=== PATIENT | male | born 1955 | race Caucasian/White ===

== ENCOUNTER 2025-07-14 08:54 | Emergency (ER) | payer MEDICARE, SELFPAY ==
--- OUTSIDE RECORDS SUMMARY | 2025-07-13 20:22 | XMS_ITS ---
Author Organization [facility] Address [address] [place] [phone] Care Team Providers Care Paraprofessional Aide Name Role Phone DR. YUKO DAY Primary Care Provider Allergies Allergen (clinical drug ingredient) Drug/Non Drug Allergy documented on EMR Reaction Allergy Type Onset Date Status Pollen pollen extracts (uncoded) Unknown Allergy Active Quinazolinones quinazolinones (uncoded) Unknown Allergy Active ciprofloxacin Ciprofloxacin Unknown Drug Allergy Active levofloxacin levoFLOXacin Unknown Drug Allergy A ctive mefloquine Mefloquine Unknown Drug Allergy Activ e REASON FOR VISIT chart prep Medications Medication SIG (Take, Route, Frequency, Duration) Notes Start Date End Date Status Mirtazapine 15 MG Tablet 1 tablet at bed time Orally Once a day Active Centrum Silver Men 50+ - Tablet 413-18-340-300 mcg Orally once a day Active Probiotic - Capsule 10 billion cell Oral ly once a day Active Levothyroxine Sodium 50 MCG Tablet 1 tablet in the morning on an empty stomach Orally Once A Day Every Other Day Active PreserVision AREDS 2 - Capsule 250-90-40-1 mg Orally once a day Active oxyCODONE HCl 5 MG Tablet 1 tablet Orally 4 times a day; Duration: 30 days As needed 07/10/2025 Active Breztri Aerosphere 160-9-4.8 MCG/ACT Aerosol 2 puffs Inhalation Twice a day Active Famotidine 10 MG Tablet 2 tablets Orally Twice a day Active Diclofenac Sodium 2.5 % Cream ti.i.d. to the right shoulder Externally 3 times a day 07/10/2025 Active Albuterol Sulfate 108 (90 Base) MCG/ACT Aerosol Powder Breath Activated 2 puffs as needed Inhalation every 6 hours Active Methocarbamol 500 MG Tablet 1 tablet Ora lly twice a day Active Gabapentin 100 MG Capsule 1 capsule at b edtime Orally twice a day Active Levothyroxine Sodium 200 MCG Tablet 1 tablet in the morning on an empty stomach Orally Once a day Active Fexofenadine HCl 180 MG Tablet 1 tab Orally Once a day Acti ve Furosemide 20 MG Tablet 1 tablet Orally Once a day Active Silvadene 1 % Cream 1 application Support Specialist ally Once a day Active Simvastatin 20 MG Tablet 1 tablet in the evening Orally Once a day Active Potassium Chloride ER 20 MEQ Tablet Extended Release 1 tablet with food Orally Once a day Active Senna Plus 8.6-50 MG Tablet 1 tablet as needed Orally Twice a day Active Ondansetron 4 MG Tablet Disintegrating 1 tablet on the tongue and allow to dissolve Orally every 8 hours As needed Active Arginaid - Packet 4.5gram Orally 3 times a day with meals Active Ozempic (2 MG/DOSE) 8 MG/3ML Solution Pen-injector as directed Subcutaneous once a day on sunday Active Acetaminophen 500 MG Tablet 1 tablet as needed Orally every 6 hrs Active Sucralfate 1 GM Tablet 1 tablet on an em pty stomach Orally daily Active MiraLax 17 GM/SCOOP Powder as directed Orally daily Active Metoprolol Tartrate 50 MG Tablet 1 tablet with food Orally Twice a day Active Midodrine HCl 2.5 MG Tablet 1 tablet Ora lly 3 times a day Active Aspirin 81 MG Tablet Delayed Release 2 tablet Orally Once a day Active Social History Tobacco Use: Social History Observation Description Date Details (start date - stop date) Current Smoker NA - NA Social History Tobacco Use: Social Info Question Answer Notes Tobacco Control (Standard) Tobacco use: Current smoker How often do you smoke cigarettes? Every day How many cigarettes a day do you smoke? 21-30 Encounters Encounter Location Date Provider Diagnosis [facility] [address] [place] [id number] 07/14/2025 YUKO DAY Plan Of Treatment Next Appt Details Provider Name:Sandrine Gaffney , 07/17/2025 09:45:00 AM, [address] [place] [address], [phone], Provider Name:Sandrine Gaffney , 07/22/2025 06:15:00 AM, [address] [place] [address], [id number], Progress Notes * Yuko LOUISE DDOB:[birth year] (69 yo M)Acc No.[id number]:07/14/2025 Patient: Yuko LO :1955 A ge:69 Y S ex:Male Address[facility] [place] [address] Subjective: * Chief Complaints: * C chadwick prep * Medical History: Wedge compression fracture of T5-T6 vertebra, subsequent encounter for fracture with routine healing Chronic obstructive pulmonary disease, unspecified Constipation, unspecified Erythematous condition, unspecified Disorder of the skin and subcutaneous tissue, unspecified Nausea Hypokalemia Chronic venous hypertension (idiopathic) with ulcer of left lower extremity Other seasonal allergic rhinitis Edema, unspecified Cough, unspecified Unspecified chronic bronchitis Essential (primary) hypertension Hypothyroidism, unspecified Thyrotoxicosis with diffuse goiter without thyrotoxic crisis or storm Type 2 diabetes mellitus without complications Hyperlipidemia Pain, unspecified Gastro-esophageal reflux disease without esophagitis Wedge compression fracture of first lumbar vertebra, subsequent encounter for fracture with routine healing Encounter for prophylactic measures, unspecified * Surgical History: carpal tunnel release cataract extraction colonoscopy colonoscopy colonoscopy colonoscopy tonsillectomy Surgical History verified. * Family History: F ather: diagnosed with Heart Disease. M other: diagnosed with Diabetes. F amily History Verified.. * Social History: T obacco Use: T obacco Control (Standard) T obacco use: C urrent smoker, H ow often do you smoke cigarettes? E very day, H ow many cigarettes a day do you smoke? 2 -30. Social History Verified. * Medications: T akingProbiotic - Capsule 10 billion cell Orally once a day PreserVision AREDS 2 - Capsule 250-90-40-1 mg Orally once a day Levothyroxine Sodium 50 MCG Tablet 1 tablet in the morning on an empty stomach Orally Once A Day Every Other Day Centrum Silver Men 50+ - Tablet 804-92-772-300 mcg Orally once a day Mirtazapine 15 MG Tablet 1 tablet at bedtime Orally Once a day Midodrine HCl 2.5 MG Tablet 1 tablet Orally 3 times a day Metoprolol Tartrate 50 MG Tablet 1 tablet with food Orally Twice a day Aspirin 81 MG Tablet Delayed Release 2 tablet Orally Once a day Arginaid - Packet 4.5gram Orally 3 times a day with mealsAcetaminophen 500 MG Tablet 1 tablet as needed Orally every 6 hrs Ozempic (2 MG/DOSE) 8 MG/3ML Solution Pen-injector as directed Subcutaneous once a day on sundayMiraLax 17 GM/SCOOP Powder as directed Orally daily Sucralfate 1 GM Tablet 1 tablet on an empty stomach Orally daily Simvastatin 20 MG Tablet 1 tablet in the evening Orally Once a day Silvadene 1 % Cream 1 application Externally Once a day Senna Plus 8.6-50 MG Tablet 1 tablet as needed Orally Twice a day Potassium Chloride ER 20 MEQ Tablet Extended Release 1 tablet with food Orally Once a day Ondansetron 4 MG Tablet Disintegrating 1 tablet on the tongue and allow to dissolve Orally every 8 hours As neededMethocarbamol 500 MG Tablet 1 tablet Orally twice a day Levothyroxine Sodium 200 MCG Tablet 1 tablet in the morning on an empty stomach Orally Once a day Gabapentin 100 MG Capsule 1 capsule at bedtime Orally twice a day Furosemide 20 MG Tablet 1 tablet Orally Once a day Fexofenadine HCl 180 MG Tablet 1 tab Orally Once a day Famotidine 10 MG Tablet 2 tablets Orally Twice a day Breztri Aerosphere 160-9-4.8 MCG/ACT Aerosol 2 puffs Inhalation Twice a day Albuterol Sulfate 108 (90 Base) MCG/ACT Aerosol Powder Breath Activated 2 puffs as needed Inhalation every 6 hours Diclofenac Sodium 2.5 % Cream ti.i.d. to the right shoulder Externally 3 times a day oxyCODONE HCl 5 MG Tablet 1 tablet Orally 4 times a day As neededTaking Probiotic - Capsule 10 billion cell Orally once a day Taking PreserVision AREDS 2 - Capsule 250-90-40-1 mg Orally once a day Taking Levothyroxine Sodium 50 MCG Tablet 1 tablet in the morning on an empty stomach Orally Once A Day Every Other Day Taking Centrum Silver Men 50+ - Tablet 923-89-834-300 mcg Orally once a day Taking Mirtazapine 15 MG Tablet 1 tablet at bedtime Orally Once a day Taking Midodrine HCl 2.5 MG Tablet 1 tablet Orally 3 times a day Taking Metoprolol Tartrate 50 MG Tablet 1 tablet with food Orally Twice a day Taking Aspirin 81 MG Tablet Delayed Release 2 tablet Orally Once a day Taking Arginaid - Packet 4.5gram Orally 3 times a day with mealsTaking Acetaminophen 500 MG Tablet 1 tablet as needed Orally every 6 hrs Taking Ozempic (2 MG/DOSE) 8 MG/3ML Solution Pen-injector as directed Subcutaneous once a day on sundayTaking MiraLax 17 GM/SCOOP Powder as directed Orally daily Taking Sucralfate 1 GM Tablet 1 tablet on an empty stomach Orally daily Taking Simvastatin 20 MG Tablet 1 tablet in the evening Orally Once a day Taking Silvadene 1 % Cream 1 application Externally Once a day Taking Senna Plus 8.6-50 MG Tablet 1 tablet as needed Orally Twice a day Taking Potassium Chloride ER 20 MEQ Tablet Extended Release 1 tablet with food Orally Once a day Taking Ondansetron 4 MG Tablet Disintegrating 1 tablet on the tongue and allow to dissolve Orally every 8 hours As neededTaking Methocarbamol 500 MG Tablet 1 tablet Orally twice a day Taking Levothyroxine Sodium 200 MCG Tablet 1 tablet in the morning on an empty stomach Orally Once a day Taking Gabapentin 100 MG Capsule 1 capsule at bedtime Orally twice a day Taking Furosemide 20 MG Tablet 1 tablet Orally Once a day Taking Fexofenadine HCl 180 MG Tablet 1 tab Orally Once a day Taking Famotidine 10 MG Tablet 2 tablets Orally Twice a day Taking Breztri Aerosphere 160-9-4.8 MCG/ACT Aerosol 2 puffs Inhalation Twice a day Taking Albuterol Sulfate 108 (90 Base) MCG/ACT Aerosol Powder Breath Activated 2 puffs as needed Inhalation every 6 hours Taking Diclofenac Sodium 2.5 % Cream ti.i.d. to the right shoulder Externally 3 times a day Taking oxyCODONE HCl 5 MG Tablet 1 tablet Orally 4 times a day As neededDiscontinuedCyclobenzaprine HCl 10 MG Tablet 1 tablet at bedtime as needed Orally 3 times a day Discontinued Cyclobenzaprine HCl 10 MG Tablet 1 tablet at bedtime as needed Orally 3 times a day * Allergies: C iprofloxacinlevoFLOXacinMefloquinepollen extractsquinazolinonesyesAllergies Verified. 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
--- NOTE | ~2025-07-14 | CT_ITS ---
CT CERVICAL SPINE WITHOUT CONTRAST CLINICAL HISTORY: Fall Technique: Axial images thoracic inlet to skull base Sagittal and coronal reformats. No contrast CT images acquired with automatic exposure control for dose reduction DLP: 435 mGy-cm Comparison: None Findings: No acute fracture or listhesis. Vertebral bodies normal height and alignment. Mild degenerative changes. Disc spaces maintained. Prevertebral soft tissues within normal limits. Visualized lung apices: Emphysema. Visualized thyroid: Unremarkable. No enlarged cervical nodes. IMPRESSION: 1. No acute findings. Reviewed, dictated and finalized at location [address]. [address] IMPRESSION: 1. No acute findings.
--- NOTE | ~2025-07-14 | CT_ITS ---
EXAMINATION: CT brain wo con DATE: 07/14/2025 13:10 INDICATION: Fall TECHNIQUE: Computed tomography (CT) of the head was performed without intravenous contrast. Sagittal and coronal reconstructions were performed. The mA was adjusted according to patient size. Iterative reconstruction technique was employed. The dose-length product was 605.33 mGy-cm. COMPARISON: None FINDINGS: Left preseptal periorbital soft tissue swelling. No fracture or post septal inflammatory stranding. No acute intracranial hemorrhage, acute infarction or abnormal extra axial fluid collection. There is mild scattered white matter hypoattenuation consistent with chronic small vessel ischemic disease. Symmetric prominence of the sulci and ventricles consistent with mild age-appropriate diffuse cerebral volume loss. Ventricles are normal and symmetric. No mass/mass effect. Changes of bilateral intraocular lens replacement. The orbits, paranasal sinuses and mastoid air cells are normal. Small amount of debris/cerumen at the right external auditory canal. IMPRESSION: 1. No fracture or acute intracranial process. 2. Age-related changes including mild diffuse volume loss and mild scattered white matter hypoattenuation consistent with chronic small vessel ischemic disease. Reviewed, dictated and finalized at location A. GLUER IMPRESSION: 1. No fracture or acute intracranial process. 2. Age-related changes including mild diffuse volume loss and mild scattered wh ite matter hypoattenuation consistent with chronic small vessel ischemic diseas e.
--- NOTE | ~2025-07-14 | XR_ITS ---
Examination: XR shoulder RT min 2V Clinical History: Fall Comparison: None Technique: 3 views right shoulder Findings/impression: 1. No fracture or dislocation right shoulder. Reviewed, dictated and finalized at location R. 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
--- NOTE | ~2025-07-14 | XR_ITS ---
Examination: XR hip RT 2V w AP pelvis Clinical History: Fall Comparison: None Technique: 2 views right hip with AP pelvis Findings/impression: 1. No fracture or dislocation right hip. 2. No pelvic fracture identified Reviewed, dictated and finalized at location R. LE FEEDER
[2025-07-14 08:58] VITALS: BP 108/59; PULSE 114; RESP 19; TEMP 36.6; O2SAT 98
[2025-07-14 11:48] VITALS: BP 132/70; PULSE 116; RESP 14; O2SAT 98
--- NOTE | 2025-07-14 12:27 | ED_ITS ---
HPI - Fall General Chief Complaint: Fall Stated Complaint: fell out of bed Time Seen by Provider: 07/14/25 12:18 Source: patient and EMS Mode of arrival: EMS Limitations: no limitations History of Present Illness HPI Narrative: 69 years old white male came [facility] ambulance after a fall. Patient is wheelchair-bound, trying to get out of a recliner, fell, no loss of consciousness complaining of left forehead bruises no headache, right shoulder pain, right hip pain. Patient is awake, alert oriented x4 denying other injuries or any new symptoms. Patient is status post spine surgery at [facility] on June 26 of this year. History of diabetes hypertension hyperlipidemia COPD congestive heart failure Gilda Related Data Allergies Allergy/AdvReac Type Severity Reaction Status Date / Time ciprofloxacin AdvReac Mild Confusion Verified 07/14/25 11:54 levofloxacin AdvReac Mild Confusion Verified 07/14/25 11:54 Review of Systems Review of Systems: All systems reviewed & are unremarkable except as noted in HPI and below Exam Narrative: General appearance: Well-developed, well-nourished Skin: Normal color left forehead bruises including left upper eyelid Head: Normocephalic, nontraumatic Eyes: Clear conjunctiva ENT: Oropharynx normal, ears normal, nose normal Neck: Supple, nontender Chest and respiratory: Airway patent, no respiratory distress, no accessory muscle use Heart: Regular rate/rhythm Abdomen: Soft, nontender, no organomegaly, quiet bowel sounds Vascular: Normal peripheral pulses, normal capillary refill. Musculoskeletal: Limited range of motion of the right shoulder, no bruises, positive deformity, no swelling Limited range of motion of the right hip, no bruises or swelling or deformity Neurologic: Alert and oriented ?3, PREHEMMER is normal as tested, no gross motor deficit Course Vital Signs Vital signs: Vital Signs Temperature 36.6 C 07/14/25 08:58 Pulse Rate 114 H 07/14/25 08:58 Respiratory Rate 19 07/14/25 08:58 Blood Pressure 108/59 L 07/14/25 08:58 Pulse Oximetry 98 07/14/25 08:58 Oxygen Delivery Room Air 07/14/25 08:58 Temperature 36.6 C 07/14/25 08:58 Pulse Rate 110 H 07/14/25 13:43 Respiratory Rate 14 07/14/25 13:43 Blood Pressure 117/80 07/14/25 13:43 Pulse Oximetry 96 07/14/25 13:43 Oxygen Delivery Room Air 07/14/25 11:48 [facility] Narrative Medical decision making narrative: PATIENT CAME FROM RETIREMENT TRYING TO GET OUT OF A RECLINER FELL COMPLAINING OF RIGHT SHOULDER, RIGHT HIP PAIN. NO LOSS OF CONSCIOUSNESS VITAL SIGNS SHOWING BLOOD PRESSURE 108/59, HEART RATE 114 OTHERWISE WITHIN NORMAL LIMIT PHYSICAL EXAMINATION SHOWING DIFFUSE AND LIMITED RANGE OF MOTION OF THE RIGHT HIP AND RIGHT SHOULDER HISTORY OF ROTATOR CUFF SYNDROME BILATERALLY DIFFERENTIAL DIAGNOSIS INCLUDE CONTUSION VERSUS FRACTURE CT HEAD WITHOUT CONTRAST SHOWED NO ACUTE ABNORMALITY CT CERVICAL SPINE WITHOUT CONTRAST SHOWED NO ACUTE ABNORMALITY X-RAY OF THE RIGHT SHOULDER SHOWED NO ACUTE OSSEOUS ABNORMALITY X-RAY OF THE RIGHT HIP AND PELVIS SHOWED NO ACUTE ABNORMALITY. DIAGNOSIS CONTUSION STATUS POST FALL DISCHARGE BACK TO RETIREMENT THE PT WAS DISCHARGED TO HOME.THE PT,S CONDITION UPON DISCHARGE WAS FAIR,EDUCATION WAS PROVIDED TO THE PT IN REFERENCE TO THE FINAL IMPRESSION,DISCHARGE STUDY RESULTS,TREATMENT,PROGNOSIS AND NEED FOR FOLLOW UP . Differential Diagnosis Differential Diagnosis: ABOVE Medical Records I have reviewed the following patient records and this information was taken into consideration when formulating the assessment and plan.: previous labs and previous ER visits Lab Data [facility] Lab Attestation statement: I personally reviewed the patient's lab results. Imaging Data My impression: Impressions Head CT 07/14/25 13:11 IMPRESSION: 1. No fracture or acute intracranial process. 2. Age-related changes including mild diffuse volume loss and mild scattered white matter hypoattenuation consistent with chronic small vessel ischemic disease. Cervical Spine CT 07/14/25 13:19 IMPRESSION: 1. No acute findings. X-ray of the right shoulder and right hip with pelvis showed no acute osseous abnormality Radiologist's impression: ITS Impressions Head CT 07/14/25 13:11 IMPRESSION: 1. No fracture or acute intracranial process. 2. Age-related changes including mild diffuse volume loss and mild scattered white matter hypoattenuation consistent with chronic small vessel ischemic disease. Cervical Spine CT 07/14/25 13:19 IMPRESSION: 1. No acute findings. Critical Care Time Critical Care Time Critical Care Time: No Discharge Plan Discharge Clinical Impression: Fall, Shoulder pain, Hip pain Patient Disposition: NH Intermediate/Asst Living Condition: Stable Instructions: Fall Prevention for Older Adults (ED), Shoulder Pain (ED), Hip Pain (ED) Additional Instructions: Return if symptoms are worsening , call your family physician for appointment, take Tylenol as as needed for aches and pain, continue home medications. Patient Language: Korean Follow-up/Referrals: PHYSICIAN NOT ON STAFF,NONSTAFF [Non-Staff]
[2025-07-14] MEDS: MORPHINE SULFATE INJ (*CRX) 10 MG/ML AMP 6 MG IM (13:39)
[2025-07-14] MEDS: ONDANSETRON HCL ODT 4 MG TABLET PO (13:39)
[2025-07-14 13:43] VITALS: BP 117/80; PULSE 110; RESP 14; O2SAT 96
--- OUTSIDE RECORDS SUMMARY | 2025-07-14 13:46 | XMS_ITS | Encounter Summary ---
Author Organization [facility] Address [address] [place] [phone] Phone Care Team Providers Care Truss Maker Name Role Phone Ephraim Ribera MD Primary Care Provider [phone] Reason for Visit * Reason Comments Medication Refill Encounter Details Date Type Department Care Team (Late st Contact Info) Description 01/20/2022 Refill [facility] - Internal [facility] - [place] [address] [place] [id number] Ephraim Ribera MD [address] [place] [address] Medication Refill Social History Tobacco Use Types Packs/Day Years Used Date Smoking Tobacco: Every Day Cigarettes Smokeless Tobacco: Never Alcohol Use Standard Drinks/Week Comments Never 0 (1 standard drink = 0.6 oz pur e alcohol) PHQ-2 Answer Date Recorded Total Score - Questions 1-9 0 07/23 Sexually Active Control Partners Comments Not Currently Sex and Gender Information Value Date Recorded Sex Assigned at Not on file Legal Sex Male 12:16 AM CDT Gender Identity Not on file Sexual Orientation Not on file documented as of this encounter Miscellaneous Notes * Telephone Encounter - Anusha Conner RN - 01/20/2022 7:20 AM CDT Per nursing clinical judgement, provider to review and approve the medication(s) order(s) if appropriate. Requested Prescriptions Pending Prescriptions Disp Refills acetaminophen-codeine (TYLENOL #3) 300-30 MG Tablet [Pharmacy Med Name: ACETAMINOPHEN-COD #3 TABLET] 90 Tablet 0 Sig: TAKE ONE TABLET BY MOUTH EVERY 8 HOURS NEEDED FOR MODERATE OR MORE SEVERE PAIN Not Delegated - Opioid Combinations Protocol Failed - 01/20/2022 12:13 AM Failed - This refill cannot be delegated Passed - Visit with relevant provider in past 12 months or upcoming 90 days Recent Visits Date Type Provider Dept 11/02/21 Office Visit Ephraim Ribera MD [facility] [place] 08/04/21 Office Visit Ephraim Ribera MD [facility] [place] 04/28/21 Office Visit Ephraim Ribera MD [facility] [place] 01/20/21 Office Visit Ephraim Ribera MD [facility] [place] Showing recent visits within past 365 days and meeting all other requirements Future Appointments Date Type Provider Dept 02/02/22 Appointment Ephraim Ribera MD [facility] [place] Showing future appointments within next 90 days and meeting all other requirements documented in this encounter Plan of Treatment Upcoming Encounters Date Type Department Care Team (Late st Contact Info) Description 2025 11:40 AM FINANCIAL REP Office Visit [facility] [place] [address] [place] [address] Ephraim Ribera MD [address] [place] [address] documented as of this encounter Visit Diagnoses Diagnosis Primary generalized (osteo)arthritis Generalized osteoarthrosis, involving multiple sites documented in this encounter Additional Health Concerns Assessment Noted Time PHQ-9 Depression Total Score: 0 08/11/19 21 10:00 AM FINANCIAL REP documented as of this encounter Care Teams Truss Maker Relationship Specialty Start Date End Date Ephraim Ribera MD PCP - General Internal Medicine 9/18/20 documented as of this encounter
--- OUTSIDE RECORDS SUMMARY | 2025-07-14 13:46 | XMS_ITS | Encounter Summary ---
Author Organization [facility] Address [address] [place] [address] Phone Care Team Providers Care Revenue Inspector Name Role Phone Ephraim Ribera MD Primary Care Provider [phone] Reason for Visit * Reason Comments Medication Refill Encounter Details Date Type Department Care Team (Late st Contact Info) Description 11/14/2023 [facility]ill [facility] - [place] [address] [place] [phone] Ephraim Ribera MD [address] [place] [address] Medication Refill Social History Tobacco Use Types Packs/Day Years Used Date Smoking Tobacco: Every Day Cigarettes Passive Smoke Exposure: Current Smokeless Tobacco: Never Alcohol Use Standard Drinks/Week Comments Never 0 (1 standard drink = 0.6 oz pur e alcohol) [facility] Utilities Answer Date Recorded In the past 12 months has [employer], gas, oil, or water [employer] threatened to shut off services in your home? No 10/30/2023 Social Connection and Isolation Panel Answer Date Recorded In a typical week, how many times do you talk on the phone with family, friends, or neighbors? More than three times a week 10/30/2023 How often do you get togethe r with friends or relatives? Once a week 10/30/2023 How often do you attend [facility] or mandaeism services? Never 10/30/2023 Do you belong to any clubs o r organizations such as pentecostal groups, unions, fraternal or athletic groups, or school groups? No 10/30/2023 How often do you attend meet ings of the clubs or organizations you belong to? Never 10/30/2023 Are you , , di vorced, , never , or living with a partner? 10/30/2023 AUDIT-C Answer Date Recorded Q1: How often do you have a drink containing alcohol? Never 10/30/2023 Q2: How many drinks containi ng alcohol do you have on a typical day when you are drinking? Patient does not drink Q3: How often do you have si x or more drinks on one occasion? Never 10/30/2023 Overall Financial Resource Strain (CARDIA) Answe r Date Recorded How hard is it for you to pa y for the very basics like food, housing, medical care, and heating? Not hard at all 10/30/2023 PHQ-2 Answer Date Recorded Total Score - Questions 1-9 0 07/23 [facility] - Occupational Stress Questionnaire Answer Date Recorded Do you feel stress - tense, restless, nervous, or anxious, or unable to sleep at night because your mind is troubled all the time - these days? Not at all 10/30/2023 Exercise Vital Sign Answer Date Recorde d On average, how many days pe r week do you engage in moderate to strenuous exercise (like a brisk walk)? 0 days 10/30/2023 On average, how many minutes do you engage in exercise at this level? 0 min 10/30/2023 Hunger Vital Sign Answer Date Recorded Within the past 12 months, y ou worried that your food would run out before you got the money to buy more. Never true 10/30/19 24 Within the past 12 months, t he food you bought just didn't last and you didn't have money to get more. Never true 10/30/2023 PRAPARE - Transportation Answer Date Re corded In the past 12 months, has l ack of transportation kept you from medical appointments or from getting medications? No 03/2024 In the past 12 months, has l ack of transportation kept you from meetings, work, or from getting things needed for daily living? No 10/30/2023 Housing Stability Vital Sign Answer Stanley e Recorded In the last 12 months, was t here a time when you were not able to pay the mortgage or rent on time? No 10/30/2023 In the last 12 months, how many places have you lived? 1 10/30/2023 In the last 12 months, was t here a time when you did not have a steady place to sleep or slept in a group home (including now)? No 10/30/2023 Education Answer Date Recorded What is the highest level of school you have completed or the highest degree you have received? Professional school degree (e.g., , DDS, DVM, CODEY) 11/18/2022 Sexually Active Control Partners Comments Not Currently Sex and Gender Information Value Date Recorded Sex Assigned at Not on file Legal Sex Male 12:16 AM CDT Gender Identity Not on file Sexual Orientation Not on file documented as of this encounter Miscellaneous Notes * Telephone Encounter - Mandy Shook RN - 11/14/2023 9:53 AM CDT Medication(s) refilled and signed per [facility] Chronic Medication Refill Standing Order for Pediatricand Adult Patients. Requested Prescriptions Pending Prescriptions Disp Refills Potassium Chloride ER (KLORCON) 20 MEQ Tablet Controlled Release [Pharmacy Med Name: POTASSIUM CL ER 20 MEQ TABLET] 450 Tablet 1 Sig: TAKE 1 TABLET BY MOUTH 5 TIMES PER DAY Potassium Supplement Protocol Passed - 11/14/2023 12:23 AM Passed - Normal serum potassium in past 12 months POTASSIUM Date Value Ref Range Status 05/31/2023 3.5 3.5 - 5.1 mmol/L Final Passed - Visit with relevant provider in past 12 months or upcoming 90 days Recent Visits Date Type Provider Dept 11/01/23 Office Visit Ephraim Ribera MD [facility] [place] 08/02/23 Office Visit Ephraim Ribera MD [facility] [place] 04/26/23 Office Visit Ephraim Ribera MD [facility] [place] 11/23/22 Office Visit Ephraim Ribera MD [facility] [place] Showing recent visits within past 365 days and meeting all other requirements Future Appointments Date Type Provider Dept 01/29/24 Appointment Elpidio Alfaro [facility] [address] [place] 01/31/24 Appointment Ephraim Ribera MD [facility] [address] [place] Showing future appointments within next 90 days and meeting all other requirements documented in this encounter Plan of Treatment Upcoming Encounters Date Type Department Care Team (Late st Contact Info) Description 2025 11:40 AM SONAR SUBSYSTEM EQUIPMENT OPERATOR Office Visit [facility] - [facility] - [place] [address] [place] [address] Ephraim Ribera MD [address] [place] [address] documented as of this encounter Visit Diagnoses Not on filedocumented in this encounter Additional Health Concerns Assessment Noted Time PHQ-9 Depression Total Score: 0 08/02/19 10:17 AM SONAR SUBSYSTEM EQUIPMENT OPERATOR documented as of this encounter Care Teams Revenue Inspector Relationship Specialty Start Date End Date Ephraim Ribera MD PCP - General Internal Medicine 04/09/20 documented as of this encounter
--- OUTSIDE RECORDS SUMMARY | 2025-07-14 13:46 | XMS_ITS | Encounter Summary ---
Author Organization [facility] Address [address] [place] [address] Phone Care Team Providers Care Fryer Operator Name Role Phone Ephraim Ribera MD Primary Care Provider [phone] Reason for Visit * Reason Comments Medication Refill Encounter Details Date Type Department Care Team (Late st Contact Info) Description 07/01/2023 Refill [facility] - [place] [address] [place] [phone] Ephraim Ribera MD [address] [place] [address] Medication Refill Social History Tobacco Use Types Packs/Day Years Used Date Smoking Tobacco: Every Day Cigarettes Passive Smoke Exposure: Current Smokeless Tobacco: Never Alcohol Use Standard Drinks/Week Comments Never 0 (1 standard drink = 0.6 oz pur e alcohol) PHQ-2 Answer Date Recorded Total Score - Questions 1-9 0 07/23 Education Answer Date Recorded What is the [...] encounter Miscellaneous Notes * Telephone Encounter - Ephraim Ribera MD - 07/02/2023 4:37 PM REGULATORY AFFAIRS SPEC Dose is changed LATORY AFFAIRS SPEC * Telephone Encounter - Mandy Shook RN - 07/02/2023 3:36 PM CST Medication failed the protocol, provider to review and approve the medication order if appropriate. Requested Prescriptions Pending Prescriptions Disp Refills levothyroxine (SYNTHROID) 300 MCG Tablet [Pharmacy Med Name: LEVOTHYROXINE 300 MCG TABLET] 90 Tablet 1 Sig: TAKE 1 TABLET BY MOUTH EVERY DAY Thyroid Hormones Protocol Failed - 07/01/2023 7:40 AM Failed - Normal TSH in past 12 months TSH Date Value Ref Range Status 05/31/2023 0.030 (L) 0.300 - 5.000 mIU/L Final Passed - Visit with relevant provider in past 12 months or upcoming 90 days Recent Visits Date Type Provider Dept 04/26/23 Office Visit [facility] [place] 11/23/22 Office Visit Ephraim Ribera MD [facility] [place] 08/23/22 Office Visit [facility] [place] Showing recent visits within past 365 days and meeting all other requirements Future Appointments Date Type Provider Dept 08/02/23 Appointment Ephraim Ribera MD [facility] [place] Showing future appointments within next 90 days and meeting all other requirements LATORY AFFAIRS SPEC documented in this encounter Plan of Treatment Upcoming Encounters Date Type Department Care Team (Late st Contact Info) Description 2025 11:40 AM REGULATORY AFFAIRS SPEC Office Visit [facility] - [facility] - [place] [address] [place] [address] Ephraim Ribera MD [address] [place] [address] documented as of this encounter Visit Diagnoses Not on filedocumented in this encounter Additional Health Concerns Assessment Noted Time PHQ-9 Depression Total Score: 0 08/11/19 21 10:00 AM REGULATORY AFFAIRS SPEC documented as of this encounter Care Teams Fryer Operator Relationship Specialty Start Date End Date Ephraim Ribera MD PCP - General Internal Medicine 04/09/20 documented as of this encounter
--- OUTSIDE RECORDS SUMMARY | 2025-07-14 13:46 | XMS_ITS | Encounter Summary ---
Author Organization [facility] Address [address] [place] [address] Phone Care Team Providers Care Applications Support Lead Name Role Phone Ephraim Ribera MD Primary Care Provider [phone] Reason for Visit * Reason Comments Medication Refill Encounter Details Date Type Department Care Team (Late st Contact Info) Description 11/17/2023 Refill [facility] - [place] [address] [place] [phone] Ephraim Ribera MD [address] [place] [address] Medication Refill Social History Tobacco Use Types Packs/Day Years Used Date Smoking Tobacco: Every Day Cigarettes Passive Smoke Exposure: Current Smokeless Tobacco: Never Alcohol Use Standard Drinks/Week Comments Never 0 (1 standard drink = 0.6 oz pur e alcohol) [facility] Utilities Answer Date Recorded In the past 12 months has [employer], gas, oil, or water [employer] threatened to shut off services in your home? No 10/30/2023 Social Connection and Isolation Panel Answer Date Recorded In a typical week, how many times do you talk on the phone with family, friends, or neighbors? More than three times a week 10/30/2023 How often do you get togethe r with friends or relatives? Once a week 10/30/2023 How often do you attend [facility] or [facility] services? Never 10/30/2023 Do you belong to any clubs o r organizations such as caodaism groups, unions, fraternal or athletic groups, or [...] Total Score - Questions 1-9 0 07/23 [facility] - Occupational Stress [...] place to sleep or slept in a [facility] (including now)? No 10/30/2023 Education Answer Date [...] Telephone Encounter - Mandy Shook RN - 11/19/2023 1:25 PM CDT Medication(s) [facility] Chronic Medication Refill Standing Order for Pediatricand Adult Patients. Requested Prescriptions Pending Prescriptions Disp Refills simvastatin (ZOCOR) 20 MG Tablet [Pharmacy Med Name: SIMVASTATIN 20 MG TABLET] 90 Tablet 1 Sig: TAKE 1 TABLET BY MOUTH EVERY DAY AT NIGHT Hmg CoA Reductase Inhibitors Protocol Passed - 11/17/2023 1:24 AM Passed - Visit with relevant provider in past 12 months or upcoming 90 days Recent Visits Date Type Provider Dept 11/01/23 Office Visit Ephraim Ribera MD [facility] [place] 08/02/23 Office Visit Ephraim Ribera MD [facility] [place] 04/26/23 Office Visit Ephraim Ribera MD [facility] [place] 11/23/22 Office Visit Ephraim Ribera MD [facility] [place] Showing recent visits within past 365 days and meeting all other requirements Future Appointments Date Type Provider Dept 01/29/24 Appointment Elpidio Alfaro 01/31/24 Appointment Ephraim Ribera MD [facility] [place] Showing future appointments within next 90 days and meeting all other requirements Passed - Lipid panel in past 12 months LDL Date Value Ref Range Status 05/31/2023 101 <130 mg/dL Final HDL CHOLESTEROL Date Value Ref Range Status 05/31/2023 47 >40 mg/dL Final CHOLESTEROL Date Value Ref Range Status 05/31/2023 170 <200 mg/dL Final TRIGLYCERIDES Date Value Ref Range Status 05/31/2023 108 <150 mg/dL Final VLDL Date Value Ref Range Status 05/31/2023 22 10 - 50 mg/dL Final CHOL/HDL RATIO Date Value Ref Range Status 05/31/2023 3.6 0.0 - 4.4 Final NON-HDL CHOLESTEROL Date Value Ref Range Status 05/31/2023 123 <130 mg/dL Final Passed - CMP in past 12 months SODIUM Date Value Ref Range Status 05/31/2023 142 136 - 145 mmol/L Final POTASSIUM Date Value Ref Range Status 05/31/2023 3.5 3.5 - 5.1 mmol/L Final CHLORIDE Date Value Ref Range Status 05/31/2023 99 98 - 107 mmol/L Final CO2, VENOUS Date Value Ref Range Status 05/31/2023 27 22 - 30 mmol/L Final ANION GAP Date Value Ref Range Status 05/31/2023 19.5 (H) <18.0 mmol/L Final GLUCOSE Date Value Ref Range Status 05/31/2023 108 (H) 70 - 99 mg/dL Final BUN Date Value Ref Range Status 05/31/2023 19 8 - 26 mg/dL Final CREATININE, BLOOD Date Value Ref Range Status 05/31/2023 0.92 0.70 - 1.30 mg/dL Final BUN/CREATININE RATIO Date Value Ref Range Status 05/31/2023 21 (H) 12 - 20 ratio Final TOTAL PROTEIN Date Value Ref Range Status 05/31/2023 7.3 6.3 - 8.2 g/dL Final ALBUMIN Date Value Ref Range Status 05/31/2023 4.1 3.5 - 5.0 g/dL Final A/G RATIO Date Value Ref Range Status 05/31/2023 1.3 1.0 - 2.2 Final CALCIUM Date Value Ref Range Status 05/31/2023 10.2 8.7 - 10.5 mg/dL Final T BILI Date Value Ref Range Status 05/31/2023 0.7 0.2 - 1.2 mg/dL Final SGOT (AST) Date Value Ref Range Status 05/31/2023 18 5 - 34 U/L Final SGPT (ALT) Date Value Ref Range Status 05/31/2023 18 0 - 55 U/L Final ALKALINE PHOSPHATASE Date Value Ref Range Status 05/31/2023 110 40 - 150 U/L Final GFR, EST. NONAFRICAN Date Value Ref Range Status 05/31/2023 >60 >=60 Final GFR, EST. Date Value Ref Range Status 05/31/2023 >60 >=60 Final GFR, ESTIMATED Date Value Ref Range Status 05/31/2023 >60 >=60 Final Comment: Creatinine Clearance is the preferred criteria for selecting drug dose adjustments in renally impaired patients. The GFR is provided as additional pertinent clinical information. GFR is reported in mL/min/1.73 sq m. Calculation based on the Chronic Kidney Disease Epidemiology Collaboration (CKD- EPI) equation refitwithout adjustment for race. IS THE PATIENT REQUIRED TO BE FASTING? Date Value Ref Range Status 05/31/2023 No Final furosemide (LASIX) 80 MG Tablet [Pharmacy Med Name: FUROSEMIDE 80 MG TABLET] 90 Tablet 1 Sig: TAKE 1 TABLET BY MOUTH EVERY DAY Diuretics Protocol Passed - 11/17/2023 1:24 AM Passed - Serum potassium on record in past 12 months POTASSIUM Date Value Ref Range Status 05/31/2023 3.5 3.5 - 5.1 mmol/L Final Passed - Serum sodium on record in past 12 months SODIUM Date Value Ref Range Status 05/31/2023 142 136 - 145 mmol/L Final Passed - Blood pressure on record in past 12 months Clinician-entered: BP Readings from Last 3 Encounters: 11/01/23 100/56 08/02/23 110/58 04/26/23 130/60 Patient-entered: No data recorded Passed - Visit with relevant provider in past 12 months or upcoming 90 days Recent Visits Date Type Provider Dept 11/01/23 Office Visit Ephraim Ribera MD [facility] [place] 08/02/23 Office Visit Ephraim Ribera MD [facility] [place] 04/26/23 Office Visit Ephraim Ribera MD [facility] [place] 11/23/22 Office Visit Ephraim Ribera MD [facility] [place] Showing recent visits within past 365 days and meeting all other requirements Future Appointments Date Type Provider Dept 01/29/24 Appointment LabElpidio [facility] [place] 01/31/24 Appointment Ephraim Ribera MD [facility] [place] Showing future appointments within next 90 days and meeting all other requirements Passed - GFR on record in past 12 months GFR, EST. NONAFRICAN Date Value Ref Range Status 05/31/2023 >60 >=60 Final metoprolol tartrate (LOPRESSOR) 100 MG Tablet [Pharmacy Med Name: METOPROLOL TARTRATE 100 MG TAB] 360 Tablet 1 Sig: TAKE 2 TABLETS BY MOUTH TWICE A DAY Beta-Blockers Protocol Passed - 11/17/2023 1:24 AM Passed - BP on record in the past year Clinician-entered: BP Readings from Last 3 Encounters: 11/01/23 100/56 08/02/23 110/58 04/26/23 130/60 Patient-entered: No data recorded Passed - Visit with relevant provider in past 12 months or upcoming 90 days Recent Visits Date Type Provider Dept 11/01/23 Office Visit Ephraim Ribera MD [facility] [place] 08/02/23 Office Visit Ephraim Ribera MD [facility] [place] 04/26/23 Office Visit Ephraim Ribera MD [facility] [place] 11/23/22 Office Visit Ephraim Ribera MD [facility] [place] Showing recent visits within past 365 days and meeting all other requirements Future Appointments Date Type Provider Dept 01/29/24 Appointment [facility]pidio [facility] [place] 01/31/24 Appointment Ephraim Ribera MD [facility] [place] Showing future appointments within next 90 days and meeting all other requirements documented in this encounter Plan of Treatment Upcoming Encounters Date Type Department Care Team (Late st Contact Info) Description 2025 11:40 AM ACQUISITIONS EDITOR Office Visit [facility] - Primary Care - [place] [address] [place] [address] Ephraim Ribera MD [address] [place] [address] documented as of this encounter Visit Diagnoses Not on filedocumented in this encounter Additional Health Concerns Assessment Noted Time PHQ-9 Depression Total Score: 0 08/02/19 24 10:17 AM ACQUISITIONS EDITOR documented as of this encounter Care Teams Applications Support Lead Relationship Specialty Start Date End Date Ephraim Ribera MD PCP - General Internal Medicine 04/09/20 documented as of this encounter
--- OUTSIDE RECORDS SUMMARY | 2025-07-14 13:46 | XMS_ITS | Encounter Summary ---
Author Organization [facility] Address [address] [place] [address] Care Team Providers Care Metal Sash Setter Name Role Phone Unavailable Primary Care Provider Unavailabl e Encounter Details Date Type Department Care Team (Late st Contact Info) Description 08/21/2023 Lab Requisition [facility] - Derm[facility] Lab [address] [place] [phone] Get Sultana MD [facility] DERMATOLOGY [address] [place] [phone] Neoplasm of uncertain behavior of skin Social History Tobacco Use Types Packs/Day Years Used Date Smoking Tobacco: Never Assessed Sex and Gender Information Value Date Recorded Sex Assigned at Not on file Legal Sex Male 4:01 PM BAGGAGE HANDLING SUPERVISOR Gender Identity Not on file Sexual Orientation Not on file documented as of this encounter Plan of Treatment Not on file documented as of this encounter Procedures Procedure Name Priority Date/Time Associated Diagnosis Comments DERMATOPATHOLOGY Routine 08/21/2023 3:33 AM BAGGAGE HANDLING SUPERVISOR Neoplasm of uncertain behavior of skin documented in this encounter Results * DERMATOPATHOLOGY (08/21/2023 3:33 AM BAGGAGE HANDLING SUPERVISOR) Case Report Dermatopathology Report Case: [id number] Authorizing Provider: Get Sultana MD Collected: 08/21/2023 03:33 AM Ordering Location: [facility] DermPath Lab Received: 08/23/2023 07:04 AM Pathologist: Liv Cevallos MD Specimen: Skin, left inferior malar cheek 4 5:28 PM BAGGAGE HANDLING SUPERVISOR DERMATOPATHOLOGY LABORATORY Final Diagnosis Specimen A. 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 The specimen consists of a shave biopsy measuring 5x5x1 mm. Jar 0. 4 5:28 PM [facility] DERMATOPATHOLOGY LABORATORY Microscopic Description Specimen A. SKIN, left inferior malar cheek: The epidermis is eroded. There are nests of cytologically bland melanocytes within the dermis that mature with depth. 4 5:28 PM [facility] DERMATOPATHOLOGY LABORATORY Disclaimer An external and internal positive and negative controls are appropriate for the histochemical, immunohistochemical and immunofluorescence stain(s) in this case (if any), except where stated explicitly. The performance characteristics of the stain(s) cited in this report were developed and its performance characteristic determined by the Dermatopathology Laboratory at [facility], directed by Dr. Elmo Meraz. These tests need not be, and therefore are not, approved by the [place] Food and Drug Administration. The tests are used for clinical purposes. Billing Codes Specimen Charges Stain Charges 21011 1 4 5:28 PM [facility] DERMATOPATHOLOGY LABORATORY Embedded Images 4 5:28 PM [facility] DERMATOPATHOLOGY LABORATORY Pathology/Cytolo gy TISSUE SPECIMEN FROM SKIN / Unknown 08/21/2023 3:33 AM BAGGAGE HANDLING SUPERVISOR 08/23/2023 7:04 AM BAGGAGE HANDLING SUPERVISOR Get Sultana MD LAB - PATHOLOGY/CYTOLOGY RADHA DRAPER Final Result DERMATOPATHOLOGY LABORATORY [facility] - Department of Dermatology [address], [address] [phone] documented in this encounter Visit Diagnoses Diagnosis Neoplasm of uncertain behavior of skin documented in this encounter
--- OUTSIDE RECORDS SUMMARY | 2025-07-14 13:46 | XMS_ITS | Clinical Summary ---
Author Organization [facility] Address [address] [place] [address] Phone Care Team Providers Care Bag Press Operator Name Role Phone Ephraim Ribera MD Primary Care Provider Allergies Active Allergy Reactions Criticality Noted Date Comments Ciprofloxacin Other (see Comments) 04/28/2014 AGITATION Other-Environmental Allergen (Not Found In Search) Unknown 08/09/2015 Medications aspirin EC 81 MG Tablet Delayed Response Take by mouth. Activ e guaiFENesin 200 MG Tablet Take by mouth. A ctive clotrimazole (MYCELEX) 10 MG Fidencio Take 1 Fidencio by mouth 5 times daily. 30 Fidencio 2 04/28/20 21 Active sucralfate (CARAFATE) 1 GM Tablet TAKE 1 TABLET BY MOUTH THREE TIMES A DAY 90 Tablet 5 04/13/20 22 Active famotidine (PEPCID) 20 MG Tablet TAKE 1 TABLET BY MOUTH TWICE A DAY 180 Tablet 1 07/20/20 22 Active metOLazone (ZAROXOLYN) 2.5 MG Tablet TAKE 1 TABLET BY MOUTH on Sun, 36 Tablet 9 05/22/20 24 Active ondansetron (ZOFRAN) 4 MG Tablet TAKE 1 TABLET BY MOUTH EVERY 8 HOURS NEEDED FOR NAUSEA FIRST LINE 30 Tablet 12/02/19 25 Active Budeson-Glycop yrrol-Formoter ol (Breztri Aerosphere) 160-9-4.8 MCG/ACT Aerosol TAKE 2 PUFFS BY MOUTH TWICE A DAY 54 g 3 12/03/19 25 Active levothyroxine (SYNTHROID) 50 MCG Tablet TAKE 1 TABLET BY MOUTH DAILY. WITH 200MCG TAB TO MAKE 250MCG/DAY 90 Tablet 3 01/06/20 25 Active Ozempic, 2 MG/DOSE, 8 MG/3ML Solution Pen-injector IJNECT 2 MG BY SUBCUTANEOUS ROUTE ONCE A WEEK. 3 mL 5 01/21/20 25 Active Potassium Chloride ER (KLORCON) 20 MEQ Tablet Controlled Release Take 1 Tablet by mouth 5 times daily. 450 Tablet 1 01/31/20 25 Active amlodipine besy-benazepri l hcl (LOTREL) 10-40 MG Capsule TAKE 1 CAPSULE BY MOUTH EVERY DAY 90 Capsule 1 03/18/20 25 Active levothyroxine (SYNTHROID) 200 MCG Tablet TAKE 1 TABLET BY MOUTH EVERY DAY 90 Tablet 3 04/22/20 25 Active furosemide (LASIX) 80 MG Tablet TAKE 1 TABLET BY MOUTH EVERY DAY 90 Tablet 1 04/22/20 25 Active metoprolol tartrate (LOPRESSOR) 100 MG Tablet TAKE 2 TABLETS BY MOUTH TWICE A DAY 360 Tablet 1 04/22/20 25 Active predniSONE (DELTASONE) 10 MG Tablet TAKE 3 TABLETS BY MOUTH DAILY 15 Tablet 04/30/20 25 Active methocarbamol (ROBAXIN) 500 MG Tablet Take 1,000 mg by mouth 2 times daily. Active acetaminophen- codeine (TYLENOL #3) 300-30 MG TabletIndicati ons:Primary generalized (osteo)arthrit is TAKE 1 TABLET BY MOUTH EVERY 8 HOURS NEEDED FOR MODERATE OR MORE SEVERE PAIN 90 Tablet 06/10/20 25 Active albuterol 108 (90 Base) MCG/ACT Aerosol Solution TAKE 2 PUFFS BY MOUTH EVERY 4 HOURS NEEDED FOR WHEEZE 18 g 2 06/22/20 25 Active simvastatin (ZOCOR) 20 MG Tablet TAKE 1 TABLET BY MOUTH EVERY DAY AT NIGHT 90 Tablet 06/25/20 25 Active albuterol 108 (90 Base) MCG/ACT Aerosol Solution INHALE 2 PUFFS BY MOUTH EVERY 4 HOURS NEEDED FOR WHEEZING 18 g 5 01/06/20 25 025 Discontinued simvastatin (ZOCOR) 20 MG Tablet Take 1 Tablet by mouth nightly. 90 Tablet 03/30/20 25 025 Discontinued Active Problems Problem Noted Date Diagnosed Date Type 2 diabetes mellitus wit hout complication, without long-term current use of insulin 08/02/2023 Morbid obesity with BMI of 40.0-44.9, adult 05/0 10/2022 Bilateral lower extremity edema 02/02/2022 Panlobular emphysema 07/22/2020 GERD without esophagitis 11/05/2016 Primary generalized (osteo)arthritis 02/14/2013 Other specified hypothyroidism 02/14/2013 Essential (primary) hypertension 01/13/2011 Other hyperlipidemia 01/13/2011 Encounters Date Type Department Care Team Description 06/27[facility] [address] [place] [phone] Ephraim Ribera MD Medication Refill 06/25/20[facility] [address] [place] [address] Ephraim Ribera MD Medication Refill 06/21/2025 [place] [facility] [address] [place] [address] Ephraim Ribera MD Medication Refill 06/19/2025 Telephone [facility] [address] [place] [phone] Ephraim Ribera MD Medication Management 06/15/2025 [facility]phone [facility] [place] [address] [place] [address] Ephraim Ribera MD Medication Refill 06/13/2025 [place]ill [facility] [place] [address] [place] [address] Ephraim Ribera MD Medication Refill 06/09/2025 [facility] [place] [address] [place] [address] Ephraim Ribera MD Medication Refill 05/29/2025 [facility] [address] [place] [phone] Ephraim Ribera MD Advice Only; Need Order; Leg Pain 05/29/2025 Nurse Triage [facility] [address] [place] [phone] Ephraim Ribera MD Knee Injury 05/20/2025 [facility] [place] [address] [place] [address] Ephraim Ribera MD Medication Refill 05/18/2025 [facility]ill [facility] [place] [address] [place] [address] Ephraim Ribera MD Medication Refill 05/15/2025 [facility] [place] [address] [place] [address] Ephraim Ribera MD Medication Refill 05/11/2025 [facility] [place] [address] [place] [address] Ephraim Ribera MD Medication Refill 04/30/2025 [facility] [place] [address] [place] [address] Ephraim Ribera MD Medication Refill 04/22/2025 [facility] [place] [address] [place] [address] Ephraim Ribera MD Medication Refill 04/22/2025 [facility] [address] [place] [address] Misty Ball, [facility] Medication Refill from Last 3 Months Immunizations Immunization Administration Dates Next Due COVID-19, MRNA, LNP-S, BIVAL ENT , PFIZER, 30 MCG/0.3 ML (12+ Y/O) 03/31/2022 Covid-19 Vaccine, Vector-nr, [id number], Pf, 0.5 Ml ([employer]) 09/26/2020 Covid-19, Mrna, Lnp-s, Pf, 3 0 Mcg/0.3 Ml Dose (Pfizer) 03/28/2025,10/26/2021,05/13/2021 Covid-19, Mrna, Lnp-s, Pf, 3 0 Mcg/0.3 Ml Dose, Rusty-sucrose (Pfizer black top) 04/10/2023,10/26/2021 Covid-19, Mrna, Lnp-s, Pf, Rusty-sucrose, 30 Mcg/0.3 Ml (Pfizer) 04/07/2024 Influenza Vaccine 04/25/2019 Influenza Vaccine greater than 3 yrs 03/28/2025, 04/15/2020 Influenza, High-dose, Quadrivalent 03/31/2022 Influenza, Quadrivalent, Adjuvanted 04/10/2023,0 04/05/2021,04/15/2020 Influenza, Seasonal, Injecta ble, Undefined 05/01/2013 Influenza, high-dose, trivalent, PF 04/07/2024 Pneumococcal Vaccine - 13 Valent 019,04/25/2018,04/25/2018,2013 Pneumococcal Vaccine Adult - 23 Valent 10/14/2019 RSV, Recombinant, Protein Friend bunit Rsvpref, Adjuvant Recon (Arexvy) 04/19/2023 TDAP Vaccine 04/05/2021 Zoster Vaccine Recombinant 07/13/2020,04/15/2020 ,04/25/2018 Zoster Vaccine, live 04/15/2020 Family History * Patient is adopted Medical History Relation Name Comments No Known Problems Sister Relation Name Status Comments Father Mother Sister Alive Social History Tobacco Use Types Packs/Day Years Used Date Smoking Tobacco: Every Day Cigarettes Passive Smoke Exposure: Current Smokeless Tobacco: Never Tobacco Cessation:Ready to Q uit: No; Counseling Given: Yes Alcohol Use Standard Drinks/Week Comments Never 0 (1 standard drink = 0.6 oz pur e alcohol) [facility] Utilities Answer Date Recorded In the past 12 months has [employer], [employer], or [employer] threatened to shut off services in your home? No 08/26/2024 Social Connection and Isolation Panel Answer Date Recorded In a typical week, how many times do you talk on the phone with family, friends, or neighbors? More than three times a week 08/26/2024 How often do you get togethe r with friends or relatives? Once a week 08/26/2024 How often do you attend chur ch or jainism services? Never 08/26/2024 Do you belong to any clubs o r organizations such as advent groups, unions, fraternal or athletic groups, or school groups? No 08/26/2024 How often do you attend meet ings of the clubs or organizations you belong to? Never 08/26/2024 Are you , , di vorced, , never , or living with a partner? 08/26/2024 AUDIT-C Answer Date Recorded Q1: How often do you have a drink containing alcohol? Never 08/26/2024 Q2: How many drinks containi ng alcohol do you have on a typical day when you are drinking? Patient does not drink Q3: How often do you have si x or more drinks on one occasion? Never 08/26/2024 Overall Financial Resource Strain (CARDIA) Answe r Date Recorded How hard is it for you to pa y for the very basics like food, housing, medical care, and heating? Not hard at all 08/26/2024 PHQ-2 Answer Date Recorded Total Score - Questions 1-9 0 05/0 12/2024 [facility] - Occupational Stress Questionnaire Answer Date Recorded Do you feel stress - tense, restless, nervous, or anxious, or unable to sleep at night because your mind is troubled all the time - these days? To some extent 08/26/2024 Exercise Vital Sign Answer Date Recorde d On average, how many days pe r week do you engage in moderate to strenuous exercise (like a brisk walk)? 1 day 08/26/2024 On average, how many minutes do you engage in exercise at this level? 60 min 08/26/2024 Hunger Vital Sign Answer Date Recorded Within the past 12 months, y ou worried that your food would run out before you got the money to buy more. Never true 08/26/19 25 Within the past 12 months, t he food you bought just didn't last and you didn't have money to get more. Never true 08/26/2024 PRAPARE - Transportation Answer Date Re corded In the past 12 months, has l ack of transportation kept you from medical appointments or from getting medications? No 10/2024 In the past 12 months, has l ack of transportation kept you from meetings, work, or from getting things needed for daily living? No 08/26/2024 Housing Stability Vital Sign Answer Stanley e [...] place to sleep or slept in a [place] facility (including now)? No 10/30/2023 Housing Stability Vital Sign Answer Stanley e Recorded In the last 12 months, was t here a time when you were not able to pay the mortgage or rent on time? No 08/26/2024 In the past 12 months, how m any times have you moved where you were living? 0 08/26/2024 At any time in the past 12 m [place] [place], were you homeless or living in a [place] facility (including now)? No 08/26/2024 Education Answer Date Recorded What is the highest level of school you have completed or the highest degree you have received? Professional school degree (e.g., MD, DDS, DVM, CODEY) 11/18/2022 Sexually Active Control Partners Comments Not Currently Sex and Gender Information Value Date Recorded Sex Assigned at Not on file Legal Sex Male 12:16 AM CDT Gender Identity Not on file Sexual Orientation Not on file Last Filed Vital Signs Vital Sign Reading Time Taken Comments Blood Pressure 124/58 03/03/2025 1:26 PM CDT Pulse 80 03/03/2025 1:26 PM CDT Temperature 36.3 C (97.4 F) 03/03/2025 1:26 PM CDT Respiratory Rate 12 08/28/2024 1:49 PM STAFF RADIOLOGIST Oxygen Saturation 95% 03/03/2025 1:26 PM CDT Inhaled Oxygen Concentration - - Weight 94.8 kg (209 lb) 03/03/2025 1:26 PM CDT Height 175.3 cm (5' 9) 03/03/2025 1:26 PM CDT Body Mass Index 30.86 03/03/2025 1:26 PM CDT Plan of Treatment Upcoming Encounters Date Type Department Care Team (Late st Contact Info) Description 2025 11:40 AM STAFF RADIOLOGIST Office Visit [facility] [place] [address] [place] [phone] Ephraim Ribera MD [address] [place] [address] Health Maintenance Due Date Last Done Comments Hepatitis C Virus (HCV) Screening 1955 Cologuard 1998 Immunochemical Fecal Occult Blood 1998 Medicare Initial AWV [id number] 07/23/2021 Diabetes: Eye Exam 03/18/2025 03/18/2024 SARS-COV-2 Immunization ( season) 2025 03/28/2025, 03/23/2025, 04/07/2024, Additional history exists Diabetes: Nephropathy Screening 11/18/2025 11/18/2024, 01/29/2024, 05/31/2023, Additional history exists Diabetes: Hemoglobin A1c 12/15/202506/17/2 025, 04/03/2025, 11/18/2024, Additional history exists Diabetes: Foot Exam 03/03/2026 03/03/2025, Td Immunization Every 10 Years (Adults With 1 Tdap) 04/05/2031 04/05/2021 Colonoscopy 04/02/2035 04/02/2025, 03/23, 02/21/2024, Additional history exists Colorectal Cancer Screening 04/02/2035 Pneumococcal Immunization (50+ years) Completed 10/14/2019, 04/24/2019, 04/25/2018, Additional history exists Pneumococcal Immunization Combined Discontinued 10/14/2019, 04/24/2019, 04/25/2018, Additional history exists Zoster Immunization Completed 07/13/2020, 04/15/2020, 04/15/2020, Additional history exists AAA Screening Ultrasound Completed 10/28/2020 DTaP/Tdap/Td Immunization Discontinued 04/05/2021 Respiratory Syncytial Virus (RSV) Immunization (Adult) Completed 04/19/2023 Influenza Immunization Completed , 03/23/2025, 04/07/2024, Additional history exists PSA Discussion Discontinued 04/03/2025, 10/22, 05/31/2023, Additional history exists Hepatitis B Immunization Aged Out No longer eligible based on patient's age to complete this topic Human Papillomavirus (HPV) Immunization (No Doses Required) Completed Meningococcal Immunization (ACWY) Aged Out No longer eligible based on patient's age to complete this topic Rotavirus Immunization Aged Out No lo nger eligible based on patient's age to complete this topic Procedures Procedure Name Priority Date/Time Associated Diagnosis Comments EXTERNAL ORTHOPEDIC SURGERY REFERRAL Routine 06/15/2025 12:00 AM STAFF RADIOLOGIST WOUND CONSULT 04/28/2025 12:00 AM CDT HEMOGLOBIN A1C W/ ESTIMATED GLUCOSE Routine 04/03/2025 12:15 PM CDT Type 2 diabetes mellitus without complication, without long-term current use of insulin PSA DIAGNOSTIC,TOTAL Routine 04/03/2025 12:15 PM CDT Elevated PSA HM COLONOSCOPY 04/02/2025 12:00 AM CDT CMP (COMPREHENSIVE METABOLIC PANEL) Routine 11/18/2024 9:28 AM CDT Type 2 diabetes mellitus without complication, without long-term current use of insulin Essential (primary) hypertension Other hyperlipidemia HM DILATED EYE EXAM 03/18/2024 1 2:00 AM CDT US AORTA LY SCALE ONLY Routine 10/28/2020 Encounter for abdominal aortic aneurysm (AAA) screening from Last 3 Months or Most Recently Relevant to Health Maintenance Results * EXTERNAL ORTHOPEDIC SURGERY REFERRAL (06/15/2025 12:00 AM STAFF RADIOLOGIST) 06/15/2025 us Ephraim Ribera MD OUTPT REFERRALS EXT/INT Fin al Result SCAN * WOUND CONSULT (04/28/2025 12:00 AM CDT) 04/28/2025 us Provider Scan GENERIC SCAN ORDERS CONSULT Diamante l Result Performing Organization Address City/[facility]/ZIP Co de Phone Number SCAN * HEMOGLOBIN A1C W/ ESTIMATED GLUCOSE (04/03/2025 12:15 PM CDT) Pathologist [facility] HGB-A1C 5.3 4.0 - 6.0 % 04/03/2025 3:42 PM CDT [facility] Est Average Glucose 105.4 mg/dL 04/03/2025 3:42 PM CDT [facility] Blood Venipuncture / Unknown 04/03/2025 12:15 PM CDT 04/03/2025 12:20 PM CDT Narrative [facility] - 04/03/2025 3:42 PM CDT HEMOGLOBIN A1C: DIABETIC PATIENTS: WELL-CONTROLLED: 6.2 - 7.0 INTERMEDIATE WELL-CONTROLLED: 7.0 - 9.0 POORLY-CONTROLLED: >9.0 Specimens containing greater than 5% of Hemoglobin F may result in lower than expected % HbA1C results. Ephraim Ribera MD CHEMISTRY ORDERABLES Final Result Performing Organization Address [facility]/[place]UST de Phone Number [facility] [address] [place] [address] * PSA DIAGNOSTIC,TOTAL (04/03/2025 12:15 PM CDT) PSA, TOTAL (PROSTATIC SPECIFIC ANTIGEN) 2.46 <4.00 ng/mL 04/03/2025 4:06 PM CDT [facility] Blood Venipuncture / Unknown 04/03/2025 12:15 PM CDT 04/03/2025 12:20 PM CDT Narrative [facility] - 04/03/2025 4:06 PM CDT PSA NOTE: The PSA value should be used in conjunction with information available from clinical evaluation and other diagnostic procedures. The ALINITY Total PSA assay is a Chemiluminescent Microparticle Immunoassay (CMIA) for the quantitative determination of total PSA (both free PSA and PSA complexed to [id number]) in human serum. Total PSA values obtained with different assay methods, including Velez PSA assays, cannot be used interchangeably. us Ephraim Ribera MD CHEMISTRY ORDERABLES Final Result Performing Organization Address City/[facility] [[email or web address]] Co de Phone Number [facility] [place] [address] * COLONOSCOPY (04/02/2025 12:00 AM CDT) 04/02/2025 us Ephraim Ribera MD PROCEDURE/MINOR SURGICAL OR DERABLES Final Result Performing Organization Address [facility] [[email or web address]] Co de Phone Number SCAN * (ABNORMAL) CMP (COMPREHENSIVE METABOLIC PANEL) (11/18/2024 9:28 AM CDT) SODIUM 141 136 - 145 mmol/L 11/18/2024 5:36 PM CDT [facility] POTASSIUM 3.8 3.5 - 5.1 mmol/L 11/18/2024 5:36 PM CDT [facility] CHLORIDE 100 98 - 107 mmol/L 11/18/2024 5:36 PM CDT [facility] CO2, VENOUS 30 22 - 30 mmol/L 11/18/2024 5:36 PM CDT [facility] ANION GAP 14.8 <18.0 mmol/L 11/18/2024 5:36 PM CDT [facility] GLUCOSE 102(H) 70 - 99 mg/dL 11/18/2024 5:36 PM CDT [facility] BUN 20 8 - 26 mg/dL 11/18/2024 5:36 PM CDT [facility] CREATININE, BLOOD 1.04 0.70 - 1.30 mg/dL 11/18/2024 5:36 PM CDT [facility] BUN/CREATININE RATIO 19 12 - 20 ratio 11/18/2024 5:36 PM CDT [facility] TOTAL PROTEIN 7.0 6.0 - 8.0 g/dL 11/18/2024 5:36 PM CDT [facility] ALBUMIN 3.7 3.5 - 5.0 g/dL 11/18/2024 5:36 PM CDT [facility] A/G RATIO 1.1 1.0 - 2.2 11/18/2024 5:36 PM CDT [facility] CALCIUM 9.6 8.7 - 10.5 mg/dL 11/18/2024 5:36 PM CDT [facility] T BILI 0.6 0.2 - 1.2 mg/dL 11/18/2024 5:36 PM CDT [facility] SGOT (AST) 28 <43 U/L 11/18/2024 5:36 PM CDT [facility] SGPT (ALT) 19 <56 U/L 11/18/2024 5:36 PM CDT [facility] ALKALINE PHOSPHATASE 105 40 - 150 U/L 11/18/2024 5:36 PM CDT [facility] IS THE PATIENT REQUIRED TO BE FASTING? No 11/18/2024 5:36 PM CDT [facility] GFR, ESTIMATED >60 >=60 11/18/2024 5:36 PM CDT [facility] Comment: Creatinine Clearance is the preferred criteria for selecting drug dose adjustments in renally impaired patients. The GFR is provided as additional pertinent clinical information. GFR is reported in mL/min/1.73 sq m. Calculation based on the Chronic Kidney Disease Epidemiology Collaboration (CKD- EPI) equation refit without adjustment for race. GFR, EST. >60 >=60 025 5:36 PM CDT [facility] GFR, EST. NONAFRICAN >60 >=60 11/18/2024 5:36 PM CDT [facility] Blood Venipuncture / Unknown 11/18/2024 9:28 AM CDT 11/18/2024 9:28 AM CDT us Ephraim Ribera MD CHEMISTRY ORDERABLES Final Result [facility] [address] [place] [address] * DILATED EYE EXAM (03/18/2024 12:00 AM CDT) 03/18/2024 us Provider Scan PROCEDURE/MINOR SURGICAL ORDERAB LES Final Result SCAN * US AORTA LY SCALE ONLY (10/28/2020) Anatomical Region Laterality Modality vascular N/A Other us Ephraim Ribera MD IMG US ORDERABLES Final Res ult from Last 3 Months or Most Recently Relevant to Health Maintenance Insurance MEDICARE C [employer] Care Teams Bag Press Operator Relationship Specialty Start Date End Date Ephraim Ribera MD PCP - General Internal Medicine 04/09/20
--- OUTSIDE RECORDS SUMMARY | 2025-07-14 13:46 | XMS_ITS | Encounter Summary ---
Author Organization [facility] Address [address] [place] [address] Phone Care Team Providers Care Layer Up Name Role Phone Ephraim Ribera MD Primary Care Provider [phone] Reason for Visit * Reason Comments Medication Refill Encounter Details Date Type Department Care Team (Late Contact Info) Description 05/11/2021 [facility] [place] [address] [place] [phone] Ephraim Ribera MD [address] [place] [address] Medication Refill Social History Tobacco Use Types Packs/Day Years Used Date Smoking Tobacco: Every Day Cigarettes Smokeless Tobacco: Never Alcohol Use Standard Drinks/Week Comments Never 0 (1 standard drink = 0.6 oz pur e alcohol) PHQ-2 Answer Date Recorded Total Score - Questions 1-9 0 07/24 Sexually Active Control Partners Comments Not Currently Sex and Gender Information Value Date Recorded Sex Assigned at Not on file Legal Sex Male 12:16 AM CDT Gender Identity Not on file Sexual Orientation Not on file COVID-19 Exposure Response Date Recorded In the last month, have you been in contact with someone who was confirmed or suspected to have Coronavirus / COVID-19? No / Unsure 04/28/2021 12:53 PM CDT documented as of this encounter Plan of Treatment Upcoming Encounters Date Type Department Care Team (Late st Contact Info) Description 2025 11:40 AM WOOD CRAFTSMAN Office Visit [facility] - [place] [address] [place] [address] Ephraim Ribera MD [address] [place] [address] documented as of this encounter Visit Diagnoses Not on filedocumented in this encounter Additional Health Concerns Assessment Noted Time PHQ-9 Depression Total Score: 0 08/11/19 21 10:00 AM WOOD CRAFTSMAN documented as of this encounter Care Teams Layer Up Relationship Specialty Start Date End Date Ephraim Ribera MD PCP - General Internal Medicine 04/09/20 documented as of this encounter
--- OUTSIDE RECORDS SUMMARY | 2025-07-14 13:46 | XMS_ITS | Clinical Summary ---
Author Organization [facility] Address [address] [place] [address] Care Team Providers Care Attending Urologist Name Role Phone Unavailable Primary Care Provider Unavailabl e Source Comments [facility],non-owned Affiliates and Associated Physician Practices is amultiple site organization consisting of ambulatory clinics and hospital sitesin [place], [place], [place] and [place]. This disclosure is being madepursuant to the Care Everywhere program and may not contain all information available regarding this patient. Last updated 18.[facility] Social History Tobacco Use Types Packs/Day Years Used Date Smoking Tobacco: Never Assessed Sex and Gender Information Value Date Recorded Sex Assigned at Not on file Legal Sex Male 4:01 PM DOCTOR'S ASSISTANT Gender Identity Not on file Sexual Orientation Not on file Plan of Treatment Health Maintenance Due Date Last Done Comments COLOGUARD (AGES 45-75) - COL ON CA SCREENING 1953 CT COLONOGRAPHY - COLON CA SCREENING 1955 FIT - COLON CA SCREENING 1955 FLEX SIG - COLON CA SCREENING 1953 LIPID TESTING 1953 HEPATITIS C SCREENING 09/11/1971 DTAP/TDAP/TD VACCINES (1 - Tdap) 1972 PNEUMOCOCCAL VACCINE 50+ (1 of 1 - PCV) 2003 ZOSTER VACCINE (1 of 2) 2003 DEPRESSION SCREENING 07/23/2024 MEDICARE AWV CALENDAR YEAR 2024 COVID-19 VACCINE (1 - 2024-2 6 season) 2025 INFLUENZA VACCINE (#1) 2025 Respiratory Syncytial Virus (RSV) Vaccine Pt: or over 60 yrs (1 - 1-dose 75+ series) 2028 COLON MONITORING 02/20/2034 02/21/2024 COLONOSCOPY - COLON CA SCREENING 02/20/2034 02/21/20 Colorectal Cancer Screening 02/20/2034 HEPATITIS B VACCINE Aged Out No longe r eligible based on patient's age to complete this topic HIB VACCINE Aged Out No longer eligi ble based on patient's age to complete this topic HPV VACCINE Aged Out No longer eligi ble based on patient's age to complete this topic MENINGOCOCCAL (Group B) VACC INE SHARED DECISION-MAKING Aged Out No longer eligibl e based on patient's age to complete this topic MENINGOCOCCAL GROUPS A/C/Y/W VACCINE Aged Out No longer eligible b ased on patient's age to complete this topic Insurance [employer] MEDICARE ADV
--- OUTSIDE RECORDS SUMMARY | 2025-07-14 13:46 | XMS_ITS | Encounter Summary ---
Author Organization [facility] Address [address] [place] [address] Phone Care Team Providers Care Cut Out Operator Name Role Phone Ephraim Ribera MD Primary Care Provider Reason for Visit * Reason Comments Medication Refill Encounter Details Date Type Department Care Team (Late st Contact Info) Description 03/14/2023 [facility]ill [facility] - [place] [address] [place] [phone] Ephraim Ribera MD [address] [place] [address] Medication Refill Social History Tobacco Use Types [...] Telephone Encounter - Mandy Shook RN - 03/14/2023 8:41 AM CDT PDMP 02/12/23 - 30 day suppy Medication failed the protocol, provider to review and approve the medication order if appropriate. Requested Prescriptions Pending Prescriptions Disp Refills Ozempic, 0.25 or 0.5 MG/DOSE, 2 MG/3ML Solution Pen-injector [Pharmacy Med Name: OZEMPIC 0.25-0.5 MG/DOSE PEN] 1 Sig: INJECT 0.25 MG SUBCUTANEOUSLY ONCE WEEKLY GLP-1 Agonists Protocol Passed - 03/14/2023 12:42 AM Passed - Lipid panel result on file in past 12 months LDL Date Value Ref Range Status 11/23/2022 74 5 - 130 mg/dL Final HDL CHOLESTEROL Date Value Ref Range Status 11/23/2022 48.9 >40 mg/dL Final CHOLESTEROL Date Value Ref Range Status 11/23/2022 149 <=200 mg/dL Final TRIGLYCERIDES Date Value Ref Range Status 11/23/2022 133 <150 mg/dL Final VLDL Date Value Ref Range Status 11/23/2022 27 5 - 55 mg/dL Final CHOL/HDL RATIO Date Value Ref Range Status 11/23/2022 3.0 0.0 - 4.4 Final NON-HDL CHOLESTEROL Date Value Ref Range Status 11/23/2022 100.1 <130 mg/dL Final Passed - Visit with relevant provider in past 6 months or upcoming 90 days Recent Visits Date Type Provider Dept 11/23/22 Office [facility] [place] Showing recent visits within past 182 days and meeting all other requirements Future Appointments Date Type Provider Dept 04/26/23 Appointment Ephraim Ribera MD [facility] [place] Showing future appointments within next 90 days and meeting all other requirements Passed - HgA1C result on record in past 6 months HGB-A1C Date Value Ref Range Status 11/23/2022 6.5 (H) 4.0 - 6.0 % Final 01/24/2022 6.6 % Final Passed - GFR on record in past 6 months GFR, EST. NONAFRICAN Date Value Ref Range Status 01/03/2023 >60 >=60 Final acetaminophen-codeine (TYLENOL #3) 300-30 MG Tablet [Pharmacy Med Name: ACETAMINOPHEN-COD #3 TABLET] 90 Tablet 0 Sig: TAKE 1 TABLET BY MOUTH EVERY 8 HOURS NEEDED FOR MODERATE OR MORE SEVERE PAIN Not Delegated - Opioid Combinations Protocol Failed - 03/14/2023 12:42 AM Failed - This refill cannot be delegated Passed - Visit with relevant provider in past 12 months or upcoming 90 days Recent Visits Date Type Provider Dept 11/23/22 Office Visit Ephraim Ribera MD [facility] [place] 08/23/22 Office Visit Ephraim Ribera MD [facility] [place] 05/11/22 Office Visit Ephraim Ribera MD [facility] [place] Showing recent visits within past 365 days and meeting all other requirements Future Appointments Date Type Provider Dept 04/26/23 Appointment Ephraim Ribera MD [facility] [place] Showing future appointments within next 90 days and meeting all other requirements documented in this encounter Plan of Treatment Upcoming Encounters Date Type Department Care Team (Late st Contact Info) Description 2025 11:40 AM CADMIUM BURNER Office Visit [facility] - Primary Care - [place] [address] [place] [address] Ephraim Ribera MD [address] [place] [address] documented as of this encounter Visit Diagnoses Diagnosis Morbid obesity with BMI of 40.0-44.9, adult Metabolic syndrome Dysmetabolic Syndrome X Primary generalized (osteo)arthritis Generalized osteoarthrosis, involving multiple sites documented in this encounter Additional Health Concerns Assessment Noted Time PHQ-9 Depression Total Score: 0 08/11/19 21 10:00 AM CADMIUM BURNER documented as of this encounter Care Teams Cut Out Operator Relationship Specialty Start Date End Date Ephraim Ribera MD PCP - General Internal Medicine 04/09/20 documented as of this encounter
--- OUTSIDE RECORDS SUMMARY | 2025-07-14 13:46 | XMS_ITS | Encounter Summary ---
Author Organization [facility] Address [address] [place] [address] Phone Care Team Providers Care Voice Network Administrator Name Role Phone Ephraim Ribera MD Primary Care Provider Reason for Visit * Reason Comments Medication Refill Encounter Details Date Type Department Care Team (Late st Contact Info) Description 01/09/2023 Refill [facility] - [place] [address] [place] [phone] Ephraim Ribera MD [address] [place] [address] Medication Refill Social History Tobacco Use Types [...] Exposure Response Date Recorded In the last 10 days, have yo u been in contact with someone who was confirmed or suspected to have Coronavirus/COVID-19? No / Unsure 01/03/2023 12:35 PM CDT documented as of this encounter Miscellaneous Notes * Telephone Encounter - Meenakshi Messer RN - 01/09/2023 8:30 AM CDT Per PDMP, last dispensed 12/13/22 (#90) Medication failed the protocol, provider to review and approve the medication order if appropriate. Requested Prescriptions Pending Prescriptions Disp Refills acetaminophen-codeine (TYLENOL #3) 300-30 MG Tablet [Pharmacy Med Name: ACETAMINOPHEN-COD #3 TABLET] 90 Tablet 0 Sig: TAKE 1 TABLET BY MOUTH EVERY 8 HR NEEDED FOR MODERATE OR MORE SEVERE PAIN Not Delegated - Opioid Combinations Protocol Failed - 01/09/2023 12:23 AM Failed - This refill cannot be delegated Passed - Visit with relevant provider in past 12 months or upcoming 90 days Recent Visits Date Type Provider Dept 11/23/22 Office Visit Ephraim Ribera MD [facility] [place] 08/23/22 Office Visit Ephraim Ribera MD [facility] [place] 05/11/22 Office Visit Ephraim Ribera MD [facility] [place] 02/02/22 Office Visit Ephraim Ribera MD [facility] [place] Showing recent visits within past 365 days and meeting all other requirements Future Appointments Date Type Provider Dept 03/01/23 Appointment Ephraim Ribera MD [facility] [place] Showing future appointments within next 90 days and meeting all other requirements documented in this encounter Plan of Treatment Upcoming Encounters Date Type Department Care Team (Late st Contact Info) Description 2025 11:40 AM FENCE MAKER Office Visit [facility] - [place] Care - [place] [address] [place] [phone] Ephraim Ribera MD [address] [place] [address] documented as of this encounter Visit Diagnoses Diagnosis Primary generalized (osteo)arthritis Generalized osteoarthrosis, involving multiple sites documented in this encounter Additional Health Concerns Assessment Noted Time PHQ-9 Depression Total Score: 0 08/11/19 21 10:00 AM FENCE MAKER documented as of this encounter Care Teams Voice Network Administrator Relationship Specialty Start Date End Date Ephraim Ribera MD PCP - General Internal Medicine 04/09/20 documented as of this encounter
--- OUTSIDE RECORDS SUMMARY | 2025-07-14 13:46 | XMS_ITS | Encounter Summary ---
Author Organization [facility] Address [address] [place] [address] Phone Care Team Providers Care Laborer Salvage Name Role Phone Ephraim Ribera MD Primary Care Provider [phone] Reason for Visit * Reason Comments Medication Refill Encounter Details Date Type Department Care Team (Late st Contact Info) Description 01/06/2024 Refill [facility] - [place] [address] [place] [phone] Ephraim Ribera MD [address] [place] [address] Medication Refill Social History Tobacco Use Types Packs/Day Years Used Date Smoking Tobacco: Every Day Cigarettes Passive Smoke Exposure: Current Smokeless Tobacco: Never Alcohol Use Standard Drinks/Week Comments Never 0 (1 standard drink = 0.6 oz pur e alcohol) [facility] Utilities Answer Date Recorded In the past 12 months has [place], gas, oil, or water [employer] threatened to shut off services in your home? No 10/30/2023 Social Connection and Isolation Panel Answer Date Recorded In a typical week, how many times do you talk on the phone with family, friends, or neighbors? More than three times a week 10/30/2023 How often do you get togethe r with friends or relatives? Once a week 10/30/2023 How often do you attend [facility] or jewish services? Never 10/30/2023 Do you belong to any clubs o r organizations such as mandaen groups, unions, fraternal or athletic groups, or [...] Total Score - Questions 1-9 0 07/23 [facility] of Occupat ional Health - Occupational [...] place to sleep or slept in a senior care (including now)? No 10/30/2023 Education Answer Date [...] Telephone Encounter - Mandy Shook RN - 01/07/2024 9:38 AM CDT Medication failed the protocol, provider to review and approve the medication order if appropriate. Requested Prescriptions Pending Prescriptions Disp Refills acetaminophen-codeine (TYLENOL #3) 300-30 MG Tablet [Pharmacy Med Name: ACETAMINOPHEN-COD #3 TABLET] 90 Tablet 0 Sig: TAKE 1 TABLET BY MOUTH EVERY 8 HOURS NEEDED FOR MODERATE OR MORE SEVERE PAIN Not Delegated - Opioid Combinations Protocol Failed - 01/06/2024 9:44 PM Failed - This refill cannot be delegated [...] st Contact Info) Description 2025 11:[address] Office Visit [facility] - Primary Care - [place] [address] [place] [address] Ephraim Ribera MD [address] [place] [address] documented as of this encounter Visit Diagnoses Diagnosis Primary generalized (osteo)arthritis Generalized osteoarthrosis, involving multiple sites documented in this encounter Additional Health Concerns Assessment Noted Time PHQ-9 Depression Total Score: 0 08/02/19 24 10:[address] documented as of this encounter Care Teams Laborer Salvage Relationship Specialty Start Date End Date Ephraim Ribera MD PCP - General Internal Medicine 04/09/20 documented as of this encounter
--- OUTSIDE RECORDS SUMMARY | 2025-07-14 13:46 | XMS_ITS | Encounter Summary ---
Author Organization [facility] Address [address] [place] [address] Phone Care Team Providers Care Affiliate Marketing Specialist Name Role Phone Ephraim Ribera MD Primary Care Provider [phone] Reason for Visit * Reason Comments Medication Refill Encounter Details Date Type Department Care Team (Late st Contact Info) Description 04/12/2023 Refill [facility] - [place] [address] [place] [phone] Misty Ball, [facility] [address] [place] [address] Medication Refill Social History Tobacco Use Types [...] Telephone Encounter - Mandy Shook RN - 04/12/2023 9:35 AM CDT PDMP 03/14/23 - day supply Medication failed the protocol, provider to review and approve the medication order if appropriate. Requested Prescriptions Pending Prescriptions Disp Refills acetaminophen-codeine (TYLENOL #3) 300-30 MG Tablet [Pharmacy Med Name: ACETAMINOPHEN-COD #3 TABLET] 90 Tablet 0 Sig: TAKE 1 TABLET BY MOUTH EVERY 8 HOURS NEEDED FOR MODERATE OR MORE SEVERE PAIN Not Delegated - Opioid Combinations Protocol Failed - 04/12/2023 12:19 AM Failed - This refill cannot be delegated Passed - Visit with relevant provider in past 12 months or upcoming 90 days Recent Visits Date Type Provider Dept 11/23/22 Office Visit Ephraim Ribera MD [facility] [place] 08/23/22 Office Visit Ephraim Ribera MD [facility] [place] 05/11/22 Office Visit Ephraim Ribera MD [facility] [place] Showing recent visits within past 365 days and meeting all other requirements Future Appointments Date Type Provider Dept 04/26/23 Appointment Ephraim Ribera MD [facility] [place] Showing future appointments within next 90 days and meeting all other requirements * Telephone Encounter - Mandy Shook RN - 04/12/2023 9:24 AM CDT PDMP 03/14/23 - day supply documented in this encounter Plan of Treatment Upcoming Encounters Date Type Department Care Team (Late st Contact Info) Description 2025 11:40 AM INVENTORY CONTROL ASSISTANT Office Visit [facility] - Primary Care - [place] [address] [place] [phone] Ephraim Ribera MD [address] [place] [address] documented as of this encounter Visit Diagnoses Diagnosis Primary generalized (osteo)arthritis Generalized osteoarthrosis, involving multiple sites documented in this encounter Additional Health Concerns Assessment Noted Time PHQ-9 Depression Total Score: 0 08/11/19 21 10:00 AM INVENTORY CONTROL ASSISTANT documented as of this encounter Care Teams Affiliate Marketing Specialist Relationship Specialty Start Date End Date Ephraim Ribera MD PCP - General Internal Medicine 04/09/20 documented as of this encounter
--- OUTSIDE RECORDS SUMMARY | 2025-07-14 13:46 | XMS_ITS | Encounter Summary ---
Author Organization [facility] Address [address] [place] [address] Phone Care Team Providers Care Turnaround Planner Name Role Phone Ephraim Ribera MD Primary Care Provider [phone]- [phone] Reason for Visit * Reason Comments Medication Refill Encounter Details Date Type Department Care Team (Late st Contact Info) Description 12/07/2023 Refill [facility] - [place] [address] [place] [phone] Ephraim Ribera MD [address] [place] [address] Medication Refill Social History Tobacco Use Types Packs/Day Years Used Date Smoking Tobacco: Every Day Cigarettes Passive Smoke Exposure: Current Smokeless Tobacco: Never Alcohol Use Standard Drinks/Week Comments Never 0 (1 standard drink = 0.6 oz pur e alcohol) [facility] Utilities Answer Date Recorded In the past 12 months has [place], gas, oil, or water [employer] threatened to shut off services in your home? No 10/30/2023 Social Connection and Isolation Panel Answer Date Recorded In a typical week, how many times do you talk on the phone with family, friends, or neighbors? More than three times a week 10/30/2023 How often do you get togethe r with friends or relatives? Once a week 10/30/2023 How often do you attend [employer] or confucianism services? Never 10/30/2023 Do you belong to any clubs o r organizations such as evangelical groups, unions, fraternal or athletic groups, or [...] Total Score - Questions 1-9 0 07/23 [facility] of Occupat ional Health - Occupational Stress [...] place to sleep or slept in a alf (including now)? No 10/30/2023 Education Answer Date [...] Telephone Encounter - Mandy Shook RN - 12/07/2023 1:38 PM CDT PDMP 11/08/2023 - 30 day supply * Telephone Encounter - Mandy Shook RN - 12/07/2023 1:04 PM CDT Medication failed the protocol, provider to review and approve the medication order if appropriate. Requested Prescriptions Pending Prescriptions Disp Refills acetaminophen-codeine (TYLENOL #3) 300-30 MG Tablet [Pharmacy Med Name: ACETAMINOPHEN-COD #3 TABLET] 90 Tablet 0 Sig: Take 1 Tablet by mouth every 8 hours as needed for Moderate or more severe pain. Not Delegated - Opioid Combinations Protocol Failed - 12/07/2023 12:54 PM Failed - This refill cannot be delegated Passed - Visit with relevant provider in past 12 months or upcoming 90 days Recent Visits Date Type Provider Dept 11/01/23 Office Visit Ephraim Ribera MD [facility] 08/02/23 Office Visit Ephraim Ribera MD [facility] 04/26/23 Office Visit Ephraim Ribera MD [facility] [...] st Contact Info) Description 2025 11:40 AM TELECOMMUNICATIONS ENGINEER Office Visit [facility] - Primary Care - [place] [address] [place] [address] Ephraim Ribera MD [address] [place] [address] documented as of this encounter Visit Diagnoses Diagnosis Primary generalized (osteo)arthritis Generalized osteoarthrosis, involving multiple sites documented in this encounter Additional Health Concerns Assessment Noted Time PHQ-9 Depression Total Score: 0 08/02/19 24 10:17 AM TELECOMMUNICATIONS ENGINEER documented as of this encounter Care Teams Turnaround Planner Relationship Specialty Start Date End Date Ephraim Ribera MD PCP - General Internal Medicine 04/09/20 documented as of this encounter
--- OUTSIDE RECORDS SUMMARY | 2025-07-14 13:46 | XMS_ITS | Encounter Summary ---
Author Organization [facility] Address [address] [place] [address] Phone Care Team Providers Care Boat Joiner Helper Name Role Phone Ephraim Ribera MD Primary Care Provider [phone]- [phone] Reason for Visit * Reason Comments Medication Refill Encounter Details Date Type Department Care Team (Late st Contact Info) Description 01/10/2024 Refill [facility] - [place] [address] [place] [phone] Ephraim Ribera MD [address] [place] [address] Medication Refill Social History Tobacco Use Types Packs/Day Years Used Date Smoking Tobacco: Every Day Cigarettes Passive Smoke Exposure: Current Smokeless Tobacco: Never Alcohol Use Standard Drinks/Week Comments Never 0 (1 standard drink = 0.6 oz pur e alcohol) [facility] Utilities Answer Date Recorded In the past 12 months has [employer], gas, oil, or water [employer] threatened to shut off services in your home? No 10/30/2023 Social Connection and Isolation Panel Answer Date Recorded In a typical week, how many times do you talk on the phone with family, friends, or neighbors? More than three times a week 10/30/2023 How often do you get togethe r with friends or relatives? Once a week 10/30/2023 How often do you attend [facility] or moravian services? Never 10/30/2023 Do you belong to any clubs o r organizations such as shinto groups, unions, fraternal or athletic groups, or [...] Total Score - Questions 1-9 0 07/23 [facility] of Occupat ional Health - Occupational [...] place to sleep or slept in a snf (including now)? No 10/30/2023 Education Answer Date [...] Telephone Encounter - Mandy Shook RN - 01/10/2024 9:16 AM CDT Medication failed the protocol, provider to review and approve the medication order if appropriate. Requested Prescriptions Pending Prescriptions Disp Refills predniSONE (DELTASONE) 10 MG Tablet [Pharmacy Med Name: PREDNISONE 10 MG TABLET] 15 Tablet 0 Sig: TAKE 3 TABLETS BY MOUTH DAILY Not Delegated - Corticosteroids Protocol Failed - 01/10/2024 6:35 AM Failed - This refill cannot be delegated Passed - Visit with relevant provider in past 12 months or upcoming 90 days Recent Visits Date Type Provider Dept 11/01/23 Office Visit Ephraim Ribera MD [facility] [place] 08/02/23 Office Visit Ephraim Ribera MD [facility] 04/26/23 Office Visit Ephraim Ribera MD [facility] Showing recent visits within past 365 days and meeting all other requirements Future Appointments Date Type Provider Dept 01/29/24 Appointment [facility] [place] 01/31/24 Appointment Ephraim Ribera MD [facility] Showing future appointments within next 90 days and meeting all other requirements documented in this encounter Plan of Treatment Upcoming Encounters Date Type Department Care Team (Late st Contact Info) Description 2025 11:40 AM PAYROLL SERVICES ANALYST Office Visit [facility] - Primary Care - [place] [address] [place] [address] Ephraim Ribera MD [address] [place] [address] documented as of this encounter Visit Diagnoses Not on filedocumented in this encounter Additional Health Concerns Assessment Noted Time PHQ-9 Depression Total Score: 0 08/02/19 10:17 AM PAYROLL SERVICES ANALYST documented as of this encounter Care Teams Boat Joiner Helper Relationship Specialty Start Date End Date Ephraim Ribera MD PCP - General Internal Medicine 04/09/20 documented as of this encounter
--- OUTSIDE RECORDS SUMMARY | 2025-07-14 13:46 | XMS_ITS | Encounter Summary ---
Author Organization [facility] Address [address] [place] [address] Phone Care Team Providers Care Vp Public Relations Name Role Phone Ephraim Ribera MD Primary Care Provider [phone]- [phone] Reason for Visit * Reason Comments Medication Refill Encounter Details Date Type Department Care Team (Late st Contact Info) Description 12/28/2022 [facility]ill [facility] - [place] [address] [place] [phone] Ephraim Ribera MD [address] [place] [address] Medication Refill Social History Tobacco Use Types [...] Telephone Encounter - Mandy Shook RN - 12/28/2022 11:10 AM CDT Medication failed the protocol, provider to review and approve the medication order if appropriate. Requested Prescriptions Pending Prescriptions Disp Refills Potassium Chloride ER (KLORCON) 20 MEQ Tablet Controlled Release [Pharmacy Med Name: POTASSIUM CL ER 20 MEQ TABLET] 360 Tablet 1 Sig: TAKE 1 TABLET BY MOUTH FOUR TIMES A DAY Potassium Supplement Protocol Failed - 12/28/2022 10:29 AM Failed - Normal serum potassium in past 12 months POTASSIUM Date Value Ref Range Status 11/23/2022 3.2 (L) 3.5 - 5.1 mmol/L Final Passed - Visit with relevant provider in past 12 months or upcoming 90 days Recent Visits Date Type Provider Dept 11/23/22 Office Visit Ephraim Ribera MD [facility] [place] 08/23/22 Office Visit Ephraim Ribera MD [facility] [place] 05/11/22 Office Visit Ephraim Ribera MD [facility] [place] 02/02/22 Office Visit Ephraim Ribera MD [facility] [place] Showing recent visits within past 365 days and meeting all other requirements Future Appointments Date Type Provider Dept 01/03/23 [facility] [place] [facility] [place] Showing future appointments within next 90 days and meeting all other requirements * Telephone Encounter - Melba Higginbotham - 12/28/2022 10:27 AM CDT Resend script Medication - Potassium 20 meq 5x daily Phone- [phone] Pharmacy - [facility] did not receive. documented in this encounter Plan of Treatment Upcoming Encounters Date Type Department Care Team (Late st Contact Info) Description 2025 11:40 AM PROGRAM CHECKER [facility] - [address] [place] [phone] Ephraim Ribera MD [address] [place] [address] documented as of this encounter Visit Diagnoses Not on filedocumented in this encounter Additional Health Concerns Assessment Noted Time PHQ-9 Depression Total Score: 0 08/11/19 21 10:00 AM PROGRAM CHECKER documented as of this encounter Care Teams Vp Public Relations Relationship Specialty Start Date End Date Ephraim Ribera MD PCP - General Internal Medicine 04/09/20 documented as of this encounter
--- OUTSIDE RECORDS SUMMARY | 2025-07-14 13:46 | XMS_ITS | Encounter Summary ---
Author Organization [facility] Address [address] [place] [address] Phone Care Team Providers Care Ekg/Ecg Technician Name Role Phone Ephraim Ribera MD Primary Care Provider [phone]- [phone] Reason for Visit * Reason Comments Medication Refill Encounter Details Date Type Department Care Team (Late st Contact Info) Description 11/01/2024 Refill [facility] - [place] [address] [place] [phone] Misty Ball, [facility] [address] [place] [address] Medication Refill Social History Tobacco Use Types Packs/Day Years Used Date Smoking Tobacco: Every Day Cigarettes Passive Smoke Exposure: Current Smokeless Tobacco: Never Alcohol Use Standard Drinks/Week Comments Never 0 (1 standard drink = 0.6 oz pur e alcohol) [facility] Utilities Answer Date Recorded In the past 12 months has [employer], gas, oil, or water [employer] threatened to shut off services in your home? No 08/26/2024 Social Connection and Isolation Panel Answer Date Recorded In a typical week, how many times do you talk on the phone with family, friends, or neighbors? More than three times a week 08/26/2024 How often do you get togethe r with friends or relatives? Once a week 08/26/2024 How often do you attend [facility] or [employer] services? Never 08/26/2024 Do you belong to any clubs o r organizations such as pentecostalism groups, unions, fraternal or athletic groups, or [...] Total Score - Questions 1-9 0 07/23 [facility] Occup[facility] ional Health - Occupational Stress [...] place to sleep or slept in a residential (including now)? No 10/30/2023 Housing Stability Vital Sign Answer Stanley e Recorded In the last 12 months, was t here a time when you were not able to pay the mortgage or rent on time? No 08/26/2024 In the past 12 months, how m any times have you moved where you were living? 0 08/26/2024 At any time in the past 12 m [facility], were you homeless or living in a residential (including now)? No 08/26/2024 Education Answer Date [...] st Contact Info) Description 2025 11:40 AM FAMILY SERVICE AIDE Office Visit [facility] - Primary Care - [place] [address] [place] [phone] Ephraim Ribera MD [address] [place] [address] documented as of this encounter Visit Diagnoses Not on filedocumented in this encounter Additional Health Concerns Assessment Noted Time PHQ-9 Depression Total Score: 0 08/02/19 24 10:17 AM FAMILY SERVICE AIDE documented as of this encounter Care Teams Ekg/Ecg Technician Relationship Specialty Start Date End Date Ephraim Ribera MD PCP - General Internal Medicine 04/09/20 documented as of this encounter
--- OUTSIDE RECORDS SUMMARY | 2025-07-14 13:46 | XMS_ITS | Encounter Summary ---
Author Organization [facility] Address [address] [place] [address] Phone Care Team Providers Care Gore Inserter Name Role Phone Ephraim Ribera MD Primary Care Provider Reason for Visit * Reason Comments Medication Refill Encounter Details Date Type Department Care Team (Late st Contact Info) Description 11/22/2021 Refill [facility] - [place] [address] [place] [phone] Ephraim Ribera MD [address] [place] [address] Medication Refill Social History Tobacco Use Types [...] suspected to have Coronavirus/COVID-19? No / Unsure 11/02/2021 1:35 PM CDT documented as of this encounter Miscellaneous Notes * Telephone Encounter - Mandy Shook RN - 11/22/2021 9:12 AM CDT PDMP 10/25/21 Medication failed the protocol, provider to review and approve the medication order if appropriate. Requested Prescriptions Pending Prescriptions Disp Refills acetaminophen-codeine (TYLENOL #3) 300-30 MG Tablet [Pharmacy Med Name: ACETAMINOPHEN-COD #3 TABLET] 90 Tablet 0 Sig: TAKE ONE TABLET BY MOUTH EVERY 8 HOURS NEEDED FOR MODERATE OR MORE SEVERE PAIN Not Delegated - Opioid Combinations Protocol Failed - 11/22/2021 12:34 AM Failed - This refill cannot be delegated Passed - Visit with relevant provider in past 12 months or upcoming 90 days Recent Visits Date Type Provider Dept 11/02/21 Office Visit Ephraim Ribera MD [facility] [place] 08/04/21 Office Visit Ephraim Ribera MD [facility] [place] 04/28/21 Office Visit Ephraim Ribera MD [facility] [place] 01/20/21 Office Visit Ephraim Ribera MD [facility] [place] Showing recent visits within past 365 days and meeting all other requirements Future Appointments Date Type Provider Dept 02/02/22 Appointment Ephraim Ribera MD [facility] [place] Showing future appointments within next 90 days and meeting all other requirements documented in this encounter Plan of Treatment Upcoming Encounters Date Type Department Care Team (Late st Contact Info) Description 2025 11:40 AM ACCOUNT SPECIALIST Office Visit [facility] - Primary Care - [place] [address] [place] [phone] Ephraim Ribera MD [address] [place] [address] documented as of this encounter Visit Diagnoses Diagnosis Primary generalized (osteo)arthritis Generalized osteoarthrosis, involving multiple sites documented in this encounter Additional Health Concerns Assessment Noted Time PHQ-9 Depression Total Score: 0 08/11/19 21 10:00 AM ACCOUNT SPECIALIST documented as of this encounter Care Teams Gore Inserter Relationship Specialty Start Date End Date Ephraim Ribera MD PCP - General Internal Medicine 04/09/20 documented as of this encounter
--- OUTSIDE RECORDS SUMMARY | 2025-07-14 13:46 | XMS_ITS | Encounter Summary ---
Author Organization [facility] Address [address] [place] [id number] Phone Care Team Providers Care Parking Lot Attendant And Cashier Name Role Phone Ephraim Ribera MD Primary Care Provider Reason for Visit * Reason Comments Medication Refill Encounter Details Date Type Department Care Team (Late st Contact Info) Description 07/26/2020 Refill [facility] - Internal Medicine - [place] [address] [place] [address] Ephraim Ribera MD [address] [place] [address] Medication Refill Social History Tobacco Use Types Packs/Day Years Used Date Smoking Tobacco: Every Day Cigarettes Smokeless Tobacco: Never PHQ-2 Answer Date Recorded PHQ-2 Score 0 04/15/2020 Sex and Gender Information Value Date Recorded Sex Assigned at Not on file Legal Sex Male 12:16 AM CDT Gender Identity Not on file Sexual Orientation Not on file documented as of this encounter Miscellaneous Notes * Telephone Encounter - Ya Barton RN - 07/26/2020 10:06 AM STUDENT AFFAIRS DEAN Please review and sign. ENT AFFAIRS DEAN documented in this encounter Plan of Treatment Upcoming Encounters Date Type Department Care Team (Late st Contact Info) Description 2025 11:40 AM STUDENT AFFAIRS DEAN Office Visit [facility] - Primary Care - [place] [address] [place] [phone] Ephraim Ribera MD [address] [place] [address] documented as of this encounter Visit Diagnoses Not on filedocumented in this encounter Additional Health Concerns Assessment Noted Time PHQ-9 Depression Total Score: 0 04/15/20 20 1:00 PM CDT documented as of this encounter Care Teams Parking Lot Attendant And Cashier Relationship Specialty Start Date End Date Ephraim Ribera MD PCP - General Internal Medicine 04/09/20 documented as of this encounter
--- OUTSIDE RECORDS SUMMARY | 2025-07-14 13:46 | XMS_ITS | Encounter Summary ---
Author Organization [facility] Address [address] [place] [address] Phone Care Team Providers Care Certified Hyperbaric Technician Name Role Phone Ephraim Ribera MD Primary Care Provider [phone]- [phone] Reason for Visit * Reason Comments Medication Refill Encounter Details Date Type Department Care Team (Late st Contact Info) Description 11/23/2023 Refill [facility] - [place] [address] [place] [phone] Ephraim Ribera MD [address] [place] [address] Medication Refill Social History Tobacco Use Types Packs/Day Years Used Date Smoking Tobacco: Every Day Cigarettes Passive Smoke Exposure: Current Smokeless Tobacco: Never Alcohol Use Standard Drinks/Week Comments Never 0 (1 standard drink = 0.6 oz pur e alcohol) [facility] Utilities Answer Date Recorded In the past 12 months has [employer], gas, oil, or water [employer] threatened to shut off services in your home? No 10/30/2023 Social Connection and Isolation Panel Answer Date Recorded In a typical week, how many times do you talk on the phone with family, friends, or neighbors? More than three times a week 10/30/2023 How often do you get togethe r with friends or relatives? Once a week 10/30/2023 How often do you attend [facility] or baptism services? Never 10/30/2023 Do you belong to any clubs o r organizations such as sabianism groups, unions, fraternal or athletic groups, or [...] Total Score - Questions 1-9 0 07/23 [facility] Occupat ional Health - Occupational Stress [...] place to sleep or slept in a mcc (including now)? No 10/30/2023 Education Answer Date [...] Telephone Encounter - Mandy Shook RN - 11/23/2023 8:04 AM CDT Medication(s) refilled and signed per [facility] Chronic Medication Refill Standing Order for Pediatricand Adult Patients. Requested Prescriptions Pending Prescriptions Disp Refills albuterol 108 (90 Base) MCG/ACT Aerosol Solution [Pharmacy Med Name: ALBUTEROL HFA (VENTOLIN) INH] 18 g 5 Sig: INHALE 2 PUFFS BY MOUTH EVERY 4 HOURS NEEDED FOR WHEEZE Short Acting Inhaled Beta-Agonists Protocol Passed - 11/23/2023 12:04 AM Passed - Visit with relevant provider in past 12 months or upcoming 90 days Recent Visits Date Type Provider Dept 11/01/23 Office Visit Ephraim Ribera MD [facility] [place] 08/02/23 Office Visit Ephraim Ribera MD [facility] [place] 04/26/23 Office Visit Ephraim Ribera MD [facility] [place] 11/23/22 Office Visit Ephraim Ribera MD [facility] [place] Showing recent visits within past 365 days and meeting all other requirements Future Appointments Date Type Provider Dept [facility] [place] Showing future appointments within next 90 days and meeting all other requirements documented in this encounter Plan of Treatment Upcoming Encounters Date Type Department Care Team (Late st Contact Info) Description 2025 11:40 AM MACHINE SETTER AND REPAIRER Office Visit [facility] - Primary Care - [place] [address] [place] [address] Ephraim Ribera MD [address] [place] [address] documented as of this encounter Visit Diagnoses Not on filedocumented in this encounter Additional Health Concerns Assessment Noted Time PHQ-9 Depression Total Score: 0 08/02/19 24 10:17 AM MACHINE SETTER AND REPAIRER documented as of this encounter Care Teams Certified Hyperbaric Technician Relationship Specialty Start Date End Date Ephraim Ribera MD PCP - General Internal Medicine 04/09/20 documented as of this encounter
--- OUTSIDE RECORDS SUMMARY | 2025-07-14 13:47 | XMS_ITS | Patient Health Record ---
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 YUKO DAY Primary Care Provider GulshanShannenly Unavailable [phone] Alona Gentile Unavailable [phone] Allergies Allergen (clinical drug ingredient) Drug/Non Drug Allergy documented on EMR Reaction Allergy Type Onset Date Status Pollen pollen extracts (uncoded) Unknown Allergy Active Quinazolinones quinazolinones (uncoded) Unknown Allergy Active ciprofloxacin Ciprofloxacin Unknown Drug Allergy Active levofloxacin levoFLOXacin Unknown Drug Allergy A ctive mefloquine Mefloquine Unknown Drug Allergy Activ e Results Component Value Reference Range Notes CBC Reviewed date:07/13/2025 03:11:36 PM Interpretation: Performing Lab: Notes/Report: Comp. Metabolic Panel (14) Reviewed date:07/13/2025 03:11:52 PM Interpretation: Performing Lab: Notes/Report: B-Type Natriuretic Peptide Reviewed date:07/13/2025 03:12:06 PM Interpretation: Performing Lab: Notes/Report: TSH+Free T4 Reviewed date:07/13/2025 03:12:21 PM Interpretation: Performing Lab: Notes/Report: Hemoglobin A1c Reviewed date:07/13/2025 03:12:36 PM Interpretation: Performing Lab: Notes/Report: Vitamin D, 25-Hydroxy Reviewed date:07/13/2025 03:12:52 PM Interpretation: Performing Lab: Notes/Report: Reason For Referral No Information Medications Medication SIG (Take, Route, Frequency, Duration) Notes Start Date End Date Status Silvadene 1 % Cream 1 application Hair Mixer ally Once a day Active Simvastatin 20 MG Tablet 1 tablet in the evening Orally Once a day Active Potassium Chloride ER 20 MEQ Tablet Extended Release 1 tablet with food Orally Once a day Active oxyCODONE HCl 5 MG Tablet 1 tablet Orally 4 times a day; Duration: 30 days As needed 07/10/2025 Active Senna Plus 8.6-50 MG Tablet 1 tablet as needed Orally Twice a day Active Arginaid - Packet 4.5gram Orally 3 times a day with meals Active Aspirin 81 MG Tablet Delayed Release 2 tablet Orally Once a day Active Ozempic (2 MG/DOSE) 8 MG/3ML Solution Pen-injector as directed Subcutaneous once a day on sunday Active Acetaminophen 500 MG Tablet 1 tablet as needed Orally every 6 hrs Active Sucralfate 1 GM Tablet 1 tablet on an em pty stomach Orally daily Active MiraLax 17 GM/SCOOP Powder as directed Orally daily Active Mirtazapine 15 MG Tablet 1 tablet at bed time Orally Once a day Active Centrum Silver Men 50+ - Tablet 862-89-913-300 mcg Orally once a day Active Metoprolol Tartrate 50 MG Tablet 1 tablet with food Orally Twice a day Active Midodrine HCl 2.5 MG Tablet 1 tablet Ora lly 3 times a day Active Methocarbamol 500 MG Tablet 1 tablet Ora lly twice a day Active Ondansetron 4 MG Tablet Disintegrating 1 tablet on the tongue and allow to dissolve Orally every 8 hours As needed Active Gabapentin 100 MG Capsule 1 capsule at b edtime Orally twice a day Active Levothyroxine Sodium 200 MCG Tablet 1 tablet in the morning on an empty stomach Orally Once a day Active Fexofenadine HCl 180 MG Tablet 1 tab Orally Once a day Acti ve Furosemide 20 MG Tablet 1 tablet Orally Once a day Active Breztri Aerosphere 160-9-4.8 MCG/ACT Aerosol 2 puffs Inhalation Twice a day Active Famotidine 10 MG Tablet 2 tablets Orally Twice a day Active Diclofenac Sodium 2.5 % Cream ti.i.d. to the right shoulder Externally 3 times a day 07/10/2025 Active Albuterol Sulfate 108 (90 Base) MCG/ACT Aerosol Powder Breath Activated 2 puffs as needed Inhalation every 6 hours Active Probiotic - Capsule 10 billion cell Oral ly once a day Active Levothyroxine Sodium 50 MCG Tablet 1 tablet in the morning on an empty stomach Orally Once A Day Every Other Day Active PreserVision AREDS 2 - Capsule 250-90-40-1 mg Orally once a day Active Social History Tobacco Use: Social History Observation Description Date Details (start date - stop date) Current Smoker NA - NA Social History Drug/Alcohol: Social Info Question Answer Notes Drugs Have you used drugs other than those for medical reasons in the past 12 months? Yes Marijuana? Yes AUDIT-C (Standard) Did you have a drink containing alc ohol in the past year? No Points 0 Interpretation Negative Tobacco Use: Social Info Question Answer Notes Tobacco Control (Standard) Tobacco use: Current smoker How often do you smoke cigarettes? Every day How many cigarettes a day do you smoke? 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) Active confirmed Problem Diabetic peripheral neuropathy associated with type 2 diabetes mellitus (6837923297934) Type 2 diabetes mellitus with diabetic neuropathy, unspecified (E11.40) Active confirmed Problem Type II diabetes mellitus without complication (400401634) Type 2 diabetes mellitus without complications (E11.9) Active confirmed Problem Essential hypertension (67082194) Essential (primary) hypertension (I10) Active confirmed Problem Venous ulcer of lower extremity due to chronic peripheral venous hypertension (365101863685468) Chronic venous hypertension (idiopathic) with ulcer of left lower extremity (I87.312) Active confirmed Problem Seasonal allergic rhinitis (693106957) Other seasonal allergic rhinitis (J30.2) Active confirmed Problem Chronic bronchitis (26229795) Unspecified chronic bronchitis (J42) Active confirmed Problem Chronic obstructive pulmonary disease (11258768) Chronic obstructive pulmonary disease, unspecified (J44.9) Active confirmed Problem Gastro-esophageal reflux disease without esophagitis (882835239) Gastro-esophageal reflux disease without esophagitis (K21.9) Active confirmed Problem Constipation (02573819) Constipation, unspecified (K59.00) Active confirmed Problem Lumbar spinal fusion (procedure) (99844537) Fusion of spine, lumbar region (M43.26) Active confirmed Problem Hyperlipidemia (62992722) Hyperlipidemia (E78.5) Active confirmed Problem Recurrent falls (996804431) Falls frequently (R29.6) Active confirmed Problem Frail elderly (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) Active confirmed Vital Signs Heart Rate 70 /min 07/09/2025 Temperature 97.6 degrees Fahrenheit 07/09/2025 Respiratory Rate 18 /min 07/09/2025 Oximetry 93 % 07/09/2025 Blood pressure diastolic 68 mm Hg 07/09/2025 Blood pressure systolic 100 mm Hg 07/09/2025 Encounters Encounter Location [place] [address] 06/12/2025 Alona Gentile Wedge compression fracture of T5-T6 vertebra, sequela S22.050S ; Wedge compression fracture of first lumbar vertebra, sequela S32.010S ; Encounter for other orthopedic aftercare Z47.89 ; Type 2 diabetes mellitus with diabetic neuropathy, unspecified E11.40 ; Essential (primary) hypertension I10 ; Chronic obstructive pulmonary disease, unspecified J44.9 ; Falls frequently R29.6 and Frail elderly R54 [place] [address] 06/17/2025 [place] [address] 06/19/2025 [facility] [place] frequently R29 .6 ; Frail elderly R54 ; Essential (primary) hypertension I10 ; Cellulitis of left lower extremity L03.116 ; Wedge compression fracture of T5-T6 vertebra, subsequent encounter for fracture with routine healing S22.050D ; Compression fracture of L1 vertebra with routine healing, subsequent encounter S32.010D and Physical deconditioning R53.81 [place] [address] 06/23/2025 [facility] [place] frequently R29 .6 ; Frail elderly R54 ; Essential (primary) hypertension I10 ; Cellulitis of left lower extremity L03.116 ; Wedge compression fracture of T5-T6 vertebra, subsequent encounter for fracture with routine healing S22.050D ; Compression fracture of L1 vertebra with routine healing, subsequent encounter S32.010D and Physical deconditioning R53.81 [place] [id number] 06/25/2025 [facility] [place] frequently R29 .6 ; Frail elderly R54 ; Essential (primary) hypertension I10 ; Cellulitis of left lower extremity L03.116 ; Wedge compression fracture of T5-T6 vertebra, subsequent encounter for fracture with routine healing S22.050D ; Compression fracture of L1 vertebra with routine healing, subsequent encounter S32.010D and Physical deconditioning R53.[address] [address] 07/09/2025 Sandrine Gaffney Physical deconditioning R53.81 ; Fusion of spine, lumbar region M43.26 ; Open wound T14.8XXA ; Falls frequently R29.6 ; Frail elderly R54 ; Essential (primary) hypertension I10 ; Wedge compression fracture of T5-T6 vertebra, subsequent encounter for fracture with routine healing S22.050D ; Compression fracture of L1 vertebra with routine healing, subsequent encounter S32.010D and Pain in right shoulder M25.[address] [address] 06/11/[address] [address] 06/11/[address] [address] 06/11/[address] [address] 06/12/2025 Alona Gentile [place] [address] [address] 06/14/[address] [address] 06/15/[address] [address] 06/16/[address] [address] 06/17/2025 YUKO [facility] [address] [id number] 06/22/[address] [address] 06/23/2025 YUKO DAY [address] [address] 06/24/2025 YUKO DAY [place] [address] [address] 06/30/2025 YUKO DAY [place] [address] [address] 07/03/2025 YUKO FLICK [address] [address] 07/09/2025 YUKO DAY [address] [address] 07/10/2025 YUKO DAY [address] [address] 07/10/[address] [address] 07/13/2025 YUKO DAY [address] [address] 07/14/2025 YKUO DAY Assessments Encounter Date Diagnosis (ICD Code) Assessment Notes Treatment Notes Treatment Clinical Notes Section Notes 06/12/2025 Wedge compression fracture of T5-T6 vertebra, sequela (ICD-10 - S22.050S) Stable at this time. Continue with pain management regimen. Continue therapy to progress towards goals. Report changes or concerns as needed. 06/12/2025 Wedge compression fracture of first lumbar vertebra, sequela (ICD-10 - S32.010S) Stable at this time. Continue with pain management regimen. Continue therapy to progress towards goals. Report changes or concerns as needed. 06/19/2025 Frail elderly (ICD-10 - R54) Frail older adults are at increased risk of falls, disability, hospitalizations, and . Frailty may initially be overlooked or incorrectly identified as part of the normal aging process because of the variable nature of the presentation and diagnosis. Symptoms include generalized weakness, exhaustion, slow gait, poor balance, decreased physical activity, cognitive impairment, and weight loss. To keep yourself as healthy as possible, eat a healthy diet, drink adequate amounts of fluids, get a good nghts rest, participate in some stress relieving activities, enjoy outings with family or friends as desired, use an appropriate assistive device if needed for mobility Report any concerns you have to your family, nursing staff or provider 06/19/2025 Falls frequently (ICD-10 - R29.6) Patient has been having multiple falls recently at home. He is now working with PT and OT for strengthening and mobility. Patient does have a wedge fracture to the T5 and T6 and the L1. Continue to monitor and update with any changes. 06/23/2025 Falls frequently (ICD-10 - R29.6) Patient has been having multiple falls recently at home. He is now working with PT and OT for strengthening and mobility. Patient does have a wedge fracture to the T5 and T6 and the L1. Continue to monitor and update with any changes. 06/25/2025 Falls frequently (ICD-10 - R29.6) Patient has been having multiple falls recently at home. He is now working with PT and OT for strengthening and mobility. Patient does have a wedge fracture to the T5 and T6 and the L1. Continue to monitor and update with any changes. 07/09/2025 Fusion of spine, lumbar region (ICD-10 - M43.26) Patient underwent a spinal fusion when he was in the hospital from 06/26/2025 to 07/08/2025 due to severe DDD from L1 through S1. Patient reports that he is having quite a bit of pain in his back and the right leg is still causing him issues and he is not able to stand on his own without assistance. Patient is taking oxycodone 5 mg q6 hours p.r.n. Staff report that it does make patient confused at times, but patient is alert and oriented x3 at this time. He has a follow-up with his orthopedic doctor on 07/10/2025. Continue to monitor patient and update with any changes. 07/09/2025 Physical deconditioning (ICD-10 - R53.81) Patient has yet to start working with physical therapy due to getting back late last night. He reports that therapy is supposed to be coming to get him soon. He will continue working with PT and OT for strengthening and mobility. He utilizes a wheelchair for ambulation. 07/09/2025 Open wound (ICD-10 - T14.8XXA) Patient had a blister noted to the lateral side of his left calf when he left for the hospital. Upon arriving at the hospital, the area was draining and they were concerned with possible hematoma or abscess. An MRI was done on the , which showed a hematoma, patient had a drain placed in that area on 06/30/2025, which was removed on 07/07/2025. Patient is now seeing SW[facility] weekly for management of that open wound, dressing changes are being done daily. Dressing is noted at this time. Continue to monitor and update with any changes. 06/25/2025 Frail elderly (ICD-10 - R54) Frail older adults are at increased risk of falls, disability, hospitalizations, and . Frailty may initially be overlooked or incorrectly identified as part of the normal aging process because of the variable nature of the presentation and diagnosis. Symptoms include generalized weakness, exhaustion, slow gait, poor balance, decreased physical activity, cognitive impairment, and weight loss. To keep yourself as healthy as possible, eat a healthy diet, drink adequate amounts of fluids, get a good nghts rest, participate in some stress relieving activities, enjoy outings with family or friends as desired, use an appropriate assistive device if needed for mobility Report any concerns you have to your family, nursing staff or provider 06/23/2025 Frail elderly (ICD-10 - R54) Frail older adults are at increased risk of falls, disability, hospitalizations, and . Frailty may initially be overlooked or incorrectly identified as part of the normal aging process because of the variable nature of the presentation and diagnosis. Symptoms include generalized weakness, exhaustion, slow gait, poor balance, decreased physical activity, cognitive impairment, and weight loss. To keep yourself as healthy as possible, eat a healthy diet, drink adequate amounts of fluids, get a good nghts rest, participate in some stress relieving activities, enjoy outings with family or friends as desired, use an appropriate assistive device if needed for mobility Report any concerns you have to your family, nursing staff or provider 06/12/2025 Encounter for other orthopedic aftercare (ICD-10 - Z47.89) Continue to follow up with surgeon as scheduled, has appointment on Sunday for follow-up. 06/19/2025 Essential (primary) hypertension (ICD-10 - I10) Blood pressure is stable. Managed well on current medications. Continue current treatment plan and monitoring. 06/12/2025 Type 2 diabetes mellitus with diabetic neuropathy, unspecified (ICD-10 - E11.40) Continue current medication regimen Continue to monitor glucose as ordered Enc pt to follow balanced diet with fresh fruits, vegetables, lean meats, limit sweets and white breasds, rice, pasta and potatoes when possible Report changes and concerns as needed 06/19/2025 Cellulitis of left lower extremity (ICD-10 - L03.116) Patient had a doctor's appointment on 06/17/2025. He had his legs down a lot. Prior to getting back to the facility, he started having extreme pain in the left lower leg, increased edema, very swollen, red, and shiny. Nurse reports that unable to assess the pedal pulses due to the edema. Upon assessment today, the leg is very tight, red, swollen, and hot to the touch. Very large blister noted to the anterior part of his leg. Staff have put SurePrep on the blister. Educated the patient about not popping the blister due to him asking if he could pop it to make it feel better. Explain the risk of infection if that was to happen. Patient verbalizes understanding. Order given to start clindamycin 450 mg p.o. q 6 hours x5 days, and probiotic b.i.d. x7 days. 06/23/2025 Essential (primary) hypertension (ICD-10 - I10) Blood pressure is stable. Managed well on current medications. Continue current treatment plan and monitoring. 06/25/2025 Essential (primary) hypertension (ICD-10 - I10) Blood pressure is stable. Managed well on current medications. Continue current treatment plan and monitoring. 07/09/2025 Falls frequently (ICD-10 - R29.6) Patient has been having multiple falls recently at home. He is now working with PT and OT for strengthening and mobility. Patient does have a wedge fracture to the T5 and T6 and the L1. Continue to monitor and update with any changes. 06/23/2025 Cellulitis of left lower extremity (ICD-10 - L03.116) Order was given on 06-19-25 for clindamycin and a probiotic. Staff and patient report that leg is looking much better. Extremity is not as red and swollen, not warm to the touch, the blister that was noted is now popped, and they are dressing that area daily. Educated patient on keeping the area clean and dry. 06/12/2025 Essential (primary) hypertension (ICD-10 - I10) Stable with current management Continue current medication Report persistent BP elevated greater than 140/90 Report new or worsening symptoms of h/a, dizziness, chest pain, shortness of breath, new or worsening edema 06/19/2025 Wedge compression fracture of T5-T6 vertebra, subsequent encounter for fracture with routine healing (ICD-10 - S22.050D) Stable at this time. Denies any pain, reports that pain medications are helping. Continue with PT and OT for strengthening and mobility. 06/25/2025 Cellulitis of left lower extremity (ICD-10 - L03.116) Order was given on 06-19-25 for clindamycin and a probiotic. Patient and staff report that the redness to the leg is much better, the edema has gone down. 1+ edema is noted to the left lower extremity. ASHWIN wraps in place. Continue to do daily dressing changes on the popped blister. Educated patient to continue to elevate leg and keep the area clean and dry. 07/09/2025 Frail elderly (ICD-10 - R54) Frail older adults are at increased risk of falls, disability, hospitalizations, and . Frailty may initially be overlooked or incorrectly identified as part of the normal aging process because of the variable nature of the presentation and diagnosis. Symptoms include generalized weakness, exhaustion, slow gait, poor balance, decreased physical activity, cognitive impairment, and weight loss. To keep yourself as healthy as possible, eat a healthy diet, drink adequate amounts of fluids, get a good nghts rest, participate in some stress relieving activities, enjoy outings with family or friends as desired, use an appropriate assistive device if needed for mobility Report any concerns you have to your family, nursing staff or provider 06/12/2025 Chronic obstructive pulmonary disease, unspecified (ICD-10 - J44.9) stable without recent exac continue all resp meds/treatments report changes or concerns as needed 06/19/2025 Compression fracture of L1 vertebra with routine healing, subsequent encounter (ICD-10 - S32.010D) Stable at this time. Denies any pain, reports that pain medications are helping. Continue with PT and OT for strengthening and mobility. 06/23/2025 Wedge compression fracture of T5-T6 vertebra, subsequent encounter for fracture with routine healing (ICD-10 - S22.050D) Stable at this time. Denies any pain, reports that pain medications are helping. Continue with PT and OT for strengthening and mobility. 07/09/2025 Essential (primary) hypertension (ICD-10 - I10) Blood pressure is stable. Managed well on current medications. Continue current treatment plan and monitoring. 06/25/2025 Wedge compression fracture of T5-T6 vertebra, subsequent encounter for fracture with routine healing (ICD-10 - S22.050D) Stable at this time. Denies any pain, reports that pain medications are helping. Continue with PT and OT for strengthening and mobility. 06/25/2025 Compression fracture of L1 vertebra with routine healing, subsequent encounter (ICD-10 - S32.010D) Stable at this time. Denies any pain, reports that pain medications are helping. Continue with PT and OT for strengthening and mobility. 06/23/2025 Compression fracture of L1 vertebra with routine healing, subsequent encounter (ICD-10 - S32.010D) Stable at this time. Denies any pain, reports that pain medications are helping. Continue with PT and OT for strengthening and mobility. 07/09/2025 Wedge compression fracture of T5-T6 vertebra, subsequent encounter for fracture with routine healing (ICD-10 - S22.050D) Stable at this time. Denies any pain, reports that pain medications are helping. Continue with PT and OT for strengthening and mobility. 06/19/2025 Physical deconditioning (ICD-10 - R53.81) Patient is working with PT/OT for strengthening and mobility. Reports therapy is going well. Utilizes a wheelchair for ambulation. 06/12/2025 Falls frequently (ICD-10 - R29.6) fall precautions in place call light in reach anticipate needs such as food/fluids/bathr oom use prior to leaving pt alone non slip shoes and socks on freq room checks 06/12/2025 Frail elderly (ICD-10 - R54) Frail older adults are at increased risk of falls, disability, hospitalizations, and . Frailty may initially be overlooked or incorrectly identified as part of the normal aging process because of the variable nature of the presentation and diagnosis. Symptoms include generalized weakness, exhaustion, slow gait, poor balance, decreased physical activity, cognitive impairment, and weight loss. To keep yourself as healthy as possible, eat a healthy diet, drink adequate amounts of fluids, get a good nghts rest, participate in some stress relieving activities, enjoy outings with family or friends as desired, use an appropriate assistive device if needed for mobility Report any concerns you have to your family, nursing staff or provider 06/23/2025 Physical deconditioning (ICD-10 - R53.81) Patient is working with PT/OT for strengthening and mobility. Reports therapy is going well. Utilizes a wheelchair for ambulation. 07/09/2025 Compression fracture of L1 vertebra with routine healing, subsequent encounter (ICD-10 - S32.010D) Stable at this time. Denies any pain, reports that pain medications are helping. Continue with PT and OT for strengthening and mobility. 06/25/2025 Physical deconditioning (ICD-10 - R53.81) Patient is working with PT/OT for strengthening and mobility. Reports therapy is going well. Utilizes a wheelchair for ambulation. 07/09/2025 Pain in right shoulder (ICD-10 - M25.511) Patient reports he is having some right shoulder pain, he reports that he kind of fell or was dropped while in the hospital. When they were trying to help him up, his right shoulder started hurting. Order given for diclofenac cream to the right shoulder t.i.d. Continue to monitor patient and update with any changes. 06/12/2025 Other REVIEWED HIPAA RIGHT TO PRIVACY PRACTICES WITH PT/FAMILY/CAREGIV ER COPY OF HIPAA RIGHT TO PRIVACY PRACTICES LEFT WITH PT/FAMILY/CAREGIV ER Patient/family/ca regiver was counseled on the risks, benefits, and alternatives of opioid/benzodiaze pine therapy, including potential for dependence, tolerance, and side effects, and verbalized understanding of information provided. 06/19/2025 Other Continue current treatment plan.Staff to continue to monitor and report any changes.Patient education provided and questions/concern s addressed.Follow up in one week unless necessary sooner. Draw CBC, CMP, BNP, TSH, free T4, A1c, and vitamin D level on next lab day. 06/23/2025 Other Continue current treatment plan. Staff to continue to monitor and report any changes. Patient education provided and questions/concern s addressed. Follow up in 1 week unless necessary sooner. 06/25/2025 Other Continue billy sterling treatment plan.Staff to continue to monitor and report any changes.Patient education provided and questions/concern s addressed.Follow up in one week unless necessary sooner. 07/09/2025 Other Patient with multiple chronic conditions, each requiring ongoing management and coordination of care. Reviewed and interpreted most recent laboratory results available, diagnostic studies, and prior specialist notes. Staff to continue to monitor and report any changes. Patient education provided and questions/concern s addressed. Close follow-up required; reassess in 3-7 days or sooner if condition worsens. Plan Of Treatment Pending Test Test Name Order Date X ray : Clavicle, right 07/10/2025 Next Appt Details Provider Name:Sandrine Gaffney , 07/17/2025 09:45:00 AM, [address], [place], [address], Provider Name:Sandrine Gaffney , 07/22/2025 06:15:00 AM, [address], [place], [address], Insurance Providers Payer Name Payer Address Payer Phone Subscriber Number Group Number Insured Name Patient Relationship to Insured Coverage Start Date Coverage End Date [employer] [address] [place] [address] [id number] Yuko Louise Self - patient is the insured Medicare of [place] [address] [place], [place] [id number] Yuko Louise Self - patient is the insured Medical (General) History Medical History History ICD Code Wedge compression fracture o f T5-T6 vertebra, subsequent encounter for fracture with routine healing S22.050D Chronic obstructive pulmonary disease, u nspecified J44.9 Constipation, unspecified K59.00 Erythematous condition, unspecified L53. 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
--- OUTSIDE RECORDS SUMMARY | 2025-07-14 13:47 | XMS_ITS | Encounter Summary ---
Author Organization [facility] Address [address] [place] [address] Phone Care Team Providers Care Medical Supply Technician Name Role Phone Ephraim Ribera MD Primary Care Provider [phone] Reason for Visit * Reason Comments Medication Refill Encounter Details Date Type Department Care Team (Late st Contact Info) Description 11/09/2022 Refill [facility] - [facility] Medicine - [place] [address] [place] [phone] Ephraim Ribera MD [address] [place] [address] Medication Refill Social History Tobacco Use Types [...] Miscellaneous Notes * Telephone Encounter - Mandy Shook, RN - 11/09/2022 8:06 AM CDT Medication failed the protocol, provider to review and approve the medication order if appropriate. Requested Prescriptions Pending Prescriptions Disp Refills acetaminophen-codeine (TYLENOL #3) 300-30 MG Tablet [Pharmacy Med Name: ACETAMINOPHEN-COD #3 TABLET] 90 Tablet 0 Sig: TAKE ONE TABLET BY MOUTH EVERY 8 HOURS NEEDED FOR MODERATE OR MORE SEVERE PAIN Not Delegated - Opioid Combinations Protocol Failed - 11/09/2022 12:15 AM Failed - This refill cannot be delegated Passed - Visit with relevant provider in past 12 months or upcoming 90 days Recent Visits Date Type Provider Dept 08/23/22 Office Visit Ephraim Ribera MD [facility] [place] 05/11/22 Office Visit Ephraim Ribera MD [facility] [place] 02/02/22 Office Visit Ephraim Ribera MD [facility] [place] Showing recent visits within past 365 days and meeting all other requirements Future Appointments Date Type Provider Dept 11/23/22 Appointment Ephraim Ribera MD [facility] [place] Showing future appointments within next 90 days and meeting all other requirements documented in this encounter Plan of Treatment Upcoming Encounters Date Type Department Care Team (Late st Contact Info) Description 2025 11:40 AM MIXED CROP AND LIVESTOCK FARM WORKER Office Visit [facility] - Primary Care - [place] [address] [place] [address] Ephraim Ribera MD [address] [place] [address] documented as of this encounter Visit Diagnoses Diagnosis Primary generalized (osteo)arthritis Generalized osteoarthrosis, involving multiple sites documented in this encounter Additional Health Concerns Assessment Noted Time PHQ-9 Depression Total Score: 0 08/11/19 21 10:00 AM MIXED CROP AND LIVESTOCK FARM WORKER documented as of this encounter Care Teams Medical Supply Technician Relationship Specialty Start Date End Date Ephraim Ribera MD PCP - General Internal Medicine 04/09/20 documented as of this encounter
--- OUTSIDE RECORDS SUMMARY | 2025-07-14 13:47 | XMS_ITS | Encounter Summary ---
Author Organization [facility] Address [address] [place] [address] Phone Care Team Providers Care Medical Secretary Teacher Name Role Phone Ephraim Ribera MD Primary Care Provider Reason for Visit * Reason Onset Date Comments Medication Refill Medication Refill 09/09/2020 Encounter Details Date Type Department Care Team (Late st Contact Info) Description 09/09/2020 Telephone [facility] - Internal Medicine - [place] [address] [place] [phone] Ephraim Ribera MD [address] [place] [address] Medication Refill; Medication Refill Social History Tobacco Use Types Packs/Day Years Used Date Smoking Tobacco: Every Day Cigarettes Smokeless Tobacco: Never PHQ-2 Answer Date Recorded Total Score - Questions 1-9 0 07/24 Sex and Gender Information Value Date Recorded Sex Assigned at Not on file Legal Sex Male 12:16 AM CDT Gender Identity Not on file Sexual Orientation Not on file COVID-19 Exposure Response Date Recorded In the last month, have you been in contact with someone who was confirmed or suspected to have Coronavirus / COVID-19? No / Unsure 09/03/2020 1:30 PM CORPORATE VP ADVERTISING & ONLINE documented as of this encounter Miscellaneous Notes * Telephone Encounter - Ephraim Ribera MD - 09/09/2020 4:23 PM CORPORATE VP ADVERTISING & ONLINE Trelegy rx sent for 3 mths [employer] * Telephone Encounter - Ya Barton RN - 09/09/2020 4:17 PM CST Patient want to know if he can have 3 months instead of 1? It saves him money. [employer] * Telephone Encounter - Ya Barton RN - 09/09/2020 2:41 PM CST Please review and sign. [employer] documented in this encounter Plan of Treatment Upcoming Encounters Date Type Department Care Team (Late st Contact Info) Description 2025 11:40 AM CORPORATE VP ADVERTISING & ONLINE Office Visit [facility] - Primary Care - [place] [address] [place] [address] Ephraim Ribera MD [address] [place] [address] documented as of this encounter Visit Diagnoses Not on filedocumented in this encounter Additional Health Concerns Assessment Noted Time PHQ-9 Depression Total Score: 0 08/11/19 21 10:00 AM CORPORATE VP ADVERTISING & ONLINE documented as of this encounter Care Teams Medical Secretary Teacher Relationship Specialty Start Date End Date Ephraim Ribera MD PCP - General Internal Medicine 04/09/20 documented as of this encounter
--- OUTSIDE RECORDS SUMMARY | 2025-07-14 13:47 | XMS_ITS | Encounter Summary ---
Author Organization [facility] Address [address] [place] [address] Phone Care Team Providers Care Ice Sculptor Name Role Phone Ephraim Ribera MD Primary Care Provider [phone]- [phone] Reason for Visit * Reason Comments Medication Refill Encounter Details Date Type Department Care Team (Late st Contact Info) Description 11/06/2023 Refill [facility] - [place] [address] [place] [phone] Ephraim Ribera MD [address] [place] [address] Medication Refill Social History Tobacco Use Types Packs/Day Years Used Date Smoking Tobacco: Every Day Cigarettes Passive Smoke Exposure: Current Smokeless Tobacco: Never Alcohol Use Standard Drinks/Week Comments Never 0 (1 standard drink = 0.6 oz pur e alcohol) [facility] Utilities Answer Date Recorded In the past 12 months has [employer], gas, oil, or water [employer] threatened to shut off services in your home? No 10/30/2023 Social Connection and Isolation Panel Answer Date Recorded In a typical week, how many times do you talk on the phone with family, friends, or neighbors? More than three times a week 10/30/2023 How often do you get togethe r with friends or relatives? Once a week 10/30/2023 How often do you attend [facility] or judaism services? Never 10/30/2023 Do you belong to any clubs o r organizations such as yarsani groups, unions, fraternal or athletic groups, or [...] place to sleep or slept in a halfway (including now)? No 10/30/2023 Education Answer Date [...] Telephone Encounter - Mandy Shook RN - 11/06/2023 9:06 AM CDT Medication failed the protocol, provider to review and approve the medication order if appropriate. Requested Prescriptions Pending Prescriptions Disp Refills acetaminophen-codeine (TYLENOL #3) 300-30 MG Tablet [Pharmacy Med Name: ACETAMINOPHEN-COD #3 TABLET] 90 Tablet 0 Sig: TAKE 1 TABLET BY MOUTH EVERY 8 HOURS NEEDED FOR MODERATE OR MORE SEVERE PAIN Not Delegated - Opioid Combinations Protocol Failed - 11/06/2023 12:09 AM Failed - This refill cannot be delegated Passed - Visit with relevant provider in past 12 months or upcoming 90 days Recent Visits Date Type Provider Dept 11/01/23 Office Visit Ephraim Ribera MD [facility] [place] 08/02/23 Office Visit Ephraim Ribera MD [facility] [place] 04/26/23 Office Visit Ephraim Ribera MD [facility] [place] 11/23/22 Office Visit Ephraim Ribera MD [facility] [place] Showing recent visits within past 365 days and meeting all other requirements Future Appointments Date Type Provider Dept 01/29/24 [facility] [place] [place] 01/[facility]/24 Appointment [facility] [place] Showing future appointments within next 90 days and meeting all other requirements documented in this encounter Plan of Treatment Upcoming Encounters Date Type Department Care Team (Late st Contact Info) Description 2025 11:40 AM FILM 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 Office Visit [facility] - Primary Care - [place] [address] [place] [address] Ephraim Ribera MD [address] [place] [address] documented as of this encounter Visit Diagnoses Diagnosis Primary generalized (osteo)arthritis Generalized osteoarthrosis, involving multiple sites documented in this encounter Additional Health Concerns Assessment Noted Time PHQ-9 Depression Total Score: 0 08/02/19 24 10:17 AM FILM 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 documented as of this encounter Care Teams Ice Sculptor Relationship Specialty Start Date End Date Ephraim Ribera MD PCP - General Internal Medicine 04/09/20 documented as of this encounter
--- OUTSIDE RECORDS SUMMARY | 2025-07-14 13:47 | XMS_ITS | Encounter Summary ---
Author Organization [facility] Address [address] [place] [address] Phone Care Team Providers Care Facility Worker Name Role Phone Ephraim Ribera MD Primary Care Provider [phone]- [phone] Reason for Visit * Reason Comments Medication Refill Encounter Details Date Type Department Care Team (Late st Contact Info) Description 10/10/2023 Refill [facility] - Internal Medicine - [place] [address] [place] [phone] Ephraim Ribera MD [address] [place] [address] Medication Refill Social History Tobacco Use Types Packs/Day Years Used Date Smoking Tobacco: Every Day Cigarettes Passive Smoke Exposure: Current Smokeless Tobacco: Never Alcohol Use Standard Drinks/Week Comments Never 0 (1 standard drink = 0.6 oz pur e alcohol) [facility] Utilities Answer Date Recorded In the past 12 months has [employer] gas, oil, or water [employer] threatened to shut off services in your home? Patient declined 08/02/2023 Social Connection and Isolation Panel Answer Date Recorded In a typical week, how many times do you talk on the phone with family, friends, or neighbors? Patient declined 08/02/2023 How often do you get togethe r with friends or relatives? Patient declined 08/02/2023 How often do you attend quaker or denominational serv ices? Patient declined 08/02/2023 Do you belong to any clubs o r organizations such as quaker groups, unions, fraternal or athletic groups, or school groups? Patient declined 08/02/2023 How often do you attend meet ings of the clubs or organizations you belong to? Patient declined 08/02/2023 Are you , , di vorced, , never , or living with a partner? Patient declined 08/02/2023 AUDIT-C Answer Date Recorded Q1: How often do you have a drink containing alc ohol? Patient declined 08/02/2023 Q2: How many drinks containi ng alcohol do you have on a typical day when you are drinking? Patient declined 08/02/2023 Q3: How often do you have si x or more drinks on one occasion? Patient declined 08/02/2023 Overall Financial Resource Strain (CARDIA) Answe r Date Recorded How hard is it for you to pa y for the very basics like food, housing, medical care, and heating? Patient declined 08/02/2023 PHQ-2 Answer Date Recorded Total Score - Questions 1-9 0 07/23 [facility] Occupat ional [facility] - Occupational Stress Questionnaire Answer Date Recorded Do you feel stress - tense, restless, nervous, or anxious, or unable to sleep at night because your mind is troubled all the time - these days? Patient declined 08/02/2023 Exercise Vital Sign Answer Date Recorde d On average, how many days pe r week do you engage in moderate to strenuous exercise (like a brisk walk)? Patient declined On average, how many minutes do you engage in exercise at this level? Patient declined 08/02/2023 Hunger Vital Sign Answer Date Recorded Within the past 12 months, y ou worried that your food would run out before you got the money to buy more. Patient declined Within the past 12 months, t he food you bought just didn't last and you didn't have money to get more. Patient declined 05/2024 PRAPARE - Transportation Answer Date Re corded In the past 12 months, has l ack of transportation kept you from medical appointments or from getting medications? Patient declined 08/02/2023 In the past 12 months, has l ack of transportation kept you from meetings, work, or from getting things needed for daily living? Patient declined 08/02/2023 Housing Stability Vital Sign Answer Stanley e Recorded In the last 12 months, was t here a time when you were not able to pay the mortgage or rent on time? Patient declined 08/02/19 24 In the last 12 months, how many places have you lived? 1 08/02/2023 In the last 12 months, was t here a time when you did not have a steady place to sleep or slept in a care home (including now)? Patient declined 08/02/2023 Education Answer Date Recorded What is the [...] Telephone Encounter - Mandy Shook RN - 10/10/2023 8:49 AM CDT Medication failed the protocol, provider to review and approve the medication order if appropriate. Requested Prescriptions Pending Prescriptions Disp Refills acetaminophen-codeine (TYLENOL #3) 300-30 MG Tablet [Pharmacy Med Name: ACETAMINOPHEN-COD #3 TABLET] 90 Tablet 0 Sig: TAKE 1 TABLET BY MOUTH EVERY 8 HOURS NEEDED FOR MODERATE OR MORE SEVERE PAIN Not Delegated - Opioid Combinations Protocol Failed - 10/10/2023 12:16 AM Failed - This refill cannot be delegated Passed - Visit with relevant provider in past 12 months or upcoming 90 days Recent Visits Date Type Provider Dept 08/02/23 Office Visit Ephraim Ribera MD [facility] [place] 04/26/23 Office Visit Ephraim Ribera MD [facility] [place] 11/23/22 Office Visit Ephraim Ribera MD [facility] [place] Showing recent visits within past 365 days and meeting all other requirements Future Appointments Date Type Provider Dept 11/01/23 Appointment Ephraim Ribera MD [facility] [place] Showing future appointments within next 90 days and meeting all other requirements documented in this encounter Plan of Treatment Upcoming Encounters Date Type Department Care Team (Late st Contact Info) Description 2025 11:40 AM BEEKEEPER Office Visit [facility] - Primary Care - [place] [address] [place] [address] Ephraim Ribera MD [address] [place] [address] documented as of this encounter Visit Diagnoses Diagnosis Primary generalized (osteo)arthritis Generalized osteoarthrosis, involving multiple sites documented in this encounter Additional Health Concerns Assessment Noted Time PHQ-9 Depression Total Score: 0 08/02/19 24 10:17 AM BEEKEEPER documented as of this encounter Care Teams Facility Worker Relationship Specialty Start Date End Date Ephraim Ribera MD PCP - General Internal Medicine 04/09/20 documented as of this encounter
--- OUTSIDE RECORDS SUMMARY | 2025-07-14 13:47 | XMS_ITS | Encounter Summary ---
Author Organization [facility] Address [address] [place] [address] Phone Care Team Providers Care Sub Acute Care Nurse Name Role Phone Ephraim Ribera MD Primary Care Provider [phone]- [phone] Reason for Visit * Reason Comments Medication Refill Encounter Details Date Type Department Care Team (Late st Contact Info) Description 10/18/2023 Refill [facility] - Internal Medicine - [place] [address] [place] [phone] Ephraim Ribera MD [address] [place] [address] Medication Refill Social History Tobacco Use Types Packs/Day Years Used Date Smoking Tobacco: Every Day Cigarettes Passive Smoke Exposure: Current Smokeless Tobacco: Never Alcohol Use Standard Drinks/Week Comments Never 0 (1 standard drink = 0.6 oz pur e alcohol) [facility] Utilities Answer Date Recorded In the past 12 months has [employer], gas, oil, or water [employer] threatened to shut off services in your home? Patient declined 08/02/2023 Social Connection and Isolation Panel Answer Date Recorded In a typical week, how many times do you talk on the phone with family, friends, or neighbors? Patient declined 08/02/2023 How often do you get togethe r with friends or relatives? Patient declined 08/02/2023 How often do you attend zoroastrianism or buddhist serv ices? Patient declined 08/02/2023 Do you belong to any clubs o r organizations such as zoroastrianism groups, unions, fraternal or athletic groups, or [...] Total Score - Questions 1-9 0 07/23 [facility] Occupat ional [facility] - Occupational Stress Questionnaire Answer Date Recorded [...] place to sleep or slept in a fpc (including now)? Patient declined 08/02/2023 Education Answer [...] Telephone Encounter - Mandy Shook RN - 10/18/2023 8:01 AM CDT Medication failed the protocol, provider to review and approve the medication order if appropriate. Requested Prescriptions Pending Prescriptions Disp Refills predniSONE (DELTASONE) 10 MG Tablet [Pharmacy Med Name: PREDNISONE 10 MG TABLET] 15 Tablet 0 Sig: Take 3 Tablets by mouth daily. Not Delegated - Corticosteroids Protocol Failed - 10/18/2023 12:06 AM Failed - This refill cannot be delegated Passed - Visit with relevant provider in past 12 months or upcoming 90 days Recent Visits Date Type Provider Dept 08/02/23 Office Visit Ephraim Ribera MD [facility] [place] 04/26/23 Office Visit Ephraim Ribera MD [facility] [place] 11/23/22 Office Visit Ephraim Ribera MD [facility] [place] Showing recent visits within past 365 days and meeting all other requirements Future Appointments Date Type Provider Dept 11/01/23 Appointment Ephraim Ribera MD [facility] [place] Showing future appointments within next 90 days and meeting all other requirements documented in this encounter Plan of Treatment Upcoming Encounters Date Type Department Care Team (Late st Contact Info) Description 2025 11:40 AM VENEER REPAIRER MACHINE Office Visit [facility] - Primary Care - [place] [address] [place] [address] Ephraim Ribera MD [address] [place] [address] documented as of this encounter Visit Diagnoses Not on filedocumented in this encounter Additional Health Concerns Assessment Noted Time PHQ-9 Depression Total Score: 0 08/02/19 24 10:17 AM VENEER REPAIRER MACHINE documented as of this encounter Care Teams Sub Acute Care Nurse Relationship Specialty Start Date End Date Ephraim Ribera MD PCP - General Internal Medicine 04/09/20 documented as of this encounter
--- OUTSIDE RECORDS SUMMARY | 2025-07-14 13:47 | XMS_ITS | Encounter Summary ---
Author Organization [facility] Address [address] [place] [address] Phone Care Team Providers Care Melt Down Furnace Operator Name Role Phone Ephraim Ribera MD Primary Care Provider Reason for Visit * Reason Comments Medication Refill Encounter Details Date Type Department Care Team (Late st Contact Info) Description 10/12/2022 Refill [facility] Internal Medicine - [place] [address] [place] [phone] Ephraim Ribera MD [address] [place] [address] Medication Refill Social History Tobacco Use Types [...] Telephone Encounter - Mandy Shook RN - 10/12/2022 8:29 AM CDT Medication failed the protocol, provider to review and approve the medication order if appropriate. Requested Prescriptions Pending Prescriptions Disp Refills acetaminophen-codeine (TYLENOL #3) 300-30 MG Tablet [Pharmacy Med Name: ACETAMINOPHEN-COD #3 TABLET] 90 Tablet 0 Sig: TAKE ONE TABLET BY MOUTH EVERY 8 HOURS NEEDED FOR MODERATE OR MORE SEVERE PAIN Not Delegated - Opioid Combinations Protocol Failed - 10/12/2022 12:41 AM Failed - This refill cannot be delegated Passed - Visit with relevant provider in past 12 months or upcoming 90 days Recent Visits Date Type Provider Dept 08/23/22 Office Visit Ephraim Ribera MD [facility] [place] 05/11/22 Office Visit Ephraim Ribera MD [facility] [place] 02/02/22 Office Visit Ephraim Ribera MD [facility] [place] 11/02/21 Office Visit Ephraim Ribera MD [facility] [place] Showing recent visits within past 365 days and meeting all other requirements Future Appointments Date Type Provider Dept 11/23/22 Appointment Ephraim Ribera MD [facility] [place] Showing future appointments within next 90 days and meeting all other requirements documented in this encounter Plan of Treatment Upcoming Encounters Date Type Department Care Team (Late st Contact Info) Description 2025 11:40 AM RENTAL COORDINATOR Office Visit [facility] - Primary Care - [place] [address] [place] [address] Ephraim Ribera MD [address] [place] [address] documented as of this encounter Visit Diagnoses Diagnosis Primary generalized (osteo)arthritis Generalized osteoarthrosis, involving multiple sites documented in this encounter Additional Health Concerns Assessment Noted Time PHQ-9 Depression Total Score: 0 08/11/19 21 10:00 AM RENTAL COORDINATOR documented as of this encounter Care Teams Melt Down Furnace Operator Relationship Specialty Start Date End Date Ephraim Ribera MD PCP - General Internal Medicine 04/09/20 documented as of this encounter
--- OUTSIDE RECORDS SUMMARY | 2025-07-14 13:47 | XMS_ITS | Encounter Summary ---
Author Organization [facility] Address [address] [place] [address] Phone Care Team Providers Care Tractor Sweeper Driver Name Role Phone Ephraim Ribera MD Primary Care Provider [phone]- [phone] Reason for Visit * Reason Comments Medication Refill Encounter Details Date Type Department Care Team (Late st Contact Info) Description 06/27/2025 [facility]ill [facility] - [facility] - [place] [address] [place] [phone] Ephraim Ribera MD [address] [place] [address] Medication Refill Social History Tobacco Use Types Packs/Day Years Used Date Smoking Tobacco: Every Day Cigarettes Passive Smoke Exposure: Current Smokeless Tobacco: Never Alcohol Use Standard Drinks/Week Comments Never 0 (1 standard drink = 0.6 oz pur e alcohol) [facility] Utilities Answer Date Recorded In the past 12 months has [employer] gas, oil, or water [employer] threatened to shut off services in your home? No 08/26/2024 Social Connection and Isolation Panel Answer Date Recorded In a typical week, how many times do you talk on the phone with family, friends, or neighbors? More than three times a week 08/26/2024 How often do you get togethe r with friends or relatives? Once a week 08/26/2024 How often do you attend [facility] or taoism services? Never 08/26/2024 Do you belong to any clubs o r organizations such as adventism groups, unions, fraternal or athletic groups, or [...] Recorded Total Score - Questions 1-9 0 12/2024 [facility] Occupat ional Health [...] place to sleep or slept in a penitentiary (including now)? No 10/30/2023 Housing Stability Vital Sign Answer Stanley e Recorded In the last 12 months, was t here a time when you were not able to pay the mortgage or rent on time? No 08/26/2024 In the past 12 months, how m any times have you moved where you were living? 0 08/26/2024 At any time in the past 12 m ont, were you homeless or living in a penitentiary (including now)? No 08/26/2024 Education Answer Date [...] encounter Miscellaneous Notes * Telephone Encounter - Michael Hopkins RN - 06/29/2025 9:54 AM ARCHITECTURAL ADMINISTRATIVE ASSISTANT Duplicate Request. ITECTURAL ADMINISTRATIVE ASSISTANT documented in this encounter Plan of Treatment Upcoming Encounters Date Type Department Care Team (Late st Contact Info) Description 2025 11:40 AM ARCHITECTURAL ADMINISTRATIVE ASSISTANT Office Visit [facility] - Primary Care - [place] [address] [place] [address] Ephraim Ribera MD [address] [place] [address] documented as of this encounter Visit Diagnoses Not on filedocumented in this encounter Additional Health Concerns Assessment Noted Time PHQ-9 Depression Total Score: 0 11/26/19 25 1:26 PM CDT documented as of this encounter Care Teams Tractor Sweeper Driver Relationship Specialty Start Date End Date Ephraim Ribera MD PCP - General Internal Medicine 04/09/20 documented as of this encounter
--- OUTSIDE RECORDS SUMMARY | 2025-07-14 13:47 | XMS_ITS | Encounter Summary ---
Author Organization [facility] Address [address] [place] [address] Phone Care Team Providers Care Sales Utility Representative Name Role Phone Ephraim Ribera MD Primary Care Provider [phone]- [phone] Reason for Visit * Reason Comments Medication Refill Encounter Details Date Type Department Care Team (Late st Contact Info) Description 09/13/2023 Refill [facility] - Internal Medicine - [place] [address] [place] [phone] Ephraim Ribera MD [address] [place] [address] Medication Refill Social History Tobacco Use Types Packs/Day Years Used Date Smoking Tobacco: Every Day Cigarettes Passive Smoke Exposure: Current Smokeless Tobacco: Never Alcohol Use Standard Drinks/Week Comments Never 0 (1 standard drink = 0.6 oz pur e alcohol) [facility] Utilities Answer Date Recorded In the past 12 months has [employer], gas, oil, or water [email or web address] threatened to shut off services in your home? Patient declined 08/02/2023 Social Connection and Isolation Panel Answer Date Recorded In a typical week, how many times do you talk on the phone with family, friends, or neighbors? Patient declined 08/02/2023 How often do you get togethe r with friends or relatives? Patient declined 08/02/2023 How often do you attend christian or buddhism serv ices? Patient declined 08/02/2023 Do you belong to any clubs o r organizations such as christian groups, unions, fraternal or athletic groups, or [...] Total Score - Questions 1-9 0 07/23 [facility] Occupat ional [facility] - Occupational Stress Questionnaire Answer Date Recorded [...] place to sleep or slept in a correction (including now)? Patient declined 08/02/2023 Education Answer [...] Telephone Encounter - Mandy Shook RN - 09/13/2023 8:26 AM CST Medication failed the protocol, provider to review and approve the medication order if appropriate. Requested Prescriptions Pending Prescriptions Disp Refills acetaminophen-codeine (TYLENOL #3) 300-30 MG Tablet [Pharmacy Med Name: ACETAMINOPHEN-COD #3 TABLET] 90 Tablet 0 Sig: TAKE 1 TABLET BY MOUTH EVERY 8 HOURS NEEDED FOR MODERATE OR MORE SEVERE PAIN Not Delegated - Opioid Combinations Protocol Failed - 09/13/2023 12:17 AM Failed - This refill cannot be delegated Passed - Visit with relevant provider in past 12 months or upcoming 90 days Recent Visits Date Type Provider Dept 08/02/23 Office Visit Ephraim Ribera MD [facility] [place] 04/26/23 Office Visit Ephraim Ribera MD [facility] [place] 11/23/22 Office Visit Ephraim Ribera MD [facility] [place] Showing recent visits within past 365 days and meeting all other requirements Future Appointments Date Type Provider Dept 11/01/23 Appointment Ephraim Ribera MD [facility] [place] Showing future appointments within next 90 days and meeting all other requirements ALK SOFTWARE DEVELOPER documented in this encounter Plan of Treatment Upcoming Encounters Date Type Department Care Team (Late st Contact Info) Description 2025 11:40 AM BIZTALK SOFTWARE DEVELOPER Office Visit [facility] - Primary Care - [place] [address] [place] [address] Ephraim Ribera MD [address] [place] [address] documented as of this encounter Visit Diagnoses Diagnosis Primary generalized (osteo)arthritis Generalized osteoarthrosis, involving multiple sites documented in this encounter Additional Health Concerns Assessment Noted Time PHQ-9 Depression Total Score: 0 08/02/19 24 10:17 AM BIZTALK SOFTWARE DEVELOPER documented as of this encounter Care Teams Sales Utility Representative Relationship Specialty Start Date End Date Ephraim Ribera MD PCP - General Internal Medicine 04/09/20 documented as of this encounter
--- OUTSIDE RECORDS SUMMARY | 2025-07-14 13:47 | XMS_ITS | Encounter Summary ---
Author Organization [facility] Address [address] [place] [address] Phone Care Team Providers Care Block Cableman Name Role Phone Ephraim Ribera MD Primary Care Provider [phone]- [phone] Reason for Visit * Reason Comments Medication Refill Encounter Details Date Type Department Care Team (Late st Contact Info) Description 08/15/2023 Refill [facility] - Internal Medicine - [place] [address] [place] [phone] Ephraim Ribera MD [address] [place] [address] Medication Refill Social History Tobacco Use Types Packs/Day Years Used Date Smoking Tobacco: Every Day Cigarettes Passive Smoke Exposure: Current Smokeless Tobacco: Never Alcohol Use Standard Drinks/Week Comments Never 0 (1 standard drink = 0.6 oz pur e alcohol) [facility] Utilities Answer Date Recorded In the past 12 months has [employer], gas, oil, or water [employer] threatened to shut off services in your home? Patient declined 08/02/2023 Social Connection and Isolation Panel Answer Date Recorded In a typical week, how many times do you talk on the phone with family, friends, or neighbors? Patient declined 08/02/2023 How often do you get togethe r with friends or relatives? Patient declined 08/02/2023 How often do you attend orthodoxy or restoration serv ices? Patient declined 08/02/2023 Do you belong to any clubs o r organizations such as orthodoxy groups, unions, fraternal or athletic groups, or [...] Total Score - Questions 1-9 0 07/23 [facility] Occupat ional [facility] - Occupational Stress Questionnaire Answer Date Recorded [...] Telephone Encounter - Mandy Shook RN - 08/15/2023 8:00 AM CST Medication failed the protocol, provider to review and approve the medication order if appropriate. Requested Prescriptions Pending Prescriptions Disp Refills acetaminophen-codeine (TYLENOL #3) 300-30 MG Tablet [Pharmacy Med Name: ACETAMINOPHEN-COD #3 TABLET] 90 Tablet 0 Sig: TAKE 1 TABLET BY MOUTH EVERY 8 HOURS NEEDED FOR MODERATE OR MORE SEVERE PAIN Not Delegated - Opioid Combinations Protocol Failed - 08/15/2023 12:21 AM Failed - This refill cannot be delegated Passed - Visit with relevant provider in past 12 months or upcoming 90 days Recent Visits Date Type Provider Dept 08/02/23 Office Visit Ephraim Ribera MD [facility] [place] 04/26/23 Office Visit Ephraim Ribera MD [facility] [place] 11/23/22 Office Visit Ephraim Ribera MD [facility] [place] 08/23/22 Office Visit Ephraim Ribera MD [facility] [place] Showing recent visits within past 365 days and meeting all other requirements Future Appointments Date Type Provider Dept 11/01/23 Appointment Ephraim Ribera MD [facility] [place] Showing future appointments within next 90 days and meeting all other requirements SOFTWARE ARCHITECT documented in this encounter Plan of Treatment Upcoming Encounters Date Type Department Care Team (Late st Contact Info) Description 2025 11:40 AM JAVA SOFTWARE ARCHITECT Office Visit [facility] - Primary Care - [place] [address] [place] [address] Ephraim Ribera MD [address] [place] [address] documented as of this encounter Visit Diagnoses Diagnosis Primary generalized (osteo)arthritis Generalized osteoarthrosis, involving multiple sites documented in this encounter Additional Health Concerns Assessment Noted Time PHQ-9 Depression Total Score: 0 08/02/19 24 10:17 AM JAVA SOFTWARE ARCHITECT documented as of this encounter Care Teams Block Cableman Relationship Specialty Start Date End Date Ephraim Ribera MD PCP - General Internal Medicine 04/09/20 documented as of this encounter
--- OUTSIDE RECORDS SUMMARY | 2025-07-14 13:47 | XMS_ITS | Encounter Summary ---
Author Organization [facility] Address [address] [place] [address] Phone Care Team Providers Care Candles Pourer Name Role Phone Ephraim Ribera MD Primary Care Provider Reason for Visit * Reason Comments Medication Refill Encounter Details Date Type Department Care Team (Late st Contact Info) Description 12/29/2020 Refill [facility] - [place] [address] [place] [phone] Ephraim Ribera MD [address] [place] [address] Medication Refill Social History Tobacco Use Types [...] Telephone Encounter - Ya Barton RN - 12/29/2020 8:22 AM CDT Please review and sign. documented in this encounter Plan of Treatment Upcoming Encounters Date Type Department Care Team (Late st Contact Info) Description 2025 11:40 AM CULINARY DIRECTOR Office Visit [facility] - Primary Care - [place] [address] [place] [address] Ephraim Ribera MD [address] [place] [address] documented as of this encounter Visit Diagnoses Not on filedocumented in this encounter Additional Health Concerns Assessment Noted Time PHQ-9 Depression Total Score: 0 08/11/19 21 10:00 AM CULINARY DIRECTOR documented as of this encounter Care Teams Candles Pourer Relationship Specialty Start Date End Date Ephraim Ribera MD PCP - General Internal Medicine 04/09/20 documented as of this encounter
--- OUTSIDE RECORDS SUMMARY | 2025-07-14 13:47 | XMS_ITS | Encounter Summary ---
Author Organization [facility] Address [address] [place] [address] Phone Care Team Providers Care Cashier Gambling Name Role Phone Ephraim Ribera MD Primary Care Provider [phone]- [phone] Reason for Visit * Reason Comments Medication Refill Encounter Details Date Type Department Care Team (Late st Contact Info) Description 01/26/2021 Refill [facility] - [facility] - [place] [address] [place] [phone] Ephraim Ribera MD [address] [place] [address] Medication Refill Social History Tobacco Use Types [...] have Coronavirus / COVID-19? No / Unsure 01/20/2021 12:55 PM CDT documented as of this encounter Miscellaneous Notes * Telephone Encounter - Ya Barton RN - 01/26/2021 8:01 AM CDT Please review and sign. documented in this encounter Plan of Treatment Upcoming Encounters Date Type Department Care Team (Late st Contact Info) Description 2025 11:40 AM DIRT SUPERVISOR Office Visit [facility] - Primary Care - [place] [address] [place] [address] Ephraim Ribera MD [address] [place] [address] documented as of this encounter Visit Diagnoses Not on filedocumented in this encounter Additional Health Concerns Assessment Noted Time PHQ-9 Depression Total Score: 0 08/11/19 21 10:00 AM DIRT SUPERVISOR documented as of this encounter Care Teams Cashier Gambling Relationship Specialty Start Date End Date Ephraim Ribera MD PCP - General Internal Medicine 04/09/20 documented as of this encounter
--- OUTSIDE RECORDS SUMMARY | 2025-07-14 13:47 | XMS_ITS | Encounter Summary ---
Author Organization [facility] Address [address] [place] [address] Phone Care Team Providers Care Wood Cabinetmaker Name Role Phone Ephraim Ribera MD Primary Care Provider [phone]- [phone] Reason for Visit * Reason Comments Medication Refill Encounter Details Date Type Department Care Team (Late st Contact Info) Description 08/15/2022 Refill [facility] - [facility] - [place] [address] [place] [phone] Ephraim Ribera MD [address] [place] [address] Medication Refill Social History Tobacco Use Types [...] Telephone Encounter - Mandy Shook, RN - 08/15/2022 8:28 AM CST Medication failed the protocol, provider to review and approve the medication order if appropriate. Requested Prescriptions Pending Prescriptions Disp Refills acetaminophen-codeine (TYLENOL #3) 300-30 MG Tablet [Pharmacy Med Name: ACETAMINOPHEN-COD #3 TABLET] 90 Tablet 0 Sig: TAKE ONE TABLET BY MOUTH EVERY 8 HOURS NEEDED FOR MODERATE OR MORE SEVERE PAIN Not Delegated - Opioid Combinations Protocol Failed - 08/15/2022 12:07 AM Failed - This refill cannot be delegated Passed - Visit with relevant provider in past 12 months or upcoming 90 days Recent Visits Date Type Provider Dept 05/11/22 Office [facility] [place] [facility]/02/22 Office Visit Ephraim Ribera MD [facility] [place] 11/02/21 Office Visit Ephraim Ribera MD [facility] [place] Showing recent visits within past 365 days and meeting all other requirements Future Appointments Date Type Provider Dept 08/23/22 Appointment Ephraim Ribera MD [facility] [place] Showing future appointments within next 90 days and meeting all other requirements R CUP MACHINE OPERATOR documented in this encounter Plan of Treatment Upcoming Encounters Date Type Department Care Team (Late st Contact Info) Description 2025 11:40 AM PAPER CUP MACHINE OPERATOR Office Visit [facility] - Primary Care - [place] [address] [place] [address] Ephraim Ribera MD [address] [place] [address] documented as of this encounter Visit Diagnoses Diagnosis Primary generalized (osteo)arthritis Generalized osteoarthrosis, involving multiple sites documented in this encounter Additional Health Concerns Assessment Noted Time PHQ-9 Depression Total Score: 0 08/11/19 21 10:00 AM PAPER CUP MACHINE OPERATOR documented as of this encounter Care Teams Wood Cabinetmaker Relationship Specialty Start Date End Date Ephraim Ribera MD PCP - General Internal Medicine 04/09/20 documented as of this encounter
--- OUTSIDE RECORDS SUMMARY | 2025-07-14 13:47 | XMS_ITS | Encounter Summary ---
Author Organization [facility] Address [address] [place] [address] Phone Care Team Providers Care Territory Sales Manager Medical Name Role Phone Ephraim Ribera MD Primary Care Provider [phone]- [phone] Reason for Visit * Reason Comments Medication Refill Encounter Details Date Type Department Care Team (Late st Contact Info) Description 10/27/2023 Refill [facility] Medicine - [place] [address] [place] [phone] Ephraim Ribera MD [address] [place] [address] Medication Refill Social History Tobacco Use Types Packs/Day Years Used Date Smoking Tobacco: Every Day Cigarettes Passive Smoke Exposure: Current Smokeless Tobacco: Never Alcohol Use Standard Drinks/Week Comments Never 0 (1 standard drink = 0.6 oz pur e alcohol) [facility] Utilities Answer Date Recorded In the past 12 months has [employer], gas, oil, or water [employer] threatened to shut off services in your home? No 10/30/2023 Social Connection and Isolation Panel Answer Date Recorded In a typical week, how many times do you talk on the phone with family, friends, or neighbors? More than three times a week 10/30/2023 How often do you get togethe r with friends or relatives? Once a week 10/30/2023 How often do you attend [facility] or islam services? Never 10/30/2023 Do you belong to any clubs o r organizations such as tenriism groups, unions, fraternal or athletic groups, or [...] Total Score - Questions 1-9 0 07/23 [facility] of Occupat ional Health - Occupational Stress [...] Telephone Encounter - Mandy Shook RN - 10/29/2023 8:28 AM CDT Medication(s) [facility] and [facility] Ref[facility] Standing Order for Pediatricand Adult Patients. Requested Prescriptions Pending Prescriptions Disp Refills amLODIPine Besy-Benazepril HCl 10-40 MG Capsule [Pharmacy Med Name: AMLODIPINE- BENAZEPRIL 10-40 MG]90 Capsule 1 Sig: TAKE 1 CAPSULE BY MOUTH EVERY DAY ASHWIN INHIBITOR-[employer] SASHA PROTOCOL Passed - 10/27/2023 12:05 AM Passed - Serum potassium on record in past 12 months POTASSIUM Date Value Ref Range Status 05/31/2023 3.5 3.5 - 5.1 mmol/L Final Passed - Blood pressure on record in past 12 months Clinician-entered: BP Readings from Last 3 Encounters: 08/02/23 110/58 04/26/23 130/60 11/23/22 140/68 Patient-entered: No data recorded Passed - Visit with relevant provider in past 12 months or upcoming 90 days Recent Visits Date Type Provider Dept 08/02/23 [facility] [place] 04[facility]23 [facility] 11/[facility]/22 Office Visit [facility] [...] Ref Range Status 05/31/2023 >60 >=60 Final documented in this encounter Plan of Treatment Upcoming Encounters Date Type Department Care Team (Late st Contact Info) Description 2025 11:40 AM TIRE DEBEADER Office Visit [facility] - Primary Care - [place] [address] [place] [address] Ephraim Ribera MD [address] [place] [address] documented as of this encounter Visit Diagnoses Not on filedocumented in this encounter Additional Health Concerns Assessment Noted Time PHQ-9 Depression Total Score: 0 08/02/19 24 10:17 AM TIRE DEBEADER documented as of this encounter Care Teams Territory Sales Manager Medical Relationship Specialty Start Date End Date Ephraim Ribera MD PCP - General Internal Medicine 04/09/20 documented as of this encounter
--- OUTSIDE RECORDS SUMMARY | 2025-07-14 13:47 | XMS_ITS | Encounter Summary ---
Author Organization [facility] Address [address] [place] [address] Phone Care Team Providers Care Sighter Name Role Phone Ephraim Ribera MD Primary Care Provider Reason for Visit * Reason Comments Medication Refill Encounter Details Date Type Department Care Team (Late Contact Info) Description 09/13/2022 Refill [facility] - Internal Medicine - [place] [address] [place] [phone] Ephraim Ribera MD [address] [place] [address] Medication Refill Social History Tobacco Use Types [...] suspected to have Coronavirus/COVID-19? No / Unsure 08/23/2022 10:40 AM DB2 DEVELOPER documented as of this encounter Plan of Treatment Upcoming Encounters Date Type Department Care Team (Late Contact Info) Description 2025 11:40 AM DB2 DEVELOPER Office Visit [facility] - Primary Care - [place] [address] [place] [address] Ephraim Ribera MD [address] [place] [address] documented as of this encounter Visit Diagnoses Not on filedocumented in this encounter Additional Health Concerns Assessment Noted Time PHQ-9 Depression Total Score: 0 08/11/19 21 10:00 AM DB2 DEVELOPER documented as of this encounter Care Teams Sighter Relationship Specialty Start Date End Date Ephraim Ribera MD PCP - General Internal Medicine 04/09/20 documented as of this encounter
--- OUTSIDE RECORDS SUMMARY | 2025-07-14 13:47 | XMS_ITS | Clinical Summary ---
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 Active aspirin 81 mg tablet Take 2 tablets (162 mg total) by mouth every morning Active famotidine (PEPCID) 20 mg tablet Take 1 tablet (20 mg total) by mouth 2 (two) times a day Active budesonide-glyc opyr-formoterol (Breztri Aerosphere) 160-9-4.8 mcg/actuation inhaler Inhale 2 puffs 2 (two) times a day Active fexofenadine (LUIS EDUARDO) 180 mg tablet Take 1 tablet (180 mg total) by mouth every morning Active sucralfate (CARAFATE) 1 gram tablet Take 1 tablet (1 g total) by mouth every morning Active Bifidobacterium infantis (ALIGN) 4 mg capsule 1 capsule (4 mg total) Active levothyroxine (SYNTHROID) 200 mcg tablet Take 1 tablet (200 mcg total) by mouth daily Active Ozempic 2 mg/dose (8 mg/3 mL) pen injector injection Inject 2 mg under the skin once a week Takes on Sunday.Last taken on 06/07/2025 Active sodium chlor-hypochlor ous acid 0.033 % irrigation solution Irrigate with as directed Wash the wounds with Vashe once daily and prn. Apply Vashe to clean 4 x 4, wring out the excess, apply moistened 4 x 4 to wound site, and secure down with silicone foam dressing Active albuterol HFA (PROVENTIL HFA,VENTOLIN HFA,PROAIR HFA) 90 mcg/actuation inhaler Inhale 2 puffs every 6 (six) hours as needed for wheezing Active arginine-vitami n C-vitamin E 4.5 gram-156 mg/9.2 gram powder in packet Take by mouth 3 (three) times a day Active polyethylene glycol (MIRALAX) 17 gram packetIndicatio ns:constipation Take 1 packet (17 g total) by mouth as needed for constipation Active vit C,V-Uo-pvgmq-kayla tein-zeaxan ([facility] AREDS-2) 250-90-40-1 mg capsule Take by mouth every morning Active silver sulfadiazine (SILVADENE, SSD) 1 % cream Apply topically 2 (two) times a day Apply to right buttock Active levothyroxine (SYNTHROID) 50 mcg tablet Take 1 tablet (50 mcg total) by mouth every other day Active furosemide (LASIX) 20 mg tablet Take 1 tablet (20 mg total) by mouth every morning 30 tablet 2025 Active gabapentin (NEURONTIN) 100 mg capsule Take 1 capsule (100 mg total) by mouth 2 (two) times a day 60 capsule 2025 Active methocarbamoL (ROBAXIN) 500 mg tablet Take 1 tablet (500 mg total) by mouth 2 (two) times a day as needed for muscle spasms Active metoprolol tartrate (LOPRESSOR) 50 mg immediate release tablet Take 1 tablet (50 mg total) by mouth 2 (two) times a day 60 tablet 2025 Active potassium chloride ER 20 mEq CR tablet Take 1 tablet (20 mEq total) by mouth daily 30 tablet 11 2025 Active senna-docusate (PERICOLACE) 8.6-50 mg Take 1 tablet by mouth 2 (two) times a day Active acetaminophen 500 mg capsuleIndicati ons:Pain Take 1 capsule (500 mg total) by mouth every 6 (six) hours as needed for pain Active cyclobenzaprine (FLEXERIL) 10 mg tablet Take 1 tablet (10 mg total) by mouth every 8 (eight) hours as needed for muscle spasms Active lidocaine (LIDODERM) 5 % Place 1 patch on the skin daily for 12 hours Remove & discard patch(es) within 12 hours or as directed by 2025 Active midodrine (PROAMATINE) 2.5 mg tabletIndicatio ns:Symptomatic Orthostatic Hypotension Take 1 tablet (2.5 mg total) by mouth 3 (three) times a day as needed (for SBP <100) 2025 Active mirtazapine (REMERON) 15 mg tablet Take 1 tablet (15 mg total) by mouth nightly 30 tablet 2025 Active oxyCODONE (ROXICODONE) 5 mg immediate release tabletIndicatio ns:Pain Take 1 tablet (5 mg total) by mouth 4 (four) times a day as needed for pain 15 tablet Active metoprolol (LOPRESSOR) 100 mg tablet 2 tablets (200 mg total) 2 (two) times a day 018 2024 Discontinued(S top Taking at Discharge) PROAIR HFA 90 mcg/actuation inhaler 019 2024 Discontinued(D uplicate order) guaiFENesin (ROBITUSSIN) 200 mg tablet Take 2 tablets (400 mg total) by mouth every 8 (eight) hours as needed for cough 2024 Discontinued(S top Taking at Discharge) amLODIPine-konstantin zepriL (LOTREL) 10-40 mg per capsule Take 1 capsule by mouth daily 2024 Discontinued(S top Taking at Discharge) vitamins A,C,E-zinc-pippa er (ICAPS) 4,296 mcg-226 mg-90 mg capsule Take by mouth 2024 Discontinued(D uplicate order) metOLazone (ZAROXOLYN) 2.5 mg tablet Take 1 tablet (2.5 mg total) by mouth 2 (two) times a week Sun with 80 mg furosemide 2024 Discontinued(S top Taking at Discharge) ondansetron (ZOFRAN) 4 mg tablet Take 1 tablet (4 mg total) by mouth every 8 (eight) hours as needed 2024 Discontinued(D uplicate order) sodium chlor-hypochlor ous acid (Vashe) 0.033 % irrigation solution Wash the wounds with Vashe once daily and prn. Apply Vashe to clean 4 x 4, wring out the excess, apply moistened 4 x 4 to wound site, and secure down with silicone foam dressing. 250 mL 3 2024 Discontinued(E rror) methocarbamoL (ROBAXIN) 500 mg tablet Take 1 tablet (500 mg total) by mouth 2 (two) times a day 20 tablet 2024 Discontinued(E rror) gabapentin (NEURONTIN) 100 mg capsule Take 2 capsules (200 mg total) by mouth 3 (three) times a day 180 capsule 2024 Discontinued(E rror) senna-docusate (PERICOLACE) 8.6-50 mgIndications:c onstipation Take 1 tablet by mouth 2 (two) times a day as needed for constipation 2024 Discontinued(E rror) furosemide (LASIX) 40 mg tablet Take 1 tablet (40 mg total) by mouth 2 (two) times a day 2024 Discontinued(E rror) potassium chloride ER 20 mEq CR tablet Take 1 tablet (20 mEq total) by mouth 3 (three) times a day 2024 Discontinued(E rror) acetaminophen-c odeine (TYLENOL with CODEINE #3) 300-30 mg per tablet Take 1 tablet by mouth every 8 (eight) hours as needed 2024 Discontinued(S top Taking at Discharge) levothyroxine (SYNTHROID) 50 mcg tablet 2024 Discontinued(E rror) potassium chloride ER 20 mEq CR tablet TAKE 1 TABLET BY MOUTH 5 TIMES DAILY. 2024 Discontinued(S top Taking at Discharge) gabapentin (NEURONTIN) 100 mg capsule Take 2 capsules (200 mg total) by mouth 3 (three) times a day 2024 Discontinued(S top Taking at Discharge) methocarbamoL (ROBAXIN) 500 mg tablet Take 1 tablet (500 mg total) by mouth 2 (two) times a day 2024 Discontinued(S top Taking at Discharge) senna-docusate (PERICOLACE) 8.6-50 mg Take 1 tablet by mouth as needed 2024 Discontinued(S top Taking at Discharge) furosemide (LASIX) 80 mg tablet Take 1 tablet (80 mg total) by mouth every morning 2024 Discontinued(S top Taking at Discharge) HYDROcodone-albertina taminophen (NORCO) 5-325 mg per tabletIndicatio ns:Pain Take 2 tablets by mouth every 6 (six) hours as needed 2024 Discontinued(S top Taking at Discharge) levothyroxine (SYNTHROID) 200 mcg tablet Take 1 tablet (200 mcg total) by mouth every evening 2024 Discontinued(D uplicate order) ondansetron (ZOFRAN) 4 mg tablet Take 1 tablet (4 mg total) by mouth every 8 (eight) hours as needed for nausea or vomiting 2024 Discontinued(S top Taking at Discharge) collagenase (SANTYL) ointment Apply topically every morning Apply to wound at bedtime 2024 Discontinued(S top Taking at Discharge) mupirocin (BACTROBAN) 2 % ointment Place small amount of ointment in each nostril with a q-tip twice daily for 5 days prior to surgery 22 g 2024 Discontinued(S top Taking at Discharge) chlorhexidine (HIBICLENS) 4 % external liquidIndicatio ns:Skin Disinfection Use soap daily with showering beginning 5 days prior to surgery. 946 mL 025 2024 Discontinued(S top Taking at Discharge) doxycycline (MONODOX) 100 mg capsuleIndicati ons:Skin/Soft Tissue Infection Take 1 capsule (100 mg total) by mouth 2 (two) times a day for 1 day 025 2024 oxyCODONE (ROXICODONE) 5 mg immediate release tabletIndicatio ns:Pain Take 1 tablet (5 mg total) by mouth 4 (four) times a day as needed for pain 025 2024 Discontinued Active Problems Problem Noted Date Diagnosed Date Abnormal movements 07/06/2025 Assessment & Plan (07/07/2025 4:19 PM MECHANICAL OPERATOR): -Probably drug induced -Neurontin decreased to 100 mg twice daily -Watch him closely Spells of trembling 07/06/2025 Occasional tremors 07/05/2025 Assessment & Plan (07/07/2025 9:53 AM MECHANICAL OPERATOR): New tremor/jerks intermittent in UE -(meds reviewed -apparently patient was on neurontin 200mg TID before admission-here)-suspect withdrawal- resume low dose with renal function- -waiting for Neurology to see the pt Assessment & Plan (07/06/2025 2:45 PM MECHANICAL OPERATOR): New tremor/jerks intermittent in UE -(meds reviewed -apparently patient was on neurontin 200mg TID before admission-here)-suspect withdrawal- resume low dose with renal function- -waiting for Neurology to see the pt Assessment & Plan (07/05/2025 4:16 PM MECHANICAL OPERATOR): New tremor/jerks intermittent in UE -(meds reviewed -apparently patient was on neurontin 200mg TID before admission-here)-suspect withdrawal- resume low dose with renal function-Neurology consulted (Dr Ramon) Secure chat sent , d/w patient's daughter . Ileus 07/04/2025 Assessment & Plan (07/07/2025 9:53 AM MECHANICAL OPERATOR): Resolved has had multiple bowel movements. Signed off from surgical team noted Assessment & Plan (07/06/2025 9:37 AM MECHANICAL OPERATOR): Resolved has had multiple bowel movements. Signed off from surgical team noted Assessment & Plan (07/05/2025 1:14 PM MECHANICAL OPERATOR): Resolved has had multiple bowel movements. Signed off from surgical team noted Assessment & Plan (07/04/2025 12:56 PM MECHANICAL OPERATOR): HORACE noted reviewed discussed with surgical team. Avoid excessive narcotics for now. Reglan p.r.n. for nausea. Stool softeners/suppositories continued Moderate protein-calorie malnutrition 07/03/2025 Assessment & Plan (07/07/2025 9:53 AM MECHANICAL OPERATOR): Dietary team following Assessment & Plan (07/06/2025 9:37 AM MECHANICAL OPERATOR): Dietary team following Assessment & Plan (07/05/2025 1:14 PM MECHANICAL OPERATOR): Dietary team following Assessment & Plan (07/04/2025 12:56 PM MECHANICAL OPERATOR): Dietary team following Acute pain of right shoulder 07/01/2025 Assessment & Plan (07/07/2025 9:53 AM MECHANICAL OPERATOR): Discussed with patient noted chronic subluxation. Continue Tylenol scheduled. Avoid excessive narcotics with concerns of lethargy and narcotic induced constipation/hypotension/ileus Assessment & Plan (07/06/2025 9:37 AM MECHANICAL OPERATOR): Discussed with patient noted chronic subluxation. Continue Tylenol scheduled. Avoid excessive narcotics with concerns of lethargy and narcotic induced constipation/hypotension/ileus Assessment & Plan (07/05/2025 1:14 PM MECHANICAL OPERATOR): Discussed with patient noted chronic subluxation. Continue Tylenol scheduled. Avoid excessive narcotics with concerns of lethargy and narcotic induced constipation/hypotension/ileus Assessment & Plan (07/04/2025 12:56 PM MECHANICAL OPERATOR): Discussed with patient noted chronic subluxation. Continue Tylenol scheduled. Avoid excessive narcotics with concerns of lethargy and narcotic induced constipation/hypotension/ileus Assessment & Plan (07/03/2025 11:59 AM MECHANICAL OPERATOR): Discussed with patient noted chronic subluxation. Will add scheduled Tylenol continue with 1000 mg Tylenol q.6 since admission. Avoid narcotics concerns of hypotension and lethargy Assessment & Plan (07/02/2025 11:43 AM MECHANICAL OPERATOR): Discussed with patient noted chronic subluxation. Will add scheduled Tylenol continue with 1000 mg Tylenol q.6 since admission. Avoid narcotics concerns of hypotension and lethargy Fall 07/01/2025 Assessment & Plan (07/07/2025 9:53 AM MECHANICAL OPERATOR): Resolved avoid excessive narcotics/CLOTH BURLER suppressants. Assessment & Plan (07/06/2025 9:37 AM MECHANICAL OPERATOR): Resolved avoid excessive narcotics/CLOTH BURLER suppressants. Assessment & Plan (07/05/2025 1:14 PM MECHANICAL OPERATOR): Resolved avoid excessive narcotics/CLOTH BURLER suppressants. Assessment & Plan (07/04/2025 12:56 PM MECHANICAL OPERATOR): Suspect with narcotics avoid excessive narcotics/CLOTH BURLER suppressants. Better today resume Lyrica from home meds with titration avoid excessive narcotics Assessment & Plan (07/03/2025 11:59 AM MECHANICAL OPERATOR): Suspect with narcotics avoid excessive narcotics/CLOTH BURLER suppressants. Better today resume Lyrica from home meds with titration avoid excessive narcotics Assessment & Plan (07/02/2025 11:43 AM MECHANICAL OPERATOR): Suspect with narcotics avoid excessive narcotics/CLOTH BURLER suppressants. Hold Lyrica for now Lethargy 07/01/2025 Assessment & Plan (07/07/2025 9:53 AM MECHANICAL OPERATOR): Resolved avoid excessive narcotics/CLOTH BURLER suppressants. Assessment & Plan (07/06/2025 9:37 AM MECHANICAL OPERATOR): Resolved avoid excessive narcotics/CLOTH BURLER suppressants. Assessment & Plan (07/05/2025 1:14 PM MECHANICAL OPERATOR): Resolved avoid excessive narcotics/CLOTH BURLER suppressants. Assessment & Plan (07/04/2025 12:56 PM MECHANICAL OPERATOR): Suspect with narcotics avoid excessive narcotics/CLOTH BURLER suppressants. Better today resume Lyrica from home meds with titration avoid excessive narcotics Assessment & Plan (07/03/2025 11:59 AM MECHANICAL OPERATOR): Suspect with narcotics avoid excessive narcotics/CLOTH BURLER suppressants. Better today resume Lyrica from home meds with titration avoid excessive narcotics Assessment & Plan (07/02/2025 11:43 AM MECHANICAL OPERATOR): Suspect with narcotics avoid excessive narcotics/CLOTH BURLER suppressants. Hold Lyrica for now Acute blood loss anemia 06/28/2025 Assessment & Plan (07/07/2025 4:19 PM MECHANICAL OPERATOR): H&H is stable Assessment & Plan (07/06/2025 9:37 AM MECHANICAL OPERATOR): Follow-up H&H transfuse if hemoglobin less than 7 Assessment & Plan (07/05/2025 1:14 PM MECHANICAL OPERATOR): Follow-up H&H transfuse if hemoglobin less than 7 Assessment & Plan (07/04/2025 12:56 PM MECHANICAL OPERATOR): Follow-up H&H transfuse if hemoglobin less than 7 Assessment & Plan (07/03/2025 11:59 AM MECHANICAL OPERATOR): Follow-up H&H transfuse if hemoglobin less than 7 Assessment & Plan (07/02/2025 11:43 AM MECHANICAL OPERATOR): Follow-up H&H transfuse if hemoglobin less than 7 Assessment & Plan (07/01/2025 2:33 PM MECHANICAL OPERATOR): Follow-up H&H transfuse if hemoglobin less than 7 Assessment & Plan (06/30/2025 1:28 PM MECHANICAL OPERATOR): Follow-up H&H transfuse if hemoglobin less than 7 Assessment & Plan (06/29/2025 1:32 PM MECHANICAL OPERATOR): Follow-up H&H transfuse if hemoglobin less than 7 Assessment & Plan (06/28/2025 12:49 PM MECHANICAL OPERATOR): Follow-up H&H transfuse if hemoglobin less than 7 Cellulitis of left lower extremity 06/27/2025 Assessment & Plan (07/07/2025 9:53 AM MECHANICAL OPERATOR): Hematoma status post IR guided drainage. Wound cultures Klebsiella/Pseudomonas and cornybacterium Antibiotics are changed to Zosyn and oral doxycycline ID following the pt UTI/cystitis -Citrobacter antibiotics as above pansensitive. echo bilateral pedal edema-echo noted EF 60-65% Assessment & Plan (07/06/2025 2:45 PM MECHANICAL OPERATOR): Hematoma status post IR guided drainage. Wound cultures Klebsiella/Pseudomonas and cornybacterium Antibiotics are changed to Zosyn and oral doxycycline ID following the pt UTI/cystitis -Citrobacter antibiotics as above pansensitive. echo bilateral pedal edema-echo noted EF 60-65% Assessment & Plan (07/05/2025 1:14 PM MECHANICAL OPERATOR): Hematoma status post IR guided drainage. Wound cultures Klebsiella/Pseudomonas and cornybacterium currently patient on vanc and cefepime. Final cultures duration of antibiotics per ID UTI/cystitis -Citrobacter antibiotics as above pansensitive. echo bilateral pedal edema-echo noted EF 60-65% Assessment & Plan (07/04/2025 12:56 PM MECHANICAL OPERATOR): Hematoma status post IR guided drainage. Wound cultures Klebsiella/Pseudomonas and cornybacterium currently patient on vanc and cefepime. Final cultures duration of antibiotics per ID UTI/cystitis -Citrobacter antibiotics as above pansensitive. echo bilateral pedal edema-echo noted EF 60-65% normal appearing pericardial thickness . Assessment & Plan (07/03/2025 11:59 AM MECHANICAL OPERATOR): Hematoma status post IR guided drainage. Wound cultures Klebsiella/Pseudomonas and cornea bacterium currently patient on vanc and cefepime. Final cultures duration of antibiotics per ID UTI/cystitis -Citrobacter antibiotics as above pansensitive. echo bilateral pedal edema-echo noted EF 60-65% normal appearing pericardial thickness . Assessment & Plan (07/02/2025 11:43 AM MECHANICAL OPERATOR): MRI left lower extremity-consistent with hematoma suspect infected. Discussed with IR status post IR guided drainage . Wound Care following. Antibiotics per ID on cefepime and vanc for now UTI/cystitis -pansensitive on cefepime echo bilateral pedal edema-echo noted EF 60-65% normal appearing pericardial thickness . Assessment & Plan (07/01/2025 2:33 PM MECHANICAL OPERATOR): MRI left lower extremity-consistent with hematoma suspect infected. Discussed with IR status post IR guided drainage today. Wound Care consulted for ongoing active drainage and dressing management. Antibiotics per ID on cefepime and vanc for now UTI/cystitis with Citrobacter currently on Rocephin pansensitive noted echo bilateral pedal edema-echo noted EF 60-65% normal appearing pericardial thickness . Assessment & Plan (06/30/2025 1:28 PM MECHANICAL OPERATOR): MRI left lower extremity-consistent with hematoma suspect infected. Discussed with IR status post IR guided drainage today. Wound Care consulted for ongoing active drainage and dressing management. Antibiotics per ID on cefepime and vanc for now UTI/cystitis with Citrobacter currently on Rocephin pansensitive noted echo bilateral pedal edema-echo noted EF 60-65% normal appearing pericardial thickness . Assessment & Plan (06/29/2025 1:32 PM MECHANICAL OPERATOR): MRI left lower extremity-consistent with hematoma suspect infected. Discussed with IR will eventually need drainage if possible. UTI/cystitis with Citrobacter currently on Rocephin pansensitive noted Await echo bilateral pedal edema-echo noted EF 60-65% normal appearing pericardial thickness . Assessment & Plan (06/28/2025 12:49 PM MECHANICAL OPERATOR): Cellulitis left lower extremity with multiple wounds with active drainage. Discussed with ID plans for MRI left lower extremity when able to lay flat. Continue empiric antibiotics per ID currently on vanc and Rocephin. UTI/cystitis with Citrobacter currently on Rocephin pansensitive noted Await echo bilateral pedal edema Assessment & Plan (06/27/2025 12:14 PM MECHANICAL OPERATOR): Cellulitis left lower extremity with multiple wounds with active drainage. Noted patient has been following with [facility]. Wound team consulted Antibiotics aakcuyue-wlifle-gh cultures. Add Rocephin and vancomycin for now. Bilateral pedal edema with volume overload suspect chronic lymphedema. Questionable history of CHF will obtain echo. Can adjust diuretics S/P lumbar spinal fusion 06/26/2025 Assessment & Plan (07/07/2025 4:19 PM MECHANICAL OPERATOR): Plan: Currently postop day 11. Surgical team signed off currently on Lovenox for DVT prophylaxis Encourage incentive spirometry. Albuterol p.r.n. added. Continue current Pain medications Continue PT and OT Needs SNF placement once approved by the insurance Assessment & Plan (07/06/2025 2:45 PM MECHANICAL OPERATOR): Plan: Currently postop day 10. Surgical team signed off currently on Lovenox for DVT prophylaxis Encourage incentive spirometry. Albuterol p.r.n. added. Pain medications per surgical team. Plan to avoid narcotics Assessment & Plan (07/05/2025 1:14 PM MECHANICAL OPERATOR): Plan: Currently postop day 9. Surgical team signed off currently on Lovenox for DVT prophylaxis Encourage incentive spirometry. Albuterol p.r.n. added. Pain medications per surgical team. Plan to avoid narcotics Assessment & Plan (07/04/2025 12:56 PM MECHANICAL OPERATOR): Plan: Currently postop day 8. Surgical team signed off currently on Lovenox for DVT prophylaxis Encourage incentive spirometry. Albuterol p.r.n. added. Pain medications per surgical team. Plan to avoid narcotics Assessment & Plan (07/03/2025 11:59 AM MECHANICAL OPERATOR): Plan: Currently postop day 7. Surgical team signed off currently on Lovenox for DVT prophylaxis Encourage incentive spirometry. Albuterol p.r.n. added. Pain medications per surgical team. Plan to avoid narcotics Assessment & Plan (07/02/2025 11:43 AM MECHANICAL OPERATOR): Plan: Currently postop day 6. Discussed with surgical team okay for DVT prophylaxis with Lovenox added from today. Encourage incentive spirometry. Albuterol p.r.n. added. Pain medications per surgical team. Plan to avoid narcotics Assessment & Plan (07/01/2025 2:33 PM MECHANICAL OPERATOR): Plan: Currently postop day 5. Continue postop care per surgical team/primary team. Discussed with ortho spine nurse practitioner. Encourage incentive spirometry. Albuterol p.r.n. added. Pain medications per surgical team. PT OT/DVT prophylaxis per surgical team noted. Patient on Lovenox continue Assessment & Plan (06/30/2025 1:28 PM MECHANICAL OPERATOR): Plan: Currently postop day 4. Continue postop care per surgical team/primary team. Discussed with ortho spine nurse practitioner. Encourage incentive spirometry. Albuterol p.r.n. added. Pain medications per surgical team. PT OT/DVT prophylaxis per surgical team noted. Assessment & Plan (06/29/2025 1:32 PM MECHANICAL OPERATOR): Plan: Currently postop day 3. Continue postop care per surgical team/primary team. Discussed with ortho spine nurse practitioner. Encourage incentive spirometry. Albuterol p.r.n. added. Pain medications per surgical team. PT OT/DVT prophylaxis per surgical team noted. Assessment & Plan (06/28/2025 12:49 PM MECHANICAL OPERATOR): Plan: Currently postop day 2. Continue postop care per surgical team/primary team. Discussed with ortho spine and nurse practitioner. Encourage incentive spirometry. Albuterol p.r.n. added. Pain medications per surgical team. PT OT/DVT prophylaxis per surgical team noted. Assessment & Plan (06/27/2025 12:14 PM MECHANICAL OPERATOR): Plan: Currently postop day 1. Continue postop care per surgical team/primary team. Discussed with ortho spine and nurse practitioner. Encourage incentive spirometry. Albuterol p.r.n. added. Pain medications per surgical team. PT OT/DVT prophylaxis per surgical team noted. Trauma of urethra 06/26/2025 Assessment & Plan (07/07/2025 9:53 AM MECHANICAL OPERATOR): Urinating without any problems Assessment & Plan (07/06/2025 2:45 PM MECHANICAL OPERATOR): Urinating without any problems Assessment & Plan (07/05/2025 1:14 PM MECHANICAL OPERATOR): Status post voiding trial-tolerated well no further episodes of urinary retention Assessment & Plan (07/04/2025 12:56 PM MECHANICAL OPERATOR): Status post voiding trial Assessment & Plan (07/03/2025 11:59 AM MECHANICAL OPERATOR): Status post voiding trial Assessment & Plan (07/02/2025 11:43 AM MECHANICAL OPERATOR): Seen by urology team Levi catheter in place to remain for a few days and voiding trial before discharge-can initiate the process Assessment & Plan (07/01/2025 2:33 PM MECHANICAL OPERATOR): Seen by urology team Levi catheter in place to remain for a few days and voiding trial before discharge Assessment & Plan (06/30/2025 1:28 PM MECHANICAL OPERATOR): Seen by urology team Levi catheter in place to remain for a few days and voiding trial before discharge Assessment & Plan (06/29/2025 1:32 PM MECHANICAL OPERATOR): Urology team following currently Levi catheter in place. Had discussed with urology team Assessment & Plan (06/28/2025 12:49 PM MECHANICAL OPERATOR): Urology team following currently Levi catheter in place. Assessment & Plan (06/27/2025 12:14 PM MECHANICAL OPERATOR): Urology team following currently Levi catheter in place. Degeneration of intervertebr al disc of lumbar region with discogenic back pain and lower extremity pain 06/15/2025 Assessment & Plan (07/07/2025 4:19 PM MECHANICAL OPERATOR): Plan: Currently postop day 11. Surgical team signed off currently on Lovenox for DVT prophylaxis Encourage incentive spirometry. Albuterol p.r.n. added. Continue current Pain medications Continue PT and OT Needs SNF placement once approved by the insurance Assessment & Plan (07/06/2025 2:45 PM MECHANICAL OPERATOR): Plan: Currently postop day 10. Surgical team signed off currently on Lovenox for DVT prophylaxis Encourage incentive spirometry. Albuterol p.r.n. added. Pain medications per surgical team. Plan to avoid narcotics Assessment & Plan (07/05/2025 1:14 PM MECHANICAL OPERATOR): Plan: Currently postop day 9. Surgical team signed off currently on Lovenox for DVT prophylaxis Encourage incentive spirometry. Albuterol p.r.n. added. Pain medications per surgical team. Plan to avoid narcotics Assessment & Plan (07/04/2025 12:56 PM MECHANICAL OPERATOR): Plan: Currently postop day 8. Surgical team signed off currently on Lovenox for DVT prophylaxis Encourage incentive spirometry. Albuterol p.r.n. added. Pain medications per surgical team. Plan to avoid narcotics Assessment & Plan (07/03/2025 11:59 AM MECHANICAL OPERATOR): Plan: Currently postop day 7. Surgical team signed off currently on Lovenox for DVT prophylaxis Encourage incentive spirometry. Albuterol p.r.n. added. Pain medications per surgical team. Plan to avoid narcotics Assessment & Plan (07/02/2025 11:43 AM MECHANICAL OPERATOR): Plan: Currently postop day 6. Discussed with surgical team okay for DVT prophylaxis with Lovenox added from today. Encourage incentive spirometry. Albuterol p.r.n. added. Pain medications per surgical team. Plan to avoid narcotics Assessment & Plan (07/01/2025 2:33 PM MECHANICAL OPERATOR): Plan: Currently postop day 5. Continue postop care per surgical team/primary team. Discussed with ortho spine nurse practitioner. Encourage incentive spirometry. Albuterol p.r.n. added. Pain medications per surgical team. PT OT/DVT prophylaxis per surgical team noted. Patient on Lovenox continue Assessment & Plan (06/30/2025 1:28 PM MECHANICAL OPERATOR): Plan: Currently postop day 4. Continue postop care per surgical team/primary team. Discussed with ortho spine nurse practitioner. Encourage incentive spirometry. Albuterol p.r.n. added. Pain medications per surgical team. PT OT/DVT prophylaxis per surgical team noted. Assessment & Plan (06/29/2025 1:32 PM MECHANICAL OPERATOR): Plan: Currently postop day 3. Continue postop care per surgical team/primary team. Discussed with ortho spine nurse practitioner. Encourage incentive spirometry. Albuterol p.r.n. added. Pain medications per surgical team. PT OT/DVT prophylaxis per surgical team noted. Assessment & Plan (06/28/2025 12:49 PM MECHANICAL OPERATOR): Plan: Currently postop day 2. Continue postop care per surgical team/primary team. Discussed with ortho spine and nurse practitioner. Encourage incentive spirometry. Albuterol p.r.n. added. Pain medications per surgical team. PT OT/DVT prophylaxis per surgical team noted. Assessment & Plan (06/27/2025 12:14 PM MECHANICAL OPERATOR): Plan: Currently postop day 1. Continue postop care per surgical team/primary team. Discussed with ortho spine and nurse practitioner. Encourage incentive spirometry. Albuterol p.r.n. added. Pain medications per surgical team. PT OT/DVT prophylaxis per surgical team noted. Right leg weakness 06/15/2025 Assessment & Plan (07/07/2025 4:19 PM MECHANICAL OPERATOR): Plan: Currently postop day 11. Surgical team signed off currently on Lovenox for DVT prophylaxis Encourage incentive spirometry. Albuterol p.r.n. added. Continue current Pain medications Continue PT and OT Needs SNF placement once approved by the insurance Assessment & Plan (07/06/2025 2:45 PM MECHANICAL OPERATOR): Plan: Currently postop day 10. Surgical team signed off currently on Lovenox for DVT prophylaxis Encourage incentive spirometry. Albuterol p.r.n. added. Pain medications per surgical team. Plan to avoid narcotics Assessment & Plan (07/05/2025 1:14 PM MECHANICAL OPERATOR): Plan: Currently postop day 9. Surgical team signed off currently on Lovenox for DVT prophylaxis Encourage incentive spirometry. Albuterol p.r.n. added. Pain medications per surgical team. Plan to avoid narcotics Assessment & Plan (07/04/2025 12:56 PM MECHANICAL OPERATOR): Plan: Currently postop day 8. Surgical team signed off currently on Lovenox for DVT prophylaxis Encourage incentive spirometry. Albuterol p.r.n. added. Pain medications per surgical team. Plan to avoid narcotics Assessment & Plan (07/03/2025 11:59 AM MECHANICAL OPERATOR): Plan: Currently postop day 7. Surgical team signed off currently on Lovenox for DVT prophylaxis Encourage incentive spirometry. Albuterol p.r.n. added. Pain medications per surgical team. Plan to avoid narcotics Assessment & Plan (07/02/2025 11:43 AM MECHANICAL OPERATOR): Plan: Currently postop day 6. Discussed with surgical team okay for DVT prophylaxis with Lovenox added from today. Encourage incentive spirometry. Albuterol p.r.n. added. Pain medications per surgical team. Plan to avoid narcotics Assessment & Plan (07/01/2025 2:33 PM MECHANICAL OPERATOR): Plan: Currently postop day 5. Continue postop care per surgical team/primary team. Discussed with ortho spine nurse practitioner. Encourage incentive spirometry. Albuterol p.r.n. added. Pain medications per surgical team. PT OT/DVT prophylaxis per surgical team noted. Patient on Lovenox continue Assessment & Plan (06/30/2025 1:28 PM MECHANICAL OPERATOR): Plan: Currently postop day 4. Continue postop care per surgical team/primary team. Discussed with ortho spine nurse practitioner. Encourage incentive spirometry. Albuterol p.r.n. added. Pain medications per surgical team. PT OT/DVT prophylaxis per surgical team noted. Assessment & Plan (06/29/2025 1:32 PM MECHANICAL OPERATOR): Plan: Currently postop day 3. Continue postop care per surgical team/primary team. Discussed with ortho spine nurse practitioner. Encourage incentive spirometry. Albuterol p.r.n. added. Pain medications per surgical team. PT OT/DVT prophylaxis per surgical team noted. Assessment & Plan (06/28/2025 12:49 PM MECHANICAL OPERATOR): Plan: Currently postop day 2. Continue postop care per surgical team/primary team. Discussed with ortho spine and nurse practitioner. Encourage incentive spirometry. Albuterol p.r.n. added. Pain medications per surgical team. PT OT/DVT prophylaxis per surgical team noted. Assessment & Plan (06/27/2025 12:14 PM MECHANICAL OPERATOR): Plan: Currently postop day 1. Continue postop care per surgical team/primary team. Discussed with ortho spine and nurse practitioner. Encourage incentive spirometry. Albuterol p.r.n. added. Pain medications per surgical team. PT OT/DVT prophylaxis per surgical team noted. Lumbar disc herniation 06/15/2025 Assessment & Plan (07/07/2025 4:19 PM MECHANICAL OPERATOR): Plan: Currently postop day 11. Surgical team signed off currently on Lovenox for DVT prophylaxis Encourage incentive spirometry. Albuterol p.r.n. added. Continue current Pain medications Continue PT and OT Needs SNF placement once approved by the insurance Assessment & Plan (07/06/2025 2:45 PM MECHANICAL OPERATOR): Plan: Currently postop day 10. Surgical team signed off currently on Lovenox for DVT prophylaxis Encourage incentive spirometry. Albuterol p.r.n. added. Pain medications per surgical team. Plan to avoid narcotics Assessment & Plan (07/05/2025 1:14 PM MECHANICAL OPERATOR): Plan: Currently postop day 9. Surgical team signed off currently on Lovenox for DVT prophylaxis Encourage incentive spirometry. Albuterol p.r.n. added. Pain medications per surgical team. Plan to avoid narcotics Assessment & Plan (07/04/2025 12:56 PM MECHANICAL OPERATOR): Plan: Currently postop day 8. Surgical team signed off currently on Lovenox for DVT prophylaxis Encourage incentive spirometry. Albuterol p.r.n. added. Pain medications per surgical team. Plan to avoid narcotics Assessment & Plan (07/03/2025 11:59 AM MECHANICAL OPERATOR): Plan: Currently postop day 7. Surgical team signed off currently on Lovenox for DVT prophylaxis Encourage incentive spirometry. Albuterol p.r.n. added. Pain medications per surgical team. Plan to avoid narcotics Assessment & Plan (07/02/2025 11:43 AM MECHANICAL OPERATOR): Plan: Currently postop day 6. Discussed with surgical team okay for DVT prophylaxis with Lovenox added from today. Encourage incentive spirometry. Albuterol p.r.n. added. Pain medications per surgical team. Plan to avoid narcotics Assessment & Plan (07/01/2025 2:33 PM MECHANICAL OPERATOR): Plan: Currently postop day 5. Continue postop care per surgical team/primary team. Discussed with ortho spine nurse practitioner. Encourage incentive spirometry. Albuterol p.r.n. added. Pain medications per surgical team. PT OT/DVT prophylaxis per surgical team noted. Patient on Lovenox continue Assessment & Plan (06/30/2025 1:28 PM MECHANICAL OPERATOR): Plan: Currently postop day 4. Continue postop care per surgical team/primary team. Discussed with ortho spine nurse practitioner. Encourage incentive spirometry. Albuterol p.r.n. added. Pain medications per surgical team. PT OT/DVT prophylaxis per surgical team noted. Assessment & Plan (06/29/2025 1:32 PM MECHANICAL OPERATOR): Plan: Currently postop day 3. Continue postop care per surgical team/primary team. Discussed with ortho spine nurse practitioner. Encourage incentive spirometry. Albuterol p.r.n. added. Pain medications per surgical team. PT OT/DVT prophylaxis per surgical team noted. Assessment & Plan (06/28/2025 12:49 PM MECHANICAL OPERATOR): Plan: Currently postop day 2. Continue postop care per surgical team/primary team. Discussed with ortho spine and nurse practitioner. Encourage incentive spirometry. Albuterol p.r.n. added. Pain medications per surgical team. PT OT/DVT prophylaxis per surgical team noted. Assessment & Plan (06/27/2025 12:14 PM MECHANICAL OPERATOR): Plan: Currently postop day 1. Continue postop care per surgical team/primary team. Discussed with ortho spine and nurse practitioner. Encourage incentive spirometry. Albuterol p.r.n. added. Pain medications per surgical team. PT OT/DVT prophylaxis per surgical team noted. Falls 06/08/2025 Recurrent falls while walking 06/06/2025 Pain 06/01/2025 Inflammation of colonic mucosa 04/02/2025 Benign colon polyp 04/02/2025 History of colonic polyps 02/17/2025 Personal history of colonic polyps 08/15/2023 Type 2 diabetes mellitus wit hout complication, without long-term current use of insulin 08/02/2023 Assessment & Plan (07/07/2025 9:53 AM MECHANICAL OPERATOR): Recent HbA1c noted 6.2 has been on Ozempic. Diet controlled as per patient. Continue sliding scale insulin for now. Assessment & Plan (07/06/2025 9:37 AM MECHANICAL OPERATOR): Recent HbA1c noted 6.2 has been on Ozempic. Diet controlled as per patient. Continue sliding scale insulin for now. Assessment & Plan (07/05/2025 1:14 PM MECHANICAL OPERATOR): Recent HbA1c noted 6.2 has been on Ozempic. Diet controlled as per patient. Continue sliding scale insulin for now. Assessment & Plan (07/04/2025 12:56 PM MECHANICAL OPERATOR): Recent HbA1c noted 6.2 has been on Ozempic. Diet controlled as per patient. Continue sliding scale insulin for now. Assessment & Plan (07/03/2025 11:59 AM MECHANICAL OPERATOR): Recent HbA1c noted 6.2 has been on Ozempic. Diet controlled as per patient. Continue sliding scale insulin for now. Assessment & Plan (07/02/2025 11:43 AM MECHANICAL OPERATOR): Recent HbA1c noted 6.2 has been on Ozempic. Diet controlled as per patient. Continue sliding scale insulin for now. Assessment & Plan (07/01/2025 2:33 PM MECHANICAL OPERATOR): Recent HbA1c noted 6.2 has been on Ozempic. Diet controlled as per patient. Continue sliding scale insulin for now. Assessment & Plan (06/30/2025 1:28 PM MECHANICAL OPERATOR): Recent HbA1c noted 6.2 has been on Ozempic. Diet controlled as per patient. Continue sliding scale insulin for now. Assessment & Plan (06/29/2025 1:32 PM MECHANICAL OPERATOR): Recent HbA1c noted 6.2 has been on Ozempic. Diet controlled as per patient. Continue sliding scale insulin for now. Assessment & Plan (06/28/2025 12:49 PM MECHANICAL OPERATOR): Recent HbA1c noted 6.2 has been on Ozempic. Diet controlled as per patient. Continue sliding scale insulin for now. Assessment & Plan (06/27/2025 12:14 PM MECHANICAL OPERATOR): Recent HbA1c noted 6.2 has been on Ozempic. Diet controlled as per patient. Continue sliding scale insulin for now. Bilateral lower extremity edema 02/02/2022 Assessment & Plan (07/07/2025 9:53 AM MECHANICAL OPERATOR): Hematoma status post IR guided drainage. Wound cultures Klebsiella/Pseudomonas and cornybacterium Antibiotics are changed to Zosyn and oral doxycycline ID following the pt UTI/cystitis -Citrobacter antibiotics as above pansensitive. echo bilateral pedal edema-echo noted EF 60-65% Assessment & Plan (07/06/2025 2:45 PM MECHANICAL OPERATOR): Hematoma status post IR guided drainage. Wound cultures Klebsiella/Pseudomonas and cornybacterium Antibiotics are changed to Zosyn and oral doxycycline ID following the pt UTI/cystitis -Citrobacter antibiotics as above pansensitive. echo bilateral pedal edema-echo noted EF 60-65% Assessment & Plan (07/05/2025 1:14 PM MECHANICAL OPERATOR): Hematoma status post IR guided drainage. Wound cultures Klebsiella/Pseudomonas and cornybacterium currently patient on vanc and cefepime. Final cultures duration of antibiotics per ID UTI/cystitis -Citrobacter antibiotics as above pansensitive. echo bilateral pedal edema-echo noted EF 60-65% Assessment & Plan (07/04/2025 12:56 PM MECHANICAL OPERATOR): Hematoma status post IR guided drainage. Wound cultures Klebsiella/Pseudomonas and cornybacterium currently patient on vanc and cefepime. Final cultures duration of antibiotics per ID UTI/cystitis -Citrobacter antibiotics as above pansensitive. echo bilateral pedal edema-echo noted EF 60-65% normal appearing pericardial thickness . Assessment & Plan (07/03/2025 11:59 AM MECHANICAL OPERATOR): Hematoma status post IR guided drainage. Wound cultures Klebsiella/Pseudomonas and cornea bacterium currently patient on vanc and cefepime. Final cultures duration of antibiotics per ID UTI/cystitis -Citrobacter antibiotics as above pansensitive. echo bilateral pedal edema-echo noted EF 60-65% normal appearing pericardial thickness . Assessment & Plan (07/02/2025 11:43 AM MECHANICAL OPERATOR): MRI left lower extremity-consistent with hematoma suspect infected. Discussed with IR status post IR guided drainage . Wound Care following. Antibiotics per ID on cefepime and vanc for now UTI/cystitis -pansensitive on cefepime echo bilateral pedal edema-echo noted EF 60-65% normal appearing pericardial thickness . Assessment & Plan (07/01/2025 2:33 PM MECHANICAL OPERATOR): MRI left lower extremity-consistent with hematoma suspect infected. Discussed with IR status post IR guided drainage today. Wound Care consulted for ongoing active drainage and dressing management. Antibiotics per ID on cefepime and vanc for now UTI/cystitis with Citrobacter currently on Rocephin pansensitive noted echo bilateral pedal edema-echo noted EF 60-65% normal appearing pericardial thickness . Assessment & Plan (06/30/2025 1:28 PM MECHANICAL OPERATOR): MRI left lower extremity-consistent with hematoma suspect infected. Discussed with IR status post IR guided drainage today. Wound Care consulted for ongoing active drainage and dressing management. Antibiotics per ID on cefepime and vanc for now UTI/cystitis with Citrobacter currently on Rocephin pansensitive noted echo bilateral pedal edema-echo noted EF 60-65% normal appearing pericardial thickness . Assessment & Plan (06/29/2025 1:32 PM MECHANICAL OPERATOR): MRI left lower extremity-consistent with hematoma suspect infected. Discussed with IR will eventually need drainage if possible. UTI/cystitis with Citrobacter currently on Rocephin pansensitive noted Await echo bilateral pedal edema-echo noted EF 60-65% normal appearing pericardial thickness . Assessment & Plan (06/28/2025 12:49 PM MECHANICAL OPERATOR): Cellulitis left lower extremity with multiple wounds with active drainage. Discussed with ID plans for MRI left lower extremity when able to lay flat. Continue empiric antibiotics per ID currently on vanc and Rocephin. UTI/cystitis with Citrobacter currently on Rocephin pansensitive noted Await echo bilateral pedal edema Assessment & Plan (06/27/2025 12:14 PM MECHANICAL OPERATOR): Cellulitis left lower extremity with multiple wounds with active drainage. Noted patient has [facility] following with [facility]. Wound team consulted Antibiotics [id number] cultures. Add Rocephin and vancomycin for now. Bilateral pedal edema with volume overload suspect chronic lymphedema. Questionable history of CHF will obtain echo. Can adjust diuretics Panlobular emphysema 07/22/2020 Encounter for screening colonoscopy 08/02/2018 Overview (08/02/2018): Added automatically from request for surgery [id number] GERD without esophagitis 11/05/2016 Essential (primary) hypertension 01/13/2011 Assessment & Plan (07/07/2025 9:53 AM MECHANICAL OPERATOR): Patient on chronic amlodipine/benazepril/metoprolol/Lasix. Patient hypotensive medications titrated currently on metoprolol low dose and lisinopril/Lasix (will hold lisinopril elevated creatinine) Follow-up labs close by midodrine p.r.n. added Continue to hold metolazone/amlodipine/ lisinopril held for now with elevated creatinine Assessment & Plan (07/06/2025 9:37 AM MECHANICAL OPERATOR): Patient on chronic amlodipine/benazepril/metoprolol/Lasix. Patient hypotensive medications titrated currently on metoprolol low dose and lisinopril/Lasix (will hold lisinopril elevated creatinine) Follow-up labs close by midodrine p.r.n. added Continue to hold metolazone/amlodipine/ lisinopril held for now with elevated creatinine Assessment & Plan (07/05/2025 1:14 PM MECHANICAL OPERATOR): Patient on chronic amlodipine/benazepril/metoprolol/Lasix. Patient hypotensive medications titrated currently on metoprolol low dose and lisinopril/Lasix (will hold lisinopril elevated creatinine) Follow-up labs close by midodrine p.r.n. added Continue to hold metolazone/amlodipine/ lisinopril held for now with elevated creatinine Assessment & Plan (07/04/2025 12:56 PM MECHANICAL OPERATOR): Patient on chronic amlodipine/benazepril/metoprolol/Lasix. Patient hypotensive medications titrated currently on metoprolol low dose and lisinopril/Lasix (can reduce the dose of Lasix with poor intake. Follow-up labs close by midodrine p.r.n. added Continue to hold metolazone/amlodipine Assessment & Plan (07/03/2025 11:59 AM MECHANICAL OPERATOR): Patient on chronic amlodipine/benazepril/metoprolol/Lasix. Will resume low-dose Lasix and lisinopril, metoprolol dose reduced to 100 mg b.i.d.. Hold metolazone Assessment & Plan (07/02/2025 11:43 AM MECHANICAL OPERATOR): Patient on chronic amlodipine/benazepril/metoprolol/Lasix. Will resume low-dose Lasix and lisinopril, metoprolol dose reduced to 100 mg b.i.d.. Hold metolazone Assessment & Plan (07/01/2025 2:33 PM MECHANICAL OPERATOR): Patient on chronic amlodipine/benazepril/metoprolol/Lasix. Resume lisinopril continue metoprolol/Lasix. Follow-up labs in morning Assessment & Plan (06/30/2025 1:28 PM MECHANICAL OPERATOR): Patient on chronic amlodipine/benazepril/metoprolol/Lasix. Resume lisinopril continue metoprolol/Lasix. Follow-up labs in morning Assessment & Plan (06/29/2025 1:32 PM MECHANICAL OPERATOR): Patient on chronic amlodipine/benazepril/metoprolol/Lasix. Resume lisinopril continue metoprolol/Lasix. Follow-up labs in morning Assessment & Plan (06/28/2025 12:49 PM MECHANICAL OPERATOR): Patient on chronic amlodipine/benazepril/metoprolol/Lasix. Resume medication with titration continue metoprolol Lasix for now Assessment & Plan (06/27/2025 12:14 PM MECHANICAL OPERATOR): Patient on chronic amlodipine/benazepril/metoprolol/Lasix. Resume medication with titration continue metoprolol Lasix for now Osteoporosis Encounters Date Type Department Care Team Description 06/30/2025 Orders Only [facility] - Interventional Radiology [address] [place] [address] [phone] Phyllis Dutta RN 06/26/2025 2:43 PM MECHANICAL OPERATOR Anesthesia Event [facility] Operating Room [address] [place] [address] [phone] Nas Khalil MD Bystrom, Yudelka Odonnell NP 06/26/2025 12:30 PM MECHANICAL OPERATOR - 06/26/2025 5:00 PM MECHANICAL OPERATOR Surgery [facility] Operating Room [address] [place] [address] [phone] Mike Thompson MD Right-Sided L1-5 Posterior Decompression Laminectomy and Fusion with Transforaminal Lumbar Interbody Fusion 06/26/2025 9:32 AM MECHANICAL OPERATOR - 07/08/2025 5:50 PM MECHANICAL OPERATOR Hospital Encounter [facility] [address] [place] [address] [phone] Mike Thompson MD Teckchandani, Renu, MD Sripada, Sarada, MD Trauma of urethra, initial encounter (Primary Dx); Abnormal movements; S/P lumbar spinal fusion; Spells of trembling Discharge Disposition: Discharge to [facility] 06/25/2025 Telephone [facility] [address] [place] [address] [address] [place] [phone] Mike Thompson MD 06/22/2025 Telephone [facility] [address] [place] [address] 4 [address] [place] [phone] Mike Thompson MD 06/22/2025 Telephone [facility] [address] [place] [address] 4 [address] [place] [phone] Mike Thompson MD 06/17/2025 2:30 PM MECHANICAL OPERATOR Pre-Admission Testing [facility] Pre Anesthesia Testing [address] [place] [phone] Preoperative testing (Primary Dx); Degeneration of intervertebral disc of lumbar region with discogenic back pain and lower extremity pain; Right leg weakness; Lumbar disc herniation; Pain in other joint; Vitamin D deficiency; Type 2 diabetes mellitus with other specified complication, unspecified whether residential insulin use (HCC) 06/15/2025 9:24 AM MECHANICAL OPERATOR - 06/15/2025 11:59 PM MECHANICAL OPERATOR Hospital Encounter [facility] [address] [place] [phone] Thoracic spine pain Discharge Disposition: Discharge to home or self care 06/15/2025 9:20 AM MECHANICAL OPERATOR Office Visit [facility] [address] [place] [address] [address] [place] [address] [phone] Mike Thompson MD Lumbar radiculopathy (Primary Dx); Thoracic spine pain; Right leg weakness 06/15/2025 Telephone [facility] [address] [place] [address] 2[address] [place] [phone] Mike Thompson MD 06/15/2025 Telephone [facility] Pre Anesthesia Testing [address] [place] [phone] Milli Dewitt 06/14/2025 2:53 PM MECHANICAL OPERATOR - 06/14/2025 11:59 PM MECHANICAL OPERATOR Hospital Encounter [address] [address] Discharge Disposition: Discharge to home or self care 06/06/2025 6:07 PM MECHANICAL OPERATOR - 06/10/2025 2:07 PM MECHANICAL OPERATOR Hospital Encounter [facility] Acute Medicine [address] [place] [phone] Jevon Menard MD Nikolic, Jelena, MD Burt, Jonathan S., MD Sargsyan, Elizabet, MD Recurrent falls while walking (Primary Dx) Discharge Disposition: Discharge to SNF 06/06/2025 5:49 PM MECHANICAL OPERATOR - 06/06/2025 11:59 PM MECHANICAL OPERATOR Hospital Encounter [facility] [facility] Emergency, Room R Discharge Disposition: Discharge to home or self care 06/06/2025 Documentation [facility] Acute Medicine [address] [place] [address] Hanane Sorto RN Fall (Pt fell getting into car after discharge) 06/05/2025 2:59 PM MECHANICAL OPERATOR Anesthesia Event [facility] Operating Room [address] [place] [address] Nas Amezcua, 06/05/2025 1:30 PM MECHANICAL OPERATOR - 06/05/2025 3:00 PM MECHANICAL OPERATOR Surgery [facility] Operating Room [address] [place] [address] Cedrick Palacios MD T5, T6, and L1 kyphoplasty 06/01/2025 4:46 PM MECHANICAL OPERATOR - 06/06/2025 1:02 PM MECHANICAL OPERATOR Hospital Encounter [facility] Acute Medicine [address] [place] [address] Yadiel Guardado MD Saeed, Salman, MD Kheirkhahan, Nazanin, MD Burt, Bonifacio Montanez MD Pain (Primary Dx); Compression fracture of body of thoracic vertebra (HCC) Discharge Disposition: Discharge to home, home health skilled care 06/01/2025 12:43 PM MECHANICAL OPERATOR - 06/01/2025 11:59 PM MECHANICAL OPERATOR Hospital Encounter [facility] Emergency, Room R Discharge Disposition: Discharge to home or self care 05/25/2025 11:00 AM MECHANICAL OPERATOR Orders Only [facility] [address] [place] [address] 05/25/2025 7:32 AM MECHANICAL OPERATOR - 05/25/2025 11:12 AM MECHANICAL OPERATOR Emergency [facility] Emergency Department [address] [place] [address] Abhishek Chand MD Compression fracture of T6 vertebra, initial encounter (HCC) (Primary Dx) Discharge Disposition: Discharge to home or self care 05/25/2025 7:15 AM MECHANICAL OPERATOR - 05/25/2025 11:59 PM MECHANICAL OPERATOR Hospital Encounter [facility] Emergency, Room R Discharge Disposition: Discharge to home or self care 05/12/2025 1:30 PM CDT Orders Only [facility] [address] [place] [id number] 04/28/2025 9:30 AM CDT Orders Only [facility] [address] [place] [id number] 04/21/2025 9:30 AM CDT Orders Only [facility] [address] [place] [phone] 04/15/2025 1:30 PM CDT Office Visit [facility] Orthopedics and Sports Medicine [address] [facility] [address] [place] [address] Hanane George PA Rotator cuff arthropathy, right (Primary Dx); Left rotator cuff tear arthropathy 04/14/2025 9:30 AM CDT Orders Only [facility] [address] [place] [phone] from Last 3 Months Immunizations Immunization Administration Dates Next Due Influenza, Trivalent, IM (MDV) 03/28/2025,2019 Influenza, Unspecified 03/23/2025 Pfizer SARS-CoV-2 Monovalent Vaccination (12+ Yrs) PURPLE 03/28/2025,10/26/2021 Sars-CoV-2, Unspecified 03/23/2025 Surgical History Surgery Date Site/Laterality Comments COLONOSCOPY 07/23/2005 - 08/22/2005 CARPAL TUNNEL RELEASE 07/23/2002 - 07/22/2003 Bilateral COLONOSCOPY 07/23/2018 - 08/22/2018 COLONOSCOPY 02/21/2024 - 03/22/2024 TONSILLECTOMY CATARACT EXTRACTION EXTRACAPSULAR W/ INTRAOCULAR LENS IMPLANTATION 07/23/2014 - 07/22/2015 Bilateral COLONOSCOPY 04/02/2025 CATARACT EXTRACTION KYPHOPLASTY 06/05/2025 T5, T6, and L1 Kyphoplasty FLUID DRAIN SOFT TISSUE 06/30/2025 N/A Medical History Medical History Date Comments GERD (gastroesophageal reflux disease) Hypertension Hyperlipidemia COPD (chronic obstructive pulmonary disease) Hypothyroidism Graves' disease Type 2 diabetes mellitus Colon polyp Cataract Arthritis Chronic bronchitis (HCC) Falls Osteoporosis Social History Tobacco Use Types Packs/Day Years Used Date Smoking Tobacco: Every Day Cigarettes 1.5 56 Started: 1971 Smokeless Tobacco: Never Tobacco Cessation:Ready to Q uit: Not Asked; Counseling Given: Not Answered Alcohol Use Standard Drinks/Week Comments Never 0 (1 standard drink = 0.6 oz pur e alcohol) Social Connection and Isolation Panel Answer Date Recorded In a typical week, how many times do you talk on the phone with family, friends, or neighbors? More than three times a week 06/30/2025 How often do you get togethe r with friends or relatives? More than three times a week 06/30/2025 How often do you attend chur ch or [place] services? Never 06/30/2025 Do you belong to any clubs o r organizations such as yazidi groups, unions, fraternal or athletic groups, or school groups? No 06/30/2025 How often do you attend meet ings of the clubs or organizations you belong to? Never 06/30/2025 Are you , , di vorced, , never , or living with a partner? 06/30/2025 AUDIT-C Answer Date Recorded Q1: How often do you have a drink containing alcohol? Never 06/17/2025 Q2: How many drinks containi ng alcohol do you have on a typical day when you are drinking? Patient does not drink Q3: How often do you have si x or more drinks on one occasion? Never 06/17/2025 Overall Financial Resource Strain (CARDIA) Answe r Date Recorded How hard is it for you to pa y for the very basics like food, housing, medical care, and heating? Not hard at all 06/30/2025 Hunger Vital Sign Answer Date Recorded Within the past 12 months, y ou worried that your food would run out before you got the money to buy more. Never true 06/30/20 25 Within the past 12 months, t he food you bought just didn't last and you didn't have money to get more. Never true 06/30/2025 PRAPARE - Transportation Answer Date Re corded In the past 12 months, has l ack of transportation kept you from medical appointments or from getting medications? No 03/2025 In the past 12 months, has l ack of transportation kept you from meetings, work, or from getting things needed for daily living? No 06/30/2025 Housing Stability Vital Sign Answer Stanley e Recorded In the last 12 months, was t here a time when you were not able to pay the mortgage or rent on time? No 06/30/2025 In the past 12 months, how m any times have you moved where you were living? 0 06/30/2025 At any time in the past 12 m [facility], were you homeless or living in a prison (including now)? No 06/30/2025 [facility] Utilities Answer Date Recorded In the past 12 months has th e electric, gas, oil, or water company threatened to shut off services in your home? No 06/30/2025 Personal Safety Answer Date Recorded Have you ever been in or are you currently in a harmful physical or emotional relationship or is someone making you feel afraid or unsafe? Denies 06/26/2025 Sex and Gender Information Value Date Recorded Sex Assigned at Not on file Legal Sex Male 10:06 AM MECHANICAL OPERATOR Gender Identity Not on file Sexual Orientation Not on file Last Filed Vital Signs Vital Sign Reading Time Taken Comments Blood Pressure 134/63 07/08/2025 4:53 PM MECHANICAL OPERATOR Pulse 103 07/08/2025 4:53 PM MECHANICAL OPERATOR Temperature 36.2 C (97.2 F) 07/08/2025 4:53 PM MECHANICAL OPERATOR Respiratory Rate 18 07/08/2025 4:53 PM MECHANICAL OPERATOR Oxygen Saturation 98% 07/08/2025 4:53 PM MECHANICAL OPERATOR Inhaled Oxygen Concentration - - Weight 93 kg (205 lb 0.4 oz) 07/03/2025 7:40 PM MECHANICAL OPERATOR Height 172.7 cm (5' 8) 06/26/2025 9:45 AM MECHANICAL OPERATOR Body Mass Index 31.17 06/26/2025 9:45 AM MECHANICAL OPERATOR Plan of Treatment Health Maintenance Due Date Last Done Comments Albumin Creatinine Ratio, Urine 1953 Depression Screening 1955 Hepatitis C Screening 1953 Dilated Eye Exam 1953 Foot Exam 1953 Hepatitis B Screening 1971 Well Visit 65+ 2018 Lung Cancer Screening 09/24/2025 09/24/2024 , 05/02/2023, 02/10/2021 Covid-19 Vaccine (5 - 2024-2 6 season) 2025 03/28/2025, 03/23/2025, 10/26/2021, Additional history exists Lipid Panel 11/18/2025 11/18/2024, 07/0 03/2024, 04/19/2021, Additional history exists Hemoglobin A1C 12/15/2025 06/17/2025, 07/0 11/2021, 04/19/2021, Additional history exists Fall Risk Assessment 07/08/2026 07/08/2025 eGFR 07/08/2026 07/08/2025, 06/22, 07/06/2025, Additional history exists Colon Cancer Screening-Colonoscopy 04/02/2028 04/02/2025, 02/21/2024, 08/20/2018 DTaP/Tdap/Td Vaccine (2 - Td or Tdap) 04/05/2031 04/05/2021 Pneumococcal vaccine 65+ Completed 020, 04/24/2019, 04/25/2018, Additional history exists Zoster Vaccine Completed 07/13/2020, 03/24, 04/25/2018 Abdominal Aortic Aneurysm (A AA) Screen Completed 10/28/2020, 10/28/2020 Prostate Cancer Screening-PSA Discontinued , 04/15/2019, 04/26/2017 Influenza Vaccine Completed 03/28/2025, , 04/07/2024, Additional history exists Colon Cancer Screening-CT Colonography Discontinued 04/02/2025, 02/21/2024, 08/20/2018 Colon Cancer Screening-DNA Stool Discontinued 04/02/2025, 02/21/2024, 08/20/2018 Colon Cancer Screening-FIT Discontinued 04/02, 02/21/2024, 08/20/2018 Colon Cancer Screening-Sigmoidoscopy Discontinued 04/02/2025, 02/21/2024, 08/20/2018 Medical Devices Implanted Type Area Support Manager Device Identifier Shelf Expiration Date Model / Serial / Lot [employer] Vertaplex Hv Autoplex Without Needle Delivery System Kit Bone [id number] - [id number] Implanted:Qty: 1 on 06/05/2025 by Cedrick Palacios MD at [facility] N/A: Spine Lumbar [employer] 02/21/2028 [id number] / / [id number] Description:VERAPLEX BONE CE MENT LOT [id number] EXPIRATION [employer] Vertaplex Hv Autoplex Without Needle Delivery System Kit Bone [id number] - [id number] Implanted:Qty: 1 on 06/05/2025 by Cedrick Palacios MD at [facility] N/A: Spine Lumbar [employer] 05/23/2026 [id number] / / Description:VERTAPLEX BONE C EMENT EXPIRATION LOT [id number] [employer] Graft Bone Magnetos 2.5cc 1-2mm Granules In Moldable Putty [id number] - [id number] Implanted:Qty: 1 on 06/26/2025 by Mike Thompson MD at [facility] Spine Lumbar [employer] 11/20/2029 [id number] / / [id number] Med[employer] Infuse 18mm 26mm Absorbable Sponge Sterile Water Syringe Needle [id number] - [id number] Implanted:Qty: 1 on 06/26/2025 by Mike Thompson MD at [facility] Spine Lumbar [employer] [id number] 03/22/2027 [id number] / / [id number] [employer] Osteosponge Allograft Chips Radiolucent Thk4-10mm Graft 30cc Bone [id number] - [id number] - [id number] Implanted:Qty: 1 on 06/26/2025 by Mike Thompson MD at [facility] Spine Lumbar [employer] 02/12/2029 [id number] / [id number] / [employer] 1134.001 Creo Spinal Cap Locking Nonsterile Mis - [id number] Implanted:Qty: 10 on 06/26/2025 by Mike Thompson MD at [facility] Spine Lumbar [employer] 1134.0010 / / [employer] Altera [id number] 8d Spacer Spinal 1124.1111 - [id number] Implanted:Qty: 1 on 06/26/2025 by Mike Thompson MD at [facility] Spine Lumbar [employer] 1124.1111 / / [employer] Screw Spinal Pedicle Polyaxial Threaded Solid Creo 6.5x50mm Titanium 5146.1652 - [id number] Implanted:Qty: 10 on 06/26/2025 by Mike Thompson MD at [facility] Spine Lumbar [employer] [id number] / / [employer] Jacques Spinal Lumbar Prebent Creo [id number] Titanium 1119.7125 - [id number] Implanted:Qty: 2 on 06/26/2025 by Mike Thompson MD at [facility] Spine Lumbar [employer] [id number] / / Procedures Procedure Name Priority Date/Time Associated Diagnosis Comments COVID-19 CORONAVIRUS RNA Routine 07/08/2025 3:32 PM MECHANICAL OPERATOR POCT GLUCOSE DEVICE Routine 07/08/2025 11:25 AM MECHANICAL OPERATOR POCT GLUCOSE DEVICE Routine 07/08/2025 7 :33 AM MECHANICAL OPERATOR EGFR Routine 07/08/2025 5:18 AM MECHANICAL OPERATOR CBC WITHOUT DIFFERENTIAL Routine 07/08/2025 5:18 AM MECHANICAL OPERATOR BASIC METABOLIC PANEL Routine 07/08/2025 5:18 AM MECHANICAL OPERATOR POCT GLUCOSE DEVICE Routine 07/07/2025 10:42 PM MECHANICAL OPERATOR POCT GLUCOSE DEVICE Routine 07/07/2025 4 :22 PM MECHANICAL OPERATOR POCT GLUCOSE DEVICE Routine 07/07/2025 11:24 AM MECHANICAL OPERATOR POCT GLUCOSE DEVICE Routine 07/07/2025 6 :14 AM MECHANICAL OPERATOR EGFR Routine 07/07/2025 5:50 AM MECHANICAL OPERATOR CBC WITHOUT DIFFERENTIAL Routine 07/07/2025 5:50 AM MECHANICAL OPERATOR BASIC METABOLIC PANEL Routine 07/07/2025 5:50 AM MECHANICAL OPERATOR POCT GLUCOSE DEVICE Routine 07/06/2025 10:05 PM MECHANICAL OPERATOR T4, FREE Routine 07/06/2025 8:25 PM MECHANICAL OPERATOR VITAMIN B1 Routine 07/06/2025 8:25 PM MECHANICAL OPERATOR THYROID FUNCTION CASCADE Routine 07/06/2025 8:25 PM MECHANICAL OPERATOR METHYLMALONIC ACID, SERUM Routine 07/06/2025 8:25 PM MECHANICAL OPERATOR VITAMIN B12 Routine 07/06/2025 8:25 PM MECHANICAL OPERATOR AMMONIA Routine 07/06/2025 8:25 PM MECHANICAL OPERATOR RPR Routine 07/06/2025 8:25 PM MECHANICAL OPERATOR HIV 1/2 ANTIBODY PLUS P24 ANTIGEN Routine 07/06/2025 8:25 PM MECHANICAL OPERATOR POCT GLUCOSE DEVICE Routine 07/06/2025 4 :27 PM MECHANICAL OPERATOR EEG Routine 07/06/2025 3:10 PM MECHANICAL OPERATOR POCT GLUCOSE DEVICE Routine 07/06/2025 12:07 PM MECHANICAL OPERATOR EGFR Routine 07/06/2025 6:20 AM MECHANICAL OPERATOR DIFFERENTIAL AUTO Routine 07/06/2025 6:2 0 AM MECHANICAL OPERATOR VANCOMYCIN LEVEL RANDOM Routine 07/06/2025 6:20 AM MECHANICAL OPERATOR BASIC METABOLIC PANEL Routine 07/06/2025 6:20 AM MECHANICAL OPERATOR CBC WITH AUTO DIFFERENTIAL Routine 07/06/2025 6:20 AM MECHANICAL OPERATOR POCT GLUCOSE DEVICE Routine 07/06/2025 6 :06 AM MECHANICAL OPERATOR POCT GLUCOSE DEVICE Routine 07/05/2025 9 :46 PM MECHANICAL OPERATOR POCT GLUCOSE DEVICE Routine 07/05/2025 4 :41 PM MECHANICAL OPERATOR POCT GLUCOSE DEVICE Routine 07/05/2025 11:18 AM MECHANICAL OPERATOR EGFR Routine 07/05/2025 6:35 AM MECHANICAL OPERATOR DIFFERENTIAL AUTO Routine 07/05/2025 6:3 5 AM MECHANICAL OPERATOR BASIC METABOLIC PANEL Routine 07/05/2025 6:35 AM MECHANICAL OPERATOR CBC WITH AUTO DIFFERENTIAL Routine 07/05/2025 6:35 AM MECHANICAL OPERATOR POCT GLUCOSE DEVICE Routine 07/05/2025 6 :14 AM MECHANICAL OPERATOR POCT GLUCOSE DEVICE Routine 07/04/2025 8 :43 PM MECHANICAL OPERATOR POCT GLUCOSE DEVICE Routine 07/04/2025 4 :07 PM MECHANICAL OPERATOR POCT GLUCOSE DEVICE Routine 07/04/2025 11:09 AM MECHANICAL OPERATOR EGFR Routine 07/04/2025 7:06 AM MECHANICAL OPERATOR DIFFERENTIAL AUTO Routine 07/04/2025 7:0 6 AM MECHANICAL OPERATOR VANCOMYCIN LEVEL RANDOM Routine 07/04/2025 7:06 AM MECHANICAL OPERATOR BASIC METABOLIC PANEL Routine 07/04/2025 7:06 AM MECHANICAL OPERATOR CBC WITH AUTO DIFFERENTIAL Routine 07/04/2025 7:06 AM MECHANICAL OPERATOR POCT GLUCOSE DEVICE Routine 07/04/2025 6 :32 AM MECHANICAL OPERATOR POCT GLUCOSE DEVICE Routine 07/03/2025 8 :52 PM MECHANICAL OPERATOR XR KUB IP Routine 07/03/2025 6:40 PM MECHANICAL OPERATOR POCT GLUCOSE DEVICE Routine 07/03/2025 4 :08 PM MECHANICAL OPERATOR POCT GLUCOSE DEVICE Routine 07/03/2025 11:31 AM MECHANICAL OPERATOR POCT GLUCOSE DEVICE Routine 07/03/2025 8 :26 AM MECHANICAL OPERATOR POCT GLUCOSE DEVICE Routine 07/02/2025 10:22 PM MECHANICAL OPERATOR POCT GLUCOSE DEVICE Routine 07/02/2025 4 :20 PM MECHANICAL OPERATOR POCT GLUCOSE DEVICE Routine 07/02/2025 11:30 AM MECHANICAL OPERATOR POCT GLUCOSE DEVICE Routine 07/02/2025 6 :08 AM MECHANICAL OPERATOR EGFR Routine 07/02/2025 5:20 AM MECHANICAL OPERATOR DIFFERENTIAL AUTO Routine 07/02/2025 5:2 0 AM MECHANICAL OPERATOR VANCOMYCIN LEVEL RANDOM Routine 07/02/2025 5:20 AM MECHANICAL OPERATOR BASIC METABOLIC PANEL Routine 07/02/2025 5:20 AM MECHANICAL OPERATOR CBC WITH AUTO DIFFERENTIAL Routine 07/02/2025 5:20 AM MECHANICAL OPERATOR POCT GLUCOSE DEVICE Routine 07/01/2025 10:50 PM MECHANICAL OPERATOR BLOOD CULTURE Routine 07/01/2025 6:27 PM MECHANICAL OPERATOR EGFR STAT 07/01/2025 5:18 PM MECHANICAL OPERATOR BASIC METABOLIC PANEL STAT 07/01/2025 5:18 PM MECHANICAL OPERATOR HEMOGLOBIN AND HEMATOCRIT STAT 07/01/2025 5:18 PM MECHANICAL OPERATOR SEPSIS LACTATE WITH REFLEX STAT 07/01/2025 5:18 PM MECHANICAL OPERATOR BLOOD GAS, ARTERIAL STAT 07/01/2025 4 :40 PM MECHANICAL OPERATOR POCT GLUCOSE DEVICE Routine 07/01/2025 4 :18 PM MECHANICAL OPERATOR XR SHOULDER RIGHT 2 OR MORE VIEWS IP Routine 07/01/2025 2:04 PM MECHANICAL OPERATOR XR SPINE LUMBAR 2 OR 3 VIEWS IP Routine 07/01/2025 2:04 PM MECHANICAL OPERATOR POCT GLUCOSE DEVICE Routine 07/01/2025 10:50 AM MECHANICAL OPERATOR POCT GLUCOSE DEVICE Routine 07/01/2025 6 :24 AM MECHANICAL OPERATOR POCT GLUCOSE DEVICE Routine 07/01/2025 6 :22 AM MECHANICAL OPERATOR EGFR Routine 07/01/2025 5:52 AM MECHANICAL OPERATOR DIFFERENTIAL AUTO Routine 07/01/2025 5:5 2 AM MECHANICAL OPERATOR VANCOMYCIN LEVEL RANDOM Routine 07/01/2025 5:52 AM MECHANICAL OPERATOR CBC WITH AUTO DIFFERENTIAL Routine 07/01/2025 5:52 AM MECHANICAL OPERATOR COMPREHENSIVE METABOLIC PANEL Routine 07/01/2025 5:52 AM MECHANICAL OPERATOR POCT GLUCOSE DEVICE Routine 06/30/2025 9 :13 PM MECHANICAL OPERATOR HEMOGLOBIN AND HEMATOCRIT STAT 06/30/2025 5:01 PM MECHANICAL OPERATOR POCT GLUCOSE DEVICE Routine 06/30/2025 4 :32 PM MECHANICAL OPERATOR ADD ON LAB TEST Add-On 06/30/2025 1:28 PM MECHANICAL OPERATOR POCT GLUCOSE DEVICE Routine 06/30/2025 10:55 AM MECHANICAL OPERATOR FLUID DRAIN SOFT TISSUE IP Routine 06/30/2025 8:50 AM MECHANICAL OPERATOR AEROBIC AND ANAEROBIC CULTURE AND GRAM STAIN STAT 06/30/2025 8:36 AM MECHANICAL OPERATOR MAGNESIUM Routine 06/30/2025 6:29 AM MECHANICAL OPERATOR EGFR Routine 06/30/2025 6:29 AM MECHANICAL OPERATOR DIFFERENTIAL AUTO Routine 06/30/2025 6:2 9 AM MECHANICAL OPERATOR CBC WITH AUTO DIFFERENTIAL Routine 06/30/2025 6:29 AM MECHANICAL OPERATOR COMPREHENSIVE METABOLIC PANEL Routine 06/30/2025 6:29 AM MECHANICAL OPERATOR POCT GLUCOSE DEVICE Routine 06/30/2025 6 :13 AM MECHANICAL OPERATOR POCT GLUCOSE DEVICE Routine 06/29/2025 8 :59 PM MECHANICAL OPERATOR POCT GLUCOSE DEVICE Routine 06/29/2025 4 :06 PM MECHANICAL OPERATOR INFECTION PREVENTION HALINA AURIS PCR, SURVEILLANCE Routine 06/29/2025 12:25 PM MECHANICAL OPERATOR TRANSTHORACIC ECHO (TTE) LIMITED/FOLLOW UP W LTD DOPPLER/CF W CONTRAST Routine 06/29/2025 11:22 AM MECHANICAL OPERATOR POCT GLUCOSE DEVICE Routine 06/29/2025 11:09 AM MECHANICAL OPERATOR POCT GLUCOSE DEVICE Routine 06/29/2025 11:03 AM MECHANICAL OPERATOR POCT GLUCOSE DEVICE Routine 06/29/2025 6 :33 AM MECHANICAL OPERATOR DIFFERENTIAL AUTO Routine 06/29/2025 6:1 1 AM MECHANICAL OPERATOR CBC WITH AUTO DIFFERENTIAL Routine 06/29/2025 6:11 AM MECHANICAL OPERATOR COMPREHENSIVE METABOLIC PANEL Timed 06/29/2025 1:26 AM MECHANICAL OPERATOR EGFR Timed 06/29/2025 1:26 AM MECHANICAL OPERATOR VANCOMYCIN LEVEL TROUGH Timed 06/29/2025 1:26 AM MECHANICAL OPERATOR POCT GLUCOSE DEVICE Routine 06/28/2025 8 :38 PM MECHANICAL OPERATOR EGFR Routine 06/28/2025 7:07 PM MECHANICAL OPERATOR DIFFERENTIAL AUTO Routine 06/28/2025 7:0 7 PM MECHANICAL OPERATOR BASIC METABOLIC PANEL Routine 06/28/2025 7:07 PM MECHANICAL OPERATOR CBC WITH AUTO DIFFERENTIAL Routine 06/28/2025 7:07 PM MECHANICAL OPERATOR POCT GLUCOSE DEVICE Routine 06/28/2025 4 :11 PM MECHANICAL OPERATOR POCT GLUCOSE DEVICE Routine 06/28/2025 12:09 PM MECHANICAL OPERATOR MRI LEG CALF TIBFIB LEFT W WO CONTRAST IP Routine 06/28/2025 11:46 AM MECHANICAL OPERATOR EGFR Routine 06/28/2025 7:53 AM MECHANICAL OPERATOR CBC WITHOUT DIFFERENTIAL Routine 06/28/2025 7:53 AM MECHANICAL OPERATOR COMPREHENSIVE METABOLIC PANEL Routine 06/28/2025 7:53 AM MECHANICAL OPERATOR POCT GLUCOSE DEVICE Routine 06/28/2025 6 :31 AM MECHANICAL OPERATOR POCT GLUCOSE DEVICE Routine 06/27/2025 4 :04 PM MECHANICAL OPERATOR AEROBIC AND ANAEROBIC CULTURE AND GRAM STAIN Routine 06/27/2025 2:11 PM MECHANICAL OPERATOR AEROBIC AND ANAEROBIC CULTURE AND GRAM STAIN Routine 06/27/2025 11:31 AM MECHANICAL OPERATOR POCT GLUCOSE DEVICE Routine 06/27/2025 11:24 AM MECHANICAL OPERATOR POCT GLUCOSE DEVICE Routine 06/27/2025 6 :25 AM MECHANICAL OPERATOR POCT GLUCOSE DEVICE Routine 06/26/2025 9 :30 PM MECHANICAL OPERATOR XR SPINE LUMBAR 2 OR 3 VIEWS IP Routine 06/26/2025 7:52 PM MECHANICAL OPERATOR FL FLUOROSCOPY < 1 HOUR IP Routine 06/26/2025 7:52 PM MECHANICAL OPERATOR TRANSFUSE RED BLOOD CELLS Timed 06/26/2025 7:20 PM MECHANICAL OPERATOR TRANSFUSE RED BLOOD CELLS Timed 06/26/2025 6:18 PM MECHANICAL OPERATOR POCT HEMOGLOBIN - DEVICE Routine 06/26/2025 6:06 PM MECHANICAL OPERATOR POCT GLUCOSE DEVICE Routine 06/26/2025 6 :06 PM MECHANICAL OPERATOR PREPARE RBC STAT 06/26/2025 5:31 PM MECHANICAL OPERATOR TYPE AND SCREEN STAT 06/26/2025 4:49 PM MECHANICAL OPERATOR VA AN PROCEDURE PLACEHOLDER Routine 06/26/2025 3:25 PM MECHANICAL OPERATOR VA AN ELECTIVE ENDOTRACHEAL AIRWAY Routine 06/26/2025 3:25 PM MECHANICAL OPERATOR CYSTOSCOPY 06/26/2025 2:41 PM MECHANICAL OPERATOR Degeneration of intervertebral disc of lumbar region with discogenic back pain and lower extremity pain Right leg weakness Lumbar disc herniation FUSION LUMBAR - POSTERIOR - 1 LEVEL 06/26/2025 2:41 PM MECHANICAL OPERATOR Degeneration of intervertebral disc of lumbar region with discogenic back pain and lower extremity pain Right leg weakness Lumbar disc herniation POCT GLUCOSE DEVICE Routine 06/26/2025 9 :57 AM MECHANICAL OPERATOR B CHECK SAMPLE STAT 06/26/2025 9:51 AM MECHANICAL OPERATOR URINALYSIS, MICROSCOPIC ONLY Routine 06/17/2025 3:50 PM MECHANICAL OPERATOR Degeneration of intervertebral disc of lumbar region with discogenic back pain and lower extremity pain Right leg weakness Lumbar disc herniation URINE CULTURE Routine 06/17/2025 3:50 PM MECHANICAL OPERATOR URINALYSIS AND REFLEX TO MICROSCOPIC AND CULTURE Routine 06/17/2025 3:50 PM MECHANICAL OPERATOR Degeneration of intervertebral disc of lumbar region with discogenic back pain and lower extremity pain Right leg weakness Lumbar disc herniation HEMOGLOBIN A1C Routine 06/17/2025 3:35 PM MECHANICAL OPERATOR Degeneration of intervertebral disc of lumbar region with discogenic back pain and lower extremity pain Right leg weakness Lumbar disc herniation Type 2 diabetes mellitus with other specified complication, unspecified whether residential insulin use (HCC) ALBUMIN Routine 06/17/2025 3:34 PM MECHANICAL OPERATOR Degeneration of intervertebral disc of lumbar region with discogenic back pain and lower extremity pain Right leg weakness Lumbar disc herniation CRP (ACUTE PHASE) Routine 06/17/2025 3:3 4 PM MECHANICAL OPERATOR Degeneration of intervertebral disc of lumbar region with discogenic back pain and lower extremity pain Right leg weakness Lumbar disc herniation VITAMIN D 25 HYDROXY Routine 06/17/2025 3:34 PM MECHANICAL OPERATOR Degeneration of intervertebral disc of lumbar region with discogenic back pain and lower extremity pain Right leg weakness Lumbar disc herniation Vitamin D deficiency APTT Routine 06/17/2025 3:34 PM MECHANICAL OPERATOR Degeneration of intervertebral disc of lumbar region with discogenic back pain and lower extremity pain Right leg weakness Lumbar disc herniation Pain in other joint TYPE AND SCREEN Routine 06/17/2025 3:34 PM MECHANICAL OPERATOR Preoperative testing NICOTINE METABOLITE SCREEN, URINE Routine 06/17/2025 3:20 PM MECHANICAL OPERATOR Degeneration of intervertebral disc of lumbar region with discogenic back pain and lower extremity pain Right leg weakness Lumbar disc herniation XR SPINE THORACIC 2 VIEWS Schedule Routine, Read Routine (OP Routine) 06/15/2025 9:40 AM MECHANICAL OPERATOR Thoracic spine pain POTASSIUM LEVEL, SERUM Routine 06/14/2025 3:43 PM MECHANICAL OPERATOR POTASSIUM LEVEL, SERUM Routine 06/14/2025 2:53 PM MECHANICAL OPERATOR POCT GLUCOSE DEVICE Routine 06/10/2025 7 :34 AM MECHANICAL OPERATOR EGFR Routine 06/10/2025 3:15 AM MECHANICAL OPERATOR DIFFERENTIAL AUTO Routine 06/10/2025 3:1 5 AM MECHANICAL OPERATOR COMPREHENSIVE METABOLIC PANEL Routine 06/10/2025 3:15 AM MECHANICAL OPERATOR CBC WITH AUTO DIFFERENTIAL Routine 06/10/2025 3:15 AM MECHANICAL OPERATOR POCT GLUCOSE DEVICE Routine 06/09/2025 7 :56 PM MECHANICAL OPERATOR POCT GLUCOSE DEVICE Routine 06/09/2025 4 :31 PM MECHANICAL OPERATOR POCT GLUCOSE DEVICE Routine 06/09/2025 11:26 AM MECHANICAL OPERATOR POCT GLUCOSE DEVICE Routine 06/09/2025 7 :58 AM MECHANICAL OPERATOR POCT GLUCOSE DEVICE Routine 06/09/2025 4 :01 AM MECHANICAL OPERATOR EGFR Routine 06/09/2025 3:06 AM MECHANICAL OPERATOR PHOSPHORUS Routine 06/09/2025 3:06 AM MECHANICAL OPERATOR DIFFERENTIAL AUTO Routine 06/09/2025 3:0 6 AM MECHANICAL OPERATOR COMPREHENSIVE METABOLIC PANEL Routine 06/09/2025 3:06 AM MECHANICAL OPERATOR CBC WITH AUTO DIFFERENTIAL Routine 06/09/2025 3:06 AM MECHANICAL OPERATOR POCT GLUCOSE DEVICE Routine 06/08/2025 8 :12 PM MECHANICAL OPERATOR POCT GLUCOSE DEVICE Routine 06/08/2025 4 :10 PM MECHANICAL OPERATOR POCT GLUCOSE DEVICE Routine 06/08/2025 11:53 AM MECHANICAL OPERATOR MRI CERVICAL SPINE WO CONTRAST IP Routine 06/08/2025 11:40 AM MECHANICAL OPERATOR POCT GLUCOSE DEVICE Routine 06/08/2025 7 :40 AM MECHANICAL OPERATOR EGFR Routine 06/08/2025 3:55 AM MECHANICAL OPERATOR PHOSPHORUS Routine 06/08/2025 3:55 AM MECHANICAL OPERATOR DIFFERENTIAL AUTO Routine 06/08/2025 3:5 5 AM MECHANICAL OPERATOR COMPREHENSIVE METABOLIC PANEL Routine 06/08/2025 3:55 AM MECHANICAL OPERATOR CBC WITH AUTO DIFFERENTIAL Routine 06/08/2025 3:55 AM MECHANICAL OPERATOR POCT GLUCOSE DEVICE Routine 06/08/2025 2 :13 AM MECHANICAL OPERATOR POCT GLUCOSE DEVICE Routine 06/07/2025 7 :47 PM MECHANICAL OPERATOR POCT GLUCOSE DEVICE Routine 06/07/2025 4 :32 PM MECHANICAL OPERATOR POCT GLUCOSE DEVICE Routine 06/07/2025 11:22 AM MECHANICAL OPERATOR XR HIP RIGHT 2 OR 3 VIEWS IP Routine 06/07/2025 9:04 AM MECHANICAL OPERATOR XR KNEE RIGHT 1 OR 2 VIEWS IP Routine 06/07/2025 9:04 AM MECHANICAL OPERATOR XR SPINE THORACIC 2 VIEWS IP Routine 06/07/2025 9:04 AM MECHANICAL OPERATOR XR SHOULDER LEFT 2 OR MORE VIEWS IP Routine 06/07/2025 9:04 AM MECHANICAL OPERATOR POCT GLUCOSE DEVICE Routine 06/07/2025 7 :33 AM MECHANICAL OPERATOR EGFR Routine 06/07/2025 6:05 AM MECHANICAL OPERATOR DIFFERENTIAL AUTO Routine 06/07/2025 6:0 5 AM MECHANICAL OPERATOR COMPREHENSIVE METABOLIC PANEL Routine 06/07/2025 6:05 AM MECHANICAL OPERATOR CBC WITH AUTO DIFFERENTIAL Routine 06/07/2025 6:05 AM MECHANICAL OPERATOR LACTATE Routine 06/07/2025 6:05 AM MECHANICAL OPERATOR BLOOD CULTURE Routine 06/07/2025 6:05 AM MECHANICAL OPERATOR BLOOD CULTURE Routine 06/07/2025 6:05 AM MECHANICAL OPERATOR POCT GLUCOSE DEVICE Routine 06/07/2025 2 :07 AM MECHANICAL OPERATOR POCT GLUCOSE DEVICE Routine 06/06/2025 8 :15 PM MECHANICAL OPERATOR POCT GLUCOSE DEVICE Routine 06/06/2025 7 :23 AM MECHANICAL OPERATOR EGFR Routine 06/06/2025 6:35 AM MECHANICAL OPERATOR DIFFERENTIAL AUTO Routine 06/06/2025 6:3 5 AM MECHANICAL OPERATOR BASIC METABOLIC PANEL Routine 06/06/2025 6:35 AM MECHANICAL OPERATOR CBC WITH AUTO DIFFERENTIAL Routine 06/06/2025 6:35 AM MECHANICAL OPERATOR POCT GLUCOSE DEVICE Routine 06/06/2025 3 :14 AM MECHANICAL OPERATOR POCT GLUCOSE DEVICE Routine 06/05/2025 7 :27 PM MECHANICAL OPERATOR POCT GLUCOSE DEVICE Routine 06/05/2025 4 :43 PM MECHANICAL OPERATOR FL FLUOROSCOPY < 1 HOUR IP Routine 06/05/2025 4:26 PM MECHANICAL OPERATOR VA AN ELECTIVE ENDOTRACHEAL AIRWAY Routine 06/05/2025 3:17 PM MECHANICAL OPERATOR KYPHOPLASTY/VERTEBRO PLASTY 06/05/2025 2:44 PM MECHANICAL OPERATOR T5, T6, and L1 compression fracture POCT GLUCOSE DEVICE Routine 06/05/2025 12:15 PM MECHANICAL OPERATOR POCT GLUCOSE DEVICE Routine 06/05/2025 11:31 AM MECHANICAL OPERATOR ECG 12-LEAD STAT 06/05/2025 9:58 AM MECHANICAL OPERATOR SURGICAL PATHOLOGY Routine 06/05/2025 9: 12 AM MECHANICAL OPERATOR Compression fracture of body of thoracic vertebra (HCC) POCT GLUCOSE DEVICE Routine 06/05/2025 7 :34 AM MECHANICAL OPERATOR EGFR Routine 06/05/2025 3:04 AM MECHANICAL OPERATOR DIFFERENTIAL AUTO Routine 06/05/2025 3:0 4 AM MECHANICAL OPERATOR PROTIME-INR Routine 06/05/2025 3:04 AM MECHANICAL OPERATOR RENAL FUNCTION PANEL Routine 06/05/2025 3:04 AM MECHANICAL OPERATOR CBC WITHOUT DIFFERENTIAL Routine 06/05/2025 3:04 AM MECHANICAL OPERATOR CBC WITH AUTO DIFFERENTIAL Routine 06/05/2025 3:04 AM MECHANICAL OPERATOR POCT GLUCOSE DEVICE Routine 06/05/2025 2 :12 AM MECHANICAL OPERATOR POCT GLUCOSE DEVICE Routine 06/04/2025 7 :37 PM MECHANICAL OPERATOR POCT GLUCOSE DEVICE Routine 06/04/2025 4 :41 PM MECHANICAL OPERATOR POCT GLUCOSE DEVICE Routine 06/04/2025 11:24 AM MECHANICAL OPERATOR POCT GLUCOSE DEVICE Routine 06/04/2025 7 :20 AM MECHANICAL OPERATOR EGFR Routine 06/04/2025 3:28 AM MECHANICAL OPERATOR DIFFERENTIAL AUTO Routine 06/04/2025 3:2 8 AM MECHANICAL OPERATOR BASIC METABOLIC PANEL Routine 06/04/2025 3:28 AM MECHANICAL OPERATOR CBC WITH AUTO DIFFERENTIAL Routine 06/04/2025 3:28 AM MECHANICAL OPERATOR POCT GLUCOSE DEVICE Routine 06/04/2025 3 :17 AM MECHANICAL OPERATOR POCT GLUCOSE DEVICE Routine 06/03/2025 7 :46 PM MECHANICAL OPERATOR POCT GLUCOSE DEVICE Routine 06/03/2025 4 :43 PM MECHANICAL OPERATOR POCT GLUCOSE DEVICE Routine 06/03/2025 11:38 AM MECHANICAL OPERATOR POCT GLUCOSE DEVICE Routine 06/03/2025 7 :58 AM MECHANICAL OPERATOR EGFR Routine 06/03/2025 7:05 AM MECHANICAL OPERATOR RENAL FUNCTION PANEL Routine 06/03/2025 7:05 AM MECHANICAL OPERATOR DIFFERENTIAL AUTO Routine 06/03/2025 5:0 6 AM MECHANICAL OPERATOR CBC WITH AUTO DIFFERENTIAL Routine 06/03/2025 5:06 AM MECHANICAL OPERATOR POCT GLUCOSE DEVICE Routine 06/02/2025 7 :37 PM MECHANICAL OPERATOR POCT GLUCOSE DEVICE Routine 06/02/2025 4 :47 PM MECHANICAL OPERATOR POCT GLUCOSE DEVICE Routine 06/02/2025 11:17 AM MECHANICAL OPERATOR DIFFERENTIAL AUTO Routine 06/02/2025 9:0 2 AM MECHANICAL OPERATOR CBC WITH AUTO DIFFERENTIAL Routine 06/02/2025 9:02 AM MECHANICAL OPERATOR POCT GLUCOSE DEVICE Routine 06/02/2025 8 :32 AM MECHANICAL OPERATOR MRI LUMBAR SPINE W WO CONTRAST ED Urgent/IP Urgent 06/02/2025 7:53 AM MECHANICAL OPERATOR MRI THORACIC SPINE W WO CONTRAST ED Urgent/IP Urgent 06/02/2025 7:53 AM MECHANICAL OPERATOR POCT GLUCOSE DEVICE Routine 06/02/2025 4 :32 AM MECHANICAL OPERATOR POCT GLUCOSE DEVICE Routine 06/02/2025 3 :45 AM MECHANICAL OPERATOR POCT GLUCOSE DEVICE Routine 06/01/2025 10:54 PM MECHANICAL OPERATOR EGFR STAT 06/01/2025 5:43 PM MECHANICAL OPERATOR DIFFERENTIAL AUTO STAT 06/01/2025 5:4 3 PM MECHANICAL OPERATOR T4, FREE STAT 06/01/2025 5:43 PM MECHANICAL OPERATOR TSH STAT 06/01/2025 5:43 PM MECHANICAL OPERATOR BASIC METABOLIC PANEL STAT 06/01/2025 5:43 PM MECHANICAL OPERATOR CBC WITH AUTO DIFFERENTIAL STAT 06/01/2025 5:43 PM MECHANICAL OPERATOR XR KNEE RIGHT 1 OR 2 VIEWS ED 06/01/2025 5:[address] PELVIS WO CONTRAST ED 06/01/2025 2:[address] LUMBAR SPINE WO CONTRAST ED 06/01/2025 2:[address] THORACIC SPINE WO CONTRAST ED 06/01/2025 2:12 PM MECHANICAL OPERATOR XR SPINE LUMBAR ROUTINE ED 05/25/2025 8:16 AM MECHANICAL OPERATOR XR SPINE THORACIC 3 VIEWS ED 05/25/2025 8:16 AM MECHANICAL OPERATOR VA ARTHROCENTESIS ASPIR&/INJ MAJOR JT/BURSA W/O US Routine 04/15/2025 1:30 PM CDT Rotator cuff arthropathy, right VA ARTHROCENTESIS ASPIR&/INJ MAJOR JT/BURSA W/O US Routine 04/15/2025 1:30 PM CDT Left rotator cuff tear arthropathy COLONOSCOPY 04/02/2025 7:39 AM CDT LIPID PANEL Routine 04/19/2021 11:08 AM CDT PSA SCREEN Routine 04/19/2021 11:08 AM CDT US ABDOMINAL AORTIC ANEURYSM SCREENING Schedule Routine, Read Routine (OP Routine) 10/28/2020 9:32 AM CDT Encounter for screening for cardiovascular disorders from Last 3 Months or Most Recently Relevant to Health Maintenance Results * COVID-19 Coronavirus RNA Nasopharyngeal (07/08/2025 3:32 PM MECHANICAL OPERATOR) COVID-19 RNA Negative Negative Nasopharyngeal 07/08/2025 3: 32 PM MECHANICAL OPERATOR 07/08/2025 3:32 PM MECHANICAL OPERATOR [facility] - 07/08/2025 8:37 PM MECHANICAL OPERATOR Is the patient experiencing any symptoms consistent with COVID (eg. Fever, cough, shortness of breath)?->No What is the reason for testing?->Screening for post-acute care placement Interpretive data Testing performed by [facility]. This test is performed using the IncreaseCard Xpert Xpress CoV-2 plus assay. This is a real-time RT-PCR test intended for the qualitative detection of nucleic acid from the SARS-CoV-2. This assay has been cleared by the [place] Food and Drug administration. The performance characteristics have been verified by the [facility]. Results must be considered in the clinical context, and a negative result does not rule out infection. Interpretive data last revised 2024. Result [facility] Cherelle Boykin MD LAB MICROBIOLOGY - GENERAL ORD ERABLES Final Result Performing Organization Address [facility] Co de Phone Number [facility] [address] Department [place] [address] * POCT glucose (07/08/2025 11:25 AM MECHANICAL OPERATOR) Glucose, POC 113 70 - 199 mg/dL Comment: For Glucose values <35 mg/dl when Hematocrit is >60 mg/dl,the test may not accurately detect significant hypoglycemia,and testing in the Laboratory should be considered if clinically indicated. Blood 07/08/2025 11:2 5 AM MECHANICAL OPERATOR 07/08/2025 11:25 AM MECHANICAL OPERATOR Result [facility] Cherelle Boykin MD LAB POCT ORDERABLES - DEVICE F inal Result Performing Organization Address [facility] Co de Phone Number [facility] [address] [place] [address] * POCT glucose (07/08/2025 7:33 AM MECHANICAL OPERATOR) Glucose, POC 97 70 - 199 mg/dL Comment: For Glucose values <35 mg/dl when Hematocrit is >60 mg/dl,the test may not accurately detect significant hypoglycemia,and testing in the Laboratory should be considered if clinically indicated. Blood 07/08/2025 7:33 AM MECHANICAL OPERATOR 07/08/2025 7:33 AM MECHANICAL OPERATOR Result [facility] Cherelle Boykin MD LAB POCT ORDERABLES - DEVICE F inal Result Performing Organization Address City/[facility]/ZIP Co de Phone Number [facility] [address] Department [place] [address] * (ABNORMAL) eGFR (07/08/2025 5:18 AM MECHANICAL OPERATOR) Pathologist [facility] eGFR 29(L) >=60 mL/min/1. 73 m2 Comment: Interpretive Data Reference Interval Normal >/= 90 mL/min/1.73m2 Mildly decreased* 60 - 89 mL/min/1.73m2 Mildly to moderately decreased 45 - 59 mL/min/1.73m2 Moderately to severely decreased 30 - 44 mL/min/1.73m2 Severely decreased 15 - 29 mL/min/1.73m2 Kidney Failure < 15 mL/min/1.73m2 *Relative to young adult level Estimated glomerular filtration rate is determined by the 2020 CKD-EPI equation recommended by the National Kidney Foundation (A Unifying Approach to GFR Estimation: Recommendations of the NKF-ASK Task Force on Reassessing the Inclusion of Race in Diagnosing Kidney Disease, JASN 2020). The CKD-EPI equation should not be used for patients with unstable renal function and has not been validated in children and those over 70. Current interpretive data was last reviewed 2021. Blood 07/08/2025 5:18 AM MECHANICAL OPERATOR 07/08/2025 6:20 AM MECHANICAL OPERATOR us Alber Monae MD LAB BLOOD ORDERABLES Final Result [facility] [address] Department [place] [address] * (ABNORMAL) CBC without differential (07/08/2025 5:18 AM MECHANICAL OPERATOR) Pathologist [facility] WBC 12.03(H) 3.80 - 9.90 K/cumm Hgb 8.6(L) 13.0 - 17.5 g/dL [facility] Hct 27.0(L) 38.9 - 50.3 % [facility] Plt 401(H) 150 - 400 K/cumm [facility] MPV 10.4 9.1 - 12.3 fL [facility] RBC 2.76(L) 4.30 - 5.80 M/cumm [facility] MCV 97.8(H) 81.3 - 96.4 fL [facility] MCH 31.2 27.1 - 33.3 pg [facility] MCHC 31.9(L) 32.3 - 35.7 g/dL [facility] RDW CV 16.3(H) 11.1 - 14.9 % [facility] RDW SD 56.9(H) 35.7 - 48.1 fL [facility] NRBC abs 0.00 0.00 - 0.01 K/cumm [facility] Blood 07/08/2025 5:18 AM MECHANICAL OPERATOR 07/08/2025 6:20 AM MECHANICAL OPERATOR us Austin Ang MD LAB BLOOD ORDERABLES Final Re sult [facility] [address] Department [place] [address] * (ABNORMAL) Basic metabolic panel (07/08/2025 5:18 AM MECHANICAL OPERATOR) Sodium 145 135 - 145 mmol/L Potassium, pl 3.2(L) 3.3 - 4.9 mmol/L [facility] Chloride 109 97 - 110 mmol/L [facility] CO2 24 22 - 32 mmol/L [facility] Anion gap 12 2 - 15 mmol/L [facility] BUN 30(H) 6 - 25 mg/dL [facility] Creatinine 2.32(H) 0.80 - 1.30 mg/dL [facility] Glucose 99 70 - 199 mg/dL [facility] Comment: Interpretive Data Fasting glucose >/= 126 mg/dl is diagnostic for diabetes. Fasting is defined as no caloric intake for at least 8 hours. Fasting glucose between 100 mg/dl to 125 mg/dl is diagnostic of prediabetes. In a patient with classic symptoms of hyperglycemia or hyperglycemic crisis, a random glucose >/= 200 mg/dl is diagnostic for diabetes. In the absence of unequivocal hyperglycemia, results should be confirmed by repeat testing. The classification and Diagnosis of Diabetes Diabetes Care 2021; 46: S19-S40. Current interpretive data was last revised 2022. Calcium 8.1(L) 8.5 - 10.3 mg/dL [facility] Blood 07/08/2025 5:18 AM MECHANICAL OPERATOR 07/08/2025 6:20 AM MECHANICAL OPERATOR Alber Monae MD LAB BLOOD ORDERABLES Final Result Performing Organization Address [facility] Co de Phone Number [facility] [address] [place] [address] * POCT glucose (07/07/2025 10:42 PM MECHANICAL OPERATOR) Glucose, POC 95 70 - 199 mg/dL Comment: For Glucose values <35 mg/dl when Hematocrit is >60 mg/dl,the test may not accurately detect significant hypoglycemia,and testing in the Laboratory should be considered if clinically indicated. Blood 07/07/2025 10:4 2 PM MECHANICAL OPERATOR 07/07/2025 10:42 PM MECHANICAL OPERATOR Result [facility] Cherelle Boykin MD LAB POCT ORDERABLES - DEVICE F inal Result Performing Organization Address [facility] de Phone Number [facility] [address] [facility] [place] [address] * POCT glucose (07/07/2025 4:22 PM MECHANICAL OPERATOR) Glucose, POC 102 70 - 199 mg/dL Comment: For Glucose values <35 mg/dl when Hematocrit is >60 mg/dl,the test may not accurately detect significant hypoglycemia,and testing in the Laboratory should be considered if clinically indicated. Blood 07/07/2025 4:22 PM MECHANICAL OPERATOR 07/07/2025 4:22 PM MECHANICAL OPERATOR Result [facility] Cherelle Boykin MD LAB POCT ORDERABLES - DEVICE F inal Result Performing Organization Address [facility] Co de Phone Number [facility] [address] [facility] [place] [address] * POCT glucose (07/07/2025 11:24 AM MECHANICAL OPERATOR) Glucose, POC 92 70 - 199 mg/dL Comment: For Glucose values <35 mg/dl when Hematocrit is >60 mg/dl,the test may not accurately detect significant hypoglycemia,and testing in the Laboratory should be considered if clinically indicated. Blood 07/07/2025 11:2 4 AM MECHANICAL OPERATOR 07/07/2025 11:24 AM MECHANICAL OPERATOR Cherelle Boykin MD LAB POCT ORDERABLES - DEVICE F inal Result Performing Organization Address City/[facility]/ZIP Co de Phone Number [facility] [address] Department [place] [address] * POCT glucose (07/07/2025 6:14 AM MECHANICAL OPERATOR) Pathologist [facility] Glucose, POC 114 70 - 199 mg/dL Comment: For Glucose values <35 mg/dl when Hematocrit is >60 mg/dl,the test may not accurately detect significant hypoglycemia,and testing in the Laboratory should be considered if clinically indicated. Blood 07/07/2025 6:14 AM MECHANICAL OPERATOR 07/07/2025 6:14 AM MECHANICAL OPERATOR Cherelle Boykin MD LAB POCT ORDERABLES - DEVICE F inal Result Performing Organization Address [facility] Co de Phone Number [facility] [address] Department [place] [address] * (ABNORMAL) eGFR (07/07/2025 5:50 AM MECHANICAL OPERATOR) eGFR 39(L) >=60 mL/min/1. 73 m2 Comment: Interpretive Data Reference Interval Normal >/= 90 mL/min/1.73m2 Mildly decreased* 60 - 89 mL/min/1.73m2 Mildly to moderately decreased 45 - 59 mL/min/1.73m2 Moderately to severely decreased 30 - 44 mL/min/1.73m2 Severely decreased 15 - 29 mL/min/1.73m2 Kidney Failure < 15 mL/min/1.73m2 *Relative to young adult level Estimated glomerular filtration rate is determined by the 2020 CKD-EPI equation recommended by the National Kidney Foundation (A Unifying Approach to GFR Estimation: Recommendations of the NKF-ASK Task Force on Reassessing the Inclusion of Race in Diagnosing Kidney Disease, JASN 2020). The CKD-EPI equation should not be used for patients with unstable renal function and has not been validated in children and those over 70. Current interpretive data was last reviewed 2021. Blood 07/07/2025 5:50 AM MECHANICAL OPERATOR 07/07/2025 6:02 AM MECHANICAL OPERATOR us Alber Monae MD LAB BLOOD ORDERABLES Final Result Performing Organization Address [facility]/ZIP Co de Phone Number [facility] [address] Department of Laboratories [place], [place] [id number] * (ABNORMAL) CBC without differential (07/07/2025 5:50 AM MECHANICAL OPERATOR) WBC 13.01(H) 3.80 - 9.90 K/cumm Hgb 9.3(L) 13.0 - 17.5 g/dL [facility] Hct 29.8(L) 38.9 - 50.3 % [facility] Plt 436(H) 150 - 400 K/cumm [facility] MPV 10.2 9.1 - 12.3 fL [facility] RBC 3.01(L) 4.30 - 5.80 M/cumm [facility] MCV 99.0(H) 81.3 - 96.4 fL [facility] MCH 30.9 27.1 - 33.3 pg [facility] MCHC 31.2(L) 32.3 - 35.7 g/dL [facility] RDW CV 15.7(H) 11.1 - 14.9 % [facility] RDW SD 56.1(H) 35.7 - 48.1 fL [facility] NRBC abs 0.00 0.00 - 0.01 K/cumm [facility] Blood 07/07/2025 5:50 AM MECHANICAL OPERATOR 07/07/2025 6:02 AM MECHANICAL OPERATOR us Austin Ang MD LAB BLOOD ORDERABLES Final Re sult [facility] [address] Department [place] [address] * (ABNORMAL) Basic metabolic panel (07/07/2025 5:50 AM MECHANICAL OPERATOR) Sodium 143 135 - 145 mmol/L Potassium, pl 3.8 3.3 - 4.9 mmol/L [facility] Chloride 109 97 - 110 mmol/L [facility] CO2 23 22 - 32 mmol/L [facility] Anion gap 11 2 - 15 mmol/L [facility] BUN 30(H) 6 - 25 mg/dL [facility] Creatinine 1.83(H) 0.80 - 1.30 mg/dL [facility] Glucose 87 70 - 199 mg/dL [facility] Comment: Interpretive Data Fasting glucose >/= 126 mg/dl is diagnostic for diabetes. Fasting is defined as no caloric intake for at least 8 hours. Fasting glucose between 100 mg/dl to 125 mg/dl is diagnostic of prediabetes. In a patient with classic symptoms of hyperglycemia or hyperglycemic crisis, a random glucose >/= 200 mg/dl is diagnostic for diabetes. In the absence of unequivocal hyperglycemia, results should be confirmed by repeat testing. The classification and Diagnosis of Diabetes Diabetes Care 2021; 46: S19-S40. Current interpretive data was last revised 2022. Calcium 8.3(L) 8.5 - 10.3 mg/dL [facility] Blood 07/07/2025 5:50 AM MECHANICAL OPERATOR 07/07/2025 6:02 AM MECHANICAL OPERATOR Alber Monae MD LAB BLOOD ORDERABLES Final Result [facility] [address] Department [place] [address] * POCT glucose (07/06/2025 10:05 PM MECHANICAL OPERATOR) Glucose, POC 90 70 - 199 mg/dL Comment: For Glucose values <35 mg/dl when Hematocrit is >60 mg/dl,the test may not accurately detect significant hypoglycemia,and testing in the Laboratory should be considered if clinically indicated. Blood 07/06/2025 10:0 5 PM MECHANICAL OPERATOR 07/06/2025 10:05 PM MECHANICAL OPERATOR Cherelle Boykin MD LAB POCT ORDERABLES - DEVICE F inal Result Performing Organization Address [facility] de Phone Number [facility] [address] [place] [address] * (ABNORMAL) Thyroid Function Stout (07/06/2025 8:25 PM MECHANICAL OPERATOR) [facility] TSH 0.09(L) 0.30 - 4.20 mcIUnit/mL Blood 07/06/2025 8:25 PM MECHANICAL OPERATOR 07/06/2025 8:55 PM MECHANICAL OPERATOR Jaycob Washington II, MD LAB BLOOD ORDERABLE S Final Result Performing Organization Address [facility] de Phone Number [facility] [address] Department of [place], [place] [id number] * HIV 1/2 Antibody plus p24 Antigen Blood (07/06/2025 8:25 PM MECHANICAL OPERATOR) [facility] HIV 1/2 ab + p24 ag Nonreactive Nonreactive Comment: Nonreactive for HIV-1 antigen and HIV-1/HIV-2 antibodies. No laboratory evidence of HIV infection. If acute HIV infection is suspected, consider testing for HIV-1 RNA. Blood 07/06/2025 8:25 PM MECHANICAL OPERATOR 07/06/2025 8:55 PM MECHANICAL OPERATOR Jaycbo Washington II, MD LAB MICROBIOLOGY - GENERAL ORDERABLES Final Result Performing Organization Address [facility] de Phone Number [facility] [address] [place] [address] * Methylmalonic acid, serum (07/06/2025 8:25 PM MECHANICAL OPERATOR) [facility] MMA 0.39 <=0.40 nmol/mL [facility] Comment: ADDITIONAL INFORMATION This test was developed and its performance characteristics determined by [facility] in a manner consistent with CLIA requirements. This test has not been cleared or approved by the U.S. Food and Drug Administration. Test Performed by: [facility] - [address] [address] Academic Interventionist: Patti Escalante Ph.D.; CLIA# [id number] Blood 07/06/2025 8:25 PM MECHANICAL OPERATOR 07/07/2025 7:15 AM MECHANICAL OPERATOR Jaycob Washington II, MD LAB BLOOD ORDERABLE S Final Result Performing Organization Address [facility] Co de Phone Number [facility] [address] [place] [address] [facility] * RPR Blood (07/06/2025 8:25 PM MECHANICAL OPERATOR) Pathologist [facility] RPR Nonreactive Nonreactive Comment:Testing performed by : [facility], [address] [place]., [address] Blood 07/06/2025 8:25 PM MECHANICAL OPERATOR 07/06/2025 11:42 PM MECHANICAL OPERATOR Jaycob Washington II, MD LAB MICROBIOLOGY - GENERAL ORDERABLES Final Result Performing Organization Address [facility] Co de Phone Number [facility] [address] [place] [address] * (ABNORMAL) T4, free (07/06/2025 8:25 PM MECHANICAL OPERATOR) Pathologist [facility] Free T4 2.01(H) 0.90 - 1.70 ng/dL Blood 07/06/2025 8:25 PM MECHANICAL OPERATOR 07/06/2025 8:55 PM MECHANICAL OPERATOR Narrative [facility] - 07/06/2025 10:05 PM MECHANICAL OPERATOR This test was reflexed from a TSH result. Jaycob Washington II, MD LAB BLOOD ORDERABLE S Final Result Performing Organization Address City/[facility]/ZIP Co de Phone Number [facility] [address] [employer] [place] [address] * Vitamin B1 (07/06/2025 8:25 PM MECHANICAL OPERATOR) Thiamine (Vit B1) 110 70 - 180 nmol/L [facility] ref Lab Comment: ADDITIONAL INFORMATION This test was developed and its performance characteristics determined by [facility] in a manner consistent with CLIA requirements. This test has not been cleared or approved by the U.S. Food and Drug Administration. Test Performed by: [facility] [place] [address] Academic Interventionist: Patti Escalante Ph.D.; CLIA# [id number] Blood 07/06/2025 8:25 PM MECHANICAL OPERATOR 07/07/2025 7:10 AM MECHANICAL OPERATOR us Jaycob Washington II, MD LAB BLOOD ORDERABLE S Final Result Performing Organization Address [facility] Co de Phone Number [facility] [address] [employer] [place], [place] [id number] [facility] * (ABNORMAL) Vitamin B12 (07/06/2025 8:25 PM MECHANICAL OPERATOR) Vitamin B12 1,968(H) 230 - 1,250 pg/mL Blood 07/06/2025 8:25 PM MECHANICAL OPERATOR 07/06/2025 8:55 PM MECHANICAL OPERATOR Jaycob Washington II, MD LAB BLOOD ORDERABLE S Final Result Performing Organization Address City/[facility] Co de Phone Number [facility] [address] [employer] [place] [address] * Ammonia (07/06/2025 8:25 PM MECHANICAL OPERATOR) Ammonia 15 <=50 mcmol/L Blood 07/06/2025 8:25 PM MECHANICAL OPERATOR 07/06/2025 8:40 PM MECHANICAL OPERATOR us Jaycob Washington II, MD LAB BLOOD ORDERABLE S Final Result Performing Organization Address [facility] Co de Phone Number [facility] [address] Department [place] [address] * POCT glucose (07/06/2025 4:27 PM MECHANICAL OPERATOR) Glucose, POC 105 70 - 199 mg/dL Comment: For Glucose values <35 mg/dl when Hematocrit is >60 mg/dl,the test may not accurately detect significant hypoglycemia,and testing in the Laboratory should be considered if clinically indicated. Blood 07/06/2025 4:27 PM MECHANICAL OPERATOR 07/06/2025 4:27 PM MECHANICAL OPERATOR Cherelle Boykin MD LAB POCT ORDERABLES - DEVICE F inal Result Performing Organization Address [facility] Co de Phone Number [facility] [address] Department [place] [address] * EEG (07/06/2025 3:10 PM MECHANICAL OPERATOR) Anatomical Region Laterality Modality EEG Narrative 07/06/2025 3:51 PM MECHANICAL OPERATOR Routine EEG Report Patient Name: Yuko Fernandez [facility] Record Number (MRN): [id number] [facility]ly [facility] Record: [id number] Date of (): 1955 EEG Date: 06/15/2025 Ordering Provider: Jaycob Washington II, MD CC: Roxie Ribera Start Time: 07/06/2025 02:49:31 PM End Time: 07/06/2025 03:10:25 PM Introduction: Mr. Fernandez is a 69 y.o. male with a history of recent spine surgery complicated by development of abnormal jerking movements in the setting of opioid medications. EEG was performed to evaluate for seizures. This is a 32 channel EEG recording acquired on a [employer] EEG-1200 acquisition system. Scalp electrodes were placed according to the international 10-20 System. The analog EEG was filtered from 1-70 Hz and digitally sampled at 200 Hz. The record was then reformatted for review in bipolar and referential montages. EEG Description: There was no well-developed or well-modulated posterior dominant rhythm (PDR). The remainder of the awake background was continuous, poorly organized, symmetric, and included diffuse, irregular 20-60 uV 1-6 Hz activity with triphasic waves. Drowsiness/stage I sleep was identified by ocular signs and reduced myogenic artifact, as well as intermittent, diffuse, asynchronous theta activity admixed with polymorphic frontal-temporal delta activity. Stage II sleep structures were not seen. During the recording, the patient would have intermittent, non-rhythmic jaw and arm tremoring movements. There was no EEG change preceding, during, or following the movements apart from EMG and myogenic artifact. The background showed variability and reactivity. Hyperventilation and photic strobe stimulation were not performed. There were no focal, lateralized, or epileptiform abnormalities. There were no seizures. Interpretation: This is an abnormal awake and stage I sleep EEG due to: 1) Diffuse, irregular delta-theta slowing of the background with triphasic waves Generalized slowing with triphasic waves is a nonspecific finding seen in diffuse cerebral dysfunction commonly seen in the setting of toxic-metabolic encephalopathy due to a variety of causes (e.g., cerebral hypoxia/anoxia, anesthetic or sedative medications, certain antibiotics, etc.) and is indicative of a moderate encephalopathy/diffuse cerebral dysfunction as seen in this study. The noted intermittent, non-rhythmic jaw and arm tremoring movements did not have a cerebral EEG correlate. Jaycob Washington II, MD us Jaycob Washington II, MD NEUROLOGY ORDERABLE S Final Result * POCT glucose (07/06/2025 12:07 PM MECHANICAL OPERATOR) Glucose, POC 102 70 - 199 mg/dL Comment: For Glucose values <35 mg/dl when Hematocrit is >60 mg/dl,the test may not accurately detect significant hypoglycemia,and testing in the Laboratory should be considered if clinically indicated. Blood 07/06/2025 12:0 7 PM MECHANICAL OPERATOR 07/06/2025 12:07 PM MECHANICAL OPERATOR Cherelle Boykin MD LAB POCT ORDERABLES - DEVICE F inal Result Performing Organization Address [facility] Co de Phone Number [facility] [address] [place] [place] [address] * (ABNORMAL) eGFR (07/06/2025 6:20 AM MECHANICAL OPERATOR) eGFR 43(L) >=60 mL/min/1. 73 m2 Comment: Interpretive Data Reference Interval Normal >/= 90 mL/min/1.73m2 Mildly decreased* 60 - 89 mL/min/1.73m2 Mildly to moderately decreased 45 - 59 mL/min/1.73m2 Moderately to severely decreased 30 - 44 mL/min/1.73m2 Severely decreased 15 - 29 mL/min/1.73m2 Kidney Failure < 15 mL/min/1.73m2 *Relative to young adult level Estimated glomerular filtration rate is determined by the 2020 CKD-EPI equation recommended by the National Kidney Foundation (A Unifying Approach to GFR Estimation: Recommendations of the NKF-ASK Task Force on Reassessing the Inclusion of Race in Diagnosing Kidney Disease, JASN 2020). The CKD-EPI equation should not be used for patients with unstable renal function and has not been validated in children and those over 70. Current interpretive data was last reviewed 2021. Blood 07/06/2025 6:20 AM MECHANICAL OPERATOR 07/06/2025 7:08 AM MECHANICAL OPERATOR us Alber Monae MD LAB BLOOD ORDERABLES Final Result Performing Organization Address [facility]/ZIP Co de Phone Number [facility] [address] Department of [employer] [place], [place] [id number] * (ABNORMAL) Differential, auto (07/06/2025 6:20 AM MECHANICAL OPERATOR) Neutrophil abs 8.57(H) 1.50 - 6.50 K/cumm Imm gran abs 0.17(H) 0.00 - 0.10 K/cumm [facility] Lymphocyte abs 2.47 0.80 - 3.30 K/cumm [facility] Monocyte abs 1.27(H) 0.20 - 0.80 K/cumm [facility] Eosinophil abs 1.25(H) 0.00 - 0.50 K/cumm [facility] Basophil abs 0.11(H) 0.00 - 0.10 K/cumm [facility] Neutrophil pct 62.0 % [facility] Comment: Interpretive Data Percent cell count reference ranges are not reported, since discordance with absolute values may lead to misinterpretation of CBC data. Current Interpretive Data was last revised on 2017. Imm gran pct 1.2 % [facility] Comment: Interpretive Data Percent cell count reference ranges are not reported, since discordance with absolute values may lead to misinterpretation of CBC data. Current Interpretive Data was last revised on 2017. Lymphocyte pct 17.8 % [facility] Comment: Interpretive Data Percent cell count reference ranges are not reported, since discordance with absolute values may lead to misinterpretation of CBC data. Current Interpretive Data was last revised on 2017. Monocyte pct 9.2 % [facility] Comment: Interpretive Data Percent cell count reference ranges are not reported, since discordance with absolute values may lead to misinterpretation of CBC data. Current Interpretive Data was last revised on 2017. Eosinophil pct 9.0 % [facility] Comment: Interpretive Data Percent cell count reference ranges are not reported, since discordance with absolute values may lead to misinterpretation of CBC data. Current Interpretive Data was last revised on 2017. Basophil pct 0.8 % [facility] Comment: Interpretive Data Percent cell count reference ranges are not reported, since discordance with absolute values may lead to misinterpretation of CBC data. Current Interpretive Data was last revised on 2017. Blood 07/06/2025 6:20 AM MECHANICAL OPERATOR 07/06/2025 7:05 AM MECHANICAL OPERATOR Alber Monae MD LAB BLOOD ORDERABLES Final Result Performing Organization Address [facility]/ZIP Co de Phone Number [facility] [address] [place] [place] [address] * (ABNORMAL) CBC with auto differential (07/06/2025 6:20 AM MECHANICAL OPERATOR) [facility] WBC 13.84(H) 3.80 - 9.90 K/cumm Hgb 9.4(L) 13.0 - 17.5 g/dL [facility] Hct 29.7(L) 38.9 - 50.3 % [facility] Plt 421(H) 150 - 400 K/cumm [facility] MPV 10.5 9.1 - 12.3 fL [facility] RBC 3.00(L) 4.30 - 5.80 M/cumm [facility] MCV 99.0(H) 81.3 - 96.4 fL [facility] MCH 31.3 27.1 - 33.3 pg [facility] MCHC 31.6(L) 32.3 - 35.7 g/dL [facility] RDW CV 15.7(H) 11.1 - 14.9 % [facility] RDW SD 56.2(H) 35.7 - 48.1 fL [facility] NRBC abs 0.00 0.00 - 0.01 K/cumm [facility] Blood 07/06/2025 6:20 AM MECHANICAL OPERATOR 07/06/2025 7:05 AM MECHANICAL OPERATOR Alber Monae MD LAB BLOOD ORDERABLES Final Result Performing Organization Address City/[facility]/ZIP Co de Phone Number [facility] [address] [place] [place] [address] * Vancomycin level random (07/06/2025 6:20 AM MECHANICAL OPERATOR) Pathologist [facility] Vancomycin random 15.4 mcg/mL Comment: Interpretive Data No reference ranges have been established for random drug levels. Current Interpretive Data was last revised on 2020. Blood 07/06/2025 6:20 AM MECHANICAL OPERATOR 07/06/2025 7:08 AM MECHANICAL OPERATOR us Mike Thompson MD LAB BLOOD ORDERABLES Fi nal Result [facility] [address] [place] [place] [address] * (ABNORMAL) Basic metabolic panel (07/06/2025 6:20 AM MECHANICAL OPERATOR) [facility] Sodium 140 135 - 145 mmol/L Potassium, pl 4.0 3.3 - 4.9 mmol/L [facility] Chloride 107 97 - 110 mmol/L [facility] CO2 22 22 - 32 mmol/L [facility] Anion gap 11 2 - 15 mmol/L [facility] BUN 31(H) 6 - 25 mg/dL [facility] Creatinine 1.69(H) 0.80 - 1.30 mg/dL [facility] Glucose 87 70 - 199 mg/dL [facility] Comment: Interpretive Data Fasting glucose >/= 126 mg/dl is diagnostic for diabetes. Fasting is defined as no caloric intake for at least 8 hours. Fasting glucose between 100 mg/dl to 125 mg/dl is diagnostic of prediabetes. In a patient with classic symptoms of hyperglycemia or hyperglycemic crisis, a random glucose >/= 200 mg/dl is diagnostic for diabetes. In the absence of unequivocal hyperglycemia, results should be confirmed by repeat testing. The classification and Diagnosis of Diabetes Diabetes Care 2021; 46: S19-S40. Current interpretive data was last revised 2022. Calcium 8.4(L) 8.5 - 10.3 mg/dL [facility] Blood 07/06/2025 6:20 AM MECHANICAL OPERATOR 07/06/2025 7:08 AM MECHANICAL OPERATOR us Alber Monae MD LAB BLOOD ORDERABLES Final Result Performing Organization Address City/[facility]/ZIP Co de Phone Number [facility] [address] [place] [place] [address] * POCT glucose (07/06/2025 6:06 AM MECHANICAL OPERATOR) Glucose, POC 88 70 - 199 mg/dL Comment: For Glucose values <35 mg/dl when Hematocrit is >60 mg/dl,the test may not accurately detect significant hypoglycemia,and testing in the Laboratory should be considered if clinically indicated. Blood 07/06/2025 6:06 AM MECHANICAL OPERATOR 07/06/2025 6:06 AM MECHANICAL OPERATOR Alber Monae MD LAB POCT ORDERABLES - DEVIC E Final Result Performing Organization Address [facility] Co de Phone Number [facility] [address] Department [place] [address] * POCT glucose (07/05/2025 9:46 PM MECHANICAL OPERATOR) Glucose, POC 107 70 - 199 mg/dL Comment: For Glucose values <35 mg/dl when Hematocrit is >60 mg/dl,the test may not accurately detect significant hypoglycemia,and testing in the Laboratory should be considered if clinically indicated. Blood 07/05/2025 9:46 PM MECHANICAL OPERATOR 07/05/2025 9:46 PM MECHANICAL OPERATOR Result [facility] Alber Monae MD LAB POCT ORDERABLES - DEVIC E Final Result Performing Organization Address [facility] de Phone Number [facility] [address] Department [place] [address] * POCT glucose (07/05/2025 4:41 PM MECHANICAL OPERATOR) Glucose, POC 114 70 - 199 mg/dL Comment: For Glucose values <35 mg/dl when Hematocrit is >60 mg/dl,the test may not accurately detect significant hypoglycemia,and testing in the Laboratory should be considered if clinically indicated. Blood 07/05/2025 4:41 PM MECHANICAL OPERATOR 07/05/2025 4:41 PM MECHANICAL OPERATOR Alber Monae MD LAB POCT ORDERABLES - DEVIC E Final Result Performing Organization Address [facility] Co de Phone Number [facility] [address] Department [place] [address] * POCT glucose (07/05/2025 11:18 AM MECHANICAL OPERATOR) [facility] Glucose, POC 135 70 - 199 mg/dL Comment: For Glucose values <35 mg/dl when Hematocrit is >60 mg/dl,the test may not accurately detect significant hypoglycemia,and testing in the Laboratory should be considered if clinically indicated. Blood 07/05/2025 11:1 8 AM MECHANICAL OPERATOR 07/05/2025 11:18 AM MECHANICAL OPERATOR Alber Monae MD LAB POCT ORDERABLES - DEVIC E Final Result Performing Organization Address [facility] Co de Phone Number [facility] [address] Department [place] [address] * (ABNORMAL) eGFR (07/05/2025 6:35 AM MECHANICAL OPERATOR) [facility] eGFR 46(L) >=60 mL/min/1. 73 m2 Comment: Interpretive Data Reference Interval Normal >/= 90 mL/min/1.73m2 Mildly decreased* 60 - 89 mL/min/1.73m2 Mildly to moderately decreased 45 - 59 mL/min/1.73m2 Moderately to severely decreased 30 - 44 mL/min/1.73m2 Severely decreased 15 - 29 mL/min/1.73m2 Kidney Failure < 15 mL/min/1.73m2 *Relative to young adult level Estimated glomerular filtration rate is determined by the 2020 CKD-EPI equation recommended by the National Kidney Foundation (A Unifying Approach to GFR Estimation: Recommendations of the NKF-ASK Task Force on Reassessing the Inclusion of Race in Diagnosing Kidney Disease, JASN 2020). The CKD-EPI equation should not be used for patients with unstable renal function and has not been validated in children and those over 70. Current interpretive data was last reviewed 2021. Blood 07/05/2025 6:35 AM MECHANICAL OPERATOR 07/05/2025 6:58 AM MECHANICAL OPERATOR us Alber Monae MD LAB BLOOD ORDERABLES Final Result [facility] [address] Department [place] [address] * (ABNORMAL) Differential, auto (07/05/2025 6:35 AM MECHANICAL OPERATOR) Neutrophil abs 11.02(H) 1.50 - 6.50 K/cumm Imm gran abs 0.13(H) 0.00 - 0.10 K/cumm [facility] Lymphocyte abs 2.10 0.80 - 3.30 K/cumm [facility] Monocyte abs 1.42(H) 0.20 - 0.80 K/cumm [facility] Eosinophil abs 1.49(H) 0.00 - 0.50 K/cumm [facility] Basophil abs 0.07 0.00 - 0.10 K/cumm [facility] Neutrophil pct 68.0 % [facility] Comment: Interpretive Data Percent cell count reference ranges are not reported, since discordance with absolute values may lead to misinterpretation of CBC data. Current Interpretive Data was last revised on 2017. Imm gran pct 0.8 % [facility] Comment: Interpretive Data Percent cell count reference ranges are not reported, since discordance with absolute values may lead to misinterpretation of CBC data. Current Interpretive Data was last revised on 2017. Lymphocyte pct 12.9 % [facility] Comment: Interpretive Data Percent cell count reference ranges are not reported, since discordance with absolute values may lead to misinterpretation of CBC data. Current Interpretive Data was last revised on 2017. Monocyte pct 8.7 % [facility] Comment: Interpretive Data Percent cell count reference ranges are not reported, since discordance with absolute values may lead to misinterpretation of CBC data. Current Interpretive Data was last revised on 2017. Eosinophil pct 9.2 % [facility] Comment: Interpretive Data Percent cell count reference ranges are not reported, since discordance with absolute values may lead to misinterpretation of CBC data. Current Interpretive Data was last revised on 2017. Basophil pct 0.4 % [facility] Comment: Interpretive Data Percent cell count reference ranges are not reported, since discordance with absolute values may lead to misinterpretation of CBC data. Current Interpretive Data was last revised on 2017. Blood 07/05/2025 6:35 AM MECHANICAL OPERATOR 07/05/2025 6:58 AM MECHANICAL OPERATOR Alber Monae MD LAB BLOOD ORDERABLES Final Result [facility] [address] Department [place] [address] * (ABNORMAL) CBC with auto differential (07/05/2025 6:35 AM MECHANICAL OPERATOR) WBC 16.23(H) 3.80 - 9.90 K/cumm Hgb 8.6(L) 13.0 - 17.5 g/dL [facility] Hct 27.1(L) 38.9 - 50.3 % [facility] Plt 431(H) 150 - 400 K/cumm [facility] Comment:This result has been called to JENNI OLMOS by [email or web address] on 07/05/2025 07:20:16. POSSIBLE CONTAMINATION ON 07/04/25. MPV 10.2 9.1 - 12.3 fL [facility] RBC 2.76(L) 4.30 - 5.80 M/cumm [facility] MCV 98.2(H) 81.3 - 96.4 fL [facility] MCH 31.2 27.1 - 33.3 pg [facility] MCHC 31.7(L) 32.3 - 35.7 g/dL [facility] RDW CV 15.2(H) 11.1 - 14.9 % [facility] RDW SD 54.6(H) 35.7 - 48.1 fL [facility] NRBC abs 0.00 0.00 - 0.01 K/cumm [facility] Blood 07/05/2025 6:35 AM MECHANICAL OPERATOR 07/05/2025 6:58 AM MECHANICAL OPERATOR Alber Monae MD LAB BLOOD ORDERABLES Final Result Performing Organization Address [facility]/ZIP Co de Phone Number [facility] [address] [place] [address] * (ABNORMAL) Basic metabolic panel (07/05/2025 6:35 AM MECHANICAL OPERATOR) Sodium 144 135 - 145 mmol/L Potassium, pl 4.0 3.3 - 4.9 mmol/L [facility] Chloride 108 97 - 110 mmol/L [facility] CO2 25 22 - 32 mmol/L [facility] Anion gap 11 2 - 15 mmol/L [facility] BUN 30(H) 6 - 25 mg/dL [facility] Creatinine 1.60(H) 0.80 - 1.30 mg/dL [facility] Glucose 102 70 - 199 mg/dL [facility] Comment: Interpretive Data Fasting glucose >/= 126 mg/dl is diagnostic for diabetes. Fasting is defined as no caloric intake for at least 8 hours. Fasting glucose between 100 mg/dl to 125 mg/dl is diagnostic of prediabetes. In a patient with classic symptoms of hyperglycemia or hyperglycemic crisis, a random glucose >/= 200 mg/dl is diagnostic for diabetes. In the absence of unequivocal hyperglycemia, results should be confirmed by repeat testing. The classification and Diagnosis of Diabetes Diabetes Care 2021; 46: S19-S40. Current interpretive data was last revised 2022. Calcium 8.5 8.5 - 10.3 mg/dL [facility] Blood 07/05/2025 6:35 AM MECHANICAL OPERATOR 07/05/2025 6:58 AM MECHANICAL OPERATOR Alber Monae MD LAB BLOOD ORDERABLES Final Result Performing Organization Address City/[facility]/ZIP Co de Phone Number [facility] [address] [place] [address] * POCT glucose (07/05/2025 6:14 AM MECHANICAL OPERATOR) Glucose, POC 113 70 - 199 mg/dL Comment: For Glucose values <35 mg/dl when Hematocrit is >60 mg/dl,the test may not accurately detect significant hypoglycemia,and testing in the Laboratory should be considered if clinically indicated. Blood 07/05/2025 6:14 AM MECHANICAL OPERATOR 07/05/2025 6:14 AM MECHANICAL OPERATOR Alber Monae MD LAB POCT ORDERABLES - DEVIC E Final Result Performing Organization Address [facility] Co de Phone Number [facility] [address] [facility] [place] [address] * POCT glucose (07/04/2025 8:43 PM MECHANICAL OPERATOR) Glucose, POC 109 70 - 199 mg/dL Comment: For Glucose values <35 mg/dl when Hematocrit is >60 mg/dl,the test may not accurately detect significant hypoglycemia,and testing in the Laboratory should be considered if clinically indicated. Blood 07/04/2025 8:43 PM MECHANICAL OPERATOR 07/04/2025 8:43 PM MECHANICAL OPERATOR Alber Monae MD LAB POCT ORDERABLES - DEVIC E Final Result Performing Organization Address [facility] Co de Phone Number [facility] [address] [facility] [place] [address] * POCT glucose (07/04/2025 4:07 PM MECHANICAL OPERATOR) Glucose, POC 191 70 - 199 mg/dL Comment: For Glucose values <35 mg/dl when Hematocrit is >60 mg/dl,the test may not accurately detect significant hypoglycemia,and testing in the Laboratory should be considered if clinically indicated. Blood 07/04/2025 4:07 PM MECHANICAL OPERATOR 07/04/2025 4:07 PM MECHANICAL OPERATOR Alber Monae MD LAB POCT ORDERABLES - DEVIC E Final Result Performing Organization Address City/[facility] Co de Phone Number [facility] [address] [facility] [place] [address] * POCT glucose (07/04/2025 11:09 AM MECHANICAL OPERATOR) Glucose, POC 104 70 - 199 mg/dL Comment: For Glucose values <35 mg/dl when Hematocrit is >60 mg/dl,the test may not accurately detect significant hypoglycemia,and testing in the Laboratory should be considered if clinically indicated. Blood 07/04/2025 11:0 9 AM MECHANICAL OPERATOR 07/04/2025 11:09 AM MECHANICAL OPERATOR Alber Monae MD LAB POCT ORDERABLES - DEVIC E Final Result [facility] [address] Department [place] [address] * (ABNORMAL) eGFR (07/04/2025 7:06 AM MECHANICAL OPERATOR) Pathologist [facility] eGFR 50(L) >=60 mL/min/1. 73 m2 Comment: Interpretive Data Reference Interval Normal >/= 90 mL/min/1.73m2 Mildly decreased* 60 - 89 mL/min/1.73m2 Mildly to moderately decreased 45 - 59 mL/min/1.73m2 Moderately to severely decreased 30 - 44 mL/min/1.73m2 Severely decreased 15 - 29 mL/min/1.73m2 Kidney Failure < 15 mL/min/1.73m2 *Relative to young adult level Estimated glomerular filtration rate is determined by the 2020 CKD-EPI equation recommended by the National Kidney Foundation (A Unifying Approach to GFR Estimation: Recommendations of the NKF-ASK Task Force on Reassessing the Inclusion of Race in Diagnosing Kidney Disease, JASN 2020). The CKD-EPI equation should not be used for patients with unstable renal function and has not been validated in children and those over 70. Current interpretive data was last reviewed 2021. Blood 07/04/2025 7:06 AM MECHANICAL OPERATOR 07/04/2025 8:24 AM MECHANICAL OPERATOR us Alber Monae MD LAB BLOOD ORDERABLES Final Result [facility] [address] Department [place] [address] * (ABNORMAL) Differential, auto (07/04/2025 7:06 AM MECHANICAL OPERATOR) Neutrophil abs 9.09(H) 1.50 - 6.50 K/cumm Imm gran abs 0.11(H) 0.00 - 0.10 K/cumm [facility] Lymphocyte abs 1.82 0.80 - 3.30 K/cumm [facility] Monocyte abs 1.11(H) 0.20 - 0.80 K/cumm [facility] Eosinophil abs 0.86(H) 0.00 - 0.50 K/cumm [facility] Basophil abs 0.06 0.00 - 0.10 K/cumm [facility] Neutrophil pct 69.7 % [facility] Comment: Interpretive Data Percent cell count reference ranges are not reported, since discordance with absolute values may lead to misinterpretation of CBC data. Current Interpretive Data was last revised on 2017. Imm gran pct 0.8 % [facility] Comment: Interpretive Data Percent cell count reference ranges are not reported, since discordance with absolute values may lead to misinterpretation of CBC data. Current Interpretive Data was last revised on 2017. Lymphocyte pct 13.9 % [facility] Comment: Interpretive Data Percent cell count reference ranges are not reported, since discordance with absolute values may lead to misinterpretation of CBC data. Current Interpretive Data was last revised on 2017. Monocyte pct 8.5 % [facility] Comment: Interpretive Data Percent cell count reference ranges are not reported, since discordance with absolute values may lead to misinterpretation of CBC data. Current Interpretive Data was last revised on 2017. Eosinophil pct 6.6 % [facility] Comment: Interpretive Data Percent cell count reference ranges are not reported, since discordance with absolute values may lead to misinterpretation of CBC data. Current Interpretive Data was last revised on 2017. Basophil pct 0.5 % [facility] Comment: Interpretive Data Percent cell count reference ranges are not reported, since discordance with absolute values may lead to misinterpretation of CBC data. Current Interpretive Data was last revised on 2017. Blood 07/04/2025 7:06 AM MECHANICAL OPERATOR 07/04/2025 8:24 AM MECHANICAL OPERATOR Alber Monae MD LAB BLOOD ORDERABLES Final Result Performing Organization Address [facility] Co de Phone Number [facility] [address] [place] [address] * (ABNORMAL) CBC with auto differential (07/04/2025 7:06 AM MECHANICAL OPERATOR) WBC 13.05(H) 3.80 - 9.90 K/cumm Hgb 8.9(L) 13.0 - 17.5 g/dL [facility] Hct 28.9(L) 38.9 - 50.3 % [facility] Plt 154 150 - 400 K/cumm [facility] MPV 11.8 9.1 - 12.3 fL [facility] RBC 2.87(L) 4.30 - 5.80 M/cumm [facility] MCV 100.7(H) 81.3 - 96.4 fL [facility] MCH 31.0 27.1 - 33.3 pg [facility] MCHC 30.8(L) 32.3 - 35.7 g/dL [facility] RDW CV 15.3(H) 11.1 - 14.9 % [facility] RDW SD 56.6(H) 35.7 - 48.1 fL [facility] NRBC abs 0.00 0.00 - 0.01 K/cumm [facility] Blood 07/04/2025 7:06 AM MECHANICAL OPERATOR 07/04/2025 8:24 AM MECHANICAL OPERATOR Alber Monae MD LAB BLOOD ORDERABLES Final Result Performing Organization Address City/[facility]/ZIP Co de Phone Number [facility] [address] [place] [address] * Vancomycin level random (07/04/2025 7:06 AM MECHANICAL OPERATOR) Vancomycin random 14.3 mcg/mL Comment: Interpretive Data No reference ranges have been established for random drug levels. Current Interpretive Data was last revised on 2020. Blood 07/04/2025 7:06 AM MECHANICAL OPERATOR 07/04/2025 8:24 AM MECHANICAL OPERATOR us Mike Thompson MD LAB BLOOD ORDERABLES Fi nal Result Performing Organization Address City/[facility]/ZIP Co de Phone Number [facility] [address] Department [place] [address] * (ABNORMAL) Basic metabolic panel (07/04/2025 7:06 AM MECHANICAL OPERATOR) [facility] Sodium 142 135 - 145 mmol/L Potassium, pl 3.7 3.3 - 4.9 mmol/L [facility] Chloride 105 97 - 110 mmol/L [facility] CO2 22 22 - 32 mmol/L [facility] Anion gap 15 2 - 15 mmol/L [facility] BUN 30(H) 6 - 25 mg/dL [facility] Creatinine 1.48(H) 0.80 - 1.30 mg/dL [facility] Glucose 91 70 - 199 mg/dL [facility] Comment: Interpretive Data Fasting glucose >/= 126 mg/dl is diagnostic for diabetes. Fasting is defined as no caloric intake for at least 8 hours. Fasting glucose between 100 mg/dl to 125 mg/dl is diagnostic of prediabetes. In a patient with classic symptoms of hyperglycemia or hyperglycemic crisis, a random glucose >/= 200 mg/dl is diagnostic for diabetes. In the absence of unequivocal hyperglycemia, results should be confirmed by repeat testing. The classification and Diagnosis of Diabetes Diabetes Care 202; 46: S19-S40. Current interpretive data was last revised 2022. Calcium 8.2(L) 8.5 - 10.3 mg/dL [facility] Blood 07/04/2025 7:0 6 AM MECHANICAL OPERATOR 07/04/2025 8:24 AM MECHANICAL OPERATOR Alber Monae MD LAB BLOOD ORDERABLES Final Result Performing Organization Address [facility] de Phone Number [facility] [address] [facility] [place] [address] * POCT glucose (07/04/2025 6:32 AM MECHANICAL OPERATOR) Glucose, POC 103 70 - 199 mg/dL Comment: For Glucose values <35 mg/dl when Hematocrit is >60 mg/dl,the test may not accurately detect significant hypoglycemia,and testing in the Laboratory should be considered if clinically indicated. Blood 07/04/2025 6:32 AM MECHANICAL OPERATOR 07/04/2025 6:32 AM MECHANICAL OPERATOR Alber Monae MD LAB POCT ORDERABLES - DEVIC E Final Result Performing Organization Address [facility] de Phone Number [facility] [address] [facility] [place] [address] * POCT glucose (07/03/2025 8:52 PM MECHANICAL OPERATOR) Glucose, POC 98 70 - 199 mg/dL Comment: For Glucose values <35 mg/dl when Hematocrit is >60 mg/dl,the test may not accurately detect significant hypoglycemia,and testing in the Laboratory should be considered if clinically indicated. Blood 07/03/2025 8:52 PM MECHANICAL OPERATOR 07/03/2025 8:52 PM MECHANICAL OPERATOR us Alber Monae MD LAB POCT ORDERABLES - DEVIC E Final Result Performing Organization Address [facility] de Phone Number [facility] [address] [place] [address] * XR Kub (07/03/2025 6:40 PM MECHANICAL OPERATOR) Anatomical Region Laterality Modality Body, Abdomen N/A Computed Radiogr aphy 07/04/2025 7:06 AM MECHANICAL OPERATOR Impressions 07/04/2025 7:06 AM MECHANICAL OPERATOR L1-L5 lumbar spinal instrumentation. Cement augmentation changes at L1. Mild gaseous dilation of a redundant loop of sigmoid colon in the lower abdomen, likely ileus. Otherwise, the bowel gas pattern is within normal limits. Electronically signed by: Deysi Rodríguez M.D. Narrative 07/04/2025 7:06 AM MECHANICAL OPERATOR EXAMINATION: XR KUB HISTORY: Nausea COMPARISON: None. Procedure Note Deysi Rodríguez MD - 07/04/2025 EXAMINATION: XR KUB HISTORY: Nausea COMPARISON: None. IMPRESSION: L1-L5 lumbar spinal instrumentation. Cement augmentation changes at L1. Mild gaseous dilation of a redundant loop of sigmoid colon in the lower abdomen, likely ileus. Otherwise, the bowel gas pattern is within normal limits. Electronically signed by: Deysi Rodríguez M.D. Alber Monae MD IMG XR PROCEDURES Final Res ult * POCT glucose (07/03/2025 4:08 PM MECHANICAL OPERATOR) Glucose, POC 92 70 - 199 mg/dL Comment: For Glucose values <35 mg/dl when Hematocrit is >60 mg/dl,the test may not accurately detect significant hypoglycemia,and testing in the Laboratory should be considered if clinically indicated. Blood 07/03/2025 4:08 PM MECHANICAL OPERATOR 07/03/2025 4:08 PM MECHANICAL OPERATOR Alber Monae MD LAB POCT ORDERABLES - DEVIC E Final Result [facility] [address] Department [place] [address] * POCT glucose (07/03/2025 11:31 AM MECHANICAL OPERATOR) Glucose, POC 95 70 - 199 mg/dL Comment: For Glucose values <35 mg/dl when Hematocrit is >60 mg/dl,the test may not accurately detect significant hypoglycemia,and testing in the Laboratory should be considered if clinically indicated. Blood 07/03/2025 11:3 1 AM MECHANICAL OPERATOR 07/03/2025 11:31 AM MECHANICAL OPERATOR Alber Monae MD LAB POCT ORDERABLES - DEVIC E Final Result Performing Organization Address [facility] de Phone Number [facility] [address] [facility] [place] [address] * POCT glucose (07/03/2025 8:26 AM MECHANICAL OPERATOR) Glucose, POC 85 70 - 199 mg/dL Comment: For Glucose values <35 mg/dl when Hematocrit is >60 mg/dl,the test may not accurately detect significant hypoglycemia,and testing in the Laboratory should be considered if clinically indicated. Blood 07/03/2025 8:26 AM MECHANICAL OPERATOR 07/03/2025 8:26 AM MECHANICAL OPERATOR Alber Monae MD LAB POCT ORDERABLES - DEVIC E Final Result Performing Organization Address [facility] de Phone Number [facility] [address] [facility] [place] [address] * POCT glucose (07/02/2025 10:22 PM MECHANICAL OPERATOR) Glucose, POC 87 70 - 199 mg/dL Comment: For Glucose values <35 mg/dl when Hematocrit is >60 mg/dl,the test may not accurately detect significant hypoglycemia,and testing in the Laboratory should be considered if clinically indicated. Blood 07/02/2025 10:2 2 PM MECHANICAL OPERATOR 07/02/2025 10:22 PM MECHANICAL OPERATOR Alber Monae MD LAB POCT ORDERABLES - DEVIC E Final Result Performing Organization Address [facility] Co de Phone Number [facility] [address] [facility] [place] [address] * POCT glucose (07/02/2025 4:20 PM MECHANICAL OPERATOR) Glucose, POC 100 70 - 199 mg/dL Comment: For Glucose values <35 mg/dl when Hematocrit is >60 mg/dl,the test may not accurately detect significant hypoglycemia,and testing in the Laboratory should be considered if clinically indicated. Blood 07/02/2025 4:20 PM MECHANICAL OPERATOR 07/02/2025 4:20 PM MECHANICAL OPERATOR Alber Monae MD LAB POCT ORDERABLES - DEVIC E Final Result Performing Organization Address [facility] de Phone Number [facility] [address] [facility] [place] [address] * POCT glucose (07/02/2025 11:30 AM MECHANICAL OPERATOR) Glucose, POC 83 70 - 199 mg/dL Comment: For Glucose values <35 mg/dl when Hematocrit is >60 mg/dl,the test may not accurately detect significant hypoglycemia,and testing in the Laboratory should be considered if clinically indicated. Blood 07/02/2025 11:3 0 AM MECHANICAL OPERATOR 07/02/2025 11:30 AM MECHANICAL OPERATOR Alber Monae MD LAB POCT ORDERABLES - DEVIC E Final Result Performing Organization Address [facility] de Phone Number [facility] [address] [facility] [place] [address] * POCT glucose (07/02/2025 6:08 AM MECHANICAL OPERATOR) Glucose, POC 81 70 - 199 mg/dL Comment: For Glucose values <35 mg/dl when Hematocrit is >60 mg/dl,the test may not accurately detect significant hypoglycemia,and testing in the Laboratory should be considered if clinically indicated. Blood 07/02/2025 6:08 AM MECHANICAL OPERATOR 07/02/2025 6:08 AM MECHANICAL OPERATOR Alber Monae MD LAB POCT ORDERABLES - DEVIC E Final Result Performing Organization Address City/[facility] Co de Phone Number [facility] [address] [facility] [place] [address] * (ABNORMAL) eGFR (07/02/2025 5:20 AM MECHANICAL OPERATOR) Pathologist [facility] eGFR 55(L) >=60 mL/min/1. 73 m2 Comment: Interpretive Data Reference Interval Normal >/= 90 mL/min/1.73m2 Mildly decreased* 60 - 89 mL/min/1.73m2 Mildly to moderately decreased 45 - 59 mL/min/1.73m2 Moderately to severely decreased 30 - 44 mL/min/1.73m2 Severely decreased 15 - 29 mL/min/1.73m2 Kidney Failure < 15 mL/min/1.73m2 *Relative to young adult level Estimated glomerular filtration rate is determined by the 2020 CKD-EPI equation recommended by the National Kidney Foundation (A Unifying Approach to GFR Estimation: Recommendations of the NKF-ASK Task Force on Reassessing the Inclusion of Race in Diagnosing Kidney Disease, JASN 2020). The CKD-EPI equation should not be used for patients with unstable renal function and has not been validated in children and those over 70. Current interpretive data was last reviewed 2021. Blood 07/02/2025 5:20 AM MECHANICAL OPERATOR 07/02/2025 5:37 AM MECHANICAL OPERATOR Alber Monae MD LAB BLOOD ORDERABLES Final Result [facility] [address] Department [place] [address] * (ABNORMAL) Differential, auto (07/02/2025 5:20 AM MECHANICAL OPERATOR) Pathologist [facility] Neutrophil abs 10.29(H) 1.50 - 6.50 K/cumm Imm gran abs 0.18(H) 0.00 - 0.10 K/cumm [facility] Lymphocyte abs 2.60 0.80 - 3.30 K/cumm [facility] Monocyte abs 1.52(H) 0.20 - 0.80 K/cumm [facility] Eosinophil abs 1.55(H) 0.00 - 0.50 K/cumm [facility] Basophil abs 0.05 0.00 - 0.10 K/cumm [facility] Neutrophil pct 63.5 % [facility] Comment: Interpretive Data Percent cell count reference ranges are not reported, since discordance with absolute values may lead to misinterpretation of CBC data. Current Interpretive Data was last revised on 2017. Imm gran pct 1.1 % [facility] Comment: Interpretive Data Percent cell count reference ranges are not reported, since discordance with absolute values may lead to misinterpretation of CBC data. Current Interpretive Data was last revised on 2017. Lymphocyte pct 16.1 % [facility] Comment: Interpretive Data Percent cell count reference ranges are not reported, since discordance with absolute values may lead to misinterpretation of CBC data. Current Interpretive Data was last revised on 2017. Monocyte pct 9.4 % [facility] Comment: Interpretive Data Percent cell count reference ranges are not reported, since discordance with absolute values may lead to misinterpretation of CBC data. Current Interpretive Data was last revised on 2017. Eosinophil pct 9.6 % [facility] Comment: Interpretive Data Percent cell count reference ranges are not reported, since discordance with absolute values may lead to misinterpretation of CBC data. Current Interpretive Data was last revised on 2017. Basophil pct 0.3 % [facility] Comment: Interpretive Data Percent cell count reference ranges are not reported, since discordance with absolute values may lead to misinterpretation of CBC data. Current Interpretive Data was last revised on 2017. Blood 07/02/2025 5:20 AM MECHANICAL OPERATOR 07/02/2025 5:37 AM MECHANICAL OPERATOR us Alber Monae MD LAB BLOOD ORDERABLES Final Result [facility] [address] Department [place] [address] * (ABNORMAL) CBC with auto differential (07/02/2025 5:20 AM MECHANICAL OPERATOR) WBC 16.19(H) 3.80 - 9.90 K/cumm Hgb 8.8(L) 13.0 - 17.5 g/dL [facility] Hct 27.5(L) 38.9 - 50.3 % [facility] Plt 355 150 - 400 K/cumm [facility] MPV 9.9 9.1 - 12.3 fL [facility] RBC 2.78(L) 4.30 - 5.80 M/cumm [facility] MCV 98.9(H) 81.3 - 96.4 fL [facility] MCH 31.7 27.1 - 33.3 pg [facility] MCHC 32.0(L) 32.3 - 35.7 g/dL [facility] RDW CV 14.7 11.1 - 14.9 % [facility] RDW SD 53.3(H) 35.7 - 48.1 fL [facility] NRBC abs 0.00 0.00 - 0.01 K/cumm [facility] Blood 07/02/2025 5:20 AM MECHANICAL OPERATOR 07/02/2025 5:37 AM MECHANICAL OPERATOR us Alber Monae MD LAB BLOOD ORDERABLES Final Result Performing Organization Address City/[facility]/ZIP Co de Phone Number [facility] [address] [employer] [address] * Vancomycin level random (07/02/2025 5:20 AM MECHANICAL OPERATOR) Pathologist [facility] Vancomycin random 13.6 mcg/mL Comment: Interpretive Data No reference ranges have been established for random drug levels. Current Interpretive Data was last revised on 2020. Blood 07/02/2025 5:20 AM MECHANICAL OPERATOR 07/02/2025 5:37 AM MECHANICAL OPERATOR us Mike Thompson MD LAB BLOOD ORDERABLES Fi nal Result [facility] [address] [place] [address] * (ABNORMAL) Basic metabolic panel (07/02/2025 5:20 AM MECHANICAL OPERATOR) Pathologist [facility] Sodium 140 135 - 145 mmol/L Potassium, pl 3.4 3.3 - 4.9 mmol/L [facility] Chloride 105 97 - 110 mmol/L [facility] CO2 23 22 - 32 mmol/L [facility] Anion gap 12 2 - 15 mmol/L [facility] BUN 31(H) 6 - 25 mg/dL [facility] Creatinine 1.38(H) 0.80 - 1.30 mg/dL [facility] Glucose 84 70 - 199 mg/dL [facility] Comment: Interpretive Data Fasting glucose >/= 126 mg/dl is diagnostic for diabetes. Fasting is defined as no caloric intake for at least 8 hours. Fasting glucose between 100 mg/dl to 125 mg/dl is diagnostic of prediabetes. In a patient with classic symptoms of hyperglycemia or hyperglycemic crisis, a random glucose >/= 200 mg/dl is diagnostic for diabetes. In the absence of unequivocal hyperglycemia, results should be confirmed by repeat testing. The classification and Diagnosis of Diabetes Diabetes Care 2021; 46: S19-S40. Current interpretive data was last revised 2022. Calcium 8.0(L) 8.5 - 10.3 mg/dL [facility] Blood 07/02/2025 5:20 AM MECHANICAL OPERATOR 07/02/2025 5:37 AM MECHANICAL OPERATOR Alber Monae MD LAB BLOOD ORDERABLES Final Result [facility] [address] Department [place] [address] * POCT glucose (07/01/2025 10:50 PM MECHANICAL OPERATOR) [facility] Signature Glucose, POC 102 70 - 199 mg/dL Comment: For Glucose values <35 mg/dl when Hematocrit is >60 mg/dl,the test may not accurately detect significant hypoglycemia,and testing in the Laboratory should be considered if clinically indicated. Blood 07/01/2025 10:5 0 PM MECHANICAL OPERATOR 07/01/2025 10:50 PM MECHANICAL OPERATOR Alber Monae MD LAB POCT ORDERABLES - DEVIC E Final Result Performing Organization Address City/[facility]/ZIP Co de Phone Number [facility] [address] Department [place] [address] * Blood culture Blood (07/01/2025 6:27 PM MECHANICAL OPERATOR) Report Final Report: No growth Blood 07/01/2025 6:27 PM MECHANICAL OPERATOR 07/01/2025 6:31 PM MECHANICAL OPERATOR Narrative [facility] - 07/07/2025 7:01 AM MECHANICAL OPERATOR From a different site than #1. Collection->Peripheral Interpretive Data 1. Blood cultures are incubated and monitored continuously for 5 days (120 hours). The first negative report is issued within 24 hours of receipt in the laboratory. 2. All positive cultures are resulted and called to physicians/care providers as soon as they are detected. 3. A rapid molecular test for organism identification may be performed using the [employer] Blood Culture Identification panel. This assay detects microbial DNA in a blood culture broth. This assay has been cleared by the [place] Food and Drug Administration and its performance characteristics have been verified by the [facility]. Interpretive data was last revised on August 24, 2022. Ev[facility] MICROBIOLOGY - G ENERAL ORDERABLES Final Result Performing Organization Address [facility] Co de Phone Number [facility] [address] [place] [address] * Sepsis Lactate w/ Reflex (07/01/2025 5:18 PM MECHANICAL OPERATOR) Sepsis Lactate 1.2 0.7 - 2.0 mmol/L Blood 07/01/2025 5:18 PM MECHANICAL OPERATOR 07/01/2025 6:13 PM MECHANICAL OPERATOR Alber Monae MD LAB BLOOD ORDERABLES Final Result Performing Organization Address [facility] Co de Phone Number [facility] [address] Department [place] [address] * (ABNORMAL) eGFR (07/01/2025 5:18 PM MECHANICAL OPERATOR) eGFR 51(L) >=60 mL/min/1. 73 m2 Comment: Interpretive Data Reference Interval Normal >/= 90 mL/min/1.73m2 Mildly decreased* 60 - 89 mL/min/1.73m2 Mildly to moderately decreased 45 - 59 mL/min/1.73m2 Moderately to severely decreased 30 - 44 mL/min/1.73m2 Severely decreased 15 - 29 mL/min/1.73m2 Kidney Failure < 15 mL/min/1.73m2 *Relative to young adult level Estimated glomerular filtration rate is determined by the 2020 CKD-EPI equation recommended by the National Kidney Foundation (A Unifying Approach to GFR Estimation: Recommendations of the NKF-ASK Task Force on Reassessing the Inclusion of Race in Diagnosing Kidney Disease, JASN 2020). The CKD-EPI equation should not be used for patients with unstable renal function and has not been validated in children and those over 70. Current interpretive data was last reviewed 2021. Blood 07/01/2025 5:18 PM MECHANICAL OPERATOR 07/01/2025 6:33 PM MECHANICAL OPERATOR us Ирина LONG LAB BLOOD ORDERABLES Final Result Performing Organization Address [facility]/ZIP Co de Phone Number [facility] [address] [employer] [place] [address] * (ABNORMAL) Hemoglobin and hematocrit (07/01/2025 5:18 PM MECHANICAL OPERATOR) Pathologist [facility] Hgb 8.4(L) 13.0 - 17.5 g/dL Hct 25.1(L) 38.9 - 50.3 % [facility] Blood 07/01/2025 5:18 PM MECHANICAL OPERATOR 07/01/2025 6:19 PM MECHANICAL OPERATOR us Alber Monae MD LAB BLOOD ORDERABLES Final Result Performing Organization Address City/[facility]/ZIP Co de Phone Number [facility] [address] [place] [place] [phone] * (ABNORMAL) Basic metabolic panel (07/01/2025 5:18 PM MECHANICAL OPERATOR) Pathologist [facility] Sodium 137 135 - 145 mmol/L Potassium, pl 2.8(L) 3.3 - 4.9 mmol/L [facility] Chloride 101 97 - 110 mmol/L [facility] CO2 26 22 - 32 mmol/L [facility] Anion gap 10 2 - 15 mmol/L [facility] BUN 30(H) 6 - 25 mg/dL [facility] Creatinine 1.46(H) 0.80 - 1.30 mg/dL [facility] Glucose 93 70 - 199 mg/dL [facility] Comment: Interpretive Data Fasting glucose >/= 126 mg/dl is diagnostic for diabetes. Fasting is defined as no caloric intake for at least 8 hours. Fasting glucose between 100 mg/dl to 125 mg/dl is diagnostic of prediabetes. In a patient with classic symptoms of hyperglycemia or hyperglycemic crisis, a random glucose >/= 200 mg/dl is diagnostic for diabetes. In the absence of unequivocal hyperglycemia, results should be confirmed by repeat testing. The classification and Diagnosis of Diabetes Diabetes Care 2021; 46: S19-S40. Current interpretive data was last revised 2022. Calcium 7.8(L) 8.5 - 10.3 mg/dL [facility] Blood 07/01/2025 5:18 PM MECHANICAL OPERATOR 07/01/2025 6:33 PM MECHANICAL OPERATOR Ирина LONG LAB BLOOD ORDERABLES Final Result [facility] [address] Department [place] [address] * (ABNORMAL) Blood gas, arterial (07/01/2025 4:40 PM MECHANICAL OPERATOR) [facility] pH, Art 7.45 7.35 - 7.45 PCO2, Arterial 36 35 - 45 mmHg [facility] PO2, Arterial 166(H) 83 - 108 mmHg [facility] HCO3 Art (Calculated) 25 20 - 30 mmol/L [facility] BE, art 1 mmol/L [facility] Comment: Interpretive Data No Reference Range Established Current Interpretive Data was last revised on 2017 O2 Sat Art (Calculated) 100(H) 94 - 98 % [facility] Blood 07/01/2025 4:40 PM MECHANICAL OPERATOR 07/01/2025 4:44 PM MECHANICAL OPERATOR Alber Monae MD LAB BLOOD ORDERABLES Final Result Performing Organization Address [facility] Co de Phone Number [facility] [address] Department [place] [address] * POCT glucose (07/01/2025 4:18 PM MECHANICAL OPERATOR) [facility] Signature Glucose, POC 124 70 - 199 mg/dL Comment: For Glucose values <35 mg/dl when Hematocrit is >60 mg/dl,the test may not accurately detect significant hypoglycemia,and testing in the Laboratory should be considered if clinically indicated. Blood 07/01/2025 4:18 PM MECHANICAL OPERATOR 07/01/2025 4:18 PM MECHANICAL OPERATOR Alber Monae MD LAB POCT ORDERABLES - DEVIC E Final Result Performing Organization Address [facility] Co de Phone Number [facility] [address] Department [place] [address] * XR Shoulder Right 2 or More Views (07/01/2025 2:04 PM MECHANICAL OPERATOR) Anatomical Region Laterality Modality Upper Extremities, Shoulder Right Comp uted Radiography 07/01/2025 4:44 PM MECHANICAL OPERATOR Impressions 07/01/2025 4:44 PM MECHANICAL OPERATOR 3 view right shoulder exam is compared to prior from 10/10/2024. There is superior subluxation of the humerus on the glenoid suggesting rotator cuff pathology.. 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 The glenohumeral joint space is not well profiled although there is suggestion of at least mild glenohumeral joint osteoarthritis. No acute fracture is demonstrated. Electronically signed by: Maciel Romero M.D. Narrative 07/01/2025 4:44 PM MECHANICAL OPERATOR EXAMINATION: XR SHOULDER RIGHT 2 OR MORE VIEWS History: Pain after fall Procedure Note Maciel Romero MD - 07/01/2025 EXAMINATION: XR SHOULDER RIGHT 2 OR MORE VIEWS History: Pain after fall IMPRESSION: 3 view right shoulder exam is compared to prior from 10/10/2024. There is superior subluxation of the humerus on the glenoid suggesting rotator cuff pathology.. 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 The glenohumeral joint space is not well profiled although there is suggestion of at least mild glenohumeral joint osteoarthritis. No acute fracture is demonstrated. Electronically signed by: Maciel Romero M.D. us Ирина LONG IMG XR PROCEDURES Final Res ult * XR Spine Lumbar 2 or 3 Views (07/01/2025 2:04 PM MECHANICAL OPERATOR) Anatomical Region Laterality Modality Spine N/A Computed Radiogr aphy 07/01/2025 2:59 PM MECHANICAL OPERATOR Impressions 07/01/2025 3:03 PM MECHANICAL OPERATOR AP and lateral views of the lumbar spine were obtained. Interval postoperative changes of posterior lumbar fusion from L1 to L5 and posterior decompression with additional interbody fusion at L4-L5 and vertebral cement augmentation within the chronic unchanged L1 compression deformity. No fracture or loosening. There is a 3 mm residual retrolisthesis of L1 on L2 and 2 mm retrolisthesis of L2 on L3 as well as 4 mm anterolisthesis of L4 on L5. Multilevel lumbar spondylosis with foraminal width and height loss most prominent at L4-S1 with resultant moderate to severe foraminal stenosis better appreciated on prior MRI. Levi catheter is in place. Aortic calcifications. Dictated by: Dwayne Leger MD The radiology attending physician has personally reviewed this study, and had reviewed and/or edited this written report and agrees with it. Electronically signed by: Abhishek Rodriguez MD Narrative 07/01/2025 3:03 PM MECHANICAL OPERATOR EXAMINATION: XR SPINE LUMBAR 2 OR 3 VIEWS HISTORY: postop COMPARISON: 06/26/2025 Procedure Note Abhishek Rodriguez MD PhD - 07/01/2025 EXAMINATION: XR SPINE LUMBAR 2 OR 3 VIEWS HISTORY: postop COMPARISON: 06/26/2025 IMPRESSION: AP and lateral views of the lumbar spine were obtained. Interval postoperative changes of posterior lumbar fusion from L1 to L5 and posterior decompression with additional interbody fusion at L4-L5 and vertebral cement augmentation within the chronic unchanged L1 compression deformity. No fracture or loosening. There is a 3 mm residual retrolisthesis of L1 on L2 and 2 mm retrolisthesis of L2 on L3 as well as 4 mm anterolisthesis of L4 on L5. Multilevel lumbar spondylosis with foraminal width and height loss most prominent at L4-S1 with resultant moderate to severe foraminal stenosis better appreciated on prior MRI. Levi catheter is in place. Aortic calcifications. Dictated by: Dwayne Leger MD The radiology attending physician has personally reviewed this study, and had reviewed and/or edited this written report and agrees with it. Electronically signed by: Abhishek Rodriguez MD Jeanine Aden MD IMG XR PROCEDURES Final Result * POCT glucose (07/01/2025 10:50 AM MECHANICAL OPERATOR) Glucose, POC 116 70 - 199 mg/dL Comment: For Glucose values <35 mg/dl when Hematocrit is >60 mg/dl,the test may not accurately detect significant hypoglycemia,and testing in the Laboratory should be considered if clinically indicated. Blood 07/01/2025 10:5 0 AM MECHANICAL OPERATOR 07/01/2025 10:50 AM MECHANICAL OPERATOR us Alber Monae MD LAB POCT ORDERABLES - DEVIC E Final Result [facility] [address] Department [place] [address] * POCT glucose (07/01/2025 6:24 AM MECHANICAL OPERATOR) Glucose, POC 114 70 - 199 mg/dL Comment: For Glucose values <35 mg/dl when Hematocrit is >60 mg/dl,the test may not accurately detect significant hypoglycemia,and testing in the Laboratory should be considered if clinically indicated. Blood 07/01/2025 6:24 AM MECHANICAL OPERATOR 07/01/2025 6:24 AM MECHANICAL OPERATOR Alber Monae MD LAB POCT ORDERABLES - DEVIC E Final Result Performing Organization Address [facility] Co de Phone Number [facility] [address] Department of [employer] [place], [place] [id number] * (ABNORMAL) POCT glucose (07/01/2025 6:22 AM MECHANICAL OPERATOR) Glucose, POC 237(H) 70 - 199 mg/dL Comment: For Glucose values <35 mg/dl when Hematocrit is >60 mg/dl,the test may not accurately detect significant hypoglycemia,and testing in the Laboratory should be considered if clinically indicated. Blood 07/01/2025 6:22 AM MECHANICAL OPERATOR 07/01/2025 6:22 AM MECHANICAL OPERATOR Alber Monae MD LAB POCT ORDERABLES - DEVIC E Final Result Performing Organization Address [facility] de Phone Number [facility] [address] [facility] [employer] [place], [place] [id number] * (ABNORMAL) eGFR (07/01/2025 5:52 AM MECHANICAL OPERATOR) eGFR 51(L) >=60 mL/min/1. 73 m2 Comment: Interpretive Data Reference Interval Normal >/= 90 mL/min/1.73m2 Mildly decreased* 60 - 89 mL/min/1.73m2 Mildly to moderately decreased 45 - 59 mL/min/1.73m2 Moderately to severely decreased 30 - 44 mL/min/1.73m2 Severely decreased 15 - 29 mL/min/1.73m2 Kidney Failure < 15 mL/min/1.73m2 *Relative to young adult level Estimated glomerular filtration rate is determined by the 2020 CKD-EPI equation recommended by the National Kidney Foundation (A Unifying Approach to GFR Estimation: Recommendations of the NKF-ASK Task Force on Reassessing the Inclusion of Race in Diagnosing Kidney Disease, JASN 202). The CKD-EPI equation should not be used for patients with unstable renal function and has not been validated in children and those over 70. Current interpretive data was last reviewed 2021. Blood 07/01/2025 5:52 AM MECHANICAL OPERATOR 07/01/2025 6:17 AM MECHANICAL OPERATOR us Jeanine Aden MD LAB BLOOD ORDERABLES Final Resul t [facility] [address] Department [place] [address] * (ABNORMAL) Differential, auto (07/01/2025 5:52 AM MECHANICAL OPERATOR) Neutrophil abs 12.34(H) 1.50 - 6.50 K/cumm Imm gran abs 0.17(H) 0.00 - 0.10 K/cumm [facility] Lymphocyte abs 2.09 0.80 - 3.30 K/cumm [facility] Monocyte abs 1.81(H) 0.20 - 0.80 K/cumm [facility] Eosinophil abs 1.02(H) 0.00 - 0.50 K/cumm [facility] Basophil abs 0.06 0.00 - 0.10 K/cumm [facility] Neutrophil pct 70.7 % [facility] Comment: Interpretive Data Percent cell count reference ranges are not reported, since discordance with absolute values may lead to misinterpretation of CBC data. Current Interpretive Data was last revised on 2017. Imm gran pct 1.0 % [facility] Comment: Interpretive Data Percent cell count reference ranges are not reported, since discordance with absolute values may lead to misinterpretation of CBC data. Current Interpretive Data was last revised on 2017. Lymphocyte pct 11.9 % [facility] Comment: Interpretive Data Percent cell count reference ranges are not reported, since discordance with absolute values may lead to misinterpretation of CBC data. Current Interpretive Data was last revised on 2017. Monocyte pct 10.3 % [facility] Comment: Interpretive Data Percent cell count reference ranges are not reported, since discordance with absolute values may lead to misinterpretation of CBC data. Current Interpretive Data was last revised on 2017. Eosinophil pct 5.8 % [facility] Comment: Interpretive Data Percent cell count reference ranges are not reported, since discordance with absolute values may lead to misinterpretation of CBC data. Current Interpretive Data was last revised on 2017. Basophil pct 0.3 % [facility] Comment: Interpretive Data Percent cell count reference ranges are not reported, since discordance with absolute values may lead to misinterpretation of CBC data. Current Interpretive Data was last revised on 2017. Blood 07/01/2025 5:52 AM MECHANICAL OPERATOR 07/01/2025 6:17 AM MECHANICAL OPERATOR us Alber Monae MD LAB BLOOD ORDERABLES Final Result [facility] [address] Department [place] [address] * (ABNORMAL) CBC with auto differential (07/01/2025 5:52 AM MECHANICAL OPERATOR) WBC 17.49(H) 3.80 - 9.90 K/cumm Hgb 9.4(L) 13.0 - 17.5 g/dL [facility] Hct 29.4(L) 38.9 - 50.3 % [facility] Plt 369 150 - 400 K/cumm [facility] MPV 10.3 9.1 - 12.3 fL [facility] RBC 3.01(L) 4.30 - 5.80 M/cumm [facility] MCV 97.7(H) 81.3 - 96.4 fL [facility] MCH 31.2 27.1 - 33.3 pg [facility] MCHC 32.0(L) 32.3 - 35.7 g/dL [facility] RDW CV 14.6 11.1 - 14.9 % [facility] RDW SD 51.8(H) 35.7 - 48.1 fL [facility] NRBC abs 0.00 0.00 - 0.01 K/cumm [facility] Blood 07/01/2025 5:52 AM MECHANICAL OPERATOR 07/01/2025 6:17 AM MECHANICAL OPERATOR Alber Monae MD LAB BLOOD ORDERABLES Final Result Performing Organization Address [facility] Co de Phone Number [facility] [address] Department [place] [address] * Vancomycin level random (07/01/2025 5:52 AM MECHANICAL OPERATOR) Vancomycin random 17.3 mcg/mL Comment: Interpretive Data No reference ranges have been established for random drug levels. Current Interpretive Data was last revised on 2020. Blood 07/01/2025 5:52 AM MECHANICAL OPERATOR 07/01/2025 6:17 AM MECHANICAL OPERATOR Mike Thompson MD LAB BLOOD ORDERABLES Fi nal Result Performing Organization Address [facility] Co de Phone Number [facility] [address] [place] [address] * (ABNORMAL) Comprehensive metabolic panel (07/01/2025 5:52 AM MECHANICAL OPERATOR) Pathologist [facility] Sodium 140 135 - 145 mmol/L Potassium, pl 3.3 3.3 - 4.9 mmol/L [facility] Chloride 104 97 - 110 mmol/L [facility] CO2 23 22 - 32 mmol/L [facility] Anion gap 13 2 - 15 mmol/L [facility] BUN 32(H) 6 - 25 mg/dL [facility] Creatinine 1.46(H) 0.80 - 1.30 mg/dL [facility] Glucose 109 70 - 199 mg/dL [facility] Comment: Interpretive Data Fasting glucose >/= 126 mg/dl is diagnostic for diabetes. Fasting is defined as no caloric intake for at least 8 hours. Fasting glucose between 100 mg/dl to 125 mg/dl is diagnostic of prediabetes. In a patient with classic symptoms of hyperglycemia or hyperglycemic crisis, a random glucose >/= 200 mg/dl is diagnostic for diabetes. In the absence of unequivocal hyperglycemia, results should be confirmed by repeat testing. The classification and Diagnosis of Diabetes Diabetes Care 2021; 46: S19-S40. Current interpretive data was last revised 2022. Calcium 7.9(L) 8.5 - 10.3 mg/dL [facility] Bilirubin, total 0.6 0.1 - 1.2 mg/dL [facility] Protein, pl 5.1(L) 6.5 - 8.5 g/dL [facility] Albumin 2.2(L) 3.5 - 5.0 g/dL [facility] Alk phos 109 40 - 130 Units/L [facility] ALT 21 7 - 55 Units/L [facility] AST 37 10 - 50 Units/L [facility] Blood 07/01/2025 5:52 AM MECHANICAL OPERATOR 07/01/2025 6:17 AM MECHANICAL OPERATOR Jeanine Aden MD LAB BLOOD ORDERABLES Final Resul t Performing Organization Address [facility] Co de Phone Number [facility] [address] Department of [employer] [place], [place] [id number] * POCT glucose (06/30/2025 9:13 PM MECHANICAL OPERATOR) [facility] Glucose, POC 122 70 - 199 mg/dL Comment: For Glucose values <35 mg/dl when Hematocrit is >60 mg/dl,the test may not accurately detect significant hypoglycemia,and testing in the Laboratory should be considered if clinically indicated. Blood 06/30/2025 9:13 PM MECHANICAL OPERATOR 06/30/2025 9:13 PM MECHANICAL OPERATOR Alber Monae MD LAB POCT ORDERABLES - DEVIC E Final Result Performing Organization Address [facility]/ZIP Co de Phone Number [facility] [address] Department of [employer] [place], [place] [phone] * (ABNORMAL) Hemoglobin and hematocrit (06/30/2025 5:01 PM MECHANICAL OPERATOR) [facility] Hgb 9.2(L) 13.0 - 17.5 g/dL Hct 28.6(L) 38.9 - 50.3 % [facility] Blood 06/30/2025 5:01 PM MECHANICAL OPERATOR 06/30/2025 5:06 PM MECHANICAL OPERATOR Alber Monae MD LAB BLOOD ORDERABLES Final Result Performing Organization Address [facility] Co de Phone Number [facility] [address] [place] [address] * POCT glucose (06/30/2025 4:32 PM MECHANICAL OPERATOR) Glucose, POC 122 70 - 199 mg/dL Comment: For Glucose values <35 mg/dl when Hematocrit is >60 mg/dl,the test may not accurately detect significant hypoglycemia,and testing in the Laboratory should be considered if clinically indicated. Blood 06/30/2025 4:32 PM MECHANICAL OPERATOR 06/30/2025 4:32 PM MECHANICAL OPERATOR Result [facility] Alber Monae MD LAB POCT ORDERABLES - DEVIC E Final Result Performing Organization Address [facility] Co de Phone Number [facility] [address] [place] [address] * Magnesium - Add on lab test (06/30/2025 1:28 PM MECHANICAL OPERATOR) [facility] Acceptable Yes Blood 06/30/2025 1:28 PM MECHANICAL OPERATOR 06/30/2025 1:30 PM MECHANICAL OPERATOR Narrative [facility] - 06/30/2025 1:30 PM MECHANICAL OPERATOR Name of Test->Magnesium Alber Monae MD LAB BLOOD ORDERABLES Final Result Performing Organization Address [facility] Co de Phone Number [facility] [address] [place] [address] * POCT glucose (06/30/2025 10:55 AM MECHANICAL OPERATOR) Glucose, POC 126 70 - 199 mg/dL Comment: For Glucose values <35 mg/dl when Hematocrit is >60 mg/dl,the test may not accurately detect significant hypoglycemia,and testing in the Laboratory should be considered if clinically indicated. Blood 06/30/2025 10:5 5 AM MECHANICAL OPERATOR 06/30/2025 10:55 AM MECHANICAL OPERATOR us Alber Monae MD LAB POCT ORDERABLES - DEVIC E Final Result [facility] [address] Department [place] [address] * IR Fluid Drain Soft Tissue (06/30/2025 8:50 AM MECHANICAL OPERATOR) Anatomical Region Laterality Modality Body N/A X-Ray Angiograph y 06/30/2025 9:43 AM MECHANICAL OPERATOR Impressions 06/30/2025 9:43 AM MECHANICAL OPERATOR Successful image guided left calf hematoma drainage. PLAN: This tube should not be flushed. Electronically signed by: Israel Britt M.D. Narrative 06/30/2025 9:43 AM MECHANICAL OPERATOR EXAMINATION: PERCUTANEOUS DRAINAGE (STD) HISTORY/INDICATION: 69-year-old male with left lower extremity cellulitis complicated by possible infected hematoma status post fall. ATTENDING PRESENCE: Israel Britt M.D., the attending radiologist was present from the beginning to the end of the procedure. SEDATION: Procedural sedation was administered under the attending physician's direction and continuous monitoring by a trained nurse specialist who was independent from those actually performing the procedure. Total monitored sedation time was 24 minutes. TECHNIQUE: The risks, benefits and alternatives were discussed and informed consent was obtained. Prior to beginning the procedure, Larose Protocol was used to confirm the patient's identity and planned procedure. If fluoroscopy was used, fluoroscopy time has been recorded in the electronic medical record. Maximum sterile barriers including cap, mask, hand hygiene, sterile gloves, sterile gown, large sterile drape and 2% chlorhexidine for cutaneous antisepsis were used. The skin overlying the fluid collection in the left calf was sterilely prepped, draped and infiltrated with 1% buffered lidocaine. The targeted collection was then accessed with an 18-gauge Morales needle using imaging guidance which included ultrasound and fluoroscopy. Contrast was injected to confirm needle placement. A guidewire was advanced and coiled within the collection before dilating the tract to 10 Fr. A 10 [place] multipurpose cope loop catheter with 2 additional sideholes was then advanced over the guidewire and secured in place with a stitch of 0-Prolene. The catheter was connected to gravity drainage. A sterile dressing was applied. A sample of the fluid was sent for culture. ESTIMATED BLOOD LOSS: Minimal. CONDITION: Stable DISCHARGED TO: Recovery and then to inpatient unit. FINDINGS: Images from the procedure revealed a collection that was complex, multiloculated and multiseptated. The fluid appeared like dark old blood.. An approximate volume of 40 cc was drained at the time of the procedure. Procedure Note Israel Britt MD - 06/30/2025 EXAMINATION: PERCUTANEOUS DRAINAGE (STD) HISTORY/INDICATION: 69-year-old male with left lower extremity cellulitis complicated by possible infected hematoma status post fall. ATTENDING PRESENCE: Israel Britt M.D., the attending radiologist was present from the beginning to the end of the procedure. SEDATION: Procedural sedation was administered under the attending physician's direction and continuous monitoring by a trained nurse specialist who was independent from those actually performing the procedure. Total monitored sedation time was 24 minutes. TECHNIQUE: The risks, benefits and alternatives were discussed and informed consent was obtained. Prior to beginning the procedure, Larose Protocol was used to confirm the patient's identity and planned procedure. If fluoroscopy was used, fluoroscopy time has been recorded in the electronic medical record. Maximum sterile barriers including cap, mask, hand hygiene, sterile gloves, sterile gown, large sterile drape and 2% chlorhexidine for cutaneous antisepsis were used. The skin overlying the fluid collection in the left calf was sterilely prepped, draped and infiltrated with 1% buffered lidocaine. The targeted collection was then accessed with an 18-gauge Morales needle using imaging guidance which included ultrasound and fluoroscopy. Contrast was injected to confirm needle placement. A guidewire was advanced and coiled within the collection before dilating the tract to 10 Fr. A 10 [place] multipurpose cope loop catheter with 2 additional sideholes was then advanced over the guidewire and secured in place with a stitch of 0-Prolene. The catheter was connected to gravity drainage. A sterile dressing was applied. A sample of the fluid was sent for culture. ESTIMATED BLOOD LOSS: Minimal. CONDITION: Stable DISCHARGED TO: Recovery and then to inpatient unit. FINDINGS: Images from the procedure revealed a collection that was complex, multiloculated and multiseptated. The fluid appeared like dark old blood.. An approximate volume of 40 cc was drained at the time of the procedure. IMPRESSION: Successful image guided left calf hematoma drainage. PLAN: This tube should not be flushed. Electronically signed by: Israel Britt M.D. Alber Monae MD IMG IR PROCEDURES Final Res ult * Aerobic and anaerobic culture and gram stain Abscess Calf, left (06/30/2025 8:36 AM MECHANICAL OPERATOR) Direct Specimen Exam Stain: No polymorphonuclear leukocytes seen. No organisms seen. Report Final Report: No growth [facility] Abscess (Calf, left) 06/30/2025 8:36 AM MECHANICAL OPERATOR 06/30/2025 9:38 AM MECHANICAL OPERATOR Israel Britt MD LAB MICROBIOLOGY - GENERAL ORDERABLES Final Result [facility] [address] Department [place] [address] * (ABNORMAL) eGFR (06/30/2025 6:29 AM MECHANICAL OPERATOR) eGFR 59(L) >=60 mL/min/1. 73 m2 Comment: Interpretive Data Reference Interval Normal >/= 90 mL/min/1.73m2 Mildly decreased* 60 - 89 mL/min/1.73m2 Mildly to moderately decreased 45 - 59 mL/min/1.73m2 Moderately to severely decreased 30 - 44 mL/min/1.73m2 Severely decreased 15 - 29 mL/min/1.73m2 Kidney Failure < 15 mL/min/1.73m2 *Relative to young adult level Estimated glomerular filtration rate is determined by the 2020 CKD-EPI equation recommended by the National Kidney Foundation (A Unifying Approach to GFR Estimation: Recommendations of the NKF-ASK Task Force on Reassessing the Inclusion of Race in Diagnosing Kidney Disease, JASN 2020). The CKD-EPI equation should not be used for patients with unstable renal function and has not been validated in children and those over 70. Current interpretive data was last reviewed 2021. Blood 06/30/2025 6:29 AM MECHANICAL OPERATOR 06/30/2025 7:06 AM MECHANICAL OPERATOR us Jeanine Aden MD LAB BLOOD ORDERABLES Final Resul t [facility] [address] Department [place] [address] * (ABNORMAL) Differential, auto (06/30/2025 6:29 AM MECHANICAL OPERATOR) Neutrophil abs 14.33(H) 1.50 - 6.50 K/cumm Imm gran abs 0.23(H) 0.00 - 0.10 K/cumm [facility] Lymphocyte abs 1.95 0.80 - 3.30 K/cumm [facility] Monocyte abs 1.67(H) 0.20 - 0.80 K/cumm [facility] Eosinophil abs 0.85(H) 0.00 - 0.50 K/cumm [facility] Basophil abs 0.06 0.00 - 0.10 K/cumm [facility] Neutrophil pct 75.1 % [facility] Comment: Interpretive Data Percent cell count reference ranges are not reported, since discordance with absolute values may lead to misinterpretation of CBC data. Current Interpretive Data was last revised on 2017. Imm gran pct 1.2 % [facility] Comment: Interpretive Data Percent cell count reference ranges are not reported, since discordance with absolute values may lead to misinterpretation of CBC data. Current Interpretive Data was last revised on 2017. Lymphocyte pct 10.2 % [facility] Comment: Interpretive Data Percent cell count reference ranges are not reported, since discordance with absolute values may lead to misinterpretation of CBC data. Current Interpretive Data was last revised on 2017. Monocyte pct 8.7 % [facility] Comment: Interpretive Data Percent cell count reference ranges are not reported, since discordance with absolute values may lead to misinterpretation of CBC data. Current Interpretive Data was last revised on 2017. Eosinophil pct 4.5 % [facility] Comment: Interpretive Data Percent cell count reference ranges are not reported, since discordance with absolute values may lead to misinterpretation of CBC data. Current Interpretive Data was last revised on 2017. Basophil pct 0.3 % [facility] Comment: Interpretive Data Percent cell count reference ranges are not reported, since discordance with absolute values may lead to misinterpretation of CBC data. Current Interpretive Data was last revised on 2017. Blood 06/30/2025 6:29 AM MECHANICAL OPERATOR 06/30/2025 7:06 AM MECHANICAL OPERATOR us Alber Monae MD LAB BLOOD ORDERABLES Final Result [facility] [address] Department [place] [address] * (ABNORMAL) CBC with auto differential (06/30/2025 6:29 AM MECHANICAL OPERATOR) WBC 19.09(H) 3.80 - 9.90 K/cumm Hgb 9.7(L) 13.0 - 17.5 g/dL [facility] Hct 30.4(L) 38.9 - 50.3 % [facility] Plt 324 150 - 400 K/cumm [facility] MPV 10.8 9.1 - 12.3 fL [facility] RBC 3.11(L) 4.30 - 5.80 M/cumm [facility] MCV 97.7(H) 81.3 - 96.4 fL [facility] MCH 31.2 27.1 - 33.3 pg [facility] MCHC 31.9(L) 32.3 - 35.7 g/dL [facility] RDW CV 14.6 11.1 - 14.9 % [facility] RDW SD 52.2(H) 35.7 - 48.1 fL [facility] NRBC abs 0.00 0.00 - 0.01 K/cumm [facility] Blood 06/30/2025 6:29 AM MECHANICAL OPERATOR 06/30/2025 7:06 AM MECHANICAL OPERATOR Alber Monae MD LAB BLOOD ORDERABLES Final Result Performing Organization Address City/[facility]/ZIP Co de Phone Number [facility] [address] [facility] [place] [address] * Magnesium (06/30/2025 6:29 AM MECHANICAL OPERATOR) [facility] Magnesium 1.9 1.4 - 2.5 mg/dL Blood 06/30/2025 6:29 AM MECHANICAL OPERATOR 06/30/2025 7:06 AM MECHANICAL OPERATOR Alber Monae MD LAB BLOOD ORDERABLES Final Result Performing Organization Address [facility] Co de Phone Number [facility] [address] [place] [address] * (ABNORMAL) Comprehensive metabolic panel (06/30/2025 6:29 AM MECHANICAL OPERATOR) [facility] Sodium 138 135 - 145 mmol/L Potassium, pl 2.9(L) 3.3 - 4.9 mmol/L [facility] Chloride 98 97 - 110 mmol/L [facility] CO2 25 22 - 32 mmol/L [facility] Anion gap 15 2 - 15 mmol/L [facility] BUN 26(H) 6 - 25 mg/dL [facility] Creatinine 1.30 0.80 - 1.30 mg/dL [facility] Glucose 112 70 - 199 mg/dL [facility] Comment: Interpretive Data Fasting glucose >/= 126 mg/dl is diagnostic for diabetes. Fasting is defined as no caloric intake for at least 8 hours. Fasting glucose between 100 mg/dl to 125 mg/dl is diagnostic of prediabetes. In a patient with classic symptoms of hyperglycemia or hyperglycemic crisis, a random glucose >/= 200 mg/dl is diagnostic for diabetes. In the absence of unequivocal hyperglycemia, results should be confirmed by repeat testing. The classification and Diagnosis of Diabetes Diabetes Care 2021; 46: S19-S40. Current interpretive data was last revised 2022. Calcium 8.3(L) 8.5 - 10.3 mg/dL [facility] Bilirubin, total 0.5 0.1 - 1.2 mg/dL [facility] Protein, pl 5.4(L) 6.5 - 8.5 g/dL [facility] Albumin 2.6(L) 3.5 - 5.0 g/dL [facility] Alk phos 119 40 - 130 Units/L [facility] ALT 22 7 - 55 Units/L [facility] AST 39 10 - 50 Units/L [facility] Blood 06/30/2025 6:29 AM MECHANICAL OPERATOR 06/30/2025 7:06 AM MECHANICAL OPERATOR us Jeanine Aden MD LAB BLOOD ORDERABLES Final Resul t Performing Organization Address [facility] Co de Phone Number [facility] [address] [employer] [place], [place] [id number] * POCT glucose (06/30/2025 6:13 AM MECHANICAL OPERATOR) Glucose, POC 120 70 - 199 mg/dL Comment: For Glucose values <35 mg/dl when Hematocrit is >60 mg/dl,the test may not accurately detect significant hypoglycemia,and testing in the Laboratory should be considered if clinically indicated. Blood 06/30/2025 6:13 AM MECHANICAL OPERATOR 06/30/2025 6:13 AM MECHANICAL OPERATOR us Mike Thompson MD LAB POCT ORDERABLES - D JACQUELINE Final Result Performing Organization Address [facility] Co de Phone Number [facility] [address] Department [employer] [place], [place] [id number] * POCT glucose (06/29/2025 8:59 PM MECHANICAL OPERATOR) Glucose, POC 110 70 - 199 mg/dL Comment: For Glucose values <35 mg/dl when Hematocrit is >60 mg/dl,the test may not accurately detect significant hypoglycemia,and testing in the Laboratory should be considered if clinically indicated. Blood 06/29/2025 8:59 PM MECHANICAL OPERATOR 06/29/2025 8:59 PM MECHANICAL OPERATOR Mike Thompson MD LAB POCT ORDERABLES - D EVICE Final Result Performing Organization Address [facility] Co de Phone Number [facility] [address] Department [place] [address] * POCT glucose (06/29/2025 4:06 PM MECHANICAL OPERATOR) Pathologist [facility] Glucose, POC 125 70 - 199 mg/dL Comment: For Glucose values <35 mg/dl when Hematocrit is >60 mg/dl,the test may not accurately detect significant hypoglycemia,and testing in the Laboratory should be considered if clinically indicated. Blood 06/29/2025 4:06 PM MECHANICAL OPERATOR 06/29/2025 4:06 PM MECHANICAL OPERATOR Mike Thompson MD LAB POCT ORDERABLES - D EVICE Final Result Performing Organization Address [facility] Co de Phone Number [facility] [address] [place] [address] * Infection Prevention Halina auris PCR, surveillance Axilla/Groin (06/29/2025 12:25 PM MECHANICAL OPERATOR) Pathologist [facility] Halina auris DNA Not Detected Not Detected [facility] Comment: Interpretive Data Testing performed by [facility] using the Jyothi thuy [id number] Halina auris assay. This assay detects DNA from Halina auris using Real-Time PCR. This assay is laboratory developed and is not cleared by the [place] Food and Drug Administration. The performance characteristics have been verified by the [facility]. Testing performed by: [facility], [address] [facility] [place]., [address] Axilla/Groin 06/29/2025 12:2 5 PM MECHANICAL OPERATOR 06/29/2025 8:33 PM MECHANICAL OPERATOR us Kayden Ramos MD LAB MICROBIOLOGY - GENERAL O RDERABLES Final Result [facility] [address] Department [place] [address] [facility] * TRANSTHORACIC ECHO (TTE) LIMITED/FOLLOW UP W LTD DOPPLER/CF W CONTRAST (06/29/2025 11:22 AM MECHANICAL OPERATOR) Estimated EF 60-65 % CONS SCIMAGE Anatomical Region Laterality Modality Ultrasound 06/29/2025 7:18 AM MECHANICAL OPERATOR Narrative 06/29/2025 12:09 PM MECHANICAL OPERATOR [facility] [address] [place] [address] LIMITED ECHOCARDIOGRAM Patient Name: YUKO FERNANDEZ : 1955 (69y 9m) Sex: M Study Date: 06/29/2025 07:18:47 AM Ht(Inch): 68 Wt(Lb): 205.03 BSA: 2.11 Head Mixer: Location: [id number] Order Provider: ALBER MONAE BMI: 31.17 BP: 115/59 Ref Provider: ALBER MONAE - PROCEDURES: Echocardiographic Report: Limited TTE with contrast. INDICATIONS: Heart failure. MEASUREMENTS: 2D/MM Value Range Doppler Value Range IVSd 2D 1.06 cm [ 0.60 - 1.00 ] MV Peak PG 2.4 mmHg LVIDd 2D 4.74 cm [ 4.20 - 5.80 ] MV Mean PG 0.8 mmHg LVIDs 2D 3.07 cm [ 2.50 - 4.00 ] LVPWd 2D 1.11 cm [ 0.60 - 1.00 ] Estimated EF 60-65 % 2D/MM Value Range Doppler Value Range - FINDINGS: Study Quality: Technically difficult study. Contrast was employed for LV opacification and endocardial border enhancement. BP: Blood pressure: 115/59 mmHg. Left Ventricle: Normal global and regional left ventricular systolic function. Ejection Fraction is estimated to be 60-65. Left ventricular diastolic function is indeterminate. Normal left ventricular cavity size. Mild concentric left ventricular hypertrophy. Right Ventricle: Normal right ventricular systolic function. Normal right ventricular size. Atrial Septum: Atrial septum is not well visualized. Mitral Valve: Grossly normal appearing mitral valve. Aortic Valve: Grossly normal appearing aortic valve. Tricuspid Valve: Grossly normal appearing tricuspid valve. Pulmonic Valve: Pulmonic valve not well visualized. Pericardium: Normal appearing pericardial thickness. Small pericardial effusion. No echocardiographic evidence to suggest pericardial tamponade. IVC: Normal appearance of the inferior vena cava. CONCLUSIONS: 1. Normal global and regional left ventricular systolic function. Ejection Fraction is estimated to be 60-65. Left ventricular diastolic function is indeterminate. Normal left ventricular cavity size. Mild concentric left ventricular hypertrophy. 2. Normal right ventricular systolic function. Normal right ventricular size. 3. Normal appearing pericardial thickness. Small pericardial effusion. No echocardiographic evidence to suggest pericardial tamponade. Electronically Signed By: Gary Zazueta MD PhD 06/29/2025 12:09:02 PM MECHANICAL OPERATOR Procedure Note Gary Zazueta MD PhD - 06/29/2025 [place] [place] [address] LIMITED ECHOCARDIOGRAM Patient Name: YUKO FERNANDEZ : 1955 (69y 9m) Sex: M Study Date: 06/29/2025 07:18:47 AM Ht(Inch): 68 Wt(Lb): 205.03 BSA: 2.11 Head Mixer: Location: [address] Order Provider: ALBER MONAE BMI: 31.17 BP: 115/59 Ref Provider: ALBER MONAE - PROCEDURES: Echocardiographic Report: Limited TTE with contrast. INDICATIONS: Heart failure. MEASUREMENTS: 2D/MM Value Range Doppler ValueRange IVSd 2D 1.06 cm [ 0.60 - 1.00 ] MV Peak PG 2.4 mmHg LVIDd 2D 4.74 cm [ 4.20 - 5.80 ] MV Mean PG 0.8 mmHg LVIDs 2D 3.07 cm [ 2.50 - 4.00 ] LVPWd 2D 1.11 cm [ 0.60 - 1.00 ] Estimated EF 60-65 % 2D/MM Value Range Doppler ValueRange - FINDINGS: Study Quality: Technically difficult study. Contrast was employed for LVopacification and endocardial border enhancement. BP: Blood pressure: 115/59 mmHg. Left Ventricle: Normal global and regional left ventricular systolicfunction. Ejection Fraction is estimated to be 60-65. Left ventricular diastolic function isindeterminate. Normal left ventricular cavity size. Mild concentric left ventricularhypertrophy. Right Ventricle: Normal right ventricular systolic function. Normal rightventricular size. Atrial Septum: Atrial septum is not well visualized. Mitral Valve: Grossly normal appearing mitral valve. Aortic Valve: Grossly normal appearing aortic valve. Tricuspid Valve: Grossly normal appearing tricuspid valve. Pulmonic Valve: Pulmonic valve not well visualized. Pericardium: Normal appearing pericardial thickness. Small pericardialeffusion. No echocardiographic evidence to suggest pericardial tamponade. IVC: Normal appearance of the inferior vena cava. CONCLUSIONS: 1. Normal global and regional left ventricular systolic function. EjectionFraction is estimated to be 60-65. Left ventricular diastolic function isindeterminate. Normal left ventricular cavity size. Mild concentric left ventricular hypertrophy. 2. Normal right ventricular systolic function. Normal right ventricularsize. 3. Normal appearing pericardial thickness. Small pericardial effusion. No echocardiographic evidence to suggest pericardial tamponade. Electronically Signed By: Gary Zazueta MD PhD 06/29/2025 12:09:02 PM MECHANICAL OPERATOR Alber Monae MD CV ECHO PROCEDURES Final Re sult * (ABNORMAL) POCT glucose (06/29/2025 11:09 AM MECHANICAL OPERATOR) Glucose, POC 210(H) 70 - 199 mg/dL Comment: For Glucose values <35 mg/dl when Hematocrit is >60 mg/dl,the test may not accurately detect significant hypoglycemia,and testing in the Laboratory should be considered if clinically indicated. Blood 06/29/2025 11:0 9 AM MECHANICAL OPERATOR 06/29/2025 11:09 AM MECHANICAL OPERATOR Mike Thompson MD LAB POCT ORDERABLES - D EVICE Final Result Performing Organization Address [facility] Co de Phone Number [facility] [address] [employer] [address] * (ABNORMAL) POCT glucose (06/29/2025 11:03 AM MECHANICAL OPERATOR) Glucose, POC 253(H) 70 - 199 mg/dL Comment: For Glucose values <35 mg/dl when Hematocrit is >60 mg/dl,the test may not accurately detect significant hypoglycemia,and testing in the Laboratory should be considered if clinically indicated. Blood 06/29/2025 11:0 3 AM MECHANICAL OPERATOR 06/29/2025 11:03 AM MECHANICAL OPERATOR Mike Thompson MD LAB POCT ORDERABLES - D EVICE Final Result Performing Organization Address [facility] Co de Phone Number [facility] [address] [employer] [address] * POCT glucose (06/29/2025 6:33 AM MECHANICAL OPERATOR) Glucose, POC 109 70 - 199 mg/dL Comment: For Glucose values <35 mg/dl when Hematocrit is >60 mg/dl,the test may not accurately detect significant hypoglycemia,and testing in the Laboratory should be considered if clinically indicated. Blood 06/29/2025 6:33 AM MECHANICAL OPERATOR 06/29/2025 6:33 AM MECHANICAL OPERATOR us Mike Thompson MD LAB POCT ORDERABLES - D EVICE Final Result [facility] [address] Department [place] [address] * (ABNORMAL) Differential, auto (06/29/2025 6:11 AM MECHANICAL OPERATOR) Neutrophil abs 12.18(H) 1.50 - 6.50 K/cumm Imm gran abs 0.13(H) 0.00 - 0.10 K/cumm [facility] Lymphocyte abs 1.95 0.80 - 3.30 K/cumm [facility] Monocyte abs 1.55(H) 0.20 - 0.80 K/cumm [facility] Eosinophil abs 0.69(H) 0.00 - 0.50 K/cumm [facility] Basophil abs 0.04 0.00 - 0.10 K/cumm [facility] Neutrophil pct 73.6 % [facility] Comment: Interpretive Data Percent cell count reference ranges are not reported, since discordance with absolute values may lead to misinterpretation of CBC data. Current Interpretive Data was last revised on 2017. Imm gran pct 0.8 % [facility] Comment: Interpretive Data Percent cell count reference ranges are not reported, since discordance with absolute values may lead to misinterpretation of CBC data. Current Interpretive Data was last revised on 2017. Lymphocyte pct 11.8 % [facility] Comment: Interpretive Data Percent cell count reference ranges are not reported, since discordance with absolute values may lead to misinterpretation of CBC data. Current Interpretive Data was last revised on 2017. Monocyte pct 9.4 % [facility] Comment: Interpretive Data Percent cell count reference ranges are not reported, since discordance with absolute values may lead to misinterpretation of CBC data. Current Interpretive Data was last revised on 2017. Eosinophil pct 4.2 % [facility] Comment: Interpretive Data Percent cell count reference ranges are not reported, since discordance with absolute values may lead to misinterpretation of CBC data. Current Interpretive Data was last revised on 2017. Basophil pct 0.2 % [facility] Comment: Interpretive Data Percent cell count reference ranges are not reported, since discordance with absolute values may lead to misinterpretation of CBC data. Current Interpretive Data was last revised on 2017. Blood 06/29/2025 6:11 AM MECHANICAL OPERATOR 06/29/2025 6:24 AM MECHANICAL OPERATOR Alber Monae MD LAB BLOOD ORDERABLES Final Result [facility] [address] Department [place] [address] * (ABNORMAL) CBC with auto differential (06/29/2025 6:11 AM MECHANICAL OPERATOR) WBC 16.54(H) 3.80 - 9.90 K/cumm Hgb 8.5(L) 13.0 - 17.5 g/dL [facility] Hct 26.2(L) 38.9 - 50.3 % [facility] Plt 247 150 - 400 K/cumm [facility] MPV 10.3 9.1 - 12.3 fL [facility] RBC 2.68(L) 4.30 - 5.80 M/cumm [facility] MCV 97.8(H) 81.3 - 96.4 fL [facility] MCH 31.7 27.1 - 33.3 pg [facility] MCHC 32.4 32.3 - 35.7 g/dL [facility] RDW CV 14.7 11.1 - 14.9 % [facility] RDW SD 51.5(H) 35.7 - 48.1 fL [facility] NRBC abs 0.00 0.00 - 0.01 K/cumm [facility] Blood 06/29/2025 6:11 AM MECHANICAL OPERATOR 06/29/2025 6:24 AM MECHANICAL OPERATOR us Alber Monae MD LAB BLOOD ORDERABLES Final Result Performing Organization Address [facility] Co de Phone Number [facility] [address] [employer] [place], [place] [id number] * eGFR (06/29/2025 1:26 AM MECHANICAL OPERATOR) eGFR >90 >=60 mL/min/1. 73 m2 Comment: Interpretive Data Reference Interval Normal >/= 90 mL/min/1.73m2 Mildly decreased* 60 - 89 mL/min/1.73m2 Mildly to moderately decreased 45 - 59 mL/min/1.73m2 Moderately to severely decreased 30 - 44 mL/min/1.73m2 Severely decreased 15 - 29 mL/min/1.73m2 Kidney Failure < 15 mL/min/1.73m2 *Relative to young adult level Estimated glomerular filtration rate is determined by the 2020 CKD-EPI equation recommended by the National Kidney Foundation (A Unifying Approach to GFR Estimation: Recommendations of the NKF-ASK Task Force on Reassessing the Inclusion of Race in Diagnosing Kidney Disease, JASN 2020). The CKD-EPI equation should not be used for patients with unstable renal function and has not been validated in children and those over 70. Current interpretive data was last reviewed 2021. Blood 06/29/2025 1:26 AM MECHANICAL OPERATOR 06/29/2025 1:43 AM MECHANICAL OPERATOR us Mike Thompson MD LAB BLOOD ORDERABLES Fi nal Result Performing Organization Address [facility]/ZIP Co de Phone Number [facility] [address] Department of [employer] [place], [place] [id number] * (ABNORMAL) Vancomycin level trough Please draw at this specific time, thanks (06/29/2025 1:26 AM MECHANICAL OPERATOR) Vancomycin trough 25.7(C) 10.0 - 20.0 mcg/mL Comment:Critical result call ed to and read back by Hipolito Mujica RN on 06/29/25 0218 to [id number] Blood 06/29/2025 1:26 AM MECHANICAL OPERATOR 06/29/2025 1:43 AM MECHANICAL OPERATOR Narrative [facility] - 06/29/2025 2:18 AM MECHANICAL OPERATOR Please draw at this specific time, thanks us Alber Monae MD LAB BLOOD ORDERABLES Final Result [facility] [address] Department [place] [address] * (ABNORMAL) Comprehensive metabolic panel (06/29/2025 1:26 AM MECHANICAL OPERATOR) Sodium 138 135 - 145 mmol/L Potassium, pl 3.2(L) 3.3 - 4.9 mmol/L [facility] Chloride 100 97 - 110 mmol/L [facility] CO2 27 22 - 32 mmol/L [facility] Anion gap 11 2 - 15 mmol/L [facility] BUN 20 6 - 25 mg/dL [facility] Creatinine 0.89 0.80 - 1.30 mg/dL [facility] Glucose 110 70 - 199 mg/dL [facility] Comment: Interpretive Data Fasting glucose >/= 126 mg/dl is diagnostic for diabetes. Fasting is defined as no caloric intake for at least 8 hours. Fasting glucose between 100 mg/dl to 125 mg/dl is diagnostic of prediabetes. In a patient with classic symptoms of hyperglycemia or hyperglycemic crisis, a random glucose >/= 200 mg/dl is diagnostic for diabetes. In the absence of unequivocal hyperglycemia, results should be confirmed by repeat testing. The classification and Diagnosis of Diabetes Diabetes Care 2021; 46: S19-S40. Current interpretive data was last revised 2022. Calcium 8.2(L) 8.5 - 10.3 mg/dL [facility] Bilirubin, total 0.5 0.1 - 1.2 mg/dL [facility] Protein, pl 5.1(L) 6.5 - 8.5 g/dL [facility] Albumin 2.4(L) 3.5 - 5.0 g/dL [facility] Alk phos 122 40 - 130 Units/L [facility] ALT 21 7 - 55 Units/L [facility] AST 38 10 - 50 Units/L [facility] Blood 06/29/2025 1:26 AM MECHANICAL OPERATOR 06/29/2025 1:26 AM MECHANICAL OPERATOR Mike Thompson MD LAB BLOOD ORDERABLES Fi nal Result Performing Organization Address City/[facility]/ZIP Co de Phone Number [facility] [address] Department [place] [address] * POCT glucose (06/28/2025 8:38 PM MECHANICAL OPERATOR) Glucose, POC 125 70 - 199 mg/dL Comment: For Glucose values <35 mg/dl when Hematocrit is >60 mg/dl,the test may not accurately detect significant hypoglycemia,and testing in the Laboratory should be considered if clinically indicated. Blood 06/28/2025 8:38 PM MECHANICAL OPERATOR 06/28/2025 8:38 PM MECHANICAL OPERATOR Mike Thompson MD LAB POCT ORDERABLES - D EVICE Final Result Performing Organization Address [facility] Co de Phone Number [facility] [address] [place] [address] * eGFR (06/28/2025 7:07 PM MECHANICAL OPERATOR) eGFR >90 >=60 mL/min/1. 73 m2 Comment: Interpretive Data Reference Interval Normal >/= 90 mL/min/1.73m2 Mildly decreased* 60 - 89 mL/min/1.73m2 Mildly to moderately decreased 45 - 59 mL/min/1.73m2 Moderately to severely decreased 30 - 44 mL/min/1.73m2 Severely decreased 15 - 29 mL/min/1.73m2 Kidney Failure < 15 mL/min/1.73m2 *Relative to young adult level Estimated glomerular filtration rate is determined by the 2020 CKD-EPI equation recommended by the National Kidney Foundation (A Unifying Approach to GFR Estimation: Recommendations of the NKF-ASK Task Force on Reassessing the Inclusion of Race in Diagnosing Kidney Disease, JASN 2020). The CKD-EPI equation should not be used for patients with unstable renal function and has not been validated in children and those over 70. Current interpretive data was last reviewed 2021. Blood 06/28/2025 7:07 PM MECHANICAL OPERATOR 06/28/2025 7:16 PM MECHANICAL OPERATOR us Alber Monae MD LAB BLOOD ORDERABLES Final Result [facility] [address] Department [place] [address] * (ABNORMAL) Differential, auto (06/28/2025 7:07 PM MECHANICAL OPERATOR) Neutrophil abs 16.89(H) 1.50 - 6.50 K/cumm Imm gran abs 0.18(H) 0.00 - 0.10 K/cumm [facility] Lymphocyte abs 1.74 0.80 - 3.30 K/cumm [facility] Monocyte abs 2.10(H) 0.20 - 0.80 K/cumm [facility] Eosinophil abs 0.18 0.00 - 0.50 K/cumm [facility] Basophil abs 0.05 0.00 - 0.10 K/cumm [facility] Neutrophil pct 79.9 % [facility] Comment: Interpretive Data Percent cell count reference ranges are not reported, since discordance with absolute values may lead to misinterpretation of CBC data. Current Interpretive Data was last revised on 2017. Imm gran pct 0.9 % [facility] Comment: Interpretive Data Percent cell count reference ranges are not reported, since discordance with absolute values may lead to misinterpretation of CBC data. Current Interpretive Data was last revised on 2017. Lymphocyte pct 8.2 % [facility] Comment: Interpretive Data Percent cell count reference ranges are not reported, since discordance with absolute values may lead to misinterpretation of CBC data. Current Interpretive Data was last revised on 2017. Monocyte pct 9.9 % [facility] Comment: Interpretive Data Percent cell count reference ranges are not reported, since discordance with absolute values may lead to misinterpretation of CBC data. Current Interpretive Data was last revised on 2017. Eosinophil pct 0.9 % [facility] Comment: Interpretive Data Percent cell count reference ranges are not reported, since discordance with absolute values may lead to misinterpretation of CBC data. Current Interpretive Data was last revised on 2017. Basophil pct 0.2 % [facility] Comment: Interpretive Data Percent cell count reference ranges are not reported, since discordance with absolute values may lead to misinterpretation of CBC data. Current Interpretive Data was last revised on 2017. Blood 06/28/2025 7:07 PM MECHANICAL OPERATOR 06/28/2025 7:16 PM MECHANICAL OPERATOR us Alber Monae MD LAB BLOOD ORDERABLES Final Result [facility] [address] Department [place] [address] * (ABNORMAL) CBC with auto differential (06/28/2025 7:07 PM MECHANICAL OPERATOR) WBC 21.14(H) 3.80 - 9.90 K/cumm Hgb 10.3(L) 13.0 - 17.5 g/dL [facility] Hct 31.5(L) 38.9 - 50.3 % [facility] Plt 293 150 - 400 K/cumm [facility] MPV 10.2 9.1 - 12.3 fL [facility] RBC 3.26(L) 4.30 - 5.80 M/cumm [facility] MCV 96.6(H) 81.3 - 96.4 fL [facility] MCH 31.6 27.1 - 33.3 pg [facility] MCHC 32.7 32.3 - 35.7 g/dL [facility] RDW CV 14.7 11.1 - 14.9 % [facility] RDW SD 51.8(H) 35.7 - 48.1 fL [facility] NRBC abs 0.00 0.00 - 0.01 K/cumm [facility] Blood 06/28/2025 7:07 PM MECHANICAL OPERATOR 06/28/2025 7:16 PM MECHANICAL OPERATOR Alber Monae MD LAB BLOOD ORDERABLES Final Result Performing Organization Address City/[facility]/ZIP Co de Phone Number [facility] [address] Department [place] [address] * (ABNORMAL) Basic metabolic panel (06/28/2025 7:07 PM MECHANICAL OPERATOR) [facility] Sodium 141 135 - 145 mmol/L Potassium, pl 3.0(L) 3.3 - 4.9 mmol/L [facility] Chloride 102 97 - 110 mmol/L [facility] CO2 27 22 - 32 mmol/L [facility] Anion gap 12 2 - 15 mmol/L [facility] BUN 19 6 - 25 mg/dL [facility] Creatinine 0.88 0.80 - 1.30 mg/dL [facility] Glucose 133 70 - 199 mg/dL [facility] Comment: Interpretive Data Fasting glucose >/= 126 mg/dl is diagnostic for diabetes. Fasting is defined as no caloric intake for at least 8 hours. Fasting glucose between 100 mg/dl to 125 mg/dl is diagnostic of prediabetes. In a patient with classic symptoms of hyperglycemia or hyperglycemic crisis, a random glucose >/= 200 mg/dl is diagnostic for diabetes. In the absence of unequivocal hyperglycemia, results should be confirmed by repeat testing. The classification and Diagnosis of Diabetes Diabetes Care 2021; 46: S19-S40. Current interpretive data was last revised 2022. Calcium 8.5 8.5 - 10.3 mg/dL [facility] Blood 06/28/2025 7:07 PM MECHANICAL OPERATOR 06/28/2025 7:16 PM MECHANICAL OPERATOR Alber Monae MD LAB BLOOD ORDERABLES Final Result Performing Organization Address [facility]/ZIP Co de Phone Number [facility] [address] Department [place] [address] * POCT glucose (06/28/2025 4:11 PM MECHANICAL OPERATOR) Glucose, POC 125 70 - 199 mg/dL Comment: For Glucose values <35 mg/dl when Hematocrit is >60 mg/dl,the test may not accurately detect significant hypoglycemia,and testing in the Laboratory should be considered if clinically indicated. Blood 06/28/2025 4:11 PM MECHANICAL OPERATOR 06/28/2025 4:11 PM MECHANICAL OPERATOR Mike Thompson MD LAB POCT ORDERABLES - D EVICE Final Result Performing Organization Address [facility] de Phone Number [facility] [address] Department [place] [address] * POCT glucose (06/28/2025 12:09 PM MECHANICAL OPERATOR) Glucose, POC 141 70 - 199 mg/dL Comment: For Glucose values <35 mg/dl when Hematocrit is >60 mg/dl,the test may not accurately detect significant hypoglycemia,and testing in the Laboratory should be considered if clinically indicated. Blood 06/28/2025 12:0 9 PM MECHANICAL OPERATOR 06/28/2025 12:09 PM MECHANICAL OPERATOR Mike Thompson MD LAB POCT ORDERABLES - D EVICE Final Result Performing Organization Address [facility] de Phone Number [facility] [address] Department [place] [address] * MRI Leg Calf Left W WO Contrast (06/28/2025 11:46 AM MECHANICAL OPERATOR) Anatomical Region Laterality Modality Lower Extremities Left Magnetic Reson ance 06/29/2025 7:27 AM MECHANICAL OPERATOR Impressions 06/29/2025 7:27 AM MECHANICAL OPERATOR 1. MR findings compatible with hematoma in the subcutaneous soft tissues of the posterior lateral left leg measuring 21.7 x 9.4 x 3.5 cm. Infected hematoma is not excluded. 2. Soft tissue wound superficial to the patient's suspected hematoma with adjacent cellulitis. 3. Diffuse subcutaneous edema and nonspecific muscle edema. Electronically signed by: Herminio Irving M.D. Narrative 06/29/2025 7:27 AM MECHANICAL OPERATOR EXAM: MRI LEG CALF TIBFIB LEFT W WO CONTRAST CLINICAL HISTORY: Left lower extremity cellulitis with left lower extremity wound. TECHNIQUE: Standard MR imaging of the left leg was performed without and with IV contrast. 18 mL of gadoterate meglumine was injected for this exam. COMPARISON: None available. FINDINGS: In the subcutaneous soft tissues of the posterior lateral left leg, there is a well-defined fluid collection. The fluid collection demonstrates internal T1 hypointensity with a rim of T1 hyperintensity. The fluid collection demonstrates heterogeneous high T2 signal peripherally with some central T2 hypointensity. The fluid collection measures 9.4 x 3.5 x 21.7 cm in anteroposterior, transverse and craniocaudal dimensions respectively. The fluid collection does not appear to enhance significantly following IV contrast administration. The appearance is most compatible with hematoma. Infected hematoma is not excluded on the basis of this examination. There is soft tissue wound noted along the lateral aspect of the left leg with adjacent skin thickening and mild subcutaneous edema and enhancement compatible with cellulitis in this region. This is superficial to the patient's suspected hematoma. There is no MR evidence of deep infection. No muscle masses or fluid collections are identified. There is mild edema diffusely throughout the left leg musculature which is nonspecific. Degenerative changes are noted in the left knee, ankle and foot. No suspicious marrow signal abnormalities are identified. There is no MR evidence of osteomyelitis. There is diffuse subcutaneous edema throughout the left leg. Procedure Note Herminio Irving MD - 06/29/2025 EXAM: MRI LEG CALF TIBFIB LEFT W WO CONTRAST CLINICAL HISTORY: Left lower extremity cellulitis with left lower extremity wound. TECHNIQUE: Standard MR imaging of the left leg was performed without and with IV contrast. 18 mL of gadoterate meglumine was injected for this exam. COMPARISON: None available. FINDINGS: In the subcutaneous soft tissues of the posterior lateral left leg, there is a well-defined fluid collection. The fluid collection demonstrates internal T1 hypointensity with a rim of T1 hyperintensity. The fluid collection demonstrates heterogeneous high T2 signal peripherally with some central T2 hypointensity. The fluid collection measures 9.4 x 3.5 x 21.7 cm in anteroposterior, transverse and craniocaudal dimensions respectively. The fluid collection does not appear to enhance significantly following IV contrast administration. The appearance is most compatible with hematoma. Infected hematoma is not excluded on the basis of this examination. There is soft tissue wound noted along the lateral aspect of the left leg with adjacent skin thickening and mild subcutaneous edema and enhancement compatible with cellulitis in this region. This is superficial to the patient's suspected hematoma. There is no MR evidence of deep infection. No muscle masses or fluid collections are identified. There is mild edema diffusely throughout the left leg musculature which is nonspecific. Degenerative changes are noted in the left knee, ankle and foot. No suspicious marrow signal abnormalities are identified. There is no MR evidence of osteomyelitis. There is diffuse subcutaneous edema throughout the left leg. IMPRESSION: 1. MR findings compatible with hematoma in the subcutaneous soft tissues of the posterior lateral left leg measuring 21.7 x 9.4 x 3.5 cm. Infected hematoma is not excluded. 2. Soft tissue wound superficial to the patient's suspected hematoma with adjacent cellulitis. 3. Diffuse subcutaneous edema and nonspecific muscle edema. Electronically signed by: Herminio Irving M.D. Jamaal Monahan MD IMG MRI PROCEDURES Final Result * eGFR (06/28/2025 7:53 AM MECHANICAL OPERATOR) eGFR >90 >=60 mL/min/1. 73 m2 Comment: Interpretive Data Reference Interval Normal >/= 90 mL/min/1.73m2 Mildly decreased* 60 - 89 mL/min/1.73m2 Mildly to moderately decreased 45 - 59 mL/min/1.73m2 Moderately to severely decreased 30 - 44 mL/min/1.73m2 Severely decreased 15 - 29 mL/min/1.73m2 Kidney Failure < 15 mL/min/1.73m2 *Relative to young adult level Estimated glomerular filtration rate is determined by the 2020 CKD-EPI equation recommended by the National Kidney Foundation (A Unifying Approach to GFR Estimation: Recommendations of the NKF-ASK Task Force on Reassessing the Inclusion of Race in Diagnosing Kidney Disease, JASN 2020). The CKD-EPI equation should not be used for patients with unstable renal function and has not been validated in children and those over 70. Current interpretive data was last reviewed 2021. Blood 06/28/2025 7:53 AM MECHANICAL OPERATOR 06/28/2025 8:20 AM MECHANICAL OPERATOR Jeanine Aden MD LAB BLOOD ORDERABLES Final Resul t Performing Organization Address [facility] Co de Phone Number [facility] [address] Department of [employer] [place], [place] [id number] * (ABNORMAL) CBC without differential (06/28/2025 7:53 AM MECHANICAL OPERATOR) WBC 22.13(H) 3.80 - 9.90 K/cumm Hgb 9.6(L) 13.0 - 17.5 g/dL [facility] Hct 30.1(L) 38.9 - 50.3 % [facility] Plt 320 150 - 400 K/cumm [facility] MPV 10.5 9.1 - 12.3 fL [facility] RBC 3.07(L) 4.30 - 5.80 M/cumm [facility] MCV 98.0(H) 81.3 - 96.4 fL [facility] MCH 31.3 27.1 - 33.3 pg [facility] MCHC 31.9(L) 32.3 - 35.7 g/dL [facility] RDW CV 14.9 11.1 - 14.9 % [facility] RDW SD 53.2(H) 35.7 - 48.1 fL [facility] NRBC abs 0.02(H) 0.00 - 0.01 K/cumm [facility] Blood 06/28/2025 7:53 AM MECHANICAL OPERATOR 06/28/2025 8:20 AM MECHANICAL OPERATOR Jeanine Aden MD LAB BLOOD ORDERABLES Final Resul t Performing Organization Address City/[facility] Co de Phone Number [facility] [address] [facility] [employer] [place], [place] [id number] * (ABNORMAL) Comprehensive metabolic panel (06/28/2025 7:53 AM MECHANICAL OPERATOR) Pathologist [facility] Sodium 141 135 - 145 mmol/L Potassium, pl 3.4 3.3 - 4.9 mmol/L [facility] Chloride 102 97 - 110 mmol/L [facility] CO2 25 22 - 32 mmol/L [facility] Anion gap 14 2 - 15 mmol/L [facility] BUN 17 6 - 25 mg/dL [facility] Creatinine 0.82 0.80 - 1.30 mg/dL [facility] Glucose 131 70 - 199 mg/dL [facility] Comment: Interpretive Data Fasting glucose >/= 126 mg/dl is diagnostic for diabetes. Fasting is defined as no caloric intake for at least 8 hours. Fasting glucose between 100 mg/dl to 125 mg/dl is diagnostic of prediabetes. In a patient with classic symptoms of hyperglycemia or hyperglycemic crisis, a random glucose >/= 200 mg/dl is diagnostic for diabetes. In the absence of unequivocal hyperglycemia, results should be confirmed by repeat testing. The classification and Diagnosis of Diabetes Diabetes Care 2021; 46: S19-S40. Current interpretive data was last revised 2022. Calcium 8.3(L) 8.5 - 10.3 mg/dL [facility] Bilirubin, total 0.5 0.1 - 1.2 mg/dL [facility] Protein, pl 5.4(L) 6.5 - 8.5 g/dL [facility] Albumin 2.7(L) 3.5 - 5.0 g/dL [facility] Alk phos 141(H) 40 - 130 Units/L [facility] ALT 20 7 - 55 Units/L [facility] AST 42 10 - 50 Units/L [facility] Blood 06/28/2025 7:53 AM MECHANICAL OPERATOR 06/28/2025 8:20 AM MECHANICAL OPERATOR us Jeanine Aden MD LAB BLOOD ORDERABLES Final Resul t [facility] [address] Department [place] [address] * POCT glucose (06/28/2025 6:31 AM MECHANICAL OPERATOR) [facility] Glucose, POC 117 70 - 199 mg/dL Comment: For Glucose values <35 mg/dl when Hematocrit is >60 mg/dl,the test may not accurately detect significant hypoglycemia,and testing in the Laboratory should be considered if clinically indicated. Blood 06/28/2025 6:31 AM MECHANICAL OPERATOR 06/28/2025 6:31 AM MECHANICAL OPERATOR Mike Thompson MD LAB POCT ORDERABLES - D EVICE Final Result Performing Organization Address [facility] de Phone Number [facility] [address] Department [place] [address] * POCT glucose (06/27/2025 4:04 PM MECHANICAL OPERATOR) Pathologist [facility] Glucose, POC 129 70 - 199 mg/dL Comment: For Glucose values <35 mg/dl when Hematocrit is >60 mg/dl,the test may not accurately detect significant hypoglycemia,and testing in the Laboratory should be considered if clinically indicated. Blood 06/27/2025 4:04 PM MECHANICAL OPERATOR 06/27/2025 4:04 PM MECHANICAL OPERATOR Mike Thompson MD LAB POCT ORDERABLES - D EVICE Final Result Performing Organization Address [facility] de Phone Number [facility] [address] [place] [address] * (ABNORMAL) Aerobic and anaerobic culture and gram stain Wound Leg, left (06/27/2025 2:11 PM MECHANICAL OPERATOR) [facility] Direct Specimen Exam Stain: No polymorphonuclear leukocytes seen. No organisms seen. Report Final Report: Light growth of: Klebsiella pneumoniae Light growth of: Pseudomonas aeruginosa Light growth of: Corynebacterium striatum Susceptibility not performed on this isolate (.) [facility] Organism KLEBSIELLA PNEUMONIAE [facility] Organism PSEUDOMONAS AERUGINOSA [facility] Organism CORYNEBACTERIUM STRIATUM [facility] Wound (Leg, left) 06/27/2025 2:11 PM MECHANICAL OPERATOR 06/27/2025 2:59 PM MECHANICAL OPERATOR Narrative Organism Antibiotic Method Susceptibility Klebsiella pneumoniae Ampicillin with Sulbactam (KAMILEL) INTERPRETATION Susceptible Klebsiella pneumoniae Cefazolin (KAMILLE) INTERPRETATIO N Susceptible Klebsiella pneumoniae Ciprofloxacin (KAMILLE) INTERPRETATI ON Susceptible Klebsiella pneumoniae Gentamicin (KAMILLE) INTERPRETATIO N Susceptible Klebsiella pneumoniae Levofloxacin (KAMILLE) INTERPRETATIO N Susceptible Klebsiella pneumoniae Meropenem (KAMILLE) INTERPRETATIO N Susceptible Klebsiella pneumoniae Piperacillin/Tazobactam (KAMILLE) IN TERPRETATION Susceptible Klebsiella pneumoniae Trimethoprim with Sulfamethoxazole (KAMILLE) INTERPRETATION Susceptible Pseudomonas aeruginosa Cefepime (KAMILLE) INTERPRETATI ON Susceptible Pseudomonas aeruginosa Ciprofloxacin (KAMILLE) INTERPRETAT ION Susceptible Pseudomonas aeruginosa Levofloxacin (KAMILLE) INTERPRETAT ION Susceptible Pseudomonas aeruginosa Meropenem (KAMILLE) INTERPRETATI ON Susceptible Pseudomonas aeruginosa Piperacillin/Tazobactam (KAMILLE) I NTERPRETATION Susceptible Pseudomonas aeruginosa Tobramycin (KAMILLE) INTERPRETATI ON Susceptible Jamaal Monahan MD LAB MICROBIOLOGY - GENERAL ORDER MO Final Result Performing Organization Address [facility]/State/ZIP Co de Phone Number [facility] [address] Department [place] [address] * (ABNORMAL) Aerobic and anaerobic culture and gram stain Wound Leg, left (06/27/2025 11:31 AM MECHANICAL OPERATOR) Direct Specimen Exam Stain: No polymorphonuclear leukocytes seen. Moderate Gram Negative Bacilli Report Final Report: Very light growth Klebsiella pneumoniae Moderate growth of: Pseudomonas aeruginosa Susceptibility reported on this organism on previous culture [id number] Moderate growth of: Coagulase negative Staphylococcus species Susceptibility not performed on this isolate Heavy growth of: Corynebacterium striatum Susceptibility not performed on this isolate (.) [facility] Organism PSEUDOMONAS AERUGINOSA [facility] Organism COAGULASE NEGATIVE STAPHYLOCOCCUS SPECIES [facility] Organism CORYNEBACTERIUM STRIATUM [facility] Organism KLEBSIELLA PNEUMONIAE [facility] Wound (Leg, left) 06/27/2025 11:31 AM MECHANICAL OPERATOR 06/27/2025 12:16 PM MECHANICAL OPERATOR Narrative [facility] - 06/30/2025 8:04 AM MECHANICAL OPERATOR Specimen received on aerobic swab only. For optimal recovery of anaerobic organisms, sample should be collected using anaerobic transport media (eSWAB). us Alber Monae MD LAB MICROBIOLOGY - GENERAL ORDERABLES Final Result Performing Organization Address City/[facility] Co de Phone Number ROBERTO [facility] [address] [facility] [place] [address] * POCT glucose (06/27/2025 11:24 AM MECHANICAL OPERATOR) Glucose, POC 149 70 - 199 mg/dL Comment: For Glucose values <35 mg/dl when Hematocrit is >60 mg/dl,the test may not accurately detect significant hypoglycemia,and testing in the Laboratory should be considered if clinically indicated. Blood 06/27/2025 11:2 4 AM MECHANICAL OPERATOR 06/27/2025 11:24 AM MECHANICAL OPERATOR Mike Thompson MD LAB POCT ORDERABLES - D EVICE Final Result Performing Organization Address [facility] de Phone Number ROBERTO [facility] [address] [facility] [place] [address] * POCT glucose (06/27/2025 6:25 AM MECHANICAL OPERATOR) Glucose, POC 131 70 - 199 mg/dL Comment: For Glucose values <35 mg/dl when Hematocrit is >60 mg/dl,the test may not accurately detect significant hypoglycemia,and testing in the Laboratory should be considered if clinically indicated. Blood 06/27/2025 6:25 AM MECHANICAL OPERATOR 06/27/2025 6:25 AM MECHANICAL OPERATOR Mike Thompson MD LAB POCT ORDERABLES - D EVICE Final Result Performing Organization Address [facility] Co de Phone Number [facility] [address] [facility] [place] [address] * POCT glucose (06/26/2025 9:30 PM MECHANICAL OPERATOR) Glucose, POC 164 70 - 199 mg/dL Comment: For Glucose values <35 mg/dl when Hematocrit is >60 mg/dl,the test may not accurately detect significant hypoglycemia,and testing in the Laboratory should be considered if clinically indicated. Blood 06/26/2025 9:30 PM MECHANICAL OPERATOR 06/26/2025 9:30 PM MECHANICAL OPERATOR Mike Thompson MD LAB POCT ORDERABLES - D EVICE Final Result Performing Organization Address City/[facility]/ZIP Co de Phone Number ROBERTO [facility] [address] Department [place] [address] * [place] Fluoroscopy < 1 Hour (06/26/2025 7:52 PM MECHANICAL OPERATOR) Narrative [facility] - 06/26/2025 7:52 PM MECHANICAL OPERATOR The images from this study are not interpreted by Radiology. Please refer to the physician's procedure / OR operative note. us Mike Thompson MD IMG FLUOROSCOPY PROCEDU RES Final Result Performing Organization Address [facility] Co de Phone Number [facility] * XR Spine Lumbar 2 or 3 Views (06/26/2025 7:52 PM MECHANICAL OPERATOR) Anatomical Region Laterality Modality Spine N/A Computed Radiogr aphy 06/27/2025 11:4 2 AM MECHANICAL OPERATOR Impressions 06/27/2025 11:42 AM MECHANICAL OPERATOR Multiple fluoroscopic intraoperative radiographs are submitted for interpretation. Postoperative changes from posterior decompression with placement of pedicle screws and bridging rods from L1 through L5 and intervertebral disc spacer at L4-L5. There is the appearance of vertebral augmentation cement in the L1 vertebral body, new from comparison studies. Electronically signed by: Joslyn Fuentes MD, MPHS Narrative 06/27/2025 11:42 AM MECHANICAL OPERATOR EXAMINATION: XR SPINE LUMBAR 2 OR 3 VIEWS HISTORY: Right-Sided L4-5 Posterior Decompression Laminectomy and Fusion with Transforaminal Lumbar Interbody Fusion - Right COMPARISON: MRI 06/02/2025. Procedure Note Joslyn Fuentes MD - 06/27/2025 EXAMINATION: XR SPINE LUMBAR 2 OR 3 VIEWS HISTORY: Right-Sided L4-5 Posterior Decompression Laminectomy and Fusion with Transforaminal Lumbar Interbody Fusion - Right COMPARISON: MRI 06/02/2025. IMPRESSION: Multiple fluoroscopic intraoperative radiographs are submitted for interpretation. Postoperative changes from posterior decompression with placement of pedicle screws and bridging rods from L1 through L5 and intervertebral disc spacer at L4-L5. There is the appearance of vertebral augmentation cement in the L1 vertebral body, new from comparison studies. Electronically signed by: Joslyn Fuentes MD, MPHS Mike Thompson MD IMG XR PROCEDURES Final Result * Transfuse RBC (06/26/2025 7:35 PM MECHANICAL OPERATOR) Blood Herminio Duff MD BLOOD TRANSFUSION ORDERABLES Final Result Performing Organization Address [facility] Co de Phone Number [facility] [address] [facility] [place] [address] * Transfuse RBC (06/26/2025 6:32 PM MECHANICAL OPERATOR) Blood Herminio Duff MD BLOOD TRANSFUSION ORDERABLES Final Result Performing Organization Address [facility] Co de Phone Number [facility] [address] [facility] [place] [address] * (ABNORMAL) POCT hemoglobin (06/26/2025 6:06 PM MECHANICAL OPERATOR) Hgb, POC 9.1(L) 13.0 - 17.0 g/dL Blood 06/26/2025 6:06 PM MECHANICAL OPERATOR 06/26/2025 6:06 PM MECHANICAL OPERATOR Mike Thompson MD LAB POCT ORDERABLES - D EVICE Final Result Performing Organization Address [facility] Co de Phone Number [facility] [address] [facility] [place] [address] * POCT glucose (06/26/2025 6:06 PM MECHANICAL OPERATOR) Glucose, POC 111 70 - 199 mg/dL Comment: For Glucose values <35 mg/dl when Hematocrit is >60 mg/dl,the test may not accurately detect significant hypoglycemia,and testing in the Laboratory should be considered if clinically indicated. Blood 06/26/2025 6:06 PM MECHANICAL OPERATOR 06/26/2025 6:06 PM MECHANICAL OPERATOR us Mike Thompson MD LAB POCT ORDERABLES - D EVICE Final Result Performing Organization Address [facility] Co de Phone Number [facility] [address] Department [place], [place] [id number] * Prepare RBC (06/26/2025 5:31 PM MECHANICAL OPERATOR) Product code [id number] [facility] Unit Number [id number] [facility] Product Blood Type OPOS [facility] Dispense Status PRESUMED TRANSFUSED [facility] Product code [id number] Unit Number [id number] [facility] Product Blood Type OPOS [facility] Dispense Status PRESUMED TRANSFUSED [facility] Blood 06/26/2025 5:31 PM MECHANICAL OPERATOR 06/26/2025 5:31 PM MECHANICAL OPERATOR us Mike Thompson MD BLOOD BANK PRODUCT ORDE RABLES Final Result Performing Organization Address [facility] Co de Phone Number [facility] [address] [place] [address] * Type and screen (06/26/2025 4:49 PM MECHANICAL OPERATOR) Dung, indirect Negative ABO Rh O Positive [facility] Blood 06/26/2025 4:49 PM MECHANICAL OPERATOR 06/26/2025 4:55 PM MECHANICAL OPERATOR Narrative [facility] - 06/26/2025 5:32 PM MECHANICAL OPERATOR Has the patient had Daratumumab or Isatuximab in the past 6 months?->Unknown us Nas Khalil MD LAB BLOOD BANK TEST ORD ERABLES Final Result Performing Organization Address [facility] Co de Phone Number [facility] [address] Department [place] [address] * VA AN ELECTIVE ENDOTRACHEAL AIRWAY, VA AN PROCEDURE PLACEHOLDER (06/26/2025 3:25 PM MECHANICAL OPERATOR) Narrative Marisa Bhatti CRNA - 06/26/2025 3:25 PM MECHANICAL OPERATOR Marisa Bhatti CRNA 06/26/2025 3:25 PM Airway Patient location: OR Urgency: elective Indications for airway management: anesthesia Difficult airway: no Airway prep: Preoxygenated: yes Patient position: sniffing Mask difficulty assessment: 1 - vent by mask Sedation level during airway: GA Final airway details: Final airway type: endotracheal airway Tube type: ETT ETT size: 8.0 mm Cuffed: yes Technique used for successful ETT placement: video laryngoscopy Insertion site: oral Video blade type: Glidescope Blade size: 3 Cormack-Lehane (video): grade I - full view of glottis Cuff volume: 8 mL Cuff inflated with: air Placement verified by: auscultation and CO2 detection Airway secured with: silk tape Number of attempts: 1 Nas Khalil MD ANESTHESIA ORDERABLES F inal Result * POCT glucose (06/26/2025 9:57 AM MECHANICAL OPERATOR) Glucose, POC 100 70 - 199 mg/dL Comment: For Glucose values <35 mg/dl when Hematocrit is >60 mg/dl,the test may not accurately detect significant hypoglycemia,and testing in the Laboratory should be considered if clinically indicated. Blood 06/26/2025 9:57 AM MECHANICAL OPERATOR 06/26/2025 9:57 AM MECHANICAL OPERATOR us Mike Thompson MD LAB POCT ORDERABLES - D EVICE Final Result [facility]ERT[facility] [address] Department [place] [address] * Check Sample (06/26/2025 9:51 AM MECHANICAL OPERATOR) ABO Rh O Positive MBC HCLL OTHER 06/26/2025 9:51 AM MECHANICAL OPERATOR 06/26/2025 10:06 AM MECHANICAL OPERATOR us Jenni Sood NP LAB BLOOD ORDERABLES Fi nal Result Performing Organization Address [facility]/ZIP Co de Phone Number [facility] [address] Department [place] [address] MBC * (ABNORMAL) Urinalysis reflex to microscopic and culture Urine, clean voided (06/17/2025 3:50 PM MECHANICAL OPERATOR) Color, ur Yellow Yellow Clarity, ur Clear Clear [facility] Specific gravity, ur 1.010 1.003 - 1.030 [facility] pH, urine 6.0 [facility] Comment: Interpretive Data U rine pH is affected by diet, medications, systemic acid-base disturbances, and renal tubular function. pH may affect urinary stone formation. For example, urine pH below 6.0 may help reduce the tendency for calcium phosphate stones and pH greater than 6.0 may reduce the tendency for uric acid stone formation. Source: [facility] Current Interpretive Data was last revised on 2017 Protein, ur ql Negative Negative [facility] Glucose, ur ql Negative Negative [facility] Ketones, ur Negative Negative [facility] Bilirubin, ur Negative Negative [facility] Blood, ur Negative Negative [facility] Urobilinogen, ur <2.0 <2.0 mg/dL [facility] Nitrite, ur Negative Negative [facility] Leukocyte esterase, ur 4+(A) Negative [facility] UA reflex comment Reflex to microscopic UA will be performed. [facility] Urine, clean voided 06/17/2025 3:50 PM MECHANICAL OPERATOR 06/17/2025 3:50 PM MECHANICAL OPERATOR us Mike Thompson MD LAB MICROBIOLOGY - GENE RAL ORDERABLES Final Result Performing Organization Address [facility] Co de Phone Number [facility] [address] Department [place] [address] * (ABNORMAL) Urinalysis, microscopic only (06/17/2025 3:50 PM MECHANICAL OPERATOR) WBC, ur >50(A) 0 - 5 /HPF RBC, ur 3-5(A) 0 - 2 /HPF [facility] Epithelial cells, squamous, ur 1-5 0 - 5 /HPF [facility] Bacteria, ur Trace(A) [facility] Mucous, ur Present(A) [facility] Hyaline casts, ur 11-20(A) 0 - 10 /LPF [facility] Culture Reflex Comment Reflex to urine culture will be performed. [facility] Urine, clean voided 06/17/2025 3:50 PM MECHANICAL OPERATOR 06/17/2025 3:50 PM MECHANICAL OPERATOR Mike Thompson MD LAB URINE ORDERABLES Fi nal Result Performing Organization Address City/[facility]/ZIP Co de Phone Number [facility] [address] Department [place] [address] * (ABNORMAL) Urine culture Urine, clean voided (06/17/2025 3:50 PM MECHANICAL OPERATOR) Report Final Report: 50,000 to less than 100,000 colonies/ml of Citrobacter koseri (.) Organism [employer]RO[employer] KOSERI [facility] Urine, clean voided 06/17/2025 3:50 PM MECHANICAL OPERATOR 06/17/2025 4:12 PM MECHANICAL OPERATOR Narrative [facility] - 06/20/2025 8:26 AM MECHANICAL OPERATOR Urine culture reflexed based upon urinalysis results. Organism Antibiotic Method Susceptibility Citrobacter koseri Cefazolin (KAMILLE) INTERPRETATION Susceptible Citrobacter koseri Ciprofloxacin (KAMILLE) INTERPRETATION Susceptible Citrobacter koseri Gentamicin (KAMILLE) INTERPRETATION Susceptible Citrobacter koseri Levofloxacin (KAMILLE) INTERPRETATION Susceptible Citrobacter koseri Meropenem (KAMILLE) INTERPRETATION Susceptible Citrobacter koseri Nitrofurantoin (KAMILLE) INTERPRETATION Susceptible Citrobacter koseri Piperacillin/Tazobactam (KAMILLE) INTER PRETATION Susceptible Citrobacter koseri Trimethoprim with Sulfamethoxazole (KAMILLE) INTERPRETATION Susceptible Mike Thompson MD LAB MICROBIOLOGY - GENE RAL ORDERABLES Final Result [facility] [address] [facility] [place] [address] * (ABNORMAL) Hemoglobin A1c (06/17/2025 3:35 PM MECHANICAL OPERATOR) [facility] Hgb A1C 6.2(H) 4.0 - 5.6 % Estimated Average Glucose 131 mg/dL [facility] Comment: The ADA recommends reporting an estimated Average Glucose (eAG) with all Hemoglobin A1c results using the equation derived from a study of 507 normal and diabetic adults. Minority populations were underrepresented and children were not included. (Diabetes Care 31:0146-6371, 2008). The eAG is not equivalent to a fasting glucose. Blood 06/17/2025 3:35 PM MECHANICAL OPERATOR 06/17/2025 3:35 PM MECHANICAL OPERATOR Mike Thompson MD LAB BLOOD ORDERABLES Fi nal Result Performing Organization Address [facility] de Phone Number [facility] [address] [facility] [place] [address] * Vitamin D 25 hydroxy (06/17/2025 3:34 PM MECHANICAL OPERATOR) [facility] Vitamin D 25-OH 31 30 - 80 ng/mL Blood 06/17/2025 3:34 PM MECHANICAL OPERATOR 06/17/2025 3:34 PM MECHANICAL OPERATOR Mike Thompson MD LAB BLOOD ORDERABLES Fi nal Result Performing Organization Address [facility] Co de Phone Number [facility] [address] [facility] [place] [address] * aPTT (06/17/2025 3:34 PM MECHANICAL OPERATOR) [facility] aPTT 29 26 - 38 sec Comment: Interpretive Data Heparin therapeutic range: 66.0 - 100.0 seconds. Range based on correlation with therapeutic heparin activity range of 0.3 - 0.7 Units/mL. Blood 06/17/2025 3:34 PM MECHANICAL OPERATOR 06/17/2025 3:34 PM MECHANICAL OPERATOR Mike Thompson MD LAB BLOOD ORDERABLES Fi nal Result Performing Organization Address [facility] Co de Phone Number [facility] [address] [place] [address] * Type and screen (06/17/2025 3:34 PM MECHANICAL OPERATOR) Pathologist [facility] ABO Rh O Positive Dung, indirect Negative [facility] Blood 06/17/2025 3:34 PM MECHANICAL OPERATOR 06/17/2025 3:50 PM MECHANICAL OPERATOR Narrative [facility] - 06/17/2025 4:58 PM MECHANICAL OPERATOR Is this test being ordered in advance for a procedure?->Yes Expected date of procedure:->06/17/25 Has the patient been transfused in the past 3 months?->Yes Jenni Sood NP LAB BLOOD BANK TEST ORD ERABLES Final Result Performing Organization Address [facility] Co de Phone Number [facility] [address] [place] [address] * (ABNORMAL) CRP (acute phase) (06/17/2025 3:34 PM MECHANICAL OPERATOR) [facility] CRP 24.9(H) <=10.0 mg/L Blood 06/17/2025 3:34 PM MECHANICAL OPERATOR 06/17/2025 3:34 PM MECHANICAL OPERATOR us Mike Thompson MD LAB BLOOD ORDERABLES Fi nal Result Performing Organization Address [facility] Co de Phone Number [facility] [address] [place] [address] * (ABNORMAL) Albumin (06/17/2025 3:34 PM MECHANICAL OPERATOR) Pathologist [facility] Albumin 3.2(L) 3.5 - 5.0 g/dL Blood 06/17/2025 3:34 PM MECHANICAL OPERATOR 06/17/2025 3:34 PM MECHANICAL OPERATOR Mike Thompson MD LAB BLOOD ORDERABLES Fi nal Result Performing Organization Address [facility] Co de Phone Number [facility] [address] [employer] [address] * (ABNORMAL) Nicotine metabolite screen, urine (06/17/2025 3:20 PM MECHANICAL OPERATOR) Nicotine, ur 49(H) <5.0 ng/mL [facility] Cotinine, ur 67(H) <5.0 ng/mL [facility] Anabasine ur <2.0 <2.0 ng/mL [facility] Comment: ADDITIONAL INFORMATION This test was developed and its performance characteristics determined by [facility] in a manner consistent with CLIA requirements. This test has not been cleared or approved by the U.S. Food and Drug Administration. Test Performed by: [facility] [place] [address] Academic Interventionist: Patti Escalante Ph.D.; CLIA# [id number] Nornicotine, ur 4.1(H) <2.0 ng/mL [facility] Urine 06/17/2025 3:20 PM MECHANICAL OPERATOR 06/17/2025 4:04 PM MECHANICAL OPERATOR Mike Thompson MD LAB URINE ORDERABLES Fi nal Result Performing Organization Address [facility] Co de Phone Number [facility] [address] Department [employer] [place], [place] [id number] Imogene ref Lab * XR Spine Thoracic 2 View (06/15/2025 9:40 AM MECHANICAL OPERATOR) Anatomical Region Laterality Modality Spine N/A Computed Radiogr aphy 06/15/2025 1:33 PM MECHANICAL OPERATOR Impressions 06/15/2025 2:31 PM MECHANICAL OPERATOR Vertebral augmentation at T5 and T6 without interval height loss or new thoracic compression fracture. Dictated by: Artemio Cruz MD The radiology attending physician has personally reviewed this study, and had reviewed and/or edited this written report and agrees with it. Electronically signed by: Froy Yeager MD Narrative 06/15/2025 2:31 PM MECHANICAL OPERATOR EXAMINATION: XR SPINE THORACIC 2 VIEWS HISTORY: T6 fracture COMPARISON: 06/07/2025 FINDINGS: 2 radiographs of the thoracic spine are submitted. There are changes of vertebral augmentation at T5 and T6 without interval height loss compared to the prior examination. There are also changes of vertebral augmentation at L1, partially imaged. There are no new compression fractures. There is exaggeration of the thoracic kyphosis at T5-T6. The alignment of the thoracic spine is otherwise normal. There is mild multilevel degenerative disc disease. Vascular calcifications. Procedure Note Froy Yeager MD - 06/15/2025 EXAMINATION: XR SPINE THORACIC 2 VIEWS HISTORY: T6 fracture COMPARISON: 06/07/2025 FINDINGS: 2 radiographs of the thoracic spine are submitted. There are changes of vertebral augmentation at T5 and T6 without interval height loss compared to the prior examination. There are also changes of vertebral augmentation at L1, partially imaged. There are no new compression fractures. There is exaggeration of the thoracic kyphosis at T5-T6. The alignment of the thoracic spine is otherwise normal. There is mild multilevel degenerative disc disease. Vascular calcifications. IMPRESSION: Vertebral augmentation at T5 and T6 without interval height loss or new thoracic compression fracture. Dictated by: Artemio Cruz MD The radiology attending physician has personally reviewed this study, and had reviewed and/or edited this written report and agrees with it. Electronically signed by: Froy Yeager MD Mike Thompson MD IMG XR PROCEDURES Final Result * Potassium level, serum (06/14/2025 3:43 PM MECHANICAL OPERATOR) Potassium, sr 3.9 3.6 - 5.2 mmol/L Comment:Testing performed by : [facility], [address] [place] [address], [place]., [address] Blood 06/14/2025 3:43 PM MECHANICAL OPERATOR 06/14/2025 4:05 PM MECHANICAL OPERATOR us Elizabet Grant MD LAB BLOOD ORDERABLES Final Re sult ROBERTO [facility]A ([place]) [address] [facility] [place] [address] * Potassium level, serum (06/14/2025 2:53 PM MECHANICAL OPERATOR) Pathologist [facility] Potassium, sr 3.9 3.6 - 5.2 mmol/L Blood 06/14/2025 2:53 PM MECHANICAL OPERATOR 06/16/2025 1:34 PM MECHANICAL OPERATOR us Yuko Martin DO LAB BLOOD ORDERABLES Final Result ROBERTO [address] Department [place] [address] * POCT glucose (06/10/2025 7:34 AM MECHANICAL OPERATOR) [facility] Glucose, POC 95 70 - 199 mg/dL Blood 06/10/2025 7:34 AM MECHANICAL OPERATOR 06/10/2025 7:34 AM MECHANICAL OPERATOR Elizabet Grant MD LAB POCT ORDERABLES - DEVICE Final Result Performing Organization Address City/[facility]/ZIP Co de Phone Number ROBERTO ALCALA ([place]) 1 [facility] Department [place] [address] * eGFR (06/10/2025 3:15 AM MECHANICAL OPERATOR) [facility] Signature eGFR 80 >=60 mL/min/1. 73 m2 Comment: Interpretive Data Reference Interval Normal >/= 90 mL/min/1.73m2 Mildly decreased* 60 - 89 mL/min/1.73m2 Mildly to moderately decreased 45 - 59 mL/min/1.73m2 Moderately to severely decreased 30 - 44 mL/min/1.73m2 Severely decreased 15 - 29 mL/min/1.73m2 Kidney Failure < 15 mL/min/1.73m2 *Relative to young adult level Estimated glomerular filtration rate is determined by the 2020 CKD-EPI equation recommended by the National Kidney Foundation (A Unifying Approach to GFR Estimation: Recommendations of the NKF-ASK Task Force on Reassessing the Inclusion of Race in Diagnosing Kidney Disease, JASN 2020). The CKD-EPI equation should not be used for patients with unstable renal function and has not been validated in children and those over 70. Current interpretive data was last reviewed 2021. Blood 06/10/2025 3:15 AM MECHANICAL OPERATOR 06/10/2025 3:41 AM MECHANICAL OPERATOR us Nikolay Scott MD LAB BLOOD ORDERABLES Final Resu lt ROBERTO ALCALA ([place]) 1 [facility] [place] [address] * (ABNORMAL) Differential, auto (06/10/2025 3:15 AM MECHANICAL OPERATOR) Neutrophil abs 6.32 1.50 - 6.50 K/cumm Imm gran abs 0.08 0.00 - 0.10 K/cumm [facility] ([place]) Lymphocyte abs 2.09 0.80 - 3.30 K/cumm [facility] ([place]) Monocyte abs 0.85(H) 0.20 - 0.80 K/cumm [facility] ([place]) Eosinophil abs 0.09 0.00 - 0.50 K/cumm [facility] ([place]) Basophil abs 0.02 0.00 - 0.10 K/cumm [facility] ([place]) Neutrophil pct 66.9 % [facility] ([place]) Comment: Interpretive Data Percent cell count reference ranges are not reported, since discordance with absolute values may lead to misinterpretation of CBC data. Current Interpretive Data was last revised on 2017. Imm gran pct 0.8 % [facility] ([place]) Comment: Interpretive Data Percent cell count reference ranges are not reported, since discordance with absolute values may lead to misinterpretation of CBC data. Current Interpretive Data was last revised on 2017. Lymphocyte pct 22.1 % [facility] ([place]) Comment: Interpretive Data Percent cell count reference ranges are not reported, since discordance with absolute values may lead to misinterpretation of CBC data. Current Interpretive Data was last revised on 2017. Monocyte pct 9.0 % [facility] ([place]) Comment: Interpretive Data Percent cell count reference ranges are not reported, since discordance with absolute values may lead to misinterpretation of CBC data. Current Interpretive Data was last revised on 2017. Eosinophil pct 1.0 % [facility] ([place]) Comment: Interpretive Data Percent cell count reference ranges are not reported, since discordance with absolute values may lead to misinterpretation of CBC data. Current Interpretive Data was last revised on 2017. Basophil pct 0.2 % [facility] ([place]) Comment: Interpretive Data Percent cell count reference ranges are not reported, since discordance with absolute values may lead to misinterpretation of CBC data. Current Interpretive Data was last revised on 2017. Blood 06/10/2025 3:15 AM MECHANICAL OPERATOR 06/10/2025 3:41 AM MECHANICAL OPERATOR us Nikolay Scott MD LAB BLOOD ORDERABLES Final Resu lt [facility] ([place]) 1 [facility] Department [place] [address] * (ABNORMAL) CBC with auto differential (06/10/2025 3:15 AM MECHANICAL OPERATOR) WBC 9.45 3.80 - 9.90 K/cumm Hgb 12.3(L) 13.0 - 17.5 g/dL [facility] ([place]) Hct 35.7(L) 38.9 - 50.3 % [facility] ([place]) Plt 179 150 - 400 K/cumm [facility] ([place]) MPV 10.5 9.1 - 12.3 fL [facility] ([place]) RBC 3.72(L) 4.30 - 5.80 M/cumm [facility] ([place]) MCV 96.0 81.3 - 96.4 fL [facility] ([place]) MCH 33.1 27.1 - 33.3 pg [facility] ([place]) MCHC 34.5 32.3 - 35.7 g/dL [facility] ([place]) RDW CV 14.3 11.1 - 14.9 % [facility] ([place]) RDW SD 50.4(H) 35.7 - 48.1 fL [facility] ([place]) NRBC abs 0.00 0.00 - 0.01 K/cumm [facility] ([place]) Blood 06/10/2025 3:15 AM MECHANICAL OPERATOR 06/10/2025 3:41 AM MECHANICAL OPERATOR us Nikolay Scott MD LAB BLOOD ORDERABLES Final Resu lt [facility] ([place]) 1 [facility] [place] [address] * (ABNORMAL) Comprehensive metabolic panel (06/10/2025 3:15 AM MECHANICAL OPERATOR) Sodium 139 135 - 145 mmol/L Potassium, pl 3.2(L) 3.3 - 4.9 mmol/L [facility] ([place]) Chloride 100 97 - 110 mmol/L [facility] ([place]) CO2 28 22 - 32 mmol/L [facility] ([place]) Anion gap 11 2 - 15 mmol/L [facility] ([place]) BUN 23 6 - 25 mg/dL [facility] ([place]) Creatinine 1.00 0.80 - 1.30 mg/dL [facility] ([place]) Glucose 91 70 - 199 mg/dL [facility] ([place]) Comment: Interpretive Data Fasting glucose >/= 126 mg/dl is diagnostic for diabetes. Fasting is defined as no caloric intake for at least 8 hours. Fasting glucose between 100 mg/dl to 125 mg/dl is diagnostic of prediabetes. In a patient with classic symptoms of hyperglycemia or hyperglycemic crisis, a random glucose >/= 200 mg/dl is diagnostic for diabetes. In the absence of unequivocal hyperglycemia, results should be confirmed by repeat testing. The classification and Diagnosis of Diabetes Diabetes Care 2021; 46: S19-S40. Current interpretive data was last revised 2022. Calcium 9.1 8.5 - 10.3 mg/dL [facility] ([place]) Bilirubin, total 0.5 0.1 - 1.2 mg/dL [facility] ([place]) Protein, pl 5.6(L) 6.5 - 8.5 g/dL [facility] ([place]) Albumin 3.3(L) 3.5 - 5.0 g/dL [facility] ([place]) Alk phos 126 40 - 130 Units/L [facility] ([place]) ALT 24 7 - 55 Units/L [facility] ([place]) AST 20 10 - 50 Units/L [facility] ([place]) Blood 06/10/2025 3:15 AM MECHANICAL OPERATOR 06/10/2025 3:41 AM MECHANICAL OPERATOR us Nikolay Scott MD LAB BLOOD ORDERABLES Final Resu lt ROBERTO ALCALA ([place]) 1 [facility] [place] [address] * POCT glucose (06/09/2025 7:56 PM MECHANICAL OPERATOR) Glucose, POC 102 70 - 199 mg/dL Blood 06/09/2025 7:56 PM MECHANICAL OPERATOR 06/09/2025 7:56 PM MECHANICAL OPERATOR us Elizabet Grant MD LAB POCT ORDERABLES - DEVICE Final Result Performing Organization Address City/[facility]/ZIP Co de Phone Number ROBERTO ALCALA ([place]) 1 [facility] [place] [address] * POCT glucose (06/09/2025 4:31 PM MECHANICAL OPERATOR) Glucose, POC 106 70 - 199 mg/dL Blood 06/09/2025 4:31 PM MECHANICAL OPERATOR 06/09/2025 4:31 PM MECHANICAL OPERATOR us Elizabet Grant MD LAB POCT ORDERABLES - DEVICE Final Result Performing Organization Address City/[facility]/ZIP Co de Phone Number ROBERTO ALCALA ([place]) 1 [facility] [place] [address] * POCT glucose (06/09/2025 11:26 AM MECHANICAL OPERATOR) Glucose, POC 108 70 - 199 mg/dL Blood 06/09/2025 11:2 6 AM MECHANICAL OPERATOR 06/09/2025 11:26 AM MECHANICAL OPERATOR us Elizabet Grant MD LAB POCT ORDERABLES - DEVICE Final Result [facility] ([place]) 1 [facility] [place] [address] * POCT glucose (06/09/2025 7:58 AM MECHANICAL OPERATOR) Glucose, POC 105 70 - 199 mg/dL Blood 06/09/2025 7:58 AM MECHANICAL OPERATOR 06/09/2025 7:58 AM MECHANICAL OPERATOR us Elizabet Grant MD LAB POCT ORDERABLES - DEVICE Final Result [facility] ([place]) 1 [facility] [place] [address] * POCT glucose (06/09/2025 4:01 AM MECHANICAL OPERATOR) Glucose, POC 116 70 - 199 mg/dL Blood 06/09/2025 4:01 AM MECHANICAL OPERATOR 06/09/2025 4:01 AM MECHANICAL OPERATOR us Bonifacio Blackwell MD LAB POCT ORDERABLES - DEVICE Final Result [facility] ([place]) 1 [facility] [place] [address] * eGFR (06/09/2025 3:06 AM MECHANICAL OPERATOR) eGFR 78 >=60 mL/min/1. 73 m2 Comment: Interpretive Data Reference Interval Normal >/= 90 mL/min/1.73m2 Mildly decreased* 60 - 89 mL/min/1.73m2 Mildly to moderately decreased 45 - 59 mL/min/1.73m2 Moderately to severely decreased 30 - 44 mL/min/1.73m2 Severely decreased 15 - 29 mL/min/1.73m2 Kidney Failure < 15 mL/min/1.73m2 *Relative to young adult level Estimated glomerular filtration rate is determined by the 2020 CKD-EPI equation recommended by the National Kidney Foundation (A Unifying Approach to GFR Estimation: Recommendations of the NKF-ASK Task Force on Reassessing the Inclusion of Race in Diagnosing Kidney Disease, JASN 2020). The CKD-EPI equation should not be used for patients with unstable renal function and has not been validated in children and those over 70. Current interpretive data was last reviewed 2021. Blood 06/09/2025 3:06 AM MECHANICAL OPERATOR 06/09/2025 3:38 AM MECHANICAL OPERATOR us Nikolay Scott MD LAB BLOOD ORDERABLES Final Resu lt [facility] ([place]) 1 [facility] Department [place] [address] * (ABNORMAL) Differential, auto (06/09/2025 3:06 AM MECHANICAL OPERATOR) Neutrophil abs 7.06(H) 1.50 - 6.50 K/cumm Imm gran abs 0.10 0.00 - 0.10 K/cumm [facility] ([place]) Lymphocyte abs 2.11 0.80 - 3.30 K/cumm [facility] ([place]) Monocyte abs 0.87(H) 0.20 - 0.80 K/cumm [facility] ([place]) Eosinophil abs 0.06 0.00 - 0.50 K/cumm [facility] ([place]) Basophil abs 0.03 0.00 - 0.10 K/cumm [facility] ([place]) Neutrophil pct 69.0 % [facility] ([place]) Comment: Interpretive Data Percent cell count reference ranges are not reported, since discordance with absolute values may lead to misinterpretation of CBC data. Current Interpretive Data was last revised on 2017. Imm gran pct 1.0 % [facility] ([place]) Comment: Interpretive Data Percent cell count reference ranges are not reported, since discordance with absolute values may lead to misinterpretation of CBC data. Current Interpretive Data was last revised on 2017. Lymphocyte pct 20.6 % [facility] ([place]) Comment: Interpretive Data Percent cell count reference ranges are not reported, since discordance with absolute values may lead to misinterpretation of CBC data. Current Interpretive Data was last revised on 2017. Monocyte pct 8.5 % [facility] ([place]) Comment: Interpretive Data Percent cell count reference ranges are not reported, since discordance with absolute values may lead to misinterpretation of CBC data. Current Interpretive Data was last revised on 2017. Eosinophil pct 0.6 % [facility] ([facility]) Comment: Interpretive Data Percent cell count reference ranges are not reported, since discordance with absolute values may lead to misinterpretation of CBC data. Current Interpretive Data was last revised on 2017. Basophil pct 0.3 % [facility] ([place]) Comment: Interpretive Data Percent cell count reference ranges are not reported, since discordance with absolute values may lead to misinterpretation of CBC data. Current Interpretive Data was last revised on 2017. Blood 06/09/2025 3:06 AM MECHANICAL OPERATOR 06/09/2025 3:37 AM MECHANICAL OPERATOR us Nikolay Scott MD LAB BLOOD ORDERABLES Final Resu lt ROBERTO ALCALA ([place]) 1 [facility] Department [place] [address] * (ABNORMAL) CBC with auto differential (06/09/2025 3:06 AM MECHANICAL OPERATOR) WBC 10.23(H) 3.80 - 9.90 K/cumm Hgb 12.2(L) 13.0 - 17.5 g/dL [facility] ([place]) Hct 35.9(L) 38.9 - 50.3 % [facility] ([place]) Plt 157 150 - 400 K/cumm [facility] ([place]) MPV 10.6 9.1 - 12.3 fL [facility] ([place]) RBC 3.75(L) 4.30 - 5.80 M/cumm [facility] ([place]) MCV 95.7 81.3 - 96.4 fL [facility] ([place]) MCH 32.5 27.1 - 33.3 pg [facility] ([place]) MCHC 34.0 32.3 - 35.7 g/dL [facility] ([place]) RDW CV 14.4 11.1 - 14.9 % [facility] ([place]) RDW SD 50.6(H) 35.7 - 48.1 fL [facility] ([place]) NRBC abs 0.00 0.00 - 0.01 K/cumm [facility] ([facility]) Blood 06/09/2025 3:06 AM MECHANICAL OPERATOR 06/09/2025 3:37 AM MECHANICAL OPERATOR Nikolay Scott MD LAB BLOOD ORDERABLES Final Resu lt ROBERTO ALCALA ([place]) 1 [facility] [employer] [address] * Phosphorus (06/09/2025 3:06 AM MECHANICAL OPERATOR) Pathologist [facility] Phosphorus, pl 3.9 2.3 - 4.5 mg/dL Blood 06/09/2025 3:06 AM MECHANICAL OPERATOR 06/09/2025 3:38 AM MECHANICAL OPERATOR Nikolay Scott MD LAB BLOOD ORDERABLES Final Resu lt ROBERTO ALCALA ([place]) 1 [facility] [place] [address] * (ABNORMAL) Comprehensive metabolic panel (06/09/2025 3:06 AM MECHANICAL OPERATOR) Sodium 137 135 - 145 mmol/L Potassium, pl 3.3 3.3 - 4.9 mmol/L [facility] Chloride 102 97 - 110 mmol/L [facility] ([place]) CO2 24 22 - 32 mmol/L [facility] ([place]) Anion gap 11 2 - 15 mmol/L [facility] ([place]) BUN 23 6 - 25 mg/dL [facility] ([place]) Creatinine 1.03 0.80 - 1.30 mg/dL [facility] ([place]) Glucose 91 70 - 199 mg/dL [facility] ([place]) Comment: Interpretive Data Fasting glucose >/= 126 mg/dl is diagnostic for diabetes. Fasting is defined as no caloric intake for at least 8 hours. Fasting glucose between 100 mg/dl to 125 mg/dl is diagnostic of prediabetes. In a patient with classic symptoms of hyperglycemia or hyperglycemic crisis, a random glucose >/= 200 mg/dl is diagnostic for diabetes. In the absence of unequivocal hyperglycemia, results should be confirmed by repeat testing. The classification and Diagnosis of Diabetes Diabetes Care 2021; 46: S19-S40. Current interpretive data was last revised 2022. Calcium 8.9 8.5 - 10.3 mg/dL [facility] ([place]) Bilirubin, total 0.5 0.1 - 1.2 mg/dL [facility] ([place]) Protein, pl 5.4(L) 6.5 - 8.5 g/dL [facility] ([place]) Albumin 3.1(L) 3.5 - 5.0 g/dL [facility] ([place]) Alk phos 121 40 - 130 Units/L [facility] ([place]) ALT 23 7 - 55 Units/L [facility] ([place]) AST 21 10 - 50 Units/L [facility] ([facility]) Blood 06/09/2025 3:06 AM MECHANICAL OPERATOR 06/09/2025 3:38 AM MECHANICAL OPERATOR us Nikolay Scott MD LAB BLOOD ORDERABLES Final Resu lt [facility] ([place]) 1 [facility] Department [place] [address] * POCT glucose (06/08/2025 8:12 PM MECHANICAL OPERATOR) Glucose, POC 115 70 - 199 mg/dL Blood 06/08/2025 8:12 PM MECHANICAL OPERATOR 06/08/2025 8:12 PM MECHANICAL OPERATOR Bonifacio Blackwell MD LAB POCT ORDERABLES - DEVICE Final Result Performing Organization Address [facility] Co de Phone Number ROBERTO ALCALA ([place]) 1 [facility] [place] [address] * POCT glucose (06/08/2025 4:10 PM MECHANICAL OPERATOR) Glucose, POC 98 70 - 199 mg/dL Blood 06/08/2025 4:10 PM MECHANICAL OPERATOR 06/08/2025 4:10 PM MECHANICAL OPERATOR Bonifacio Blackwell MD LAB POCT ORDERABLES - DEVICE Final Result Performing Organization Address [facility] Co de Phone Number ROBERTO ALCALA ([place]) 1 [facility] [place] [address] * POCT glucose (06/08/2025 11:53 AM MECHANICAL OPERATOR) Glucose, POC 98 70 - 199 mg/dL Blood 06/08/2025 11:5 3 AM MECHANICAL OPERATOR 06/08/2025 11:53 AM MECHANICAL OPERATOR Bonifacio Blackwell MD LAB POCT ORDERABLES - DEVICE Final Result Performing Organization Address [facility] Co de Phone Number ROBERTO ALCALA ([place]) 1 [facility] [place] [address] * MRI Cervical Spine WO Contrast (06/08/2025 11:40 AM MECHANICAL OPERATOR) Anatomical Region Laterality Modality Spine N/A Magnetic Resonan ce 06/08/2025 12:3 1 PM MECHANICAL OPERATOR Impressions 06/08/2025 12:31 PM MECHANICAL OPERATOR Disc degeneration most evident at C6-7 with bulky central disc osteophytic complex resulting in flattening along the ventral cervical cord with mild cord impingement. No definite intracord signal abnormality. Some artifact on sagittal T2 images. Mild cervical disc degeneration and facet arthritis at other levels. See above. Electronically signed by: Michelle Magallaens M.D. Narrative 06/08/2025 12:31 PM MECHANICAL OPERATOR EXAM DESCRIPTION: MRI CERVICAL SPINE WITHOUT CONTRAST REASON FOR STUDY:Weakness to RLE, multiple recent falls, kyphoplasty 06/05/25 that helped with pain but has not improved RLE issues TECHNIQUE: Sagittal and Axial imaging includes T1, T2, STIR and gradient echo sequences. FINDINGS: No comparison. ALIGNMENT: Cervical alignment is normal. VERTEBRAE: Vertebral body height is maintained. No acute marrow abnormality.. DISCS : Mild cervical disc degeneration at several levels. See details below. HARDWARE: None in the spine. CORD: No intramedullary cord signal abnormality. Please note some artifact due to pulsation to/technical factors. INDIVIDUAL LEVELS: C1-C2: Normal occipital cervical alignment. Normal atlantodens interval. No stenosis at the foramen magnum. C2-C3: No significant spinal stenosis or neuroforaminal stenosis C3-C4: Disc space narrowing with posterior endplate osteophytic spurring. There is mild left foraminal narrowing. No central canal stenosis. C4-C5: Bilateral facet arthritis. Uncovertebral spurring. No significant central canal stenosis or neural foraminal stenosis. C5-C6: Mild broad-based posterior disc osteophytic complex. No significant central canal stenosis or foraminal stenosis. C6-C7: Broad-based central disc osteophytic complex with impingement upon ventral cord. No complete effacement of dorsal CSF. No foraminal narrowing. C7-T1: No significant spinal stenosis or neuroforaminal stenosis. BASE OF BRAIN: No significant finding. UPPER THORACIC: Incompletely imaged. No significant spinal stenosis or foraminal stenosis. OTHER: No other significant finding. Procedure Note Michelle Magallanes MD - 06/08/2025 EXAM DESCRIPTION: MRI CERVICAL SPINE WITHOUT CONTRAST REASON FOR STUDY:Weakness to RLE, multiple recent falls, kyphoplasty 06/05/25 that helped with pain but has not improved RLE issues TECHNIQUE: Sagittal and Axial imaging includes T1, T2, STIR and gradient echo sequences. FINDINGS: No comparison. ALIGNMENT: Cervical alignment is normal. VERTEBRAE: Vertebral body height is maintained. No acute marrow abnormality.. DISCS : Mild cervical disc degeneration at several levels. See details below. HARDWARE: None in the spine. CORD: No intramedullary cord signal abnormality. Please note some artifact due to pulsation to/technical factors. INDIVIDUAL LEVELS: C1-C2: Normal occipital cervical alignment. Normal atlantodens interval. No stenosis at the foramen magnum. C2-C3: No significant spinal stenosis or neuroforaminal stenosis C3-C4: Disc space narrowing with posterior endplate osteophytic spurring. There is mild left foraminal narrowing. No central canal stenosis. C4-C5: Bilateral facet arthritis. Uncovertebral spurring. No significant central canal stenosis or neural foraminal stenosis. C5-C6: Mild broad-based posterior disc osteophytic complex. No significant central canal stenosis or foraminal stenosis. C6-C7: Broad-based central disc osteophytic complex with impingement upon ventral cord. No complete effacement of dorsal CSF. No foraminal narrowing. C7-T1: No significant spinal stenosis or neuroforaminal stenosis. BASE OF BRAIN: No significant finding. UPPER THORACIC: Incompletely imaged. No significant spinal stenosis or foraminal stenosis. OTHER: No other significant finding. IMPRESSION: Disc degeneration most evident at C6-7 with bulky central disc osteophytic complex resulting in flattening along the ventral cervical cord with mild cord impingement. No definite intracord signal abnormality. Some artifact on sagittal T2 images. Mild cervical disc degeneration and facet arthritis at other levels. See above. Electronically signed by: Michelle Magallanes M.D. Bonifacio Blackwell MD IMG MRI PROCEDURES Final Res ult * POCT glucose (06/08/2025 7:40 AM MECHANICAL OPERATOR) [facility] Signature Glucose, POC 94 70 - 199 mg/dL Blood 06/08/2025 7:40 AM MECHANICAL OPERATOR 06/08/2025 7:40 AM MECHANICAL OPERATOR Bonifacio Blackwell MD LAB POCT ORDERABLES - DEVICE Final Result [facility] [place] 1 [facility] [place] [address] * eGFR (06/08/2025 3:55 AM MECHANICAL OPERATOR) eGFR >90 >=60 mL/min/1. 73 m2 Comment: Interpretive Data Reference Interval Normal >/= 90 mL/min/1.73m2 Mildly decreased* 60 - 89 mL/min/1.73m2 Mildly to moderately decreased 45 - 59 mL/min/1.73m2 Moderately to severely decreased 30 - 44 mL/min/1.73m2 Severely decreased 15 - 29 mL/min/1.73m2 Kidney Failure < 15 mL/min/1.73m2 *Relative to young adult level Estimated glomerular filtration rate is determined by the 2020 CKD-EPI equation recommended by the National Kidney Foundation (A Unifying Approach to GFR Estimation: Recommendations of the NKF-ASK Task Force on Reassessing the Inclusion of Race in Diagnosing Kidney Disease, JASN 2020). The CKD-EPI equation should not be used for patients with unstable renal function and has not been validated in children and those over 70. Current interpretive data was last reviewed 2021. Blood 06/08/2025 3:55 AM MECHANICAL OPERATOR 06/08/2025 4:27 AM MECHANICAL OPERATOR us Nikolay Scott MD LAB BLOOD ORDERABLES Final Resu lt [facility] ([place]) 1 [facility] [place] [address] * (ABNORMAL) Differential, auto (06/08/2025 3:55 AM MECHANICAL OPERATOR) Neutrophil abs 7.83(H) 1.50 - 6.50 K/cumm Imm gran abs 0.13(H) 0.00 - 0.10 K/cumm [facility] ([place]) Lymphocyte abs 2.12 0.80 - 3.30 K/cumm [facility] ([place]) Monocyte abs 0.81(H) 0.20 - 0.80 K/cumm [facility] ([place]) Eosinophil abs 0.04 0.00 - 0.50 K/cumm [facility] ([place]) Basophil abs 0.01 0.00 - 0.10 K/cumm [facility] ([place]) Neutrophil pct 71.5 % [facility] ([facility]) Comment: Interpretive Data Percent cell count reference ranges are not reported, since discordance with absolute values may lead to misinterpretation of CBC data. Current Interpretive Data was last revised on 2017. Imm gran pct 1.2 % [facility] ([place]) Comment: Interpretive Data Percent cell count reference ranges are not reported, since discordance with absolute values may lead to misinterpretation of CBC data. Current Interpretive Data was last revised on 2017. Lymphocyte pct 19.4 % [facility] ([place]) Comment: Interpretive Data Percent cell count reference ranges are not reported, since discordance with absolute values may lead to misinterpretation of CBC data. Current Interpretive Data was last revised on 2017. Monocyte pct 7.4 % [facility] ([place]) Comment: Interpretive Data Percent cell count reference ranges are not reported, since discordance with absolute values may lead to misinterpretation of CBC data. Current Interpretive Data was last revised on 2017. Eosinophil pct 0.4 % [facility] ([place]) Comment: Interpretive Data Percent cell count reference ranges are not reported, since discordance with absolute values may lead to misinterpretation of CBC data. Current Interpretive Data was last revised on 2017. Basophil pct 0.1 % [facility] ([place]) Comment: Interpretive Data Percent cell count reference ranges are not reported, since discordance with absolute values may lead to misinterpretation of CBC data. Current Interpretive Data was last revised on 2017. Blood 06/08/2025 3:55 AM MECHANICAL OPERATOR 06/08/2025 4:27 AM MECHANICAL OPERATOR us Nikolay Scott MD LAB BLOOD ORDERABLES Final Resu lt [facility]ERTO [facility] ([place]) 1 [facility] [place] [address] * (ABNORMAL) CBC with auto differential (06/08/2025 3:55 AM MECHANICAL OPERATOR) WBC 10.94(H) 3.80 - 9.90 K/cumm Hgb 12.1(L) 13.0 - 17.5 g/dL [facility] ([place]) Hct 36.1(L) 38.9 - 50.3 % [facility] ([place]) Plt 152 150 - 400 K/cumm [facility] ([place]) MPV 10.6 9.1 - 12.3 fL [facility] ([place]) RBC 3.68(L) 4.30 - 5.80 M/cumm [facility] ([place]) MCV 98.1(H) 81.3 - 96.4 fL [facility] ([place]) MCH 32.9 27.1 - 33.3 pg [facility] ([facility]) MCHC 33.5 32.3 - 35.7 g/dL [facility] ([facility]) RDW CV 14.4 11.1 - 14.9 % [facility] ([facility]) RDW SD 52.5(H) 35.7 - 48.1 fL [facility] ([facility]) NRBC abs 0.00 0.00 - 0.01 K/cumm [facility] ([facility]) Blood 06/08/2025 3:55 AM MECHANICAL OPERATOR 06/08/2025 4:27 AM MECHANICAL OPERATOR Nikolay Scott MD LAB BLOOD ORDERABLES Final Resu lt Performing Organization Address City/[facility]/ZIP Co de Phone Number ROBERTO [facility] (ARMAAN) 1 [facility] [place] [address] * Phosphorus (06/08/2025 3:55 AM MECHANICAL OPERATOR) Phosphorus, pl 2.6 2.3 - 4.5 mg/dL Blood 06/08/2025 3:55 AM MECHANICAL OPERATOR 06/08/2025 4:27 AM MECHANICAL OPERATOR Nikolay Scott MD LAB BLOOD ORDERABLES Final Resu lt [facility]ERTO [facility] ([place]MA[place]) 1 [facility] [place] [address] * (ABNORMAL) Comprehensive metabolic panel (06/08/2025 3:55 AM MECHANICAL OPERATOR) Sodium 138 135 - 145 mmol/L Potassium, pl 3.5 3.3 - 4.9 mmol/L [facility] ([facility]) Chloride 104 97 - 110 mmol/L [facility] ([facility]) CO2 24 22 - 32 mmol/L [facility] ([facility]) Anion gap 10 2 - 15 mmol/L [facility] ([facility]) BUN 17 6 - 25 mg/dL [facility] ([facility]) Creatinine 0.79(L) 0.80 - 1.30 mg/dL [facility] ([facility]) Glucose 114 70 - 199 mg/dL [facility] ([facility]) Comment: Interpretive Data Fasting glucose >/= 126 mg/dl is diagnostic for diabetes. Fasting is defined as no caloric intake for at least 8 hours. Fasting glucose between 100 mg/dl to 125 mg/dl is diagnostic of prediabetes. In a patient with classic symptoms of hyperglycemia or hyperglycemic crisis, a random glucose >/= 200 mg/dl is diagnostic for diabetes. In the absence of unequivocal hyperglycemia, results should be confirmed by repeat testing. The classification and Diagnosis of Diabetes Diabetes Care 202; 46: S19-S40. Current interpretive data was last revised 2022. Calcium 8.5 8.5 - 10.3 mg/dL [facility] ([facility]) Bilirubin, total 0.4 0.1 - 1.2 mg/dL [facility] ([facility]) Protein, pl 5.4(L) 6.5 - 8.5 g/dL [facility] ([facility]) Albumin 3.2(L) 3.5 - 5.0 g/dL [facility] ([facility]) Alk phos 122 40 - 130 Units/L [facility] ([facility]) ALT 27 7 - 55 Units/L [facility] ([facility]) AST 22 10 - 50 Units/L [facility] ([facility]) Blood 06/08/2025 3:55 AM MECHANICAL OPERATOR 06/08/2025 4:27 AM MECHANICAL OPERATOR us Nikolay Scott MD LAB BLOOD ORDERABLES Final Resu lt [facility] ([facility]) 1 [place] [address] * POCT glucose (06/08/2025 2:13 AM MECHANICAL OPERATOR) Glucose, POC 104 70 - 199 mg/dL Blood 06/08/2025 2:13 AM MECHANICAL OPERATOR 06/08/2025 2:13 AM MECHANICAL OPERATOR Bonifacio Blackwell MD LAB POCT ORDERABLES - DEVICE Final Result [facility] ([place]) 1 [place] [address] * POCT glucose (06/07/2025 7:47 PM MECHANICAL OPERATOR) Glucose, POC 108 70 - 199 mg/dL Blood 06/07/2025 7:47 PM MECHANICAL OPERATOR 06/07/2025 7:47 PM MECHANICAL OPERATOR Bonifacio Blackwell MD LAB POCT ORDERABLES - DEVICE Final Result [facility]ERT[facility] ([place]) 1 [facility] [place] [address] * POCT glucose (06/07/2025 4:32 PM MECHANICAL OPERATOR) Glucose, POC 126 70 - 199 mg/dL Blood 06/07/2025 4:32 PM MECHANICAL OPERATOR 06/07/2025 4:32 PM MECHANICAL OPERATOR Bonifacio Blackwell MD LAB POCT ORDERABLES - DEVICE Final Result [facility] ([place]) 1 [place] [address] * POCT glucose (06/07/2025 11:22 AM MECHANICAL OPERATOR) Glucose, POC 108 70 - 199 mg/dL Blood 06/07/2025 11:2 2 AM MECHANICAL OPERATOR 06/07/2025 11:22 AM MECHANICAL OPERATOR us Bonifacio Blackwell MD LAB POCT ORDERABLES - DEVICE Final Result [facility] [place] 1 [facility] [place] [address] * XR Knee Right 1 or 2 Views (06/07/2025 9:04 AM MECHANICAL OPERATOR) Anatomical Region Laterality Modality Lower Extremities, Knee Right Computed Radiography 06/07/2025 9:19 AM MECHANICAL OPERATOR Impressions 06/07/2025 9:19 AM MECHANICAL OPERATOR LEFT SHOULDER: No acute fracture or dislocation. The glenohumeral relationship is normal. There are mild osteoarthritic changes of the acromioclavicular and glenohumeral joints. RIGHT KNEE: There is no fracture or dislocation appreciated. There are mild tricompartmental osteoarthritic changes. There is no sizable joint effusion. RIGHT HIP: There is no fracture or dislocation appreciated. There is no significant degenerative change. The soft tissues are unremarkable. Electronically signed by: Uziel Oneill MD Narrative 06/07/2025 9:19 AM MECHANICAL OPERATOR EXAMINATION: XR SHOULDER LEFT 2 OR MORE VIEWS, XR KNEE RIGHT 1 OR 2 VIEWS, XR HIP RIGHT 2 OR 3 VIEWS HISTORY: left shoulder pain s/p fall. Right knee and right hip pain. TECHNIQUE: 2 views of the left shoulder, 2 views of the right knee, and 2 views of the right hip COMPARISON: Left shoulder radiographs 12/16/2024; CT pelvis 06/01/2025 Procedure Note Uziel Oneill MD - 06/07/2025 EXAMINATION: XR SHOULDER LEFT 2 OR MORE VIEWS, XR KNEE RIGHT 1 OR 2 VIEWS, XR HIP RIGHT 2 OR 3 VIEWS HISTORY: left shoulder pain s/p fall. Right knee and right hip pain. TECHNIQUE: 2 views of the left shoulder, 2 views of the right knee, and 2 views of the right hip COMPARISON: Left shoulder radiographs 12/16/2024; CT pelvis 06/01/2025 IMPRESSION: LEFT SHOULDER: No acute fracture or dislocation. The glenohumeral relationship is normal. There are mild osteoarthritic changes of the acromioclavicular and glenohumeral joints. RIGHT KNEE: There is no fracture or dislocation appreciated. There are mild tricompartmental osteoarthritic changes. There is no sizable joint effusion. RIGHT HIP: There is no fracture or dislocation appreciated. There is no significant degenerative change. The soft tissues are unremarkable. Electronically signed by: Uziel Oneill MD Nikolay Scott MD IMG XR PROCEDURES Final Result * XR Hip Right 2 or 3 Views (06/07/2025 9:04 AM MECHANICAL OPERATOR) Anatomical Region Laterality Modality Lower Extremities, Hip, Pelvis Right C omputed Radiography 06/07/2025 9:19 AM MECHANICAL OPERATOR Impressions 06/07/2025 9:19 AM MECHANICAL OPERATOR LEFT SHOULDER: No acute fracture or dislocation. The glenohumeral relationship is normal. There are mild osteoarthritic changes of the acromioclavicular and glenohumeral joints. RIGHT KNEE: There is no fracture or dislocation appreciated. There are mild tricompartmental osteoarthritic changes. There is no sizable joint effusion. RIGHT HIP: There is no fracture or dislocation appreciated. There is no significant degenerative change. The soft tissues are unremarkable. Electronically signed by: Uziel Oneill MD Narrative 06/07/2025 9:19 AM MECHANICAL OPERATOR EXAMINATION: XR SHOULDER LEFT 2 OR MORE VIEWS, XR KNEE RIGHT 1 OR 2 VIEWS, XR HIP RIGHT 2 OR 3 VIEWS HISTORY: left shoulder pain s/p fall. Right knee and right hip pain. TECHNIQUE: 2 views of the left shoulder, 2 views of the right knee, and 2 views of the right hip COMPARISON: Left shoulder radiographs 12/16/2024; CT pelvis 06/01/2025 Procedure Note Uziel Oneill MD - 06/07/2025 EXAMINATION: XR SHOULDER LEFT 2 OR MORE VIEWS, XR KNEE RIGHT 1 OR 2 VIEWS, XR HIP RIGHT 2 OR 3 VIEWS HISTORY: left shoulder pain s/p fall. Right knee and right hip pain. TECHNIQUE: 2 views of the left shoulder, 2 views of the right knee, and 2 views of the right hip COMPARISON: Left shoulder radiographs 12/16/2024; CT pelvis 06/01/2025 IMPRESSION: LEFT SHOULDER: No acute fracture or dislocation. The glenohumeral relationship is normal. There are mild osteoarthritic changes of the acromioclavicular and glenohumeral joints. RIGHT KNEE: There is no fracture or dislocation appreciated. There are mild tricompartmental osteoarthritic changes. There is no sizable joint effusion. RIGHT HIP: There is no fracture or dislocation appreciated. There is no significant degenerative change. The soft tissues are unremarkable. Electronically signed by: Uziel Oneill MD Nikolay Scott MD IMG XR PROCEDURES Final Result * XR Shoulder Left 2 or More Views (06/07/2025 9:04 AM MECHANICAL OPERATOR) Anatomical Region Laterality Modality Upper Extremities, Shoulder Left Comp uted Radiography 06/07/2025 9:19 AM MECHANICAL OPERATOR Impressions 06/07/2025 9:19 AM MECHANICAL OPERATOR LEFT SHOULDER: No acute fracture or dislocation. The glenohumeral relationship is normal. There are mild osteoarthritic changes of the acromioclavicular and glenohumeral joints. RIGHT KNEE: There is no fracture or dislocation appreciated. There are mild tricompartmental osteoarthritic changes. There is no sizable joint effusion. RIGHT HIP: There is no fracture or dislocation appreciated. There is no significant degenerative change. The soft tissues are unremarkable. Electronically signed by: Uziel Oneill MD Narrative 06/07/2025 9:19 AM MECHANICAL OPERATOR EXAMINATION: XR SHOULDER LEFT 2 OR MORE VIEWS, XR KNEE RIGHT 1 OR 2 VIEWS, XR HIP RIGHT 2 OR 3 VIEWS HISTORY: left shoulder pain s/p fall. Right knee and right hip pain. TECHNIQUE: 2 views of the left shoulder, 2 views of the right knee, and 2 views of the right hip COMPARISON: Left shoulder radiographs 12/16/2024; CT pelvis 06/01/2025 Procedure Note Uziel Oneill MD - 06/07/2025 EXAMINATION: XR SHOULDER LEFT 2 OR MORE VIEWS, XR KNEE RIGHT 1 OR 2 VIEWS, XR HIP RIGHT 2 OR 3 VIEWS HISTORY: left shoulder pain s/p fall. Right knee and right hip pain. TECHNIQUE: 2 views of the left shoulder, 2 views of the right knee, and 2 views of the right hip COMPARISON: Left shoulder radiographs 12/16/2024; CT pelvis 06/01/2025 IMPRESSION: LEFT SHOULDER: No acute fracture or dislocation. The glenohumeral relationship is normal. There are mild osteoarthritic changes of the acromioclavicular and glenohumeral joints. RIGHT KNEE: There is no fracture or dislocation appreciated. There are mild tricompartmental osteoarthritic changes. There is no sizable joint effusion. RIGHT HIP: There is no fracture or dislocation appreciated. There is no significant degenerative change. The soft tissues are unremarkable. Electronically signed by: Uziel Oneill MD us Nikolay Scott MD IMG XR PROCEDURES Final Result * XR Spine Thoracic 2 Views (06/07/2025 9:04 AM MECHANICAL OPERATOR) Anatomical Region Laterality Modality Spine N/A Computed Radiogr aphy 06/07/2025 9:32 AM MECHANICAL OPERATOR Impressions 06/07/2025 9:32 AM MECHANICAL OPERATOR There has been interval kyphoplasty of 2 upper thoracic vertebrae and one lower thoracic vertebrae. No obvious interval changes in the other visualized thoracic vertebrae. There is mild/moderate diffuse disc space narrowing throughout. Thoracic spinal alignment is unchanged with mild kyphosis of the upper thoracic spine centered at the wedge-shaped compression fracture of the newly augmented vertebral body. The soft tissues are grossly unremarkable. Electronically signed by: Uziel Oneill MD Narrative 06/07/2025 9:32 AM MECHANICAL OPERATOR EXAMINATION: XR SPINE THORACIC 2 VIEWS HISTORY: Pain s/p fall. TECHNIQUE: 3 views of the thoracic spine. COMPARISON: Thoracic spine radiographs 05/25/2025; MRI thoracic spine 06/02/2025 Procedure Note Uziel Oneill MD - 06/07/2025 EXAMINATION: XR SPINE THORACIC 2 VIEWS HISTORY: Pain s/p fall. TECHNIQUE: 3 views of the thoracic spine. COMPARISON: Thoracic spine radiographs 05/25/2025; MRI thoracic spine 06/02/2025 IMPRESSION: There has been interval kyphoplasty of 2 upper thoracic vertebrae and one lower thoracic vertebrae. No obvious interval changes in the other visualized thoracic vertebrae. There is mild/moderate diffuse disc space narrowing throughout. Thoracic spinal alignment is unchanged with mild kyphosis of the upper thoracic spine centered at the wedge-shaped compression fracture of the newly augmented vertebral body. The soft tissues are grossly unremarkable. Electronically signed by: Uziel Oneill MD Nikolay Scott MD IMG XR PROCEDURES Final Result * POCT glucose (06/07/2025 7:33 AM MECHANICAL OPERATOR) [facility] Glucose, POC 103 70 - 199 mg/dL Blood 06/07/2025 7:33 AM MECHANICAL OPERATOR 06/07/2025 7:33 AM MECHANICAL OPERATOR Bonifacio Blackwell MD LAB POCT ORDERABLES - DEVICE Final Result Performing Organization Address [facility]/ZIP Co de Phone Number [facility] [place]) 1 [facility] [employer] [address] * Lactate (06/07/2025 6:05 AM MECHANICAL OPERATOR) [facility] Lactate 1.6 0.7 - 2.0 mmol/L Blood 06/07/2025 6:05 AM MECHANICAL OPERATOR 06/07/2025 6:14 AM MECHANICAL OPERATOR Nikolay Scott MD LAB BLOOD ORDERABLES Final Resu lt Performing Organization Address City/[facility]/ZIP Co de Phone Number [facility]) 1 [facility] [place] [address] * eGFR (06/07/2025 6:05 AM MECHANICAL OPERATOR) [facility] eGFR >90 >=60 mL/min/1. 73 m2 Comment: Interpretive Data Reference Interval Normal >/= 90 mL/min/1.73m2 Mildly decreased* 60 - 89 mL/min/1.73m2 Mildly to moderately decreased 45 - 59 mL/min/1.73m2 Moderately to severely decreased 30 - 44 mL/min/1.73m2 Severely decreased 15 - 29 mL/min/1.73m2 Kidney Failure < 15 mL/min/1.73m2 *Relative to young adult level Estimated glomerular filtration rate is determined by the 2020 CKD-EPI equation recommended by the National Kidney [employer] (A Unifying Approach to GFR Estimation: Recommendations of the NKF-ASK Task Force on Reassessing the Inclusion of Race in Diagnosing Kidney Disease, JASN 2020). The CKD-EPI equation should not be used for patients with unstable renal function and has not been validated in children and those over 70. Current interpretive data was last reviewed 2021. Blood 06/07/2025 6:05 AM MECHANICAL OPERATOR 06/07/2025 6:14 AM MECHANICAL OPERATOR us Nikolay Scott MD LAB BLOOD ORDERABLES Final Resu lt [facility] ([place]) 1 [facility] [place] [address] * (ABNORMAL) Differential, auto (06/07/2025 6:05 AM MECHANICAL OPERATOR) Neutrophil abs 8.32(H) 1.50 - 6.50 K/cumm Imm gran abs 0.17(H) 0.00 - 0.10 K/cumm [facility] ([place]) Lymphocyte abs 2.40 0.80 - 3.30 K/cumm [facility] ([place]) Monocyte abs 1.00(H) 0.20 - 0.80 K/cumm [facility] ([facility]) Eosinophil abs 0.07 0.00 - 0.50 K/cumm [facility] ([facility]) Basophil abs 0.04 0.00 - 0.10 K/cumm [facility] ([facility]) Neutrophil pct 69.4 % [facility] ([facility]) Comment: Interpretive Data Percent cell count reference ranges are not reported, since discordance with absolute values may lead to misinterpretation of CBC data. Current Interpretive Data was last revised on 2017. Imm gran pct 1.4 % [facility] ([place]) Comment: Interpretive Data Percent cell count reference ranges are not reported, since discordance with absolute values may lead to misinterpretation of CBC data. Current Interpretive Data was last revised on 2017. Lymphocyte pct 20.0 % [facility] ([facility]) Comment: Interpretive Data Percent cell count reference ranges are not reported, since discordance with absolute values may lead to misinterpretation of CBC data. Current Interpretive Data was last revised on 2017. Monocyte pct 8.3 % [facility] ([facility]) Comment: Interpretive Data Percent cell count reference ranges are not reported, since discordance with absolute values may lead to misinterpretation of CBC data. Current Interpretive Data was last revised on 2017. Eosinophil pct 0.6 % [facility] ([facility]) Comment: Interpretive Data Percent cell count reference ranges are not reported, since discordance with absolute values may lead to misinterpretation of CBC data. Current Interpretive Data was last revised on 2017. Basophil pct 0.3 % [facility] ([facility]) Comment: Interpretive Data Percent cell count reference ranges are not reported, since discordance with absolute values may lead to misinterpretation of CBC data. Current Interpretive Data was last revised on 2017. Blood 06/07/2025 6:05 AM MECHANICAL OPERATOR 06/07/2025 6:18 AM MECHANICAL OPERATOR us Nikolay Scott MD LAB BLOOD ORDERABLES Final Resu lt [facility]ERTO [facility] ([place]) 1 [facility] [place] [address] * (ABNORMAL) CBC with auto differential (06/07/2025 6:05 AM MECHANICAL OPERATOR) WBC 12.00(H) 3.80 - 9.90 K/cumm Hgb 13.6 13.0 - 17.5 g/dL [facility] ([facility]) Hct 40.3 38.9 - 50.3 % [facility] ([facility]) Plt 148(L) 150 - 400 K/cumm [facility] ([facility]) MPV 10.1 9.1 - 12.3 fL [facility] ([facility]) RBC 4.08(L) 4.30 - 5.80 M/cumm [facility] ([place]MA[place]) MCV 98.8(H) 81.3 - 96.4 fL [facility] ([place]) MCH 33.3 27.1 - 33.3 pg [facility] ([place]) MCHC 33.7 32.3 - 35.7 g/dL [facility] ([place]) RDW CV 14.2 11.1 - 14.9 % [facility] ([place]) RDW SD 52.2(H) 35.7 - 48.1 fL [facility] ([place]) NRBC abs 0.00 0.00 - 0.01 K/cumm [facility] ([place]) Blood 06/07/2025 6:05 AM MECHANICAL OPERATOR 06/07/2025 6:18 AM MECHANICAL OPERATOR us Nikolay Scott MD LAB BLOOD ORDERABLES Final Resu lt [facility] ([place]) 1 [facility] Department [place] [address] * Blood culture Blood (06/07/2025 6:05 AM MECHANICAL OPERATOR) Report Final Report: No growth Comment:Testing performed by : [facility], 1 [facility], [place]., [address] Blood 06/07/2025 6:05 AM MECHANICAL OPERATOR 06/07/2025 8:48 AM MECHANICAL OPERATOR Narrative [facility]O [facility] ([place]MA[place]) - 06/11/2025 12:00 PM MECHANICAL OPERATOR Received only aerobic blood culture bottle. From a different site than #1. Collection->Peripheral 1. Blood cultures are incubated for 4 days on a continuously monitored blood culture system. The first report of a negative culture is issued within 24 hours of receipt of the specimen in the laboratory. 2. Positive culture results are reported as soon as they are detected. 3. The most important factor for detection of microbes in the setting of bloodstream infection is the volume of blood submitted for culture. Failure to collect an optimal blood volume can result in false negative blood cultures. 4. For pediatric patients, the recommended blood volume to collect follows a weight based strategy. See the electronic test catalog for collection instructions. 5. For positive blood cultures, a rapid molecular test may be performed for organism identification using the thuy ePlex blood culture identification panel for gram positive (BCID-GP) and gram negative (BCID-GN) organisms. This nucleic acid amplification test detects microbial DNA in positive blood culture broth. This assay has been cleared by the [place] Food and Drug Administration and its performance characteristics have been verified by the [facility]. For questions about this culture, contact the Microbiology Laboratory at [phone]. Interpretive data was last revised on 24. us Nikolay Scott MD LAB MICROBIOLOGY - [facility] Final Result ROBERTO [facility] (ARMAAN) 1 [facility] Department [place] [address] * Blood culture Blood (06/07/2025 6:05 AM MECHANICAL OPERATOR) Report Final Report: No growth Comment:Testing performed by : [facility], 1 [facility] [place]., [address] Blood 06/07/2025 6:05 AM MECHANICAL OPERATOR 06/07/2025 8:48 AM MECHANICAL OPERATOR Narrative [facility]ERTO [facility] (ARMAAN) - 06/11/2025 12:00 PM MECHANICAL OPERATOR Received only aerobic blood culture bottle. Collection->Peripheral 1. Blood cultures are incubated for 4 days on a continuously monitored blood culture system. The first report of a negative culture is issued within 24 hours of receipt of the specimen in the laboratory. 2. Positive culture results are reported as soon as they are detected. 3. The most important factor for detection of microbes in the setting of bloodstream infection is the volume of blood submitted for culture. Failure to collect an optimal blood volume can result in false negative blood cultures. 4. For pediatric patients, the recommended blood volume to collect follows a weight based strategy. See the electronic test catalog for collection instructions. 5. For positive blood cultures, a rapid molecular test may be performed for organism identification using the thuy ePlex blood culture identification panel for gram positive (BCID-GP) and gram negative (BCID-GN) organisms. This nucleic acid amplification test detects microbial DNA in positive blood culture broth. This assay has been cleared by the [place] Food and Drug Administration and its performance characteristics have been verified by the [facility]. For questions about this culture, contact the Microbiology Laboratory at [phone]. Interpretive data was last revised on 24. Nikolay Scott MD LAB MICROBIOLOGY - [facility] Final Result [facility] ([facility]) 1 [facility] Department [place] [address] * (ABNORMAL) Comprehensive metabolic panel (06/07/2025 6:05 AM MECHANICAL OPERATOR) Sodium 138 135 - 145 mmol/L Potassium, pl 3.8 3.3 - 4.9 mmol/L [facility] ([facility]) Chloride 105 97 - 110 mmol/L [facility] ([place]) CO2 24 22 - 32 mmol/L [facility] ([place]) Anion gap 9 2 - 15 mmol/L [facility] ([place]) BUN 14 6 - 25 mg/dL [facility] ([place]) Creatinine 0.68(L) 0.80 - 1.30 mg/dL [facility] ([facility]) Glucose 88 70 - 199 mg/dL [facility] ([facility]) Comment: Interpretive Data Fasting glucose >/= 126 mg/dl is diagnostic for diabetes. Fasting is defined as no caloric intake for at least 8 hours. Fasting glucose between 100 mg/dl to 125 mg/dl is diagnostic of prediabetes. In a patient with classic symptoms of hyperglycemia or hyperglycemic crisis, a random glucose >/= 200 mg/dl is diagnostic for diabetes. In the absence of unequivocal hyperglycemia, results should be confirmed by repeat testing. The classification and Diagnosis of Diabetes Diabetes Care 202; 46: S19-S40. Current interpretive data was last revised 2022. Calcium 8.6 8.5 - 10.3 mg/dL [facility] ([place]) Bilirubin, total 0.6 0.1 - 1.2 mg/dL [facility] ([place]) Protein, pl 5.8(L) 6.5 - 8.5 g/dL [facility] ([place]) Albumin 3.6 3.5 - 5.0 g/dL [facility] ([place]) Alk phos 143(H) 40 - 130 Units/L [facility] ([place]) ALT 31 7 - 55 Units/L [facility] ([place]) AST 33 10 - 50 Units/L [facility] ([place]) Comment:Hemolysis present. R esults may be affected. Blood 06/07/2025 6:05 AM MECHANICAL OPERATOR 06/07/2025 6:14 AM MECHANICAL OPERATOR Nikolay Scott MD LAB BLOOD ORDERABLES Final Resu lt ROBERTO [facility] ([place]) 1 [facility] [employer] [address] * POCT glucose (06/07/2025 2:07 AM MECHANICAL OPERATOR) Glucose, POC 110 70 - 199 mg/dL Blood 06/07/2025 2:07 AM MECHANICAL OPERATOR 06/07/2025 2:07 AM MECHANICAL OPERATOR Ree Echevarria MD LAB POCT ORDERABLES - DEVICE F inal Result Performing Organization Address [facility]/ZIP Co de Phone Number ROBERTO [facility] ([place]) 1 [facility] [place] [address] * POCT glucose (06/06/2025 8:15 PM MECHANICAL OPERATOR) Glucose, POC 110 70 - 199 mg/dL Blood 06/06/2025 8:15 PM MECHANICAL OPERATOR 06/06/2025 8:15 PM MECHANICAL OPERATOR Ree Echevarria MD LAB POCT ORDERABLES - DEVICE F inal Result Performing Organization Address [facility]/ZIP Co de Phone Number ROBERTO [facility] ([place]) 1 [facility] [place] [address] * POCT glucose (06/06/2025 7:23 AM MECHANICAL OPERATOR) [facility] Glucose, POC 116 70 - 199 mg/dL Blood 06/06/2025 7:23 AM MECHANICAL OPERATOR 06/06/2025 7:23 AM MECHANICAL OPERATOR us Bonifacio Blackwell MD LAB POCT ORDERABLES - DEVICE Final Result [facility]ERTO [facility] ([place]) [address] [place] [address] [employer] [place] [address] * eGFR (06/06/2025 6:35 AM MECHANICAL OPERATOR) [facility] eGFR >90 >=60 mL/min/1. 73 m2 Comment: Interpretive Data Reference Interval Normal >/= 90 mL/min/1.73m2 Mildly decreased* 60 - 89 mL/min/1.73m2 Mildly to moderately decreased 45 - 59 mL/min/1.73m2 Moderately to severely decreased 30 - 44 mL/min/1.73m2 Severely decreased 15 - 29 mL/min/1.73m2 Kidney Failure < 15 mL/min/1.73m2 *Relative to young adult level Estimated glomerular filtration rate is determined by the 2020 CKD-EPI equation recommended by the National Kidney Foundation (A Unifying Approach to GFR Estimation: Recommendations of the NKF-ASK Task Force on Reassessing the Inclusion of Race in Diagnosing Kidney Disease, JASN 2020). The CKD-EPI equation should not be used for patients with unstable renal function and has not been validated in children and those over 70. Current interpretive data was last reviewed 2021. Blood 06/06/2025 6:35 AM MECHANICAL OPERATOR 06/06/2025 7:35 AM MECHANICAL OPERATOR us Medhat Perkins NP LAB BLOOD ORDERABLES Final Result [facility] ([place]) 1 [facility] [place] [address] * (ABNORMAL) Differential, auto (06/06/2025 6:35 AM MECHANICAL OPERATOR) Neutrophil abs 10.86(H) 1.50 - 6.50 K/cumm Imm gran abs 0.12(H) 0.00 - 0.10 K/cumm [facility] ([place]) Lymphocyte abs 0.58(L) 0.80 - 3.30 K/cumm [facility] ([place]) Monocyte abs 0.53 0.20 - 0.80 K/cumm [facility] ([place]) Eosinophil abs 0.00 0.00 - 0.50 K/cumm [facility] ([place]) Basophil abs 0.01 0.00 - 0.10 K/cumm [facility] ([place]) Neutrophil pct 89.7 % [facility] ([place]) Comment: Interpretive Data Percent cell count reference ranges are not reported, since discordance with absolute values may lead to misinterpretation of CBC data. Current Interpretive Data was last revised on 2017. Imm gran pct 1.0 % [facility] ([place]) Comment: Interpretive Data Percent cell count reference ranges are not reported, since discordance with absolute values may lead to misinterpretation of CBC data. Current Interpretive Data was last revised on 2017. Lymphocyte pct 4.8 % [facility] ([place]) Comment: Interpretive Data Percent cell count reference ranges are not reported, since discordance with absolute values may lead to misinterpretation of CBC data. Current Interpretive Data was last revised on 2017. Monocyte pct 4.4 % [facility] ([place]) Comment: Interpretive Data Percent cell count reference ranges are not reported, since discordance with absolute values may lead to misinterpretation of CBC data. Current Interpretive Data was last revised on 2017. Eosinophil pct 0.0 % [facility] ([place]) Comment: Interpretive Data Percent cell count reference ranges are not reported, since discordance with absolute values may lead to misinterpretation of CBC data. Current Interpretive Data was last revised on 2017. Basophil pct 0.1 % [facility] ([place]) Comment: Interpretive Data Percent cell count reference ranges are not reported, since discordance with absolute values may lead to misinterpretation of CBC data. Current Interpretive Data was last revised on 2017. Blood 06/06/2025 6:35 AM MECHANICAL OPERATOR 06/06/2025 7:35 AM MECHANICAL OPERATOR Medhat Perkins NP LAB BLOOD ORDERABLES Final Result [facility] ([place]) 1 [facility] [place] [address] * (ABNORMAL) CBC with auto differential (06/06/2025 6:35 AM MECHANICAL OPERATOR) Pathologist [facility] WBC 12.10(H) 3.80 - 9.90 K/cumm Hgb 13.3 13.0 - 17.5 g/dL [facility] ([place]) Hct 38.9 38.9 - 50.3 % [facility] ([place]) Plt 171 150 - 400 K/cumm [facility] ([place]) MPV 10.6 9.1 - 12.3 fL [facility] ([place]) RBC 4.06(L) 4.30 - 5.80 M/cumm [facility] ([place]) MCV 95.8 81.3 - 96.4 fL [facility] ([place]) MCH 32.8 27.1 - 33.3 pg [facility] ([place]) MCHC 34.2 32.3 - 35.7 g/dL [facility] ([place]) RDW CV 13.8 11.1 - 14.9 % [facility] ([place]) RDW SD 48.9(H) 35.7 - 48.1 fL [facility] ([place]) NRBC abs 0.00 0.00 - 0.01 K/cumm [facility] ([place]) Blood 06/06/2025 6:35 AM MECHANICAL OPERATOR 06/06/2025 7:35 AM MECHANICAL OPERATOR Medhat Perkins NP LAB BLOOD ORDERABLES Final Result [facility] ([place]) 1 [facility] [place] [address] * (ABNORMAL) Basic metabolic panel (06/06/2025 6:35 AM MECHANICAL OPERATOR) Sodium 137 135 - 145 mmol/L Potassium, pl 3.7 3.3 - 4.9 mmol/L [facility] ([place]) Chloride 102 97 - 110 mmol/L [facility] ([place]) CO2 26 22 - 32 mmol/L [facility] ([place]) Anion gap 9 2 - 15 mmol/L [facility] ([place]) BUN 18 6 - 25 mg/dL [facility] ([place]) Creatinine 0.81 0.80 - 1.30 mg/dL [facility] ([place]) Glucose 107 70 - 199 mg/dL [facility] ([place]) Comment: Interpretive Data Fasting glucose >/= 126 mg/dl is diagnostic for diabetes. Fasting is defined as no caloric intake for at least 8 hours. Fasting glucose between 100 mg/dl to 125 mg/dl is diagnostic of prediabetes. In a patient with classic symptoms of hyperglycemia or hyperglycemic crisis, a random glucose >/= 200 mg/dl is diagnostic for diabetes. In the absence of unequivocal hyperglycemia, results should be confirmed by repeat testing. The classification and Diagnosis of Diabetes Diabetes Care 202; 46: S19-S40. Current interpretive data was last revised 2022. Calcium 8.2(L) 8.5 - 10.3 mg/dL [facility] ([place]) Blood 06/06/2025 6:35 AM MECHANICAL OPERATOR 06/06/2025 7:35 AM MECHANICAL OPERATOR us Medhat Perkins TRAUMA PROGRAM MANAGER LAB BLOOD ORDERABLES Final Result [facility] ([place]) 1 [facility] [place] [address] * POCT glucose (06/06/2025 3:14 AM MECHANICAL OPERATOR) Glucose, POC 176 70 - 199 mg/dL Blood 06/06/2025 3:14 AM MECHANICAL OPERATOR 06/06/2025 3:14 AM MECHANICAL OPERATOR Bonifacio Blackwell MD LAB POCT ORDERABLES - DEVICE Final Result [facility] ([place]) 1 [facility] [place] [address] * (ABNORMAL) POCT glucose (06/05/2025 7:27 PM MECHANICAL OPERATOR) Glucose, POC 201(H) 70 - 199 mg/dL Blood 06/05/2025 7:27 PM MECHANICAL OPERATOR 06/05/2025 7:27 PM MECHANICAL OPERATOR us Bonifacio Blackwell MD LAB POCT ORDERABLES - DEVICE Final Result Performing Organization Address [facility]/ZIP Co de Phone Number [facility] ([place]) 1 [place] [address] * POCT glucose (06/05/2025 4:43 PM MECHANICAL OPERATOR) Glucose, POC 99 70 - 199 mg/dL Blood 06/05/2025 4:43 PM MECHANICAL OPERATOR 06/05/2025 4:43 PM MECHANICAL OPERATOR us Bonifacio Blackwell MD LAB POCT ORDERABLES - DEVICE Final Result Performing Organization Address [facility]/ZIP Co de Phone Number [facility] ([place]) 1 [place] [address] * [place] Fluoroscopy < 1 Hour (06/05/2025 4:26 PM MECHANICAL OPERATOR) Narrative [facility] - 06/05/2025 4:26 PM MECHANICAL OPERATOR The images from this study are not interpreted by Radiology. Please refer to the physician's procedure / OR operative note. us Cedrick Palacios MD IMG FLUOROSCOPY PROCEDU RES Final Result Performing Organization Address City/[facility]/ZIP Co de Phone Number [facility] * VA AN ELECTIVE ENDOTRACHEAL AIRWAY (06/05/2025 3:17 PM MECHANICAL OPERATOR) Narrative Simi Hopkins CRNA - 06/05/2025 3:17 PM MECHANICAL OPERATOR Simi Hopkins CRNA 06/05/2025 3:18 PM Airway Patient location: OR Urgency: elective Indications for airway management: anesthesia and airway protection Difficult airway: no Staff: Placed by: COMMODITIES BROKER: Simi Hopkins CRNA Emergent airway documentation: Risks and benefits discussed: yes Consent obtained: yes Consent given by: patient Airway prep: Preoxygenated: yes Patient position: sniffing Mask difficulty assessment: 0 - not attempted Sedation level during airway: GA Final airway details: Final airway type: endotracheal airway Tube type: ETT ETT size: 7.5 mm Cuffed: yes Technique used for successful ETT placement: video laryngoscopy Devices/Methods used in placement: intubating stylet Insertion site: oral Blade type: Re Blade size: 3 Cormack-Lehane (video): grade I - full view of glottis Cuff volume: 8 mL Cuff inflated with: air ETT to lips: 21 cm Placement verified by: auscultation Airway secured with: silk tape Number of attempts: 1 Nas Amezcua DO ANESTHESIA ORDERABL ES Final Result * POCT glucose (06/05/2025 12:15 PM MECHANICAL OPERATOR) Glucose, POC 90 70 - 199 mg/dL Blood 06/05/2025 12:1 5 PM MECHANICAL OPERATOR 06/05/2025 12:15 PM MECHANICAL OPERATOR Bonifacio Blackwell MD LAB POCT ORDERABLES - DEVICE Final Result Performing Organization Address [facility] de Phone Number [facility] ([place]) 1 [facility] [place] [address] * POCT glucose (06/05/2025 11:31 AM MECHANICAL OPERATOR) Glucose, POC 88 70 - 199 mg/dL Blood 06/05/2025 11:3 1 AM MECHANICAL OPERATOR 06/05/2025 11:31 AM MECHANICAL OPERATOR Bonifacio Blackwell MD LAB POCT ORDERABLES - DEVICE Final Result Performing Organization Address [facility] Co de Phone Number [facility] ([place]) 1 [facility] [employer] [address] * ECG 12 lead (06/05/2025 9:58 AM MECHANICAL OPERATOR) 06/05/2025 9:58 AM MECHANICAL OPERATOR Narrative [facility] - 06/05/2025 7:34 PM MECHANICAL OPERATOR Vent Rate: 82 bpm RR Interval: 731 msec VA Interval: 134 msec QRS Duration: 109 msec QT Interval: 362 msec QTC Interval: 400 msec P-R-T [place]: 29 - -66 - 23 degrees IMPRESSION: SINUS RHYTHM LEFT AXIS DEVIATION [QRS AXIS < -30] PATTERN CONSISTENT WITH PULMONARY DISEASE ABNORMAL ECG Electronically Signed By: Donte Glover MD, [facility] Nas Amezcua DO ECG ORDERABLES Fin al Result [facility] ev-social [facility] * Surgical pathology (06/05/2025 9:12 AM MECHANICAL OPERATOR) Tissue (Bone - Biopsy / Curettings) 06/05/2025 3:51 PM MECHANICAL OPERATOR Narrative PATHOLOGY [facility] ([place]) - 06/11/2025 11:36 AM MECHANICAL OPERATOR EPIC results best viewed via link to PDF [facility] Department of Pathology [address] [place] [address] Note to Patients: This report may contain a detailed description of human tissue sent by a health care provider to the laboratory for pathologic evaluation. The content of this report is essential for diagnosis and may provide important critical findings. This information may be unfamiliar to patients to review without a medical professional present. It is advised that the patient review this report in the presence of a health care provider who can answer questions and explain the details. Final Report Patient Name: YUKO FERNANDEZMike Address: [facility] [address], [place] [address] Gender: M : 1955 (Age: 69) Service: Medical Location: [facility] Hospital #: [id number] Patient Type: [facility] Taken: 06/05/2025 Received: 06/08/2025 Accessioned: 06/08/2025 Reported: 06/11/2025 Physician(s):Cedrick Palacios MD Diagnosis: A. L1 vertebral body, kyphoplasty with bone biopsy- Benign trabecular bone with normocellular marrow Clinically, compression fracture Radha James M.D. Report Electronically Reviewed and Signed Out By Radha James M.D. 06/11/2025 11:36:45 Specimen(s) Received: A: L1 vertebral body Microscopic Description: Microscopic examination corroborates the diagnosis. The specimen was held for both extended decalcification as well as specimen mislabeling (requisition originally stated T1 however office contacted and correct designation of L1 is reported). Clinical History: T5, T6 and L1 compression fracture. T5, T6 and L1 kyphoplasty. Gross Description: The specimen is submitted in a single formalin filled container labeled YUKO FERNANDEZ and L1 vertebral body. It is a brown core bone, 2 mm. All in one cassette following decalcification. Jonathan Castro/Kristyn Bautista M.D. REPORT IMAGES AND SCANNED DOCUMENTS, IF INCLUDED, ONLY VIEWABLE IN PDF VERSION OF REPORT The performance characteristics of some immunohistochemical stains, fluorescence in-situ hybridization tests and immunophenotyping by flow cytometry cited in this report (if any) were determined by the Surgical Pathology Department at [facility] as part of an ongoing senior software quality engineer program and in compliance with federally mandated regulations drawn from the Clinical Laboratory Improvement Act of 1988 (CLIA '88). Some of these tests rely on the use of analyte specific reagents and are subject to specific labeling requirements by the US Food and Drug Administration. Such diagnostic tests may only be performed in a facility that is certified by the Department of Health and Human Services as a high complexity laboratory under CLIA '88. The FDA has determined that such clearance or approval is not necessary. This test is used for clinical purposes. It should not be regarded as investigational or for research. Nevertheless, federal rules concerning the medical use of analyte specific reagents require that the following disclaimer be attached to the report: This test was developed and its performance characteristics determined by the Surgical Pathology Department [facility]. It has not been cleared or approved by the U. S. Food and Drug Administration. Note for decalcified specimens: This assay has not been validated on decalcified tissues. Results should be interpreted with caution given the possibility of false negativity on decalcified specimens us Cedrick Palacios MD LAB PATHOLOGY ORDERABLE S Final Result Performing Organization Address City/[facility]/ZIP Co de Phone Number PATHOLOGY [facility] ([place]) [address] [place] [id number] * POCT glucose (06/05/2025 7:34 AM MECHANICAL OPERATOR) Glucose, POC 117 70 - 199 mg/dL Blood 06/05/2025 7:34 AM MECHANICAL OPERATOR 06/05/2025 7:34 AM MECHANICAL OPERATOR us Bonifacio Blackwell MD LAB POCT ORDERABLES - DEVICE Final Result Performing Organization Address [facility] de Phone Number [facility] ([place]) 1 [facility] Department [place] [address] * eGFR (06/05/2025 3:04 AM MECHANICAL OPERATOR) eGFR >90 >=60 mL/min/1. 73 m2 Comment: Interpretive Data Reference Interval Normal >/= 90 mL/min/1.73m2 Mildly decreased* 60 - 89 mL/min/1.73m2 Mildly to moderately decreased 45 - 59 mL/min/1.73m2 Moderately to severely decreased 30 - 44 mL/min/1.73m2 Severely decreased 15 - 29 mL/min/1.73m2 Kidney Failure < 15 mL/min/1.73m2 *Relative to young adult level Estimated glomerular filtration rate is determined by the 2020 CKD-EPI equation recommended by the National Kidney Foundation (A Unifying Approach to GFR Estimation: Recommendations of the NKF-ASK Task Force on Reassessing the Inclusion of Race in Diagnosing Kidney Disease, JASN 2020). The CKD-EPI equation should not be used for patients with unstable renal function and has not been validated in children and those over 70. Current interpretive data was last reviewed 2021. Blood 06/05/2025 3:04 AM MECHANICAL OPERATOR 06/05/2025 4:32 AM MECHANICAL OPERATOR us Bonifacio Blackwell MD LAB BLOOD ORDERABLES Final R esult [facility] ([place]) 1 [facility] [place] [address] * (ABNORMAL) Differential, auto (06/05/2025 3:04 AM MECHANICAL OPERATOR) Neutrophil abs 8.39(H) 1.50 - 6.50 K/cumm Imm gran abs 0.14(H) 0.00 - 0.10 K/cumm [facility] ([place]) Lymphocyte abs 2.43 0.80 - 3.30 K/cumm [facility] ([place]) Monocyte abs 0.81(H) 0.20 - 0.80 K/cumm [facility] ([place]) Eosinophil abs 0.05 0.00 - 0.50 K/cumm [facility] ([place]) Basophil abs 0.03 0.00 - 0.10 K/cumm [facility] ([place]) Neutrophil pct 70.8 % [facility] ([place]) Comment: Interpretive Data Percent cell count reference ranges are not reported, since discordance with absolute values may lead to misinterpretation of CBC data. Current Interpretive Data was last revised on 2017. Imm gran pct 1.2 % [facility] ([place]) Comment: Interpretive Data Percent cell count reference ranges are not reported, since discordance with absolute values may lead to misinterpretation of CBC data. Current Interpretive Data was last revised on 2017. Lymphocyte pct 20.5 % [facility] ([place]) Comment: Interpretive Data Percent cell count reference ranges are not reported, since discordance with absolute values may lead to misinterpretation of CBC data. Current Interpretive Data was last revised on 2017. Monocyte pct 6.8 % [facility] ([place]) Comment: Interpretive Data Percent cell count reference ranges are not reported, since discordance with absolute values may lead to misinterpretation of CBC data. Current Interpretive Data was last revised on 2017. Eosinophil pct 0.4 % [facility] ([place]) Comment: Interpretive Data Percent cell count reference ranges are not reported, since discordance with absolute values may lead to misinterpretation of CBC data. Current Interpretive Data was last revised on 2017. Basophil pct 0.3 % [facility] ([place]) Comment: Interpretive Data Percent cell count reference ranges are not reported, since discordance with absolute values may lead to misinterpretation of CBC data. Current Interpretive Data was last revised on 2017. Blood 06/05/2025 3:04 AM MECHANICAL OPERATOR 06/05/2025 4:32 AM MECHANICAL OPERATOR Medhat Perkins NP LAB BLOOD ORDERABLES Final Result [facility] ([place]) 1 [facility] Department [place] [address] * (ABNORMAL) CBC with auto differential (06/05/2025 3:04 AM MECHANICAL OPERATOR) WBC 11.85(H) 3.80 - 9.90 K/cumm Hgb 14.4 13.0 - 17.5 g/dL [facility] ([place]) Hct 41.9 38.9 - 50.3 % [facility] ([place]) Plt 182 150 - 400 K/cumm [facility] ([place]) MPV 10.5 9.1 - 12.3 fL [facility] ([place]) RBC 4.42 4.30 - 5.80 M/cumm [facility] ([place]) MCV 94.8 81.3 - 96.4 fL [facility] ([place]) MCH 32.6 27.1 - 33.3 pg [facility] ([place]) MCHC 34.4 32.3 - 35.7 g/dL [facility] ([place]) RDW CV 13.8 11.1 - 14.9 % [facility] ([place]) RDW SD 48.5(H) 35.7 - 48.1 fL [facility] ([place]) NRBC abs 0.00 0.00 - 0.01 K/cumm [facility] ([place]) Blood 06/05/2025 3:04 AM MECHANICAL OPERATOR 06/05/2025 4:32 AM MECHANICAL OPERATOR Medhat Perkins NP LAB BLOOD ORDERABLES Final Result [facility] ([place]) 1 [facility] [place] [address] * Protime-INR (06/05/2025 3:04 AM MECHANICAL OPERATOR) PT 12.3 10.2 - 13.5 sec [facility] INR 1.09 0.90 - 1.20 [facility] ([place]) Comment: Interpretive data Oral anticoagulant therapeutic ranges: Venous thromboembolism prophylaxis or treatment: 2.0-3.0 CARDIOLOGY Standard range: 2.0-3.0 High-intensity range: 2.5-3.5 Refer to indication-specific guidelines for appropriate target ranges for prosthetic heart valve replacement. Current interpretive data was last revised on 2019. Blood 06/05/2025 3:04 AM MECHANICAL OPERATOR 06/05/2025 4:32 AM MECHANICAL OPERATOR Bonifacio Blackwell MD LAB BLOOD ORDERABLES Final R esult Performing Organization Address City/[facility] Co de Phone Number [facility] ([place]) 1 [facility] [place] [address] * (ABNORMAL) CBC without differential (06/05/2025 3:04 AM MECHANICAL OPERATOR) WBC 11.85(H) 3.80 - 9.90 K/cumm Hgb 14.4 13.0 - 17.5 g/dL [facility] ([place]) Hct 41.9 38.9 - 50.3 % [facility] ([place]) Plt 182 150 - 400 K/cumm [facility] ([place]) MPV 10.5 9.1 - 12.3 fL [facility] ([place]) RBC 4.42 4.30 - 5.80 M/cumm [facility] ([place]) MCV 94.8 81.3 - 96.4 fL [facility] ([place]) MCH 32.6 27.1 - 33.3 pg [facility] ([place]) MCHC 34.4 32.3 - 35.7 g/dL [facility] ([place]) RDW CV 13.8 11.1 - 14.9 % [facility] ([place]) RDW SD 48.5(H) 35.7 - 48.1 fL [facility] ([place]) NRBC abs 0.00 0.00 - 0.01 K/cumm [facility] ([place]) Blood 06/05/2025 3:04 AM MECHANICAL OPERATOR 06/05/2025 4:32 AM MECHANICAL OPERATOR us Bonifacio Blackwell MD LAB BLOOD ORDERABLES Final R esult [facility] ([place]) 1 [facility] Department [place] [address] * (ABNORMAL) Renal function panel (06/05/2025 3:04 AM MECHANICAL OPERATOR) Sodium 135 135 - 145 mmol/L Potassium, pl 3.4 3.3 - 4.9 mmol/L [facility] ([place]) Chloride 98 97 - 110 mmol/L [facility] ([place]) CO2 26 22 - 32 mmol/L [facility] ([place]) Anion gap 11 2 - 15 mmol/L [facility] ([place]) BUN 15 6 - 25 mg/dL [facility] ([place]) Creatinine 0.77(L) 0.80 - 1.30 mg/dL [facility] ([place]) Glucose 106 70 - 199 mg/dL [facility] ([place]) Comment: Interpretive Data Fasting glucose >/= 126 mg/dl is diagnostic for diabetes. Fasting is defined as no caloric intake for at least 8 hours. Fasting glucose between 100 mg/dl to 125 mg/dl is diagnostic of prediabetes. In a patient with classic symptoms of hyperglycemia or hyperglycemic crisis, a random glucose >/= 200 mg/dl is diagnostic for diabetes. In the absence of unequivocal hyperglycemia, results should be confirmed by repeat testing. The classification and Diagnosis of Diabetes Diabetes Care 202; 46: S19-S40. Current interpretive data was last revised 2022. Calcium 8.7 8.5 - 10.3 mg/dL [facility] ([place]) Phosphorus, pl 1.9(L) 2.3 - 4.5 mg/dL [facility] ([place]) Albumin 3.4(L) 3.5 - 5.0 g/dL [facility] ([place]) Blood 06/05/2025 3:04 AM MECHANICAL OPERATOR 06/05/2025 4:32 AM MECHANICAL OPERATOR Bonifacio Blackwell MD LAB BLOOD ORDERABLES Final R esult Performing Organization Address City/[facility]/ZIP Co de Phone Number [facility] ([place]) 1 [facility] [place] [address] * POCT glucose (06/05/2025 2:12 AM MECHANICAL OPERATOR) Glucose, POC 121 70 - 199 mg/dL Blood 06/05/2025 2:12 AM MECHANICAL OPERATOR 06/05/2025 2:12 AM MECHANICAL OPERATOR Bonifacio Blackwell MD LAB POCT ORDERABLES - DEVICE Final Result Performing Organization Address City/[facility]/ZIP Co de Phone Number [facility] ([place]) 1 [facility] [place] [address] * POCT glucose (06/04/2025 7:37 PM MECHANICAL OPERATOR) Glucose, POC 117 70 - 199 mg/dL Blood 06/04/2025 7:37 PM MECHANICAL OPERATOR 06/04/2025 7:37 PM MECHANICAL OPERATOR Bonifacio Blackwell MD LAB POCT ORDERABLES - DEVICE Final Result [facility] ([place]) 1 [facility] [place] [address] * POCT glucose (06/04/2025 4:41 PM MECHANICAL OPERATOR) Glucose, POC 118 70 - 199 mg/dL Blood 06/04/2025 4:41 PM MECHANICAL OPERATOR 06/04/2025 4:41 PM MECHANICAL OPERATOR Bonifacio Blackwell MD LAB POCT ORDERABLES - DEVICE Final Result [facility] ([place]) 1 [facility] [place] [address] * POCT glucose (06/04/2025 11:24 AM MECHANICAL OPERATOR) Glucose, POC 101 70 - 199 mg/dL Blood 06/04/2025 11:2 4 AM MECHANICAL OPERATOR 06/04/2025 11:24 AM MECHANICAL OPERATOR Bonifacio Blackwell MD LAB POCT ORDERABLES - DEVICE Final Result Performing Organization Address City/[facility]/ZIP Co de Phone Number [facility] ([place]) 1 [facility] [place] [address] * POCT glucose (06/04/2025 7:20 AM MECHANICAL OPERATOR) Pathologist [facility] Glucose, POC 93 70 - 199 mg/dL Blood 06/04/2025 7:20 AM MECHANICAL OPERATOR 06/04/2025 7:20 AM MECHANICAL OPERATOR Bonifacio Blackwell MD LAB POCT ORDERABLES - DEVICE Final Result Performing Organization Address City/[facility]/ZIP Co de Phone Number [facility] ([place]) 1 [facility] [place] [address] * eGFR (06/04/2025 3:28 AM MECHANICAL OPERATOR) eGFR >90 >=60 mL/min/1. 73 m2 Comment: Interpretive Data Reference Interval Normal >/= 90 mL/min/1.73m2 Mildly decreased* 60 - 89 mL/min/1.73m2 Mildly to moderately decreased 45 - 59 mL/min/1.73m2 Moderately to severely decreased 30 - 44 mL/min/1.73m2 Severely decreased 15 - 29 mL/min/1.73m2 Kidney Failure < 15 mL/min/1.73m2 *Relative to young adult level Estimated glomerular filtration rate is determined by the 2020 CKD-EPI equation recommended by the National Kidney Foundation (A Unifying Approach to GFR Estimation: Recommendations of the NKF-ASK Task Force on Reassessing the Inclusion of Race in Diagnosing Kidney Disease, JASN 2020). The CKD-EPI equation should not be used for patients with unstable renal function and has not been validated in children and those over 70. Current interpretive data was last reviewed 2021. Blood 06/04/2025 3:28 AM MECHANICAL OPERATOR 06/04/2025 4:16 AM MECHANICAL OPERATOR us Medhat Perkins NP LAB BLOOD ORDERABLES Final Result [facility] ([place]) 1 [facility] [place] [address] * (ABNORMAL) Differential, auto (06/04/2025 3:28 AM MECHANICAL OPERATOR) Neutrophil abs 8.91(H) 1.50 - 6.50 K/cumm Imm gran abs 0.15(H) 0.00 - 0.10 K/cumm [facility] ([facility]) Lymphocyte abs 2.12 0.80 - 3.30 K/cumm [facility] ([facility]) Monocyte abs 0.78 0.20 - 0.80 K/cumm [facility] ([place]) Eosinophil abs 0.05 0.00 - 0.50 K/cumm [facility] ([facility]) Basophil abs 0.02 0.00 - 0.10 K/cumm [facility] ([facility]) Neutrophil pct 74.1 % [facility] ([facility]) Comment: Interpretive Data Percent cell count reference ranges are not reported, since discordance with absolute values may lead to misinterpretation of CBC data. Current Interpretive Data was last revised on 2017. Imm gran pct 1.2 % [facility] ([place]) Comment: Interpretive Data Percent cell count reference ranges are not reported, since discordance with absolute values may lead to misinterpretation of CBC data. Current Interpretive Data was last revised on 2017. Lymphocyte pct 17.6 % [facility] ([facility]) Comment: Interpretive Data Percent cell count reference ranges are not reported, since discordance with absolute values may lead to misinterpretation of CBC data. Current Interpretive Data was last revised on 2017. Monocyte pct 6.5 % [facility] ([place]) Comment: Interpretive Data Percent cell count reference ranges are not reported, since discordance with absolute values may lead to misinterpretation of CBC data. Current Interpretive Data was last revised on 2017. Eosinophil pct 0.4 % [facility] ([facility]) Comment: Interpretive Data Percent cell count reference ranges are not reported, since discordance with absolute values may lead to misinterpretation of CBC data. Current Interpretive Data was last revised on 2017. Basophil pct 0.2 % [facility] ([place]) Comment: Interpretive Data Percent cell count reference ranges are not reported, since discordance with absolute values may lead to misinterpretation of CBC data. Current Interpretive Data was last revised on 2017. Blood 06/04/2025 3:28 AM MECHANICAL OPERATOR 06/04/2025 4:16 AM MECHANICAL OPERATOR Medhat Perkins TRAUMA PROGRAM MANAGER LAB BLOOD ORDERABLES Final Result [facility] ([facility]) 1 [facility] Department of Laboratories [place], [place] [id number] * (ABNORMAL) CBC with auto differential (06/04/2025 3:28 AM MECHANICAL OPERATOR) WBC 12.03(H) 3.80 - 9.90 K/cumm Hgb 14.5 13.0 - 17.5 g/dL [facility] ([place]) Hct 42.0 38.9 - 50.3 % [facility] ([place]) Plt 170 150 - 400 K/cumm [facility] ([facility]) MPV 10.5 9.1 - 12.3 fL [facility] ([place]) RBC 4.40 4.30 - 5.80 M/cumm [facility] ([facility]) MCV 95.5 81.3 - 96.4 fL [facility] ([place]) MCH 33.0 27.1 - 33.3 pg [facility] ([place]) MCHC 34.5 32.3 - 35.7 g/dL [facility] ([facility]) RDW CV 13.9 11.1 - 14.9 % [facility] RDW SD 49.2(H) 35.7 - 48.1 fL [facility] NRBC abs 0.00 0.00 - 0.01 K/cumm [facility] ([facility]) Blood 06/04/2025 3:28 AM MECHANICAL OPERATOR 06/04/2025 4:16 AM MECHANICAL OPERATOR Medhat Perkins TRAUMA PROGRAM MANAGER LAB BLOOD ORDERABLES Final Result [facility] ([facility]) 1 [facility] Department [place] [address] * (ABNORMAL) Basic metabolic panel (06/04/2025 3:28 AM MECHANICAL OPERATOR) Sodium 136 135 - 145 mmol/L Potassium, pl 3.2(L) 3.3 - 4.9 mmol/L [facility] Chloride 100 97 - 110 mmol/L [facility]) CO2 27 22 - 32 mmol/L [facility] ([facility]) Anion gap 9 2 - 15 mmol/L [facility] BUN 13 6 - 25 mg/dL [facility] Creatinine 0.68(L) 0.80 - 1.30 mg/dL [facility] Glucose 88 70 - 199 mg/dL [facility] ([facility]) Comment: Interpretive Data Fasting glucose >/= 126 mg/dl is diagnostic for diabetes. Fasting is defined as no caloric intake for at least 8 hours. Fasting glucose between 100 mg/dl to 125 mg/dl is diagnostic of prediabetes. In a patient with classic symptoms of hyperglycemia or hyperglycemic crisis, a random glucose >/= 200 mg/dl is diagnostic for diabetes. In the absence of unequivocal hyperglycemia, results should be confirmed by repeat testing. The classification and Diagnosis of Diabetes Diabetes Care 2021; 46: S19-S40. Current interpretive data was last revised 2022. Calcium 8.7 8.5 - 10.3 mg/dL [facility] ([facility]) Blood 06/04/2025 3:28 AM MECHANICAL OPERATOR 06/04/2025 4:16 AM MECHANICAL OPERATOR us Medhat Perkins NP LAB BLOOD ORDERABLES Final Result [facility] ([place]) 1 [facility] [place] [address] * POCT glucose (06/04/2025 3:17 AM MECHANICAL OPERATOR) Glucose, POC 108 70 - 199 mg/dL Blood 06/04/2025 3:17 AM MECHANICAL OPERATOR 06/04/2025 3:17 AM MECHANICAL OPERATOR us Bonifacio Blackwell MD LAB POCT ORDERABLES - DEVICE Final Result Performing Organization Address City/[facility]/ZIP Co de Phone Number [facility] ([place]) 1 [facility] [place] [address] * POCT glucose (06/03/2025 7:46 PM MECHANICAL OPERATOR) Glucose, POC 98 70 - 199 mg/dL Blood 06/03/2025 7:46 PM MECHANICAL OPERATOR 06/03/2025 7:46 PM MECHANICAL OPERATOR us Bonifacio Blackwell MD LAB POCT ORDERABLES - DEVICE Final Result Performing Organization Address City/[facility]/ZIP Co de Phone Number [facility] ([place]) 1 [facility] [place] [address] * POCT glucose (06/03/2025 4:43 PM MECHANICAL OPERATOR) Glucose, POC 106 70 - 199 mg/dL Blood 06/03/2025 4:43 PM MECHANICAL OPERATOR 06/03/2025 4:43 PM MECHANICAL OPERATOR us Bonifacio Blackwell MD LAB POCT ORDERABLES - DEVICE Final Result [facility] ([place]) 1 [facility] [place] [address] * POCT glucose (06/03/2025 11:38 AM MECHANICAL OPERATOR) Glucose, POC 97 70 - 199 mg/dL Blood 06/03/2025 11:3 8 AM MECHANICAL OPERATOR 06/03/2025 11:38 AM MECHANICAL OPERATOR Bonifacio Blackwell MD LAB POCT ORDERABLES - DEVICE Final Result [facility] ([place]) 1 [place] [address] * POCT glucose (06/03/2025 7:58 AM MECHANICAL OPERATOR) Glucose, POC 108 70 - 199 mg/dL Blood 06/03/2025 7:58 AM MECHANICAL OPERATOR 06/03/2025 7:58 AM MECHANICAL OPERATOR Bonifacio Blackewll MD LAB POCT ORDERABLES - DEVICE Final Result [facility] ([place]) 1 [place] [address] * eGFR (06/03/2025 7:05 AM MECHANICAL OPERATOR) eGFR >90 >=60 mL/min/1. 73 m2 Comment: Interpretive Data Reference Interval Normal >/= 90 mL/min/1.73m2 Mildly decreased* 60 - 89 mL/min/1.73m2 Mildly to moderately decreased 45 - 59 mL/min/1.73m2 Moderately to severely decreased 30 - 44 mL/min/1.73m2 Severely decreased 15 - 29 mL/min/1.73m2 Kidney Failure < 15 mL/min/1.73m2 *Relative to young adult level Estimated glomerular filtration rate is determined by the 2020 CKD-EPI equation recommended by the National Kidney Foundation (A Unifying Approach to GFR Estimation: Recommendations of the NKF-ASK Task Force on Reassessing the Inclusion of Race in Diagnosing Kidney Disease, JASN 2020). The CKD-EPI equation should not be used for patients with unstable renal function and has not been validated in children and those over 70. Current interpretive data was last reviewed 2021. Blood 06/03/2025 7:05 AM MECHANICAL OPERATOR 06/03/2025 7:41 AM MECHANICAL OPERATOR us Bonifacio Blackwell MD LAB BLOOD ORDERABLES Final R esult [facility] ([place]) 1 [facility] Department [place] [address] * (ABNORMAL) Renal function panel (06/03/2025 7:05 AM MECHANICAL OPERATOR) Sodium 138 135 - 145 mmol/L Potassium, pl 3.3 3.3 - 4.9 mmol/L [facility] ([facility]) Chloride 101 97 - 110 mmol/L [facility] ([facility]) CO2 29 22 - 32 mmol/L [facility] ([facility]) Anion gap 8 2 - 15 mmol/L [facility] ([facility]) BUN 17 6 - 25 mg/dL [facility] ([facility]) Creatinine 0.76(L) 0.80 - 1.30 mg/dL [facility] ([facility]) Glucose 91 70 - 199 mg/dL [facility] ([facility]) Comment: Interpretive Data Fasting glucose >/= 126 mg/dl is diagnostic for diabetes. Fasting is defined as no caloric intake for at least 8 hours. Fasting glucose between 100 mg/dl to 125 mg/dl is diagnostic of prediabetes. In a patient with classic symptoms of hyperglycemia or hyperglycemic crisis, a random glucose >/= 200 mg/dl is diagnostic for diabetes. In the absence of unequivocal hyperglycemia, results should be confirmed by repeat testing. The classification and Diagnosis of Diabetes Diabetes Care 202; 46: S19-S40. Current interpretive data was last revised 2022. Calcium 8.9 8.5 - 10.3 mg/dL [facility] ([facility]) Phosphorus, pl 2.0(L) 2.3 - 4.5 mg/dL [facility] ([facility]) Albumin 3.5 3.5 - 5.0 g/dL [facility] ([facility]) Blood 06/03/2025 7:05 AM MECHANICAL OPERATOR 06/03/2025 7:41 AM MECHANICAL OPERATOR us Bonifacio Blackwell MD LAB BLOOD ORDERABLES Final R esult [facility] ([place]) 1 [facility] Department [place] [address] * (ABNORMAL) Differential, auto (06/03/2025 5:06 AM MECHANICAL OPERATOR) Neutrophil abs 10.80(H) 1.50 - 6.50 K/cumm Imm gran abs 0.13(H) 0.00 - 0.10 K/cumm [facility] ([facility]) Lymphocyte abs 2.05 0.80 - 3.30 K/cumm [facility] ([facility]) Monocyte abs 0.77 0.20 - 0.80 K/cumm [facility] ([facility]) Eosinophil abs 0.03 0.00 - 0.50 K/cumm [facility] ([facility]) Basophil abs 0.02 0.00 - 0.10 K/cumm [facility] ([facility]) Neutrophil pct 78.3 % [facility] ([facility]) Comment: Interpretive Data Percent cell count reference ranges are not reported, since discordance with absolute values may lead to misinterpretation of CBC data. Current Interpretive Data was last revised on 2017. Imm gran pct 0.9 % [facility] ([facility]) Comment: Interpretive Data Percent cell count reference ranges are not reported, since discordance with absolute values may lead to misinterpretation of CBC data. Current Interpretive Data was last revised on 2017. Lymphocyte pct 14.9 % [facility] ([facility]) Comment: Interpretive Data Percent cell count reference ranges are not reported, since discordance with absolute values may lead to misinterpretation of CBC data. Current Interpretive Data was last revised on 2017. Monocyte pct 5.6 % [facility] ([facility]) Comment: Interpretive Data Percent cell count reference ranges are not reported, since discordance with absolute values may lead to misinterpretation of CBC data. Current Interpretive Data was last revised on 2017. Eosinophil pct 0.2 % [facility] ([facility]) Comment: Interpretive Data Percent cell count reference ranges are not reported, since discordance with absolute values may lead to misinterpretation of CBC data. Current Interpretive Data was last revised on 2017. Basophil pct 0.1 % [facility] ([place]) Comment: Interpretive Data Percent cell count reference ranges are not reported, since discordance with absolute values may lead to misinterpretation of CBC data. Current Interpretive Data was last revised on 2017. Blood 06/03/2025 5:06 AM MECHANICAL OPERATOR 06/03/2025 5:12 AM MECHANICAL OPERATOR us Medhat Perkins NP LAB BLOOD ORDERABLES Final Result [facility] ([place]) 1 [facility] [place] [address] * (ABNORMAL) CBC with auto differential (06/03/2025 5:06 AM MECHANICAL OPERATOR) WBC 13.80(H) 3.80 - 9.90 K/cumm Hgb 15.7 13.0 - 17.5 g/dL [facility] ([facility]) Hct 45.4 38.9 - 50.3 % [facility] ([facility]) Plt 207 150 - 400 K/cumm [facility] ([facility]) MPV 10.4 9.1 - 12.3 fL [facility] ([facility]) RBC 4.78 4.30 - 5.80 M/cumm [facility] ([place]) MCV 95.0 81.3 - 96.4 fL [facility] ([place]) MCH 32.8 27.1 - 33.3 pg [facility] ([place]) MCHC 34.6 32.3 - 35.7 g/dL [facility] ([facility]) RDW CV 14.4 11.1 - 14.9 % [facility] ([place]) RDW SD 49.3(H) 35.7 - 48.1 fL [facility] ([place]) NRBC abs 0.00 0.00 - 0.01 K/cumm [facility] ([facility]) Blood 06/03/2025 5:06 AM MECHANICAL OPERATOR 06/03/2025 5:12 AM MECHANICAL OPERATOR us Medhat Perkins NP LAB BLOOD ORDERABLES Final Result [facility] ([place]) 1 [facility] [place] [address] * POCT glucose (06/02/2025 7:37 PM MECHANICAL OPERATOR) Glucose, POC 111 70 - 199 mg/dL Blood 06/02/2025 7:37 PM MECHANICAL OPERATOR 06/02/2025 7:37 PM MECHANICAL OPERATOR us Bonifacio Blackwell MD LAB POCT ORDERABLES - DEVICE Final Result Performing Organization Address [facility] Co de Phone Number [facility] ([place]) 1 [facility] [place] [address] * POCT glucose (06/02/2025 4:47 PM MECHANICAL OPERATOR) Glucose, POC 132 70 - 199 mg/dL Blood 06/02/2025 4:47 PM MECHANICAL OPERATOR 06/02/2025 4:47 PM MECHANICAL OPERATOR us Bonifacio Blackwell MD LAB POCT ORDERABLES - DEVICE Final Result Performing Organization Address [facility] Co de Phone Number [facility] ([place]) 1 [facility] [place] [address] * POCT glucose (06/02/2025 11:17 AM MECHANICAL OPERATOR) Glucose, POC 103 70 - 199 mg/dL Blood 06/02/2025 11:1 7 AM MECHANICAL OPERATOR 06/02/2025 11:17 AM MECHANICAL OPERATOR us Bonifacio Blackwell MD LAB POCT ORDERABLES - DEVICE Final Result Performing Organization Address City/[facility] Co de Phone Number [facility] ([place]) 1 [facility] [place] [address] * (ABNORMAL) Differential, auto (06/02/2025 9:02 AM MECHANICAL OPERATOR) Neutrophil abs 10.72(H) 1.50 - 6.50 K/cumm Imm gran abs 0.11(H) 0.00 - 0.10 K/cumm [facility] ([facility]) Lymphocyte abs 2.28 0.80 - 3.30 K/cumm [facility] ([facility]) Monocyte abs 0.86(H) 0.20 - 0.80 K/cumm [facility] ([facility]) Eosinophil abs 0.02 0.00 - 0.50 K/cumm [facility] ([facility]) Basophil abs 0.02 0.00 - 0.10 K/cumm [facility] ([facility]) Neutrophil pct 76.6 % [facility] ([place]) Comment: Interpretive Data Percent cell count reference ranges are not reported, since discordance with absolute values may lead to misinterpretation of CBC data. Current Interpretive Data was last revised on 2017. Imm gran pct 0.8 % [facility] ([place]) Comment: Interpretive Data Percent cell count reference ranges are not reported, since discordance with absolute values may lead to misinterpretation of CBC data. Current Interpretive Data was last revised on 2017. Lymphocyte pct 16.3 % [facility] ([facility]) Comment: Interpretive Data Percent cell count reference ranges are not reported, since discordance with absolute values may lead to misinterpretation of CBC data. Current Interpretive Data was last revised on 2017. Monocyte pct 6.1 % [facility] ([place]) Comment: Interpretive Data Percent cell count reference ranges are not reported, since discordance with absolute values may lead to misinterpretation of CBC data. Current Interpretive Data was last revised on 2017. Eosinophil pct 0.1 % [facility] ([place]) Comment: Interpretive Data Percent cell count reference ranges are not reported, since discordance with absolute values may lead to misinterpretation of CBC data. Current Interpretive Data was last revised on 2017. Basophil pct 0.1 % [facility] ([facility]) Comment: Interpretive Data Percent cell count reference ranges are not reported, since discordance with absolute values may lead to misinterpretation of CBC data. Current Interpretive Data was last revised on 2017. Blood 06/02/2025 9:02 AM MECHANICAL OPERATOR 06/02/2025 9:10 AM MECHANICAL OPERATOR Medhat Perkins TRAUMA PROGRAM MANAGER LAB BLOOD ORDERABLES Final Result Performing Organization Address City/[facility]/ZIP Co de Phone Number [facility] ([facility]) 1 [facility] Department [place] [address] * (ABNORMAL) CBC with auto differential (06/02/2025 9:02 AM MECHANICAL OPERATOR) WBC 14.01(H) 3.80 - 9.90 K/cumm Hgb 14.1 13.0 - 17.5 g/dL [facility] ([facility]) Hct 41.7 38.9 - 50.3 % [facility] ([facility]) Plt 183 150 - 400 K/cumm [facility] ([facility]) MPV 9.7 9.1 - 12.3 fL [facility] ([facility]) RBC 4.28(L) 4.30 - 5.80 M/cumm [facility] ([facility]) MCV 97.4(H) 81.3 - 96.4 fL [facility] ([facility]) MCH 32.9 27.1 - 33.3 pg [facility] ([facility]) MCHC 33.8 32.3 - 35.7 g/dL [facility] ([facility]) RDW CV 14.2 11.1 - 14.9 % [facility] ([facility]) RDW SD 51.4(H) 35.7 - 48.1 fL [facility] ([place]) NRBC abs 0.00 0.00 - 0.01 K/cumm [facility] ([facility]) Blood 06/02/2025 9:02 AM MECHANICAL OPERATOR 06/02/2025 9:10 AM MECHANICAL OPERATOR Medhat Perkins TRAUMA PROGRAM MANAGER LAB BLOOD ORDERABLES Final Result Performing Organization Address City/[facility]/ZIP Co de Phone Number [facility] ([place]) 1 [facility] Department [place] [address] * POCT glucose (06/02/2025 8:32 AM MECHANICAL OPERATOR) Glucose, POC 89 70 - 199 mg/dL Blood 06/02/2025 8:32 AM MECHANICAL OPERATOR 06/02/2025 8:32 AM MECHANICAL OPERATOR us Bonifacio Blackwell MD LAB POCT ORDERABLES - DEVICE Final Result [facility] ([place]) 1 [facility] [place] [address] * MRI Lumbar Spine W WO Contrast (06/02/2025 7:53 AM MECHANICAL OPERATOR) Anatomical Region Laterality Modality Spine N/A Magnetic Resonan ce 06/02/2025 8:21 AM MECHANICAL OPERATOR Impressions 06/02/2025 8:21 AM MECHANICAL OPERATOR 1. Acute-subacute compression fractures of T6 greater than T5 as detailed above. 2. Spondylosis and degenerative disease of the thoracic spine as detailed level by level above. 3. Acute-subacute L1 compression fracture as detailed above. 4. Constellation of levoscoliosis, spondylosis, spondylosis, and degenerative disease of the lumbar spine as detailed level by level above, maximal at L4-L5. Electronically signed by: Wiley Galvez M.D. Narrative 06/02/2025 8:21 AM MECHANICAL OPERATOR EXAMINATION: MRI THORACIC SPINE W WO CONTRAST, MRI LUMBAR SPINE W WO CONTRAST REASON FOR STUDY: Compression fracture of unspecified levels status post recent fall. History of hypertension, hyperlipidemia, GERD, COPD, hypothyroidism, and type II diabetes. No spine surgeries. TECHNIQUE: Sagittal and axial imaging of the thoracic and lumbar spine includes T1, T2, STIR and gradient echo sequences. Multiplanar T1 postcontrast sequences acquired. Images saved to PACS. CONTRAST: 20 mL Dotarem was administered via peripheral IV site. COMPARISON: Round portions of CT thoracic/lumbar spine and pelvis without contrast 06/01/2025; thoracic/lumbar spine radiographs 05/25/2025 FINDINGS: MRI THORACIC SPINE: ALIGNMENT: Alignment and curvature are unchanged. VERTEBRAE: Anterior wedge compression fracture of the T5 vertebral body with enhancing marrow edema extending across the from the anteroinferior corner consistent with acute of subacute compression fracture demonstrating approximately 50% anterocentral maximal vertebral body height loss; no retropulsion of the posterior cortical margin. Marked anterior wedge compression fracture of the T6 vertebral body with robust enhancing marrow edema variable extending about the vertebral body consistent with acute-subacute compression fracture (noting component of intraosseous gas consistent with osteonecrosis/, disease better evaluated on CT imaging 1 day prior) demonstrates approximately 70% anterocentral maximal vertebral body height loss. Retropulsion of the central inferior aspect of the posterior cortical margin indents the ventral thecal sac without significant spinal canal compromise. Spondylosis. Scattered hemangiomas and patchy fatty marrow placement about the os architecture. DISCS: Multilevel variable intervertebral disc desiccation and loss of vertebral disc height. HARDWARE: None in the thoracic spine. CORD: Normal in size and signal intensity. No abnormal enhancement. No abnormal enhancement. INDIVIDUAL DISC LEVELS: T3-T4: Central slightly left articular disc protrusion indenting the left eccentric ventral thecal sac. Bilateral facet arthropathy. Ligament flavum thickening. No spinal canal stenosis. No neuroforaminal stenosis. T4-T5: Central-right subacute disc trusion indenting the right eccentric ventral thecal sac. Bilateral facet arthropathy. Ligament flavum thickening. No spinal canal stenosis. No neuroforaminal stenosis. T5-T6: Central disc trusion indenting the ventral thecal sac. Bilateral facet arthropathy. Ligament flavum thickening. No spinal canal stenosis. No neuroforaminal stenosis. Retropulsion of the posterior cortical margin of T6 and small shallow central disc protrusion indenting the ventral thecal sac. Bilateral facet arthropathy. No spinal canal stenosis. Bilateral neuroforaminal stenosis. T8-T9: Mild annular disc bulge slightly indenting the ventral thecal sac. Bilateral facet arthropathy. Ligament flavum thickening. No spinal canal stenosis. No significant neuroforaminal stenosis. T9-T10: Mild annular disc bulge slightly indenting the ventral thecal sac. Bilateral facet arthropathy. Ligament flavum thickening. No spinal canal stenosis. No neuroforaminal stenosis. T10-T11: Annular disc bulge indenting the ventral thecal sac. Bilateral facet arthropathy, noting slight fluid in the left greater the right facet joints suggestive of facet synovitis. Ligament flavum thickening. No spinal canal stenosis. Bilateral neuroforaminal stenosis. T11-T12: Mild annular disc bulge slightly indenting the ventral thecal sac. Bilateral facet arthropathy. Ligamentum flavum thickening. No spinal canal stenosis. No significant neuroforaminal stenosis. T12-L1: Annular disc bulge indenting the ventral thecal sac. Bilateral hypertrophic facet arthropathy. Ligament flavum thickening. No spinal canal stenosis. No neuroforaminal stenosis. SOFT TISSUES: No acute abnormality. OTHER: None. MRI LUMBAR SPINE: SEGMENTATION: No lumbosacral transitional anatomy. The lowest fully formed intervertebral disc level is labeled L5-S1. ALIGNMENT: Alignment and curvature are unchanged. VERTEBRAE: Progression formed extending from the inferior endplate of the L1 vertebral body with associated slight patchy marrow edema consistent with acute-subacute compression fracture demonstrating approximately 15-20% central maximal vertebral body height loss; no retropulsion of the posterior cortical margin. Vertebral body heights unchanged. Spondylosis. Scattered hemangiomas and patchy fatty marrow placement about the osseous architecture. DISCS: Multilevel variable intervertebral disc desiccation and loss of intervertebral disc height of the visualized cervicothoracic spine. HARDWARE: None in the lumbar spine. CORD: Normal in size and signal intensity with conus medullaris termination at the superior aspect of L2. No abnormal enhancement. INDIVIDUAL DISC LEVELS: L1-L2: Annular disc bulge with central-left subarticular disc protrusion with 9 mm inferior migration. Bilateral hypertrophic facet arthropathy. Ligament flavum thickening. Ligament flavum thickening. Compromise of the left lateral recess, noting combination of disc and hepatic sac contact with the descending left L2 nerve root. Moderate left eccentric spinal canal stenosis. No significant neuroforaminal stenosis. L2-L3: Posterior osteophytosis with annular disc bulge. Bilateral hypertrophic facet arthropathy. Ligament flavum thickening. Compromise of the bilateral lateral recess. Mild left moderate spinal canal stenosis. Mild bilateral inferior neuroforaminal stenosis. L3-L4: Posterior osteophytosis with annular disc bulge. Bilateral hypertrophic facet arthropathy. Ligament flavum thickening. Compromise of the left greater the right lateral recess, noting combination of disc and arthropathic facet slight contact with the descending left L3 nerve root. Mild spinal canal stenosis. Mild/moderate right and mild inferior left neuroforaminal stenosis. L4-L5: Uncovering of the iliotibial disc with annular disc bulge and right subarticular-foraminal junctional disc protrusion with 1.6 cm superior migration to the superior 3rd of the L4 vertebral body. Comment marked bilateral hypertrophic facet arthropathy, noting slight fluid in the right facet joint suggestive of facet synovitis. Ligament flavum thickening. Obliteration of the right and marked compromise of the left lateral recesses, noting combination of disc and arthropathic facet variable impingement upon the descending bilateral L5 nerve roots. Severe spinal canal stenosis. Severe right and lesser left neuroforaminal stenosis, noting combination of inferior pedicular surface and disc deformation of the exiting right and contact with the exiting left L4 nerve roots. L5-S1: Posterior osteophytosis with annular disc bulge and right eccentric central through right 7 radicular-foraminal junctional disc protrusion. Bilateral hypertrophic facet arthropathy. Compromise of the right lateral recess, noting disc contact with the descending right S1 nerve root. No spinal canal stenosis. Severe left and lesser right neuroforaminal stenosis, noting combination of inferior pedicular surface, osteophytosis/disc, and arthropathic facet variable contact with the exiting bilateral L5 nerve roots. SACRUM: Visualized portions of the sacrum unremarkable. SOFT TISSUES: Within the limitations of motion artifact, no overt evidence of acute abnormality. OTHER: Sarcopenia manifested as variably robust fatty atrophy of the visualized musculature. Procedure Note Wiley Galvez MD - 06/02/2025 EXAMINATION: MRI THORACIC SPINE W WO CONTRAST, MRI LUMBAR SPINE W WO CONTRAST REASON FOR STUDY: Compression fracture of unspecified levels status post recent fall. History of hypertension, hyperlipidemia, GERD, COPD, hypothyroidism, and type II diabetes. No spine surgeries. TECHNIQUE: Sagittal and axial imaging of the thoracic and lumbar spine includes T1, T2, STIR and gradient echo sequences. Multiplanar T1 postcontrast sequences acquired. Images saved to PACS. CONTRAST: 20 mL Dotarem was administered via peripheral IV site. COMPARISON: Round portions of CT thoracic/lumbar spine and pelvis without contrast 06/01/2025; thoracic/lumbar spine radiographs 05/25/2025 FINDINGS: MRI THORACIC SPINE: ALIGNMENT: Alignment and curvature are unchanged. VERTEBRAE: Anterior wedge compression fracture of the T5 vertebral body with enhancing marrow edema extending across the from the anteroinferior corner consistent with acute of subacute compression fracture demonstrating approximately 50% anterocentral maximal vertebral body height loss; no retropulsion of the posterior cortical margin. Marked anterior wedge compression fracture of the T6 vertebral body with robust enhancing marrow edema variable extending about the vertebral body consistent with acute-subacute compression fracture (noting component of intraosseous gas consistent with osteonecrosis/, disease better evaluated on CT imaging 1 day prior) demonstrates approximately 70% anterocentral maximal vertebral body height loss. Retropulsion of the central inferior aspect of the posterior cortical margin indents the ventral thecal sac without significant spinal canal compromise. Spondylosis. Scattered hemangiomas and patchy fatty marrow placement about the os architecture. DISCS: Multilevel variable intervertebral disc desiccation and loss of vertebral disc height. HARDWARE: None in the thoracic spine. CORD: Normal in size and signal intensity. No abnormal enhancement. No abnormal enhancement. INDIVIDUAL DISC LEVELS: T3-T4: Central slightly left articular disc protrusion indenting the left eccentric ventral thecal sac. Bilateral facet arthropathy. Ligament flavum thickening. No spinal canal stenosis. No neuroforaminal stenosis. T4-T5: Central-right subacute disc trusion indenting the right eccentric ventral thecal sac. Bilateral facet arthropathy. Ligament flavum thickening. No spinal canal stenosis. No neuroforaminal stenosis. T5-T6: Central disc trusion indenting the ventral thecal sac. Bilateral facet arthropathy. Ligament flavum thickening. No spinal canal stenosis. No neuroforaminal stenosis. Retropulsion of the posterior cortical margin of T6 and small shallow central disc protrusion indenting the ventral thecal sac. Bilateral facet arthropathy. No spinal canal stenosis. Bilateral neuroforaminal stenosis. T8-T9: Mild annular disc bulge slightly indenting the ventral thecal sac. Bilateral facet arthropathy. Ligament flavum thickening. No spinal canal stenosis. No significant neuroforaminal stenosis. T9-T10: Mild annular disc bulge slightly indenting the ventral thecal sac. Bilateral facet arthropathy. Ligament flavum thickening. No spinal canal stenosis. No neuroforaminal stenosis. T10-T11: Annular disc bulge indenting the ventral thecal sac. Bilateral facet arthropathy, noting slight fluid in the left greater the right facet joints suggestive of facet synovitis. Ligament flavum thickening. No spinal canal stenosis. Bilateral neuroforaminal stenosis. T11-T12: Mild annular disc bulge slightly indenting the ventral thecal sac. Bilateral facet arthropathy. Ligamentum flavum thickening. No spinal canal stenosis. No significant neuroforaminal stenosis. T12-L1: Annular disc bulge indenting the ventral thecal sac. Bilateral hypertrophic facet arthropathy. Ligament flavum thickening. No spinal canal stenosis. No neuroforaminal stenosis. SOFT TISSUES: No acute abnormality. OTHER: None. MRI LUMBAR SPINE: SEGMENTATION: No lumbosacral transitional anatomy. The lowest fully formed intervertebral disc level is labeled L5-S1. ALIGNMENT: Alignment and curvature are unchanged. VERTEBRAE: Progression formed extending from the inferior endplate of the L1 vertebral body with associated slight patchy marrow edema consistent with acute-subacute compression fracture demonstrating approximately 15-20% central maximal vertebral body height loss; no retropulsion of the posterior cortical margin. Vertebral body heights unchanged. Spondylosis. Scattered hemangiomas and patchy fatty marrow placement about the osseous architecture. DISCS: Multilevel variable intervertebral disc desiccation and loss of intervertebral disc height of the visualized cervicothoracic spine. HARDWARE: None in the lumbar spine. CORD: Normal in size and signal intensity with conus medullaris termination at the superior aspect of L2. No abnormal enhancement. INDIVIDUAL DISC LEVELS: L1-L2: Annular disc bulge with central-left subarticular disc protrusion with 9 mm inferior migration. Bilateral hypertrophic facet arthropathy. Ligament flavum thickening. Ligament flavum thickening. Compromise of the left lateral recess, noting combination of disc and hepatic sac contact with the descending left L2 nerve root. Moderate left eccentric spinal canal stenosis. No significant neuroforaminal stenosis. L2-L3: Posterior osteophytosis with annular disc bulge. Bilateral hypertrophic facet arthropathy. Ligament flavum thickening. Compromise of the bilateral lateral recess. Mild left moderate spinal canal stenosis. Mild bilateral inferior neuroforaminal stenosis. L3-L4: Posterior osteophytosis with annular disc bulge. Bilateral hypertrophic facet arthropathy. Ligament flavum thickening. Compromise of the left greater the right lateral recess, noting combination of disc and arthropathic facet slight contact with the descending left L3 nerve root. Mild spinal canal stenosis. Mild/moderate right and mild inferior left neuroforaminal stenosis. L4-L5: Uncovering of the iliotibial disc with annular disc bulge and right subarticular-foraminal junctional disc protrusion with 1.6 cm superior migration to the superior 3rd of the L4 vertebral body. Comment marked bilateral hypertrophic facet arthropathy, noting slight fluid in the right facet joint suggestive of facet synovitis. Ligament flavum thickening. Obliteration of the right and marked compromise of the left lateral recesses, noting combination of disc and arthropathic facet variable impingement upon the descending bilateral L5 nerve roots. Severe spinal canal stenosis. Severe right and lesser left neuroforaminal stenosis, noting combination of inferior pedicular surface and disc deformation of the exiting right and contact with the exiting left L4 nerve roots. L5-S1: Posterior osteophytosis with annular disc bulge and right eccentric central through right 7 radicular-foraminal junctional disc protrusion. Bilateral hypertrophic facet arthropathy. Compromise of the right lateral recess, noting disc contact with the descending right S1 nerve root. No spinal canal stenosis. Severe left and lesser right neuroforaminal stenosis, noting combination of inferior pedicular surface, osteophytosis/disc, and arthropathic facet variable contact with the exiting bilateral L5 nerve roots. SACRUM: Visualized portions of the sacrum unremarkable. SOFT TISSUES: Within the limitations of motion artifact, no overt evidence of acute abnormality. OTHER: Sarcopenia manifested as variably robust fatty atrophy of the visualized musculature. IMPRESSION: 1. Acute-subacute compression fractures of T6 greater than T5 as detailed above. 2. Spondylosis and degenerative disease of the thoracic spine as detailed level by level above. 3. Acute-subacute L1 compression fracture as detailed above. 4. Constellation of levoscoliosis, spondylosis, spondylosis, and degenerative disease of the lumbar spine as detailed level by level above, maximal at L4-L5. Electronically signed by: Wiley Galvez M.D. [employer] TRAUMA PROGRAM MANAGER IMG MRI PROCEDURES F inal Result * MRI Thoracic Spine W WO Contrast (06/02/2025 7:53 AM MECHANICAL OPERATOR) Anatomical Region Laterality Modality Spine N/A Magnetic Resonan ce 06/02/2025 8:21 AM MECHANICAL OPERATOR Impressions 06/02/2025 8:21 AM MECHANICAL OPERATOR 1. Acute-subacute compression fractures of T6 greater than T5 as detailed above. 2. Spondylosis and degenerative disease of the thoracic spine as detailed level by level above. 3. Acute-subacute L1 compression fracture as detailed above. 4. Constellation of levoscoliosis, spondylosis, spondylosis, and degenerative disease of the lumbar spine as detailed level by level above, maximal at L4-L5. Electronically signed by: Wiley Galvez M.D. Narrative 06/02/2025 8:21 AM MECHANICAL OPERATOR EXAMINATION: MRI THORACIC SPINE W WO CONTRAST, MRI LUMBAR SPINE W WO CONTRAST REASON FOR STUDY: Compression fracture of unspecified levels status post recent fall. History of hypertension, hyperlipidemia, GERD, COPD, hypothyroidism, and type II diabetes. No spine surgeries. TECHNIQUE: Sagittal and axial imaging of the thoracic and lumbar spine includes T1, T2, STIR and gradient echo sequences. Multiplanar T1 postcontrast sequences acquired. Images saved to PACS. CONTRAST: 20 mL Dotarem was administered via peripheral IV site. COMPARISON: Round portions of CT thoracic/lumbar spine and pelvis without contrast 06/01/2025; thoracic/lumbar spine radiographs 05/25/2025 FINDINGS: MRI THORACIC SPINE: ALIGNMENT: Alignment and curvature are unchanged. VERTEBRAE: Anterior wedge compression fracture of the T5 vertebral body with enhancing marrow edema extending across the from the anteroinferior corner consistent with acute of subacute compression fracture demonstrating approximately 50% anterocentral maximal vertebral body height loss; no retropulsion of the posterior cortical margin. Marked anterior wedge compression fracture of the T6 vertebral body with robust enhancing marrow edema variable extending about the vertebral body consistent with acute-subacute compression fracture (noting component of intraosseous gas consistent with osteonecrosis/, disease better evaluated on CT imaging 1 day prior) demonstrates approximately 70% anterocentral maximal vertebral body height loss. Retropulsion of the central inferior aspect of the posterior cortical margin indents the ventral thecal sac without significant spinal canal compromise. Spondylosis. Scattered hemangiomas and patchy fatty marrow placement about the os architecture. DISCS: Multilevel variable intervertebral disc desiccation and loss of vertebral disc height. HARDWARE: None in the thoracic spine. CORD: Normal in size and signal intensity. No abnormal enhancement. No abnormal enhancement. INDIVIDUAL DISC LEVELS: T3-T4: Central slightly left articular disc protrusion indenting the left eccentric ventral thecal sac. Bilateral facet arthropathy. Ligament flavum thickening. No spinal canal stenosis. No neuroforaminal stenosis. T4-T5: Central-right subacute disc trusion indenting the right eccentric ventral thecal sac. Bilateral facet arthropathy. Ligament flavum thickening. No spinal canal stenosis. No neuroforaminal stenosis. T5-T6: Central disc trusion indenting the ventral thecal sac. Bilateral facet arthropathy. Ligament flavum thickening. No spinal canal stenosis. No neuroforaminal stenosis. Retropulsion of the posterior cortical margin of T6 and small shallow central disc protrusion indenting the ventral thecal sac. Bilateral facet arthropathy. No spinal canal stenosis. Bilateral neuroforaminal stenosis. T8-T9: Mild annular disc bulge slightly indenting the ventral thecal sac. Bilateral facet arthropathy. Ligament flavum thickening. No spinal canal stenosis. No significant neuroforaminal stenosis. T9-T10: Mild annular disc bulge slightly indenting the ventral thecal sac. Bilateral facet arthropathy. Ligament flavum thickening. No spinal canal stenosis. No neuroforaminal stenosis. T10-T11: Annular disc bulge indenting the ventral thecal sac. Bilateral facet arthropathy, noting slight fluid in the left greater the right facet joints suggestive of facet synovitis. Ligament flavum thickening. No spinal canal stenosis. Bilateral neuroforaminal stenosis. T11-T12: Mild annular disc bulge slightly indenting the ventral thecal sac. Bilateral facet arthropathy. Ligamentum flavum thickening. No spinal canal stenosis. No significant neuroforaminal stenosis. T12-L1: Annular disc bulge indenting the ventral thecal sac. Bilateral hypertrophic facet arthropathy. Ligament flavum thickening. No spinal canal stenosis. No neuroforaminal stenosis. SOFT TISSUES: No acute abnormality. OTHER: None. MRI LUMBAR SPINE: SEGMENTATION: No lumbosacral transitional anatomy. The lowest fully formed intervertebral disc level is labeled L5-S1. ALIGNMENT: Alignment and curvature are unchanged. VERTEBRAE: Progression formed extending from the inferior endplate of the L1 vertebral body with associated slight patchy marrow edema consistent with acute-subacute compression fracture demonstrating approximately 15-20% central maximal vertebral body height loss; no retropulsion of the posterior cortical margin. Vertebral body heights unchanged. Spondylosis. Scattered hemangiomas and patchy fatty marrow placement about the osseous architecture. DISCS: Multilevel variable intervertebral disc desiccation and loss of intervertebral disc height of the visualized cervicothoracic spine. HARDWARE: None in the lumbar spine. CORD: Normal in size and signal intensity with conus medullaris termination at the superior aspect of L2. No abnormal enhancement. INDIVIDUAL DISC LEVELS: L1-L2: Annular disc bulge with central-left subarticular disc protrusion with 9 mm inferior migration. Bilateral hypertrophic facet arthropathy. Ligament flavum thickening. Ligament flavum thickening. Compromise of the left lateral recess, noting combination of disc and hepatic sac contact with the descending left L2 nerve root. Moderate left eccentric spinal canal stenosis. No significant neuroforaminal stenosis. L2-L3: Posterior osteophytosis with annular disc bulge. Bilateral hypertrophic facet arthropathy. Ligament flavum thickening. Compromise of the bilateral lateral recess. Mild left moderate spinal canal stenosis. Mild bilateral inferior neuroforaminal stenosis. L3-L4: Posterior osteophytosis with annular disc bulge. Bilateral hypertrophic facet arthropathy. Ligament flavum thickening. Compromise of the left greater the right lateral recess, noting combination of disc and arthropathic facet slight contact with the descending left L3 nerve root. Mild spinal canal stenosis. Mild/moderate right and mild inferior left neuroforaminal stenosis. L4-L5: Uncovering of the iliotibial disc with annular disc bulge and right subarticular-foraminal junctional disc protrusion with 1.6 cm superior migration to the superior 3rd of the L4 vertebral body. Comment marked bilateral hypertrophic facet arthropathy, noting slight fluid in the right facet joint suggestive of facet synovitis. Ligament flavum thickening. Obliteration of the right and marked compromise of the left lateral recesses, noting combination of disc and arthropathic facet variable impingement upon the descending bilateral L5 nerve roots. Severe spinal canal stenosis. Severe right and lesser left neuroforaminal stenosis, noting combination of inferior pedicular surface and disc deformation of the exiting right and contact with the exiting left L4 nerve roots. L5-S1: Posterior osteophytosis with annular disc bulge and right eccentric central through right 7 radicular-foraminal junctional disc protrusion. Bilateral hypertrophic facet arthropathy. Compromise of the right lateral recess, noting disc contact with the descending right S1 nerve root. No spinal canal stenosis. Severe left and lesser right neuroforaminal stenosis, noting combination of inferior pedicular surface, osteophytosis/disc, and arthropathic facet variable contact with the exiting bilateral L5 nerve roots. SACRUM: Visualized portions of the sacrum unremarkable. SOFT TISSUES: Within the limitations of motion artifact, no overt evidence of acute abnormality. OTHER: Sarcopenia manifested as variably robust fatty atrophy of the visualized musculature. Procedure Note Wiley Galvez MD - 06/02/2025 EXAMINATION: MRI THORACIC SPINE W WO CONTRAST, MRI LUMBAR SPINE W WO CONTRAST REASON FOR STUDY: Compression fracture of unspecified levels status post recent fall. History of hypertension, hyperlipidemia, GERD, COPD, hypothyroidism, and type II diabetes. No spine surgeries. TECHNIQUE: Sagittal and axial imaging of the thoracic and lumbar spine includes T1, T2, STIR and gradient echo sequences. Multiplanar T1 postcontrast sequences acquired. Images saved to PACS. CONTRAST: 20 mL Dotarem was administered via peripheral IV site. COMPARISON: Round portions of CT thoracic/lumbar spine and pelvis without contrast 06/01/2025; thoracic/lumbar spine radiographs 05/25/2025 FINDINGS: MRI THORACIC SPINE: ALIGNMENT: Alignment and curvature are unchanged. VERTEBRAE: Anterior wedge compression fracture of the T5 vertebral body with enhancing marrow edema extending across the from the anteroinferior corner consistent with acute of subacute compression fracture demonstrating approximately 50% anterocentral maximal vertebral body height loss; no retropulsion of the posterior cortical margin. Marked anterior wedge compression fracture of the T6 vertebral body with robust enhancing marrow edema variable extending about the vertebral body consistent with acute-subacute compression fracture (noting component of intraosseous gas consistent with osteonecrosis/, disease better evaluated on CT imaging 1 day prior) demonstrates approximately 70% anterocentral maximal vertebral body height loss. Retropulsion of the central inferior aspect of the posterior cortical margin indents the ventral thecal sac without significant spinal canal compromise. Spondylosis. Scattered hemangiomas and patchy fatty marrow placement about the os architecture. DISCS: Multilevel variable intervertebral disc desiccation and loss of vertebral disc height. HARDWARE: None in the thoracic spine. CORD: Normal in size and signal intensity. No abnormal enhancement. No abnormal enhancement. INDIVIDUAL DISC LEVELS: T3-T4: Central slightly left articular disc protrusion indenting the left eccentric ventral thecal sac. Bilateral facet arthropathy. Ligament flavum thickening. No spinal canal stenosis. No neuroforaminal stenosis. T4-T5: Central-right subacute disc trusion indenting the right eccentric ventral thecal sac. Bilateral facet arthropathy. Ligament flavum thickening. No spinal canal stenosis. No neuroforaminal stenosis. T5-T6: Central disc trusion indenting the ventral thecal sac. Bilateral facet arthropathy. Ligament flavum thickening. No spinal canal stenosis. No neuroforaminal stenosis. Retropulsion of the posterior cortical margin of T6 and small shallow central disc protrusion indenting the ventral thecal sac. Bilateral facet arthropathy. No spinal canal stenosis. Bilateral neuroforaminal stenosis. T8-T9: Mild annular disc bulge slightly indenting the ventral thecal sac. Bilateral facet arthropathy. Ligament flavum thickening. No spinal canal stenosis. No significant neuroforaminal stenosis. T9-T10: Mild annular disc bulge slightly indenting the ventral thecal sac. Bilateral facet arthropathy. Ligament flavum thickening. No spinal canal stenosis. No neuroforaminal stenosis. T10-T11: Annular disc bulge indenting the ventral thecal sac. Bilateral facet arthropathy, noting slight fluid in the left greater the right facet joints suggestive of facet synovitis. Ligament flavum thickening. No spinal canal stenosis. Bilateral neuroforaminal stenosis. T11-T12: Mild annular disc bulge slightly indenting the ventral thecal sac. Bilateral facet arthropathy. Ligamentum flavum thickening. No spinal canal stenosis. No significant neuroforaminal stenosis. T12-L1: Annular disc bulge indenting the ventral thecal sac. Bilateral hypertrophic facet arthropathy. Ligament flavum thickening. No spinal canal stenosis. No neuroforaminal stenosis. SOFT TISSUES: No acute abnormality. OTHER: None. MRI LUMBAR SPINE: SEGMENTATION: No lumbosacral transitional anatomy. The lowest fully formed intervertebral disc level is labeled L5-S1. ALIGNMENT: Alignment and curvature are unchanged. VERTEBRAE: Progression formed extending from the inferior endplate of the L1 vertebral body with associated slight patchy marrow edema consistent with acute-subacute compression fracture demonstrating approximately 15-20% central maximal vertebral body height loss; no retropulsion of the posterior cortical margin. Vertebral body heights unchanged. Spondylosis. Scattered hemangiomas and patchy fatty marrow placement about the osseous architecture. DISCS: Multilevel variable intervertebral disc desiccation and loss of intervertebral disc height of the visualized cervicothoracic spine. HARDWARE: None in the lumbar spine. CORD: Normal in size and signal intensity with conus medullaris termination at the superior aspect of L2. No abnormal enhancement. INDIVIDUAL DISC LEVELS: L1-L2: Annular disc bulge with central-left subarticular disc protrusion with 9 mm inferior migration. Bilateral hypertrophic facet arthropathy. Ligament flavum thickening. Ligament flavum thickening. Compromise of the left lateral recess, noting combination of disc and hepatic sac contact with the descending left L2 nerve root. Moderate left eccentric spinal canal stenosis. No significant neuroforaminal stenosis. L2-L3: Posterior osteophytosis with annular disc bulge. Bilateral hypertrophic facet arthropathy. Ligament flavum thickening. Compromise of the bilateral lateral recess. Mild left moderate spinal canal stenosis. Mild bilateral inferior neuroforaminal stenosis. L3-L4: Posterior osteophytosis with annular disc bulge. Bilateral hypertrophic facet arthropathy. Ligament flavum thickening. Compromise of the left greater the right lateral recess, noting combination of disc and arthropathic facet slight contact with the descending left L3 nerve root. Mild spinal canal stenosis. Mild/moderate right and mild inferior left neuroforaminal stenosis. L4-L5: Uncovering of the iliotibial disc with annular disc bulge and right subarticular-foraminal junctional disc protrusion with 1.6 cm superior migration to the superior 3rd of the L4 vertebral body. Comment marked bilateral hypertrophic facet arthropathy, noting slight fluid in the right facet joint suggestive of facet synovitis. Ligament flavum thickening. Obliteration of the right and marked compromise of the left lateral recesses, noting combination of disc and arthropathic facet variable impingement upon the descending bilateral L5 nerve roots. Severe spinal canal stenosis. Severe right and lesser left neuroforaminal stenosis, noting combination of inferior pedicular surface and disc deformation of the exiting right and contact with the exiting left L4 nerve roots. L5-S1: Posterior osteophytosis with annular disc bulge and right eccentric central through right 7 radicular-foraminal junctional disc protrusion. Bilateral hypertrophic facet arthropathy. Compromise of the right lateral recess, noting disc contact with the descending right S1 nerve root. No spinal canal stenosis. Severe left and lesser right neuroforaminal stenosis, noting combination of inferior pedicular surface, osteophytosis/disc, and arthropathic facet variable contact with the exiting bilateral L5 nerve roots. SACRUM: Visualized portions of the sacrum unremarkable. SOFT TISSUES: Within the limitations of motion artifact, no overt evidence of acute abnormality. OTHER: Sarcopenia manifested as variably robust fatty atrophy of the visualized musculature. IMPRESSION: 1. Acute-subacute compression fractures of T6 greater than T5 as detailed above. 2. Spondylosis and degenerative disease of the thoracic spine as detailed level by level above. 3. Acute-subacute L1 compression fracture as detailed above. 4. Constellation of levoscoliosis, spondylosis, spondylosis, and degenerative disease of the lumbar spine as detailed level by level above, maximal at L4-L5. Electronically signed by: Wiley Galvez M.D. Medhat Perkins TRAUMA PROGRAM MANAGER IMG MRI PROCEDURES F inal Result * POCT glucose (06/02/2025 4:32 AM MECHANICAL OPERATOR) Glucose, POC 166 70 - 199 mg/dL Blood 06/02/2025 4:32 AM MECHANICAL OPERATOR 06/02/2025 4:32 AM MECHANICAL OPERATOR Raquel Friend MD LAB POCT ORDERABLES - DEVICE Fin al Result [facility] ([place]) 1 [facility] [place] [address] * POCT glucose (06/02/2025 3:45 AM MECHANICAL OPERATOR) Glucose, POC 91 70 - 199 mg/dL Blood 06/02/2025 3:45 AM MECHANICAL OPERATOR 06/02/2025 3:45 AM MECHANICAL OPERATOR Raquel Friend MD LAB POCT ORDERABLES - DEVICE Fin al Result Performing Organization Address City/[facility]/ZIP Co de Phone Number [facility] ([place]) 1 [facility] [place] [address] * POCT glucose (06/01/2025 10:54 PM MECHANICAL OPERATOR) Glucose, POC 92 70 - 199 mg/dL Blood 06/01/2025 10:5 4 PM MECHANICAL OPERATOR 06/01/2025 10:54 PM MECHANICAL OPERATOR Raquel Friend MD LAB POCT ORDERABLES - DEVICE Fin al Result Performing Organization Address City/[facility]/ZIP Co de Phone Number [facility] ([place]) 1 [facility] [place] [address] * eGFR (06/01/2025 5:43 PM MECHANICAL OPERATOR) [facility] eGFR 80 >=60 mL/min/1. 73 m2 Comment: Interpretive Data Reference Interval Normal >/= 90 mL/min/1.73m2 Mildly decreased* 60 - 89 mL/min/1.73m2 Mildly to moderately decreased 45 - 59 mL/min/1.73m2 Moderately to severely decreased 30 - 44 mL/min/1.73m2 Severely decreased 15 - 29 mL/min/1.73m2 Kidney Failure < 15 mL/min/1.73m2 *Relative to young adult level Estimated glomerular filtration rate is determined by the 2020 CKD-EPI equation recommended by the National Kid[employer] (A Unifying Approach to GFR Estimation: Recommendations of the NKF-ASK Task Force on Reassessing the Inclusion of Race in Diagnosing Kidney Disease, JASN 2020). The CKD-EPI equation should not be used for patients with unstable renal function and has not been validated in children and those over 70. Current interpretive data was last reviewed 2021. Blood 06/01/2025 5:43 PM MECHANICAL OPERATOR 06/01/2025 5:52 PM MECHANICAL OPERATOR Yadiel Guardado MD LAB BLOOD ORDERABLES Final Result [facility] ([place]) 1 [facility] [place] [address] * (ABNORMAL) Differential, auto (06/01/2025 5:43 PM MECHANICAL OPERATOR) Neutrophil abs 13.50(H) 1.50 - 6.50 K/cumm Imm gran abs 0.13(H) 0.00 - 0.10 K/cumm [facility] ([place]) Lymphocyte abs 1.11 0.80 - 3.30 K/cumm [facility] ([place]) Monocyte abs 0.53 0.20 - 0.80 K/cumm [facility] ([place]) Eosinophil abs 0.00 0.00 - 0.50 K/cumm [facility] ([place]) Basophil abs 0.02 0.00 - 0.10 K/cumm [facility] ([place]) Neutrophil pct 88.2 % [facility] ([place]) Comment: Interpretive Data Percent cell count reference ranges are not reported, since discordance with absolute values may lead to misinterpretation of CBC data. Current Interpretive Data was last revised on 2017. Imm gran pct 0.9 % [facility] ([place]) Comment: Interpretive Data Percent cell count reference ranges are not reported, since discordance with absolute values may lead to misinterpretation of CBC data. Current Interpretive Data was last revised on 2017. Lymphocyte pct 7.3 % [facility] ([place]) Comment: Interpretive Data Percent cell count reference ranges are not reported, since discordance with absolute values may lead to misinterpretation of CBC data. Current Interpretive Data was last revised on 2017. Monocyte pct 3.5 % [facility] ([place]) Comment: Interpretive Data Percent cell count reference ranges are not reported, since discordance with absolute values may lead to misinterpretation of CBC data. Current Interpretive Data was last revised on 2017. Eosinophil pct 0.0 % [facility] ([place]) Comment: Interpretive Data Percent cell count reference ranges are not reported, since discordance with absolute values may lead to misinterpretation of CBC data. Current Interpretive Data was last revised on 2017. Basophil pct 0.1 % [facility] ([place]) Comment: Interpretive Data Percent cell count reference ranges are not reported, since discordance with absolute values may lead to misinterpretation of CBC data. Current Interpretive Data was last revised on 2017. Blood 06/01/2025 5:43 PM MECHANICAL OPERATOR 06/01/2025 5:52 PM MECHANICAL OPERATOR us Yadiel Guardado MD LAB BLOOD ORDERABLES Final Result [facility] ([place]) 1 [facility] [place] [address] * (ABNORMAL) CBC with auto differential (06/01/2025 5:43 PM MECHANICAL OPERATOR) WBC 15.29(H) 3.80 - 9.90 K/cumm Hgb 15.8 13.0 - 17.5 g/dL [facility] ([place]) Hct 46.6 38.9 - 50.3 % [facility] ([place]) Plt 206 150 - 400 K/cumm [facility] ([place]) MPV 9.6 9.1 - 12.3 fL [facility] ([place]) RBC 4.81 4.30 - 5.80 M/cumm [facility] ([place]) MCV 96.9(H) 81.3 - 96.4 fL [facility] ([place]) MCH 32.8 27.1 - 33.3 pg [facility] ([place]) MCHC 33.9 32.3 - 35.7 g/dL [facility] ([place]) RDW CV 14.2 11.1 - 14.9 % [facility] ([place]) RDW SD 51.2(H) 35.7 - 48.1 fL [facility] ([place]) NRBC abs 0.00 0.00 - 0.01 K/cumm [facility] ([place]) Blood 06/01/2025 5:43 PM MECHANICAL OPERATOR 06/01/2025 5:52 PM MECHANICAL OPERATOR Yadiel Guardado MD LAB BLOOD ORDERABLES Final Result [facility] ([place]) 1 [facility] [employer] [address] * (ABNORMAL) TSH (06/01/2025 5:43 PM MECHANICAL OPERATOR) Thyroid Stimulating Hormone 0.05(L) 0.30 - 4.20 mcIUnit/mL Blood 06/01/2025 5:43 PM MECHANICAL OPERATOR 06/01/2025 5:52 PM MECHANICAL OPERATOR Yadiel Guardado MD LAB BLOOD ORDERABLES Final Result [facility] ([place]) 1 [facility] [employer] [address] * (ABNORMAL) T4, free (06/01/2025 5:43 PM MECHANICAL OPERATOR) Free T4 1.91(H) 0.90 - 1.70 ng/dL Blood 06/01/2025 5:43 PM MECHANICAL OPERATOR 06/01/2025 5:52 PM MECHANICAL OPERATOR us Yadiel Guardado MD LAB BLOOD ORDERABLES Final Result [facility] ([place]) 1 [facility] [employer] [place] [address] * (ABNORMAL) Basic metabolic panel (06/01/2025 5:43 PM MECHANICAL OPERATOR) Sodium 138 135 - 145 mmol/L Potassium, pl 3.9 3.3 - 4.9 mmol/L [facility] ([place]) Chloride 96(L) 97 - 110 mmol/L [facility] ([place]) CO2 31 22 - 32 mmol/L [facility] ([place]) Anion gap 11 2 - 15 mmol/L [facility] ([place]) BUN 35(H) 6 - 25 mg/dL [facility] ([place]) Creatinine 1.00 0.80 - 1.30 mg/dL [facility] ([place]) Glucose 144 70 - 199 mg/dL [facility] ([place]) Comment: Interpretive Data Fasting glucose >/= 126 mg/dl is diagnostic for diabetes. Fasting is defined as no caloric intake for at least 8 hours. Fasting glucose between 100 mg/dl to 125 mg/dl is diagnostic of prediabetes. In a patient with classic symptoms of hyperglycemia or hyperglycemic crisis, a random glucose >/= 200 mg/dl is diagnostic for diabetes. In the absence of unequivocal hyperglycemia, results should be confirmed by repeat testing. The classification and Diagnosis of Diabetes Diabetes Care 2021; 46: S19-S40. Current interpretive data was last revised 2022. Calcium 9.6 8.5 - 10.3 mg/dL [facility] ([place]) Blood 06/01/2025 5:43 PM MECHANICAL OPERATOR 06/01/2025 5:52 PM MECHANICAL OPERATOR us Yadiel Guardado MD LAB BLOOD ORDERABLES Final Result [facility] ([place]) 1 [facility] [place] [address] * XR Knee Right 1 or 2 Views (06/01/2025 5:26 PM MECHANICAL OPERATOR) Anatomical Region Laterality Modality Lower Extremities, Knee Right Computed Radiography 06/01/2025 5:29 PM MECHANICAL OPERATOR Impressions 06/01/2025 5:29 PM MECHANICAL OPERATOR Mild osteoarthritis of the right knee. No acute fracture or dislocation. No joint effusion Electronically signed by: Carolyn Jose M.D. Narrative 06/01/2025 5:29 PM MECHANICAL OPERATOR EXAMINATION: XR KNEE RIGHT 1 OR 2 VIEWS HISTORY: Right-sided hip pain. Fall 5 days ago. TECHNIQUE: 2 views of the right knee COMPARISON: None FINDINGS: There is mild tricompartmental osteoarthritis. There is no acute fracture or dislocation. No destructive osseous lesion. No significant joint effusion. There are atherosclerotic vascular calcifications present. Procedure Note Carolyn Jose MD - 06/01/2025 EXAMINATION: XR KNEE RIGHT 1 OR 2 VIEWS HISTORY: Right-sided hip pain. Fall 5 days ago. TECHNIQUE: 2 views of the right knee COMPARISON: None FINDINGS: There is mild tricompartmental osteoarthritis. There is no acute fracture or dislocation. No destructive osseous lesion. No significant joint effusion. There are atherosclerotic vascular calcifications present. IMPRESSION: Mild osteoarthritis of the right knee. No acute fracture or dislocation. No joint effusion Electronically signed by: Carolyn Jose M.D. us Yadiel Guardado MD IMG XR PROCEDURES Final Re sult * CT Pelvis WO Contrast (06/01/2025 2:12 PM MECHANICAL OPERATOR) Anatomical Region Laterality Modality Body N/A Computed Tomogra phy 06/01/2025 3:35 PM MECHANICAL OPERATOR Impressions 06/01/2025 3:35 PM MECHANICAL OPERATOR 1. No acute hip fracture. 2. Subtle lucencies involving the superior sacral ala bilaterally. This could not be associated with demineralization. Nondisplaced fractures difficult to exclude entirely. MRI can be performed to assess for marrow edema in these regions. 3. 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 4. Lumbar spondylosis and degenerative disc disease. Please see separate dedicated CT lumbar spine report. 5. A circumferential wall thickening versus decompression involving the distal rectum. Correlate with digital rectal exam. Would ensure patient is up-to-date with colonoscopy Electronically signed by: Carolyn Jose M.D. Narrative 06/01/2025 3:35 PM MECHANICAL OPERATOR EXAMINATION: CT PELVIS WO CONTRAST ORDERING HEALTHCARE PROVIDER: YADIEL GUARDADO HISTORY: Hip trauma, fracture suspected, no prior imaging. COMPARISON: None TECHNIQUE: Axial CT images with coronal and sagittal reconstructions obtained of the pelvis. Automated exposure control was used as a dose optimization technique for this examination. FINDINGS: BONES: There is diffuse demineralization. There is no acute hip fracture. There is bilateral hip osteoarthritis. No destructive osseous lesion. The pubic rami are intact. There is no widening of the symphysis. There are symmetric degenerative changes involving the SI joints. There is subtle lucency demonstrated in the superior sacral ala bilaterally. While this could reflect demineralization, the potential for nondisplaced sacral ala fractures cannot be excluded. Correlation with MRI recommended to assess for underlying marrow edema. There is spondylosis within the lower lumbar spine. There is mild retrolisthesis of L5 on S1 and anterolisthesis of L4 on L5. Disc space narrowing is noted at these levels. The facets reveal bilateral degenerative changes. Correlate with results of lumbar spine CT performed PERITONEUM: The soft tissues reveal diverticulosis of the colon. The visualized appendix is normal. The urinary bladder is unremarkable. The prostate is mildly enlarged. There is no lymphadenopathy. Equivocal circumferential wall thickening versus decompression involving the rectum. Would ensure patient is up-to-date with colonoscopy. OTHER: No other acute findings. Procedure Note Carolyn Jose MD - 06/01/2025 EXAMINATION: CT PELVIS WO CONTRAST ORDERING HEALTHCARE PROVIDER: YADIEL GUARDADO HISTORY: Hip trauma, fracture suspected, no prior imaging. COMPARISON: None TECHNIQUE: Axial CT images with coronal and sagittal reconstructions obtained of the pelvis. Automated exposure control was used as a dose optimization technique for this examination. FINDINGS: BONES: There is diffuse demineralization. There is no acute hip fracture. There is bilateral hip osteoarthritis. No destructive osseous lesion. The pubic rami are intact. There is no widening of the symphysis. There are symmetric degenerative changes involving the SI joints. There is subtle lucency demonstrated in the superior sacral ala bilaterally. While this could reflect demineralization, the potential for nondisplaced sacral ala fractures cannot be excluded. Correlation with MRI recommended to assess for underlying marrow edema. There is spondylosis within the lower lumbar spine. There is mild retrolisthesis of L5 on S1 and anterolisthesis of L4 on L5. Disc space narrowing is noted at these levels. The facets reveal bilateral degenerative changes. Correlate with results of lumbar spine CT performed PERITONEUM: The soft tissues reveal diverticulosis of the colon. The visualized appendix is normal. The urinary bladder is unremarkable. The prostate is mildly enlarged. There is no lymphadenopathy. Equivocal circumferential wall thickening versus decompression involving the rectum. Would ensure patient is up-to-date with colonoscopy. OTHER: No other acute findings. IMPRESSION: 1. No acute hip fracture. 2. Subtle lucencies involving the superior sacral ala bilaterally. This could not be associated with demineralization. Nondisplaced fractures difficult to exclude entirely. MRI can be performed to assess for marrow edema in these regions. 3. 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 4. Lumbar spondylosis and degenerative disc disease. Please see separate dedicated CT lumbar spine report. 5. A circumferential wall thickening versus decompression involving the distal rectum. Correlate with digital rectal exam. Would ensure patient is up-to-date with colonoscopy Electronically signed by: Carolyn Jose M.D. us Yadiel Guardado MD IMG CT PROCEDURES Final Re sult * CT Lumbar Spine WO Contrast (06/01/2025 2:12 PM MECHANICAL OPERATOR) Anatomical Region Laterality Modality Spine N/A Computed Tomogra phy 06/01/2025 3:46 PM MECHANICAL OPERATOR Impressions 06/01/2025 3:46 PM MECHANICAL OPERATOR 1. Concavity of the inferior endplate of the L1, which is in part chronic. Very subtle cortical irregularity is noted which could be associated with degenerative change. Superimposed acute fracture difficult to entirely exclude. Recommend MRI to assess for marrow edema as would be expected with an acute injury. 2. Multilevel lumbar spondylosis and degenerative disc disease with grade 1 anterolisthesis of L4 on L5 and mild retrolisthesis at L2-L3, L3-L4 and L5-S1. There is multilevel disc pathology and disc osteophyte complexes causing varying degrees of central canal stenosis and bilateral foraminal stenosis ranging up to severe. Attention at time of MRI recommended. 3. Incompletely visualized left adrenal nodule best technically indeterminate. The visualized portion does have Hounsfield units compatible with an adenoma. Electronically signed by: Carolyn Jose M.D. Narrative 06/01/2025 3:46 PM MECHANICAL OPERATOR EXAM DESCRIPTION: CT LUMBAR SPINE WO CONTRAST ORDERING PROVIDER: YADIEL GUARDADO REASON FOR STUDY: Lumbar radiculopathy, trauma TECHNIQUE: Axial images acquired through the thoracic spine without intravenous contrast. Reconstructed coronal and sagittal MPR images reviewed. All images stored on PACS. Automated exposure control was used as a dose optimization technique for this examination. COMPARISON: Radiographs dated 05/25/2025. FINDINGS: SEGMENTATION: There are 5 nonrib-bearing lumbar vertebral bodies. The lowest well-developed disc space is labeled L5-S1. ALIGNMENT: There is very subtle retrolisthesis at L1-L2 through L3-L4. There is grade 1 anterolisthesis of L4 on L5. There is minimal retrolisthesis of L5 on S1. Generalized levoconvex curvature centered at L3 VERTEBRAE: There is mild concavity of the inferior endplate of L1, with very subtle cortical irregularity which could reflect an acute on chronic compression deformity. There is multilevel endplate osteophyte formation with sclerosis and cyst formation most evident at L2-L3 and L5-S1. The facets are normally aligned. There are facet degenerative changes greatest at L4-L5 and the L5-S1. DISC HEIGHT: There is disc space narrowing at all levels in the lumbar spine with vacuum disc phenomenon present. HARDWARE: None in the spine. DISC SPACES: L1-L2: There is disc osteophyte complex causing central canal and bilateral neural foraminal narrowing. L2-L3: There is disc osteophyte complex causing central canal stenosis and bilateral neural foraminal narrowing. L3-L4: There is disc osteophyte complex causing neural foraminal narrowing and some central canal stenosis. L4-L5: Disc osteophyte complex is noted. There is neural foraminal narrowing bilaterally, right greater than left, as well as central canal stenosis. L5-S1: Disc osteophyte complexes are noted which causes central canal stenosis as well as bilateral neural foraminal narrowing. OTHER: There is diverticulosis in the colon. Atherosclerotic vascular calcifications are present. There is a partially visualized left adrenal nodule measuring 2.7 cm. Hounsfield units are 2, which would be consistent with an adenoma though the lesion is incompletely visualized on this study. There is osteoarthritis of the SI joints. Subtle lucency at the sacral ala bilaterally which could be related to demineralization. Nondisplaced sacral alar fractures or stress-related fractures not excluded. See separate CT pelvis report Procedure Note Carolyn Jose MD - 06/01/2025 EXAM DESCRIPTION: CT LUMBAR SPINE WO CONTRAST ORDERING PROVIDER: YADIEL GUARDADO REASON FOR STUDY: Lumbar radiculopathy, trauma TECHNIQUE: Axial images acquired through the thoracic spine without intravenous contrast. Reconstructed coronal and sagittal MPR images reviewed. All images stored on PACS. Automated exposure control was used as a dose optimization technique for this examination. COMPARISON: Radiographs dated 05/25/2025. FINDINGS: SEGMENTATION: There are 5 nonrib-bearing lumbar vertebral bodies. The lowest well-developed disc space is labeled L5-S1. ALIGNMENT: There is very subtle retrolisthesis at L1-L2 through L3-L4. There is grade 1 anterolisthesis of L4 on L5. There is minimal retrolisthesis of L5 on S1. Generalized levoconvex curvature centered at L3 VERTEBRAE: There is mild concavity of the inferior endplate of L1, with very subtle cortical irregularity which could reflect an acute on chronic compression deformity. There is multilevel endplate osteophyte formation with sclerosis and cyst formation most evident at L2-L3 and L5-S1. The facets are normally aligned. There are facet degenerative changes greatest at L4-L5 and the L5-S1. DISC HEIGHT: There is disc space narrowing at all levels in the lumbar spine with vacuum disc phenomenon present. HARDWARE: None in the spine. DISC SPACES: L1-L2: There is disc osteophyte complex causing central canal and bilateral neural foraminal narrowing. L2-L3: There is disc osteophyte complex causing central canal stenosis and bilateral neural foraminal narrowing. L3-L4: There is disc osteophyte complex causing neural foraminal narrowing and some central canal stenosis. L4-L5: Disc osteophyte complex is noted. There is neural foraminal narrowing bilaterally, right greater than left, as well as central canal stenosis. L5-S1: Disc osteophyte complexes are noted which causes central canal stenosis as well as bilateral neural foraminal narrowing. OTHER: There is diverticulosis in the colon. Atherosclerotic vascular calcifications are present. There is a partially visualized left adrenal nodule measuring 2.7 cm. Hounsfield units are 2, which would be consistent with an adenoma though the lesion is incompletely visualized on this study. There is osteoarthritis of the SI joints. Subtle lucency at the sacral ala bilaterally which could be related to demineralization. Nondisplaced sacral alar fractures or stress-related fractures not excluded. See separate CT pelvis report IMPRESSION: 1. Concavity of the inferior endplate of the L1, which is in part chronic. Very subtle cortical irregularity is noted which could be associated with degenerative change. Superimposed acute fracture difficult to entirely exclude. Recommend MRI to assess for marrow edema as would be expected with an acute injury. 2. Multilevel lumbar spondylosis and degenerative disc disease with grade 1 anterolisthesis of L4 on L5 and mild retrolisthesis at L2-L3, L3-L4 and L5-S1. There is multilevel disc pathology and disc osteophyte complexes causing varying degrees of central canal stenosis and bilateral foraminal stenosis ranging up to severe. Attention at time of MRI recommended. 3. Incompletely visualized left adrenal nodule best technically indeterminate. The visualized portion does have Hounsfield units compatible with an adenoma. Electronically signed by: Carolyn Jose M.D. us Yadiel Guardado MD IMG CT PROCEDURES Final Re sult * CT Thoracic Spine WO Contrast (06/01/2025 2:12 PM MECHANICAL OPERATOR) Anatomical Region Laterality Modality Spine N/A Computed Tomogra phy 06/01/2025 3:54 PM MECHANICAL OPERATOR Impressions 06/01/2025 3:54 PM MECHANICAL OPERATOR 1. Subtle wedging and irregularity of the superior endplate of T1, age indeterminate. MRI recommended to assess for marrow edema as would be expected with acute/subacute fracture. 2. Compression deformity at T6 with 4 mm of retropulsion. This appears similar to the recent radiographs obtained on 05/25/2025. 3. Neural foraminal narrowing bilaterally at T6-T7 associated with the compression deformity. There is right-sided neural foraminal narrowing at T7-T8 associated with the facet degenerative changes. 4. Multilevel disc space narrowing throughout the thoracic spine. 5. Please see dedicated lumbar spine CT report regarding the inferior endplate of L1. Electronically signed by: Carolyn Jose M.D. Narrative 06/01/2025 3:54 PM MECHANICAL OPERATOR EXAM DESCRIPTION: CT THORACIC SPINE WO CONTRAST ORDERING PROVIDER: YADIEL GUARDADO REASON FOR STUDY: Compression fracture of the thoracic spine. Fall one week ago. Severe right leg pain increasing over the past few weeks with inability to stand. TECHNIQUE: Axial images acquired through the thoracic spine without intravenous contrast. Reconstructed coronal and sagittal MPR images reviewed. All images stored on PACS. Automated exposure control was used as a dose optimization technique for this examination. COMPARISON: Radiographs dated 05/25/2025. FINDINGS: ALIGNMENT: There is a kyphosis centered in the midthoracic spine associated with a compression fracture at the T6 level. There is some mild retropulsion of approximately 4 mm noted. The there is greater than 50% height loss of along the anterior aspect of the the vertebral body. This appears stable compared to the recent radiographs from 05/25/2025. It is new compared to chest x-ray from July 2020. VERTEBRAE: Compression fracture deformity of the T6 as a noted above. There is a very slight wedging of the anterior superior endplate of T1, which is technically age indeterminate. The the remainder of the the thoracic vertebral body heights do appear relatively well maintained. Multilevel endplate osteophyte formation is noted. Please the separate lumbar spine CT report with regards to the inferior endplate of L1. DISC HEIGHT: There is disc space narrowing at nearly all levels within the thoracic spine. HARDWARE: None in the spine. THORACIC DISCS T1-T12: There is some mild neural foraminal narrowing bilaterally at the T6-T7 level secondary to the compression deformity in this region. There is mild right-sided neural foraminal narrowing at T7-T8 due to facet degenerative changes. OTHER: There is a background of pulmonary emphysema. There is no consolidation in the visualized lungs. Mild bronchial wall thickening as can be seen in the setting of bronchitis. Respiratory motion artifact degrades evaluation. There are atherosclerotic calcifications of the thoracic aorta which is incompletely visualized on this study. No mediastinal adenopathy. There is a left adrenal nodule measuring 3 cm in size. Hounsfield units are less than 10, compatible with an adenoma. Procedure Note Carolyn Jose MD - 06/01/2025 EXAM DESCRIPTION: CT THORACIC SPINE WO CONTRAST ORDERING PROVIDER: YADIEL GUARDADO REASON FOR STUDY: Compression fracture of the thoracic spine. Fall one week ago. Severe right leg pain increasing over the past few weeks with inability to stand. TECHNIQUE: Axial images acquired through the thoracic spine without intravenous contrast. Reconstructed coronal and sagittal MPR images reviewed. All images stored on PACS. Automated exposure control was used as a dose optimization technique for this examination. COMPARISON: Radiographs dated 05/25/2025. FINDINGS: ALIGNMENT: There is a kyphosis centered in the midthoracic spine associated with a compression fracture at the T6 level. There is some mild retropulsion of approximately 4 mm noted. The there is greater than 50% height loss of along the anterior aspect of the the vertebral body. This appears stable compared to the recent radiographs from 05/25/2025. It is new compared to chest x-ray from July 2020. VERTEBRAE: Compression fracture deformity of the T6 as a noted above. There is a very slight wedging of the anterior superior endplate of T1, which is technically age indeterminate. The the remainder of the the thoracic vertebral body heights do appear relatively well maintained. Multilevel endplate osteophyte formation is noted. Please the separate lumbar spine CT report with regards to the inferior endplate of L1. DISC HEIGHT: There is disc space narrowing at nearly all levels within the thoracic spine. HARDWARE: None in the spine. THORACIC DISCS T1-T12: There is some mild neural foraminal narrowing bilaterally at the T6-T7 level secondary to the compression deformity in this region. There is mild right-sided neural foraminal narrowing at T7-T8 due to facet degenerative changes. OTHER: There is a background of pulmonary emphysema. There is no consolidation in the visualized lungs. Mild bronchial wall thickening as can be seen in the setting of bronchitis. Respiratory motion artifact degrades evaluation. There are atherosclerotic calcifications of the thoracic aorta which is incompletely visualized on this study. No mediastinal adenopathy. There is a left adrenal nodule measuring 3 cm in size. Hounsfield units are less than 10, compatible with an adenoma. IMPRESSION: 1. Subtle wedging and irregularity of the superior endplate of T1, age indeterminate. MRI recommended to assess for marrow edema as would be expected with acute/subacute fracture. 2. Compression deformity at T6 with 4 mm of retropulsion. This appears similar to the recent radiographs obtained on 05/25/2025. 3. Neural foraminal narrowing bilaterally at T6-T7 associated with the compression deformity. There is right-sided neural foraminal narrowing at T7-T8 associated with the facet degenerative changes. 4. Multilevel disc space narrowing throughout the thoracic spine. 5. Please see dedicated lumbar spine CT report regarding the inferior endplate of L1. Electronically signed by: Carolyn Jose M.D. us Yadiel Guardado MD IMG CT PROCEDURES Final Re sult * XR Spine Lumbar 4 or More Views (05/25/2025 8:16 AM MECHANICAL OPERATOR) Anatomical Region Laterality Modality L-spine N/A Computed Radiogr aphy 05/25/2025 8:30 AM MECHANICAL OPERATOR Impressions 05/25/2025 8:30 AM MECHANICAL OPERATOR 1. Severe compression fracture of the approximate T6 vertebral body. This is age-indeterminate but new from 2020. Correlation with point tenderness and consider cross-sectional imaging for correlation. 2. Mild concavity to the superior endplate of L2 is age indeterminate. Consider correlation with cross-sectional imaging. 3. Mild diffuse thoracolumbar spondylosis. Electronically signed by: Johnson Arambula M.D. Narrative 05/25/2025 8:30 AM MECHANICAL OPERATOR EXAM DESCRIPTION: XR SPINE THORACIC 3 VIEWS, XR SPINE LUMBAR 4 OR MORE VIEWS REASON FOR STUDY: Pain after fall last night. TECHNIQUE: AP, lateral, and swimmer's radiographic view(s) of the thoracic spine AP, lateral, right posterior oblique, left posterior oblique, L5-S1 radiographic views of the lumbar spine COMPARISON: Chest radiograph 08/11/2020 FINDINGS: ALIGNMENT: Minimal levoscoliosis of the lumbar spine. Grade 1 anterolisthesis of L4 on L5. Grade 1 retrolisthesis of L1 on L2 and L2 on L3 and L3 on L4. VERTEBRAE: Severe compression fracture of the approximate T6 vertebral body. This is age-indeterminate but new from 2020. Mild diffuse thoracic spondylosis. No definite spondylolysis on the oblique projections. Mild concavity along the superior endplate of L2 is age indeterminate. DISCS: Loss of intervertebral disc space height at L2-L3, L3-L4, L4-L5, and L5-S1. SOFT TISSUES: Atherosclerotic calcification of the visualized vasculature. Procedure Note Johnson Arambula MD - 05/25/2025 EXAM DESCRIPTION: XR SPINE THORACIC 3 VIEWS, XR SPINE LUMBAR 4 OR MORE VIEWS REASON FOR STUDY: Pain after fall last night. TECHNIQUE: AP, lateral, and swimmer's radiographic view(s) of the thoracic spine AP, lateral, right posterior oblique, left posterior oblique, L5-S1 radiographic views of the lumbar spine COMPARISON: Chest radiograph 08/11/2020 FINDINGS: ALIGNMENT: Minimal levoscoliosis of the lumbar spine. Grade 1 anterolisthesis of L4 on L5. Grade 1 retrolisthesis of L1 on L2 and L2 on L3 and L3 on L4. VERTEBRAE: Severe compression fracture of the approximate T6 vertebral body. This is age-indeterminate but new from 2020. Mild diffuse thoracic spondylosis. No definite spondylolysis on the oblique projections. Mild concavity along the superior endplate of L2 is age indeterminate. DISCS: Loss of intervertebral disc space height at L2-L3, L3-L4, L4-L5, and L5-S1. SOFT TISSUES: Atherosclerotic calcification of the visualized vasculature. IMPRESSION: 1. Severe compression fracture of the approximate T6 vertebral body. This is age-indeterminate but new from 2020. Correlation with point tenderness and consider cross-sectional imaging for correlation. 2. Mild concavity to the superior endplate of L2 is age indeterminate. Consider correlation with cross-sectional imaging. 3. Mild diffuse thoracolumbar spondylosis. Electronically signed by: Johnson Arambula M.D. Abhishek Chand MD IM XR PROCEDURES Final Result * XR Spine Thoracic 3 Vw (05/25/2025 8:16 AM MECHANICAL OPERATOR) Anatomical Region Laterality Modality Spine N/A Computed Radiogr aphy 05/25/2025 8:30 AM MECHANICAL OPERATOR Impressions 05/25/2025 8:30 AM MECHANICAL OPERATOR 1. Severe compression fracture of the approximate T6 vertebral body. This is age-indeterminate but new from 2020. Correlation with point tenderness and consider cross-sectional imaging for correlation. 2. Mild concavity to the superior endplate of L2 is age indeterminate. Consider correlation with cross-sectional imaging. 3. Mild diffuse thoracolumbar spondylosis. Electronically signed by: Johnson Arambula M.D. Narrative 05/25/2025 8:30 AM MECHANICAL OPERATOR EXAM DESCRIPTION: XR SPINE THORACIC 3 VIEWS, XR SPINE LUMBAR 4 OR MORE VIEWS REASON FOR STUDY: Pain after fall last night. TECHNIQUE: AP, lateral, and swimmer's radiographic view(s) of the thoracic spine AP, lateral, right posterior oblique, left posterior oblique, L5-S1 radiographic views of the lumbar spine COMPARISON: Chest radiograph 08/11/2020 FINDINGS: ALIGNMENT: Minimal levoscoliosis of the lumbar spine. Grade 1 anterolisthesis of L4 on L5. Grade 1 retrolisthesis of L1 on L2 and L2 on L3 and L3 on L4. VERTEBRAE: Severe compression fracture of the approximate T6 vertebral body. This is age-indeterminate but new from 2020. Mild diffuse thoracic spondylosis. No definite spondylolysis on the oblique projections. Mild concavity along the superior endplate of L2 is age indeterminate. DISCS: Loss of intervertebral disc space height at L2-L3, L3-L4, L4-L5, and L5-S1. SOFT TISSUES: Atherosclerotic calcification of the visualized vasculature. Procedure Note Johnson Arambula MD - 05/25/2025 EXAM DESCRIPTION: XR SPINE THORACIC 3 VIEWS, XR SPINE LUMBAR 4 OR MORE VIEWS REASON FOR STUDY: Pain after fall last night. TECHNIQUE: AP, lateral, and swimmer's radiographic view(s) of the thoracic spine AP, lateral, right posterior oblique, left posterior oblique, L5-S1 radiographic views of the lumbar spine COMPARISON: Chest radiograph 08/11/2020 FINDINGS: ALIGNMENT: Minimal levoscoliosis of the lumbar spine. Grade 1 anterolisthesis of L4 on L5. Grade 1 retrolisthesis of L1 on L2 and L2 on L3 and L3 on L4. VERTEBRAE: Severe compression fracture of the approximate T6 vertebral body. This is age-indeterminate but new from 2020. Mild diffuse thoracic spondylosis. No definite spondylolysis on the oblique projections. Mild concavity along the superior endplate of L2 is age indeterminate. DISCS: Loss of intervertebral disc space height at L2-L3, L3-L4, L4-L5, and L5-S1. SOFT TISSUES: Atherosclerotic calcification of the visualized vasculature. IMPRESSION: 1. Severe compression fracture of the approximate T6 vertebral body. This is age-indeterminate but new from 2020. Correlation with point tenderness and consider cross-sectional imaging for correlation. 2. Mild concavity to the superior endplate of L2 is age indeterminate. Consider correlation with cross-sectional imaging. 3. Mild diffuse thoracolumbar spondylosis. Electronically signed by: Johnson Arambula M.D. Abhishek Chand MD IMG XR PROCEDURES Final Result * VA ARTHROCENTESIS ASPIR&/INJ MAJOR JT/BURSA W/O US (04/15/2025 1:30 PM CDT) Hanane Fu PA - 04/15/2025 1:30 PM CDT Hanane George PA 04/15/2025 2:38 PM Large Joint (Hip, Knee, Shoulder) Injection: R glenohumeral Performed by: Hanane George PA Authorized by: Hanane George PA Large Joint Injection/Aspiration: Consent Given by: Patient Site marked: the procedure site was marked Timeout: prior to procedure the correct patient, procedure, and site was verified Verbal consent obtained: Yes Supporting Documentation: Indications: Pain Procedure Details: Location: Shoulder Site: R glenohumeral Prep: patient was prepped and draped in usual sterile fashion Needle Size: 22 G Approach: Posterior Ultrasound guided: No Fluroscopic guidance: No Medications: 80 mg methylPREDNISolone acetate 80 mg/mL; 3 mL lidocaine 20 mg/mL (2 %) Patient tolerance: Patient tolerated the procedure well with no immediate complications Hanane LONG IN CLINIC/BEDSIDE ORDER MO Final Result * VA ARTHROCENTESIS ASPIR&/INJ MAJOR JT/BURSA W/O US (04/15/2025 1:30 PM CDT) Hanane Fu PA - 04/15/2025 1:30 PM CDT Hanane George PA 04/15/2025 2:38 PM Large Joint (Hip, Knee, Shoulder) Injection: L glenohumeral Performed by: Hanane George PA Authorized by: Hanane George PA Large Joint Injection/Aspiration: Consent Given by: Patient Site marked: the procedure site was marked Timeout: prior to procedure the correct patient, procedure, and site was verified Verbal consent obtained: Yes Supporting Documentation: Indications: Pain Procedure Details: Location: Shoulder Site: L glenohumeral Prep: patient was prepped and draped in usual sterile fashion Needle Size: 22 G Approach: Posterior Ultrasound guided: No Fluroscopic guidance: No Medications: 80 mg methylPREDNISolone acetate 80 mg/mL; 3 mL lidocaine 20 mg/mL (2 %) Patient tolerance: Patient tolerated the procedure well with no immediate complications us Hanane LONG IN CLINIC/BEDSIDE ORDER MO Final Result * Colonoscopy (04/02/2025 7:39 AM CDT) Anatomical Region Laterality Modality Other Narrative Procedure Note Alfredo Laird MD - 04/02/2025 7:39 AM CDT [facility] Patient Name: Yuko Fernandez Procedure Date: 04/02/2025 7:39 AM Date of : 1955 Admit Type: Outpatient Age: 69 Gender: Male Attending MD: Alfredo Laird M.D., Room: [facility] ENDOSCOPY ROOM 2 Note Status: Finalized Patient Profile: This is a 69 year old male history of HTN, HLD, tobacco use, COPD, diabetes, hypothyroidism,obesity for colon polyp surveillance. Last colonoscopy from 02/2024 showed 11 subcentimeter tubular adenomas throughout the colon, diverticulosis andhemorrhoids. Unknown family hx due to being adopted. Procedure: Colonoscopy Indications: High risk colon cancer surveillance: Personalhistory of multiple (3 or more) adenomas, Last colonoscopy1 year ago Referring MD: Roxie Ribera M.D. Providers: Alfredo Laird M.D. Impression: - Perianal skin tags found on perianal exam. - The examined portion of the ileum was normal. - Two 3 to 5 mm polyps in the descending colon andin the ascending colon, removed with a cold snare. Resected and retrieved. - One 2 mm polyp in the rectum, removed with a cold biopsy forceps. Resected and retrieved. - Diverticulosis in the entire examined colon. - External and internal hemorrhoids. - Erythematous mucosa in the entire examined colon, most pronounced in the cecum and rectum.Biopsied. Recommendation: - Patient has a contact number available for emergencies. The signs and symptoms of potential delayed complications were discussed with thepatient. Return to normal activities tomorrow. Written discharge instructions were provided to thepatient. - Discharge patient to home (with escort). - High fiber diet. - No ibuprofen, naproxen, or other non-steroidal anti-inflammatory drugs. - Await pathology results. - Repeat colonoscopy in 3 years for surveillancebased on pathology results. - Return to primary care physician as previously scheduled. Medicines: Monitored Anesthesia Care Complications: No immediate complications. Estimated Blood Loss: Estimated blood loss was minimal. Procedure: Pre-Anesthesia Assessment: - Prior to the procedure, a History and Physicalwas performed, and patient medications and allergieswere reviewed. The patient is competent. The risks and benefits of the procedure and the sedation optionsand risks were discussed with the patient. Allquestions were answered and informed consent was obtained. Patient identification and proposed procedure were verified by the physician, the bridge builder and the radioactivity technician in the endoscopy suite. Mental Status Examination: normal. Prophylactic Antibiotics: The patient does not require prophylactic antibiotics. Prior Anticoagulants: The patient has taken no anticoagulant or antiplatelet agents. Afterreviewing the risks and benefits, the patient was deemed in satisfactory condition to undergo the procedure.The anesthesia plan was to use monitored anesthesiacare (MAC). Immediately prior to administration of medications, the patient was re-assessed foradequacy to receive sedatives. The heart rate, respiratory rate, oxygen saturations, blood pressure, adequacyof pulmonary ventilation, and response to care were monitored throughout the procedure. The physical status of the patient was re-assessed after the procedure. The benefits, risks and alternatives of theprocedure and sedation were discussed and informed consentwas obtained. All questions were answered. Please referto the signed informed consent document in the medical record. The bowel preparation used was Miralax via split dose instruction. The bowel preparation usedwas bisacodyl tablets via split dose instruction. The scope was passed under direct vision. The Pediatric Colonoscope [id number] was introducedthrough the anus and advanced to the the terminal ileum.The colonoscopy was performed without difficulty. The patient tolerated the procedure well. The qualityof the bowel preparation was adequate. Bowel prep was administered using a split dose. Findings: Skin tags were found on perianal exam. The terminal ileum appeared normal. Two sessile polyps were found in the descending colon and ascending colon. The polyps were 3 to 5 mm in size. These polyps were removedwith a cold snare. Resection and retrieval were complete. A 2 mm polyp was found in the rectum. The polyp was flat. The polypwas removed with a cold biopsy forceps. Resection and retrieval were complete. Scattered medium-mouthed and small-mouthed diverticula were found inthe entire colon. External and internal hemorrhoids were found during retroflexion. Scaterred areas of erythematous mucosa was found in the entire colon, most pronounced in the cecum and rectum. This was biopsied with acold forceps for histology. Alfredo Laird M.D. 04/02/2025 9:23:08 AM Number of Addenda: 0 Note Initiated On: 04/02/2025 7:39 AM Procedure Code(s): --- Professional --- 89512, Colonoscopy, flexible; with removal of tumor(s), polyp(s), or other lesion(s) by snare technique 66420, 59, Colonoscopy, flexible; with biopsy, single or multiple --- Technical --- 90368, Colonoscopy, flexible; with removal of tumor(s), polyp(s), or other lesion(s) by snare technique 80768, 59, Colonoscopy, flexible; with biopsy, single or multiple Diagnosis Code(s): --- Professional --- Z86.0101, Personal history of adenomatous and serrated colon polyps D12.4, Benign neoplasm of descending colon D12.2, Benign neoplasm of ascending colon D12.8, Benign neoplasm of rectum K64.8, Other hemorrhoids K63.89, Other specified diseases of intestine K64.4, Residual hemorrhoidal skin tags K57.30, Diverticulosis of large intestine without perforation orabscess without bleeding --- Technical --- Z86.0101, Personal history of adenomatous and serrated colon polyps D12.4, Benign neoplasm of descending colon D12.2, Benign neoplasm of ascending colon D12.8, Benign neoplasm of rectum K64.8, Other hemorrhoids K63.89, Other specified diseases of intestine K64.4, Residual hemorrhoidal skin tags K57.30, Diverticulosis of large intestine without perforation orabscess without bleeding CPT copyright 2022 [employer]. All rights reserved. The codes documented in this report are preliminary and upon death surveys coder reviewmay be revised to meet current compliance requirements. Recognized by the [employer] for promoting quality in endoscopy us Alfredo Laird MD ENDOSCOPY PROCEDURES Final Resul t * PSA screen (04/19/2021 11:08 AM CDT) PSA-Total 1.94 <=5.40 ng/mL ROBERTO [facility]CALA ([facility]MA[facility]) Comment: Interpretive Data AGE SEX REFERENCE INTERVAL 0 minutes-150 years Female None 0 minutes-49 years Male None 50-59 years Male 0-3.90 60-69 years Male 0-5.40 70-79 years Male 0-6.20 80-150 years Male 0-6.20 Current interpretive data last revised 2018. Testing performed by: [facility], [address] [facility], [place]., [address] Blood 04/19/2021 11:0 8 AM CDT 04/19/2021 2:34 PM CDT us Roxie Ribera MD LAB BLOOD ORDERABLES Final Result ROBERTO ALCALA ([place]) [address] [facility] Department [place] [address] * Lipid panel (04/19/2021 11:08 AM CDT) [facility] Signature Cholesterol 147 30 - 199 mg/dL ROBERTO [facility] ([facility]) Comment: Interpretive Data Ages < or = 19 years Acceptable: <170 mg/dL Borderline high: 170-199 mg/dL High: >or= 200 mg/dL Ages > or = 20 years Desirable: <200 mg/dL Borderline high: 200-239 mg/dL High: >or= 240 mg/dL Literature References: 1. Expert Panel on Integrated Guidelines for Cardiovascular Health and Risk Reduction in Children and Adolescents. Pediatrics 2011;128:S213 2. NCEP Expert Panel. Circulation 2004;110:227 Current Interpretive Data was last revised on 2018. Triglycerides 108 <=149 mg/dL ROBERTO [facility] ([facility]) Comment: Interpretive Data Ages < or = 9 years Acceptable: <75 mg/dL Borderline high: 75-99 mg/dL High: >or= 100 mg/dL Ages 10 to 20 years Acceptable: <90 mg/dL Borderline high: 90-129 mg/dL High: >or= 130 mg/dL Ages > or = 20 years Desirable: <150 mg/dL Borderline high: 150-199 mg/dL High: 200-499 mg/dL Very high: >or= 499 mg/dL Literature References: 1. Expert Panel on Integrated Guidelines for Cardiovascular Health and Risk Reduction in Children and Adolescents. Pediatrics 2011;128:S213 2. NCEP Expert Panel. Circulation 2004;110:227 Current Interpretive Data was last revised on 2018. HDL 52 >=40 mg/dL ROBERTO H ([facility]) Comment: Interpretive Data Ages < or = 19 years Acceptable: >45 mg/dL Borderline low: 40-45 mg/dL Low: <40 mg/dL Ages > or = 20 years Desirable: >or= 60 mg/dL Low: <40 mg/dL Literature References: 1. Expert Panel on Integrated Guidelines for Cardiovascular Health and Risk Reduction in Children and Adolescents. Pediatrics 2011;128:S213 2. NCEP Expert Panel. Circulation 2004;110:227 Current Interpretive Data was last revised on 2018. LDL, calculated 73 <=129 mg/dL ROBERTO ALCALA ([place]) Comment: Interpretive Data Ages < or = 19 years Acceptable: <110 mg/dL Borderline high: 110-129 mg/dL High: >or= 130 mg/dL Ages > or = 20 years Optimal: <100 mg/dL Near optimal: 100-129 mg/dL Borderline high: 130-159 mg/dL High: >160 mg/dL Literature References: 1. Expert Panel on Integrated Guidelines for Cardiovascular Health and Risk Reduction in Children and Adolescents. Pediatrics 2011;128:S213 2. NCEP Expert Panel. Circulation 2004;110:227 Current Interpretive Data was last revised on 2018. Non-HDL Cholesterol 95 mg/dL ROBERTO ALCALA ([place]) Comment: Interpretive Data Ages < or = 19 years Acceptable: <120 mg/dL Borderline high: 120-144 mg/dL High: >145 mg/dL Ages > or = 20 years When triglycerides are >200 mg/dL, Non-HDL cholesterol is a secondary target of therapy with treatment goals that are 30 mg/dL greater than the LDL cholesterol target. Literature References: 1. Expert Panel on Integrated Guidelines for Cardiovascular Health and Risk Reduction in Children and Adolescents. Pediatrics 2011;128:S213 2. NCEP Expert Panel. Circulation 2004;110:227 Current Interpretive Data was last revised on 2018. Chol/HDL ratio 3 RAJINDER ALCALA ([place]) Blood 04/19/2021 11:0 8 AM CDT 04/19/2021 11:16 AM CDT us Roxie Ribera MD LAB BLOOD ORDERABLES Final Result ROBERTO FREDRICK ([place]) 1 [facility] [place] [address] * US Abdominal Aortic Aneurysm Screening (10/28/2020 9:32 AM CDT) Anatomical Region Laterality Modality Abdomen Ultrasound 10/28/2020 9:53 AM CDT Impressions 10/28/2020 9:56 AM CDT Suboptimal examination secondary to patient body habitus and limited acoustic windows. No evidence of an abdominal aortic aneurysm within the limitations of the examination. Electronically signed by: Cedrick Hidalgo M.D. Narrative 10/28/2020 9:56 AM CDT EXAMINATION: US ABDOMINAL AORTIC ANEURYSM SCREENING ORDERING [facility] PROVIDER: ROXIE RIBERA HISTORY :Screening for abdominal aortic aneurysm. History of tobacco use. COMPARISON: None available. TECHNIQUE: Multiple grayscale and color Doppler ultrasound images of the abdominal aorta were obtained. FINDINGS: Suboptimal examination secondary to patient body habitus and limited acoustic windows. Proximal abdominal aorta: 2.4 x 2.6 cm. Mid abdominal aorta: 1.9 x 1.9 cm. Distal abdominal aorta: 1.9 x 1.8 cm. The aortic bifurcation and the iliac arteries are not visualized on this examination. Procedure Note Cedrick Hidalgo MD - 10/28/2020 EXAMINATION: US ABDOMINAL AORTIC ANEURYSM SCREENING ORDERING HEALTHCARE PROVIDER: ROXIE RIBERA HISTORY :Screening for abdominal aortic aneurysm. History of tobacco use. COMPARISON: None available. TECHNIQUE: Multiple grayscale and color Doppler ultrasound images of the abdominal aorta were obtained. FINDINGS: Suboptimal examination secondary to patient body habitus and limited acoustic windows. Proximal abdominal aorta: 2.4 x 2.6 cm. Mid abdominal aorta: 1.9 x 1.9 cm. Distal abdominal aorta: 1.9 x 1.8 cm. The aortic bifurcation and the iliac arteries are not visualized on this examination. IMPRESSION: Suboptimal examination secondary to patient body habitus and limited acoustic windows. No evidence of an abdominal aortic aneurysm within the limitations of the examination. Electronically signed by: Cedrick Hidalgo M.D. 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 Use antibiotics, IV Fluids, and medical treatment unless specifically selected below: No intubationNo cardioversion * Full Code Date Activated Date Inactivated Comments 06/26/2025 8:40 PM 07/03/2025 6:06 PM * LIMITED - No CPR Date Activated Date Inactivated Comments 06/06/2025 6:28 PM 06/10/2025 6:12 PM * LIMITED - No CPR Date Activated Date Inactivated Comments 06/01/2025 11:37 PM 06/06/2025 5:07 PM Question Answer Comments Provide aggressive medical m anagement before a full cardiopulmonary arrest occurs. Use antibiotics, IV Fluids, and medical treatment unless specifically selected below: No intubation * Full Code Date Activated Date Inactivated Comments 06/01/2025 9:36 PM 06/01/2025 11:36 PM Care Teams Shell Trim Tool Setter Relationship Specialty Start Date End Date Roxie Ribera MD PCP - General 11/01/16
== END 2025-07-14 16:49 ==
PROVIDERS: Emergency Provider Emergency Medicine; PCP Family Medicine
DX: S00.83XA Contusion of other part of head, initial encounter (principal); S00.12XA Contusion of left eyelid and periocular area, initial encounter; S79.911A Unspecified injury of right hip, initial encounter; S49.91XA Unspecified injury of right shoulder and upper arm, initial encounter; I11.0 Hypertensive heart disease with heart failure; I50.9 Heart failure, unspecified; E11.9 Type 2 diabetes mellitus without complications; E78.5 Hyperlipidemia, unspecified; Z99.3 Dependence on wheelchair; W07.XXXA Fall from chair, initial encounter
CPT/HCPCS: 70450; 72125; 73030; 73502; 96372; 99284; A9270; J2270